=== PATIENT | female | born 1960 | race Caucasian/White ===

== ENCOUNTER → 2018-01-06 10:34 | Outpatient (CLI) | payer OTHER, SELFPAY ==
--- NOTE | 2018-01-06 10:39 | BI_ITS ---
MAMMOGRAPHY - BILATERAL SCREENING REASON FOR EXAM: Female, 57 years old. Routine annual screening examination. PERTINENT HISTORY: Aunt with breast cancer. TECHNIQUE: Digital bilateral breast trevon (3D mammographic acquisition) in the CC and MLO projections. 2-D mediolateral oblique (MLO) and craniocaudad (CC) views of both breasts were obtained. CAD: Full Field Digital Mammography with Computer Added Detection was performed. COMPARISON: Comparison is made with prior study dated November 03, 2016 and May 16, 2014. FINDINGS: Breast Composition: The breasts are almost entirely fatty. There are no dominant masses or suspicious calcifications. There is a 6.5 mm x 6.5 mm well-defined nodule in the superior retroareolar region of the left breast. Correlation with ultrasound is recommended. No other significant abnormalities are identified. BI/SCREENING MAMM (CAD), BILAT IMPRESSION: 6.5 mm x 6.5 mm well-defined nodule in the superior retroareolar region of the left breast as described. Correlation with ultrasound is recommended. ASSESSMENT CATEGORY: BIRADS Category 0: Incomplete. Need additional imaging evaluation. A letter regarding these results will be sent to the patient by the facility within 30 days. Approximately 10% of breast cancers are not detected by mammography. A normal mammogram should not delay biopsy of a clinically suspicious abnormality. [id number] Electronically Signed: Isidro Fernando MD at 15:46 EDT Tel [phone], Service support ,
== END ==
PROVIDERS: Family Provider Family Medicine; PCP Family Medicine
DX: Z12.31 Encounter for screening mammogram for malignant neoplasm of breast (principal)
CPT/HCPCS: 77063; 77067

== ENCOUNTER → 2018-01-12 10:54 | Outpatient (CLI) | payer OTHER, SELFPAY ==
--- NOTE | 2018-01-12 10:56 | US_ITS ---
STUDY: ULTRASOUND BREAST - LEFT REASON FOR EXAM: Female, 57 years old. Abnormal screening mammogram. TECHNIQUE: Axial and longitudinal images of the LEFT breast were performed with a high resolution ultrasound transducer. COMPARISON: Comparison is made with prior mammogram dated January 06, 2018. FINDINGS: LEFT Breast: The mammographic abnormality corresponds to a 6 mm x 7 mm x 4 mm cyst at the lung o'clock position of the breast at 1 cm from the nipple. US/Breast Limited Unilateral IMPRESSION: The mammographic abnormality corresponds to a 6 mm x 7 mm x 4 mm cyst. Routine mammographic follow-up is recommended. ASSESSMENT CATEGORY: BIRADS Category 2: Benign. A letter regarding these results will be sent to the patient by the facility within 30 days. Electronically Signed: Isidro Fernando MD at 13:14 EDT Tel [phone], Service support ,
== END ==
PROVIDERS: Family Provider Family Medicine; PCP Family Medicine
DX: R92.2 Inconclusive mammogram (principal)
CPT/HCPCS: 76642

== ENCOUNTER → 2018-10-06 10:00 | Outpatient (CLI) | payer OTHER, SELFPAY ==
[2018-10-06 12:18] LABS: Absolute Neutrophil Count 2.9 X10^3/uL (2.0-7.7); Basophil# 0.03 X10^3/uL; Basophil% 0.6 % (0-1); Eosinophil# 0.26 X10^3/uL; Eosinophils% 4.8 % (0-5); Hematocrit 40.7 % (37-47); Hemoglobin 13.3 g/dl (12.0-15.0); Lymphocyte % 29.7 % (19-41); Mean Corp Hgb Conc 32.7 g/gl (32-36); Mean Corpuscular Volume 85.7 fL (81-99); Mean Platelet Vol. 9.9 fl (6.2-12.0); Monocyte# 0.54 X10^3/uL; Neutrophil # 2.94 X10^3/uL (2.7-7.7); Neutrophil % 54.7 % (47-70); Platelet Count 308 K/mm3 (150-450); RBC Distribution Width CV 13.8 % (11.6-14.6); RBC Distribution Width SD 43.5 fl (35.1-43.9); Red Blood Count 4.75 M/mm3 (4.2-5.4); White Blood Count 5.4 K/mm3 (4.4-11.0)
[2018-10-06 12:22] LABS: POSITIVE COUNT NO; POSITIVE DIFFERENTIAL NO; POSITIVE MORPHOLOGY NO
[2018-10-06 12:30] LABS: Hemoglobin A1c 5.6 % (4.2-6.3)
[2018-10-06 12:43] LABS: ALB/GLOB Ratio 0.8 RATIO (0.9-2.4); AST(SGOT) 25 U/L (15-37); Alanine Aminotransfer ALT/SGPT 39 U/L (13-56); Albumin, Serum 3.5 g/dL (3.2-5.0); Alkaline Phosphatase 70 U/L (45-117); Anion Gap 5 (5-15); BUN 11 mg/dL (7-18); BUN/Creat Ratio 14.8 RATIO (10-20); Chloride 104 mmol/L (98-107); Cholesterol 186 mg/dL (200); Creatinine, Serum 0.74 mg/dL (0.55-1.02); EST Glomerular Filtration Rate 85 mL/min (>60); Est Glom Filt Rate - Afr Amer 102 mL/min (>60); Globulin 4.2 g/dL (2.2-4.2); Glucose 98 mg/dL (74-106); High Density Lipoprotein 66 mg/dL; Protein, Total 7.7 g/dL (6.4-8.2); Sodium Level 141 mmol/L (136-145); Thyroid Stim Hormone (TSH) 1.08 uIU/mL (0.358-3.74); Triglycerides 89 mg/dL; Very Low Density Lipoprotein 18 mg/dL (5-40)
== END ==
PROVIDERS: Family Provider Family Medicine; PCP Family Medicine; Referring Provider Family Medicine; Visit Provider Family Medicine
DX: Z00.01 Encounter for general adult medical examination with abnormal findings (principal); I10 Essential (primary) hypertension; R73.01 Impaired fasting glucose; D50.9 Iron deficiency anemia, unspecified; E55.9 Vitamin D deficiency, unspecified; E66.9 Obesity, unspecified
CPT/HCPCS: 36415; 80053; 80061; 83036; 84443; 85025

== ENCOUNTER → 2019-01-26 06:30 | Outpatient (CLI) | payer OTHER, SELFPAY ==
--- NOTE | 2019-01-26 06:43 | MRI_ITS ---
STUDY: MRI LEFT ANKLE WITHOUT CONTRAST REASON FOR EXAM: Female, 58 years old. Achilles tendinosis. Heel spur. TECHNIQUE: Standardized fat and water weighted pulse sequences were obtained in all 3 orthogonal planes. COMPARISON: None. FINDINGS: Normal subcutis adipose space. There is accessory navicular incorporated into the distal posterior tibialis tendon. Normal flexor digitorum longus tendon. Normal flexor hallucis longus tendon. Normal peroneus longus and brevis tendons. Normal tibialis anterior tendon. Normal extensor hallucis longus tendon. Normal extensor digitorum longus tendons. There is tendinosis with thickening of the distal Achilles tendon. There are enthesopathic changes of the teno-osseous insertion of the Achilles tendon, without a tendon tear. There is a plantar fasciitis with plantar fascial thickening and fascial edema, but without a focal tear. There is a plantar calcaneal spur, but without cancellous marrow edema. Normal intrinsic muscles of the rearfoot. Normal distal tibiofibular syndesmotic ligamentous complex. Normal lateral ligamentous complex. Normal subtalar ligaments and sinus tarsi. Normal deltoid ligamentous complexes. Normal plantar calcaneonavicular (spring) ligament. Normal tibiotalar articulation. There is subchondral edema of the tibial plafond. There is ossification inferior to the medial malleolus with prior avulsion or chronic impingement. Normal talar dome. Normal subtalar articulations. Normal talonavicular articulation. Normal calcaneocuboid articulation. Normal navicular-cuneiform articulations. MRI/Lower Ext Joint Only (Routine) IMPRESSION: Achilles tendinosis with enthesophyte at the insertion. Plantar fasciitis with heel spur. Prior medial avulsion or chronic impingement. Electronically Signed: Celestine Truong MD at 15:51 EDT , Service support ,
== END ==
PROVIDERS: Family Provider Family Medicine; PCP Family Medicine; Referring Provider Podiatrist; Visit Provider Podiatrist
DX: M76.62 Achilles tendinitis, left leg (principal); M77.32 Calcaneal spur, left foot
CPT/HCPCS: 73721

== ENCOUNTER → 2019-02-07 08:51 | Outpatient (CLI) | payer OTHER, SELFPAY ==
[2019-02-07 12:45] LABS: Absolute Lymphocyte Count 0.97 X10^3/uL (0.83-4.51); Absolute Neutrophil Count 1.7 X10^3/uL (2.0-7.7); Basophil# 0.03 X10^3/uL; Basophil% 0.9 % (0-1); Eosinophil# 0.12 X10^3/uL; Eosinophils% 3.7 % (0-5); Hematocrit 42.6 % (37-47); Hemoglobin 13.7 g/dL (12.0-15.0); Lymphocyte # 0.97 X10^3/ul (4.0); Lymphocyte % 30.2 % (19-41); Mean Corp Hgb Conc 32.2 g/dL (32-36); Mean Corpuscular Hgb 28.1 pg (27.0-32.0); Mean Corpuscular Volume 87.3 fL (81-99); Mean Platelet Vol. 10.2 fl (6.2-12.0); Monocyte# 0.41 X10^3/uL; Monocyte% 12.8 % (0-10); NRBC Flagged by Analyzer 0 % (0-5); Neutrophil # 1.68 X10^3/uL (2.7-7.7); Neutrophil % 52.4 % (47-70); Platelet Count 243 K/mm3 (150-450); RBC Distribution Width CV 13.9 % (11.6-14.6); RBC Distribution Width SD 44.6 fl (35.1-43.9); Red Blood Count 4.88 M/mm3 (4.2-5.4); White Blood Count 3.2 K/mm3 (4.4-11.0)
[2019-02-07 12:56] LABS: ALB/GLOB Ratio 1.1 RATIO (0.9-2.4); AST(SGOT) 24 U/L (15-37); Alanine Aminotransfer ALT/SGPT 33 U/L (13-56); Albumin, Serum 3.8 g/dL (3.2-5.0); Alkaline Phosphatase 65 U/L (45-117); Anion Gap 6 (5-15); BUN 12 mg/dL (7-18); BUN/Creat Ratio 16.9 RATIO (10-20); Calcium,Total 9.4 mg/dL (8.5-10.1); Chloride 104 mmol/L (98-107); Creatinine, Serum 0.71 mg/dL (0.55-1.02); EST Glomerular Filtration Rate 89 mL/min (>60); Est Glom Filt Rate - Afr Amer 108 mL/min (>60); Globulin 3.5 g/dL (2.2-4.2); Glucose 135 mg/dL (74-106); Potassium 3.8 mmol/L (3.5-5.1); Protein, Total 7.3 g/dL (6.4-8.2); Sodium Level 141 mmol/L (136-145)
== END ==
PROVIDERS: Family Provider Family Medicine; PCP Family Medicine; Visit Provider Family Medicine
DX: Z01.818 Encounter for other preprocedural examination (principal)
CPT/HCPCS: 36415; 80053; 85025

== ENCOUNTER 2019-02-16 06:02 | Day surgery (SDC) | payer OTHER, SELFPAY ==
[2019-02-16 06:45] VITALS: BP 140/82; PULSE 51; RESP 15; TEMP 36.6; O2SAT 98; BMI 44.9
[2019-02-16] MEDS: Lactated Ringers 1,000 ML 80 ML IV (06:52)
[2019-02-16] MEDS: Cefazolin 2 GM in 0.9% Normal Saline 100 ML IV (07:26)
[2019-02-16] MEDS: Bupivacaine Mpf 0.5% 30 ML VIAL (07:50)
--- NOTE | 2019-02-16 08:55 | RAD_ITS ---
STUDY: X-RAY - RIGHT CALCANEUS REASON FOR EXAM: Female, 58 years old. Resection of heel spur. TECHNIQUE: 4 C-arm views of the calcaneus were obtained. 24.1 seconds fluoroscopy time. COMPARISON: MRI 01/26/2019. FINDINGS: These limited field of view images show an open surgical wound posterior to the calcaneus, and resection of Achilles enthesopathy. Correlate with procedure note. Electronically Signed: Tha Mayfield MD at 17:06 EDT , Service support , RAD/Calcaneus min 2 Views
--- NOTE | 2019-02-16 10:07 | DCINST_ITS ---
Discharge Activity: May Not Drive Ice area for (Minutes): 15 - place behind knee Weight Bearing Status: No weight bearing Call your doctor if your incision/area has: Continuous Slow Oozing, Sudden Increased Bleeding, Increased Pain/ Swelling, Increased Redness, Foul Smelling Discharge, Swelling at the incision site Call your doctor if you observe: Fever of 101 or Higher, Calf discomfort, Uncontrolled pain Cleanse incision/area with: Keep Dressing Clean & Dry Allergies/Adverse Reactions: Allergies eprosartan [From [place]] Allergy (Verified 02/16/19 06:44) Other severe joint pain Medications to take at Discharge Atenolol [Tenormin (Beta [place]ana)] 50 mg PO BID 02/12/19 Escitalopram Oxalate [Lexapro] 10 mg PO DAILY 02/12/19 Hydrochlorothiazide [Hctz] 25 mg PO DAILY 02/12/19 Primary Care Physician: Jeffry Nichole DO [Primary Care Provider] - Test Results: Test results from this visit will be discussed in further detail at your follow- up appointment, if applicable. Please Follow Up With: Beverley Vega DPM When: [facility]. Call [phone] sooner if questions. Proposed Discharge Date: 02/16/19
--- NOTE | 2019-02-16 10:09 | OP.PCM_ITS ---
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 Left gastrocnemius equinus Post-Operative Diagnosis: Left lower extremity chronic Achilles tendinitis with retrocalcaneus exostosis and halgund deformity. Left gastrocnemius equinus Surgery/Procedure Performed:: 1. Left endoscopic gastrocnemius recession. 2. Left calcaneus exostectomy with de and reattachment of the Achilles tendon with bone anchors Description of Surgical Findings:: Hemostasis: Controlled with well-padded pneumatic thigh tourniquet 53 minutes, 315 mmHg Materials: Arthrex Achilles speed bridge including FiberWire and 4 anchors, 3-0 vicryl, 4-0 nylon Specimens: None Complications: None Patient tolerated the procedure and anesthesia well. She was transported to the PACU with vital signs stable and vascular status intact to the left lower extremity. She will be discharged home upon continued stability. Intraoperative fluoroscopy was used after the surgery was completed to confirm adequate resection of the painful posterior calcaneus spur and Sloane deformity. The bone anchor placement was also confirmed and there were no acute injuries. Her postoperative orders were entered electronically. grain operations manager: none - surgeon: Beverley Vega DPM Software Configuration Manager: Brandi Mcgee PGY2 Type of Anesthesia:: General, Local - Preoperative: One-to-one mixture of 1% lidocaine plain and 0.5% Marcaine plain administered in partial left ankle block fashion with omission of the deep peroneal and dorsal intermediate cutaneous nerve branches, 17 cc Intraoperative: 7 cc of 1% lidocaine with epinephrine administered to gastrocnemius recession site Postoperative: 10 cc of one-to-one mixture of 1% lidocaine plain and 0.5% Marcaine plain administered with local infiltration to the Achilles insertional repair site Specimen's removed: none Estimated Blood Loss (mL): < 50 mL Description of Procedure: Indications: This 58-year-old female with significant past medical history of depression and hypertension continues to complain of chronic posterior left heel pain. She has pain and limitations with daily activities including walking and standing. Her pain is also aggravated with direct touch. She failed conservative care including change in shoes, insoles, rest, offloading with aperture pads, heel li fts, shockwave therapy, immobilization, stretching / strengthening exercises, and pain / anti inflammation medication. Preoperative x-rays demonstrate Sloane deformity with a prominent posterior superior calcaneal margin. There is also insertional Achilles exostosis noted to the posterior central and lateral aspect clinically and radiographically. No other acute injuries are noted. Her calcaneal inclination angle was also normal. There were not any bone cysts or other trabecular irregularities of the calcaneus noted on xrays. She has pain on palpation mainly to the posterior central Achilles insertion area and also at the retrocalcaneal bursa site of the left lower extremity. She has reduced ankle dorsiflexion of -5 degrees with the knee extended of the left lower extremity. Her preoperative MRI demonstrated exostosis to the posterior Achilles insertion on the calcaneus with insertional calcification. There is also a prominent posterior superior calcaneus tuberosity with inflammation to the retrocalcaneal bursa. There is no distinct Achilles tears or rupture. There is thickening of the insertional Achilles tendon noted. There is no bone marrow edema to the calcaneus. The preoperative indication, planned procedure, possible benefits, risk, complications, and anticipated healing time and management were discussed in detail the patient. She understands and elects to proceed with surgery at this time. No guarantees were made. She understands risks and complications may include but are not limited to the following: pain, swelling, scarring, over under correction, allergic reaction, blood clot, need for further surgery, delayed or nonhealing of the incision or bone, hardware failure, recurrence, loss of limb, function, life. The informed surgical consent and limb were signed. Her preoperative clearance was obtained by her primary care physician and her preoperative diagnostic data including CBC, CMP, and EKG were reviewed without gross abnormality. I answered her questions. Procedure in detail: The patient was transported to the operating room via cart. General anesthesia was initiated by the anesthesia team. She was then carefully placed on the operating table in the prone position in a well-padded and protected manner. Preoperative IV antibiotics were administered. A well-padded pneumatic left thigh tourniquet was placed. The left lower extremity was prepped and draped in the usual aseptic manner. Local anesthetic was administered at this time by the podiatry team. Surgery began in the following manner. The medial gastrocnemius head was marked and a one centimeter linear incision was made along the medial border of the gastrocnemius aponeurosis several centimeters distal to the medial gastrocnemius head. Blunt dissection was performed down to identify the gastrocnemius aponeurosis border. Next a metallic plane finder was entered between the gastrocnemius aponeurosis and the superficial fascial layer in which a stab incision was made laterally to allow this to exit. The endoscopic cannula was next entered. Next, the arthroscopy camera was entered through the cannula and the viewing field was cleansed with cotton tip applicators and a rasp. The gastrocnemius aponeurosis was clearly identified without evidence of entrapped neurovascular structures along the entire course. Next an endoscopic blade was entered and this was carefully released with the foot in a dorsiflexed position until the underlying soleus muscle belly was visualized. Intraoperative pictures were taken to capture the full release of this structure. Improved ankle dorsiflexion was noted after this was performed. This surgical site irrigated with saline. Minimal Vicryl suture was used to reapproximate the deep part of the medial portal site. The skin was reapproximated with nylon sutures utilizing horizontal mattress technique. Attention was next directed to the posterior aspect of the left heel. An Esmarch bandage was used to exsanguinate the left lower extremity and the tourniquet was inflated at this time. A curvilinear incision was made through the skin in a favored medial manner. Minimal blunt dissection was performed down to the Achilles tendon level taking care to create a full-thickness flap and to allow good exposure to the preoperatively marked sites of pain. A new 15 blade was used next to reflect the Achilles tendon off of the posterior tubercle of the calcaneus to allow good exposure. The prominent hypertrophic posterior heel spur was identified and was resected with a sagittal saw and rongeur; this measured approximately 2 1/2 cm x 2 1/2 cm x 1 cm. This was further rasped down until smooth. Intraoperative fluoroscopy was used to confirm adequate resection. It is noted the clinically marked area of palpation pain was also smoothed and there was no longer a prominent bone remaining. The Achilles tendon appeared to be overall intact without additional tears or hypertrophy. The retrocalcaneal bursa that was inflamed clinically and also an MRI exam was also excised with a rongeur. This was copiously irrigated with normal saline. Next the swivel lock anchors were entered to apply the speed bridge with the fiber tape according to standard protocol. The two proximal anchors were applied approximately 1 cm proximal to the distal most insertion point of the Achilles. This was performed successfully in a non divergent manner according to standard protocol. The Achilles was noted to be in a good resting tension position. A free 2-0 fiber wire was used to additionally augment this repair site just proximal to the bone anchors. The remaining two distal anchors were applied to the distal posterior aspect of the calcaneus. The fiber wires were laying flat and there were no palpable prominent soft tissue or bone remaining. Solid fixation was achieved. Proper positioning and adequate spur resection was confirmed with intraoperative fluoroscopy. No acute injuries were noted. The tendon was anchored down in a balanced tendon position. The tourniquet was deflated at this time and brisk capillary refill time was noted to all digits of the left foot and also to all incisional margin sites. Postoperative injection was also administered this time. Deep closure was achieved with 3-0 Vicryl and the skin was reapproximated with 4-0 nylon utilizing horizontal mattress technique. Care was taken to use no touch technique. A postoperative dressing was applied including jumpstart silver impregnated dressing, 4 x 4 gauze, abdominal pad, Kerlix, and webril. A well-padded pneumatic left lower extremity splint was applied with the foot in a slightly plantarflexed position and further secured with LORENA wrap. Care was taken to create an offloading pocket to keep pressure off of the achilles repair site. After procedure: The patient tolerated the procedure and anesthesia well. She was transported to the PACU with vital signs stable and vascular status intact to left lower extremity. She was advised to ice and elevate for pain and inflammation management. She was advised to remain nonweightbearing to the left lower extremity with the posterior mold splint in place and the use of crutches or walker for assistance. She will take [place] as needed for pain control and was advised on safe and proper use. She was advised to keep the dressing and splint intact until [facility]. Postoperative x- rays were already reviewed. No specimens were sent. Her postoperative orders were entered electronically. Beverley Vega DPM, [facility] Grafts/Implants Used: arthrex - Complications none - Admit VTE Documentation VTE Present on Admission: No VTE Mechan Device Prophylaxis: SCD's, None Reason prophylaxis not ordered:: Procedure Not Indicated
[2019-02-16 10:10] VITALS: BP 140/82; BP 153/74; PULSE 59; RESP 16; TEMP 36.3; O2SAT 100
[2019-02-16 10:15] VITALS: BP 140/82; BP 142/83; PULSE 57; RESP 16; O2SAT 100
[2019-02-16 10:30] VITALS: BP 140/82; BP 158/90; PULSE 55; RESP 16; O2SAT 100
[2019-02-16 10:41] VITALS: BP 140/82; BP 164/83; PULSE 53; RESP 16; TEMP 36.2; O2SAT 100
[2019-02-16 11:40] VITALS: BP 134/66; BP 140/82; PULSE 46; RESP 14; TEMP 36.5; O2SAT 96
== END 2019-02-16 12:07 | disposition home or self-care (01) ==
LOC: SDC 06:02 → AC 06:03
PROVIDERS: Family Provider Family Medicine; PCP Family Medicine; Referring Provider Podiatrist; Visit Provider Podiatrist
PROC: (CPT 29999; principal; 2019-02-16 07:15)
DX: M76.62 Achilles tendinitis, left leg (principal); M67.88 Other specified disorders of synovium and tendon, other site; M77.32 Calcaneal spur, left foot; I10 Essential (primary) hypertension; K21.9 Gastro-esophageal reflux disease without esophagitis; Z85.89 Personal history of malignant neoplasm of other organs and systems; D72.819 Decreased white blood cell count, unspecified
CPT/HCPCS: 28108; 29999; 73650; 76000; C1713; J7120; J2405

== ENCOUNTER 2019-05-04 09:00 | Outpatient (RCR) | payer OTHER, SELFPAY ==
--- NOTE | 2019-04-05 08:55 | HP.PTEVAL_ITS ---
Patient's Visit Information SHERRELL JADE is a 58 year old F referred to Physical Therapy by Beverley Vega DPM with a diagnosis of Heel Spur Resection, Achilled Reattatchment, Gastroc Recession. Date of Evaluation: 04/05/19 Physical Therapist: Sagrario Heath DPT - Visit Plan Frequency: 2x /Week Duration: 4 Weeks Plan: Patient to attend PT after clearance from MD to be in tennis shoe- focus on ROM, strength and functional moibility. HEP given 04/05: 4 way Tband with BTB, Gastroc Stretch with Towel - Subjective Findings: Last February started having left heel pain- has had plantar fasciitis before and wears orthotics but this was different. 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 Sent her to Dr. Vega. Put her in a boot and anti-inflammatories until December. It was not getting any better- had an MRI and determined that she needed to clean things up. Surgery at [facility] February 16, 2019- NWB with a scooter and boot for 4 weeks. She had a spot on the incision that was not healing so she did the healing from the inside out with the hydrogel. Healed up now but keeps a bandied across so it does not rub. She is now walking with just a boot and the wedge. Goes back to see Apr 10. Worst: 6/10 Agg: walking, standing. Once she is off the foot for 30 min the pain is 0/10. Pain is located right below the incision site- padded area of the heel. No radiating pain. Describes the pain as dull an achy- No N/T. 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 Can return to work in the boot. PMHx/Meds: no changes since at the hospital. Goals: get back to all her normal stuff- has lost 22lbs with a bariatric surgeon- plans to do a gastric sleeve in May. More sedentary in her life outside of work but wants to be more active. Does not wear her boot at home- wears regular shoes with orthotics. - Objective Posture: FH, RS- can correct but does not maintain. Gait: no AD- CAM walker on the left LE- does wear a shoe elevator on the other side to decrease the sway. HR/TR: able with slight discomfort with heel raise. SLS: 3 sec then LOB no pain reported. Observation: well healed incision- does have bandaid at end for protection- dry skin. ROM: DF: 5 degrees, PF: 60 degrees, Ever: 30 degrees, Inver: 50 degrees. Strength: Ankle: 4+/5, Knee: 5/5, Hip: 4+/5, Core: fair. Flex: Gastroc: moderate, Hamstring: moderate. Girth: Figure 8: 57 cm, Malls: 31.5 - Goals Goal 1:: Patient will be I with HEP and progression Goal Time Frame: 4-6 Weeks Goal 2:: Patient will ambulate >300 feet with a normalized gait pattern Goal Time Frame: 4-6 Weeks Goal 3:: Patient will SLS for 15 sec before LOB Goal Time Frame: 4-6 Weeks Goal 4:: Patient will report 0/10 pain for 1 week with normal ADL's. Goal Time Frame: 4-6 Weeks - Rehabilitation Potential Physical Therapy Diagnosis: Patient presents with hypmobility- she has decreased ROM, strength, flex and muscular endurance leading to abnormal gait and increased pain with ADL's. Rehabilitation Potential: Good - Anticipated Interventions Patient/Client Instruction: Educate patient on: Benefits of Fitness Program Therapeutic Exercise to Include: Strength training, Endurance training, Balance training, Coordination, Agility training, Body mechanics, Postural training, Flexibilty training, Gait and locomotor training, Passive ROM, Active ROM, Dynamic Lumbar Stabilization For the Purpose of:: To improve muscle performance and motor function TENS: Yes Cryotherapy (ice pack, ice massage): Yes Thermo therapy (hot pack): Yes Ultrasound (thermal/non thermal): No Thank you for the opportunity to evaluate your patient. For Medicare and Medicare HMO plans, please review the plan of care and approve it. It will need to be FAXED BACK to us at [phone] for Medicare purposes. For Medicare only, by signing this I certify the plan of care. Please let me know if there are questions or concerns regarding this plan of care. Physician Signature: Date:
--- NOTE | 2019-05-04 09:34 | HP.PTDCSUM_ITS ---
HP - PT D/C Summary It has been my pleasure to treat SHERRELL JADE under orders from Beverley Vega DPM, for the diagnosis of Heel Spur Resection, Achilled Reattatchment, Gastroc Recession for a total of 7 visit(s). Discharge Date: Please see the following information for a summary of their discharge status. - Subjective Subjective: Worked yesterday 12 hours in a shoe and was sore at end of the shift the bottom of the heel 4-5/10. As soon as she put her foot up and iced it the pain went away. No ankle brace but did use the lift- new shoes. No pain in the achilles just in the bottom since surgery. She feels that she can continue home exercise program. - Overall Improvement % Improvement: 90 - Objective Objective/Function: Posture: FH, RS- can correct but does not maintain. Gait: no AD- tennis shoe- decrease heel/toe strike and decreased stance on left LE HR/TR: able no pain SLS: 5 sec then LOB no pain reported. Observation: well healed incision ROM: DF: 14 degrees, PF: 60 degrees, Ever: 30 degrees, Inver: 50 degrees. Strength: Ankle: 5/5, Knee: 5/5, Hip: 4+/5, Core: fair. Flex: Gastroc: moderate, Hamstring: moderate. Girth: Figure 8: 56 cm, Malls: 30 Mets: 22.5 cm - Goals Goal 1:: Patient will be I with HEP and progression Goal Progress: Goal Met Goal 2:: Patient will ambulate >300 feet with a normalized gait pattern Goal Progress: Progressing Goal 3:: Patient will SLS for 15 sec before LOB Goal Progress: Progressing Goal 4:: Patient will report 0/10 pain for 1 week with normal ADL's. Goal Progress: Progressing - Plan Plan: Discharge to [facility] per patient request - D/C Information If there are questions or concerns regarding this patient's physical therapy, please feel free to call me at [phone]. Thank you for the referral of this patient. Sincerely, Sagrario Heath DPT
== END 2019-05-04 10:36 | disposition home or self-care (01) ==
LOC: PT 09:00
PROVIDERS: Family Provider Family Medicine; PCP Family Medicine; Referring Provider Podiatrist; Visit Provider Podiatrist
DX: Z98.890 Other specified postprocedural states (principal)
CPT/HCPCS: 97110; 97161; 97164

== ENCOUNTER → 2019-05-21 15:10 | Outpatient (CLI) | payer OTHER, SELFPAY ==
--- NOTE | 2019-05-21 15:15 | BI_ITS ---
MAMMOGRAPHY - BILATERAL SCREENING REASON FOR EXAM: Female, 59 years old. Routine annual screening examination. PERTINENT HISTORY: Grandmother with breast cancer. TECHNIQUE: Digital bilateral breast alex (3D mammographic acquisition) in the CC and MLO projections. 2-D mediolateral oblique (MLO) and craniocaudad (CC) views of both breasts were obtained. CAD: Full Field Digital Mammography with Computer Added Detection was performed. COMPARISON: Comparison is made with prior study to January 06, 2018 and November 03, 2016. FINDINGS: Breast Composition: The breasts are almost entirely fatty. There are no dominant masses or suspicious calcifications. The previously seen 6.5 mm nodule in the superior retroareolar region of the left breast is not seen at this time this was demonstrated to be a cyst on prior sonogram. No other significant abnormalities are identified. BI/SCREEN MAMM (CAD) W/ALEX BILAT IMPRESSION: Stable bilateral screening mammogram. Yearly follow-up mammogram recommended. (A) ASSESSMENT CATEGORY: BIRADS Category 2: Benign. A letter regarding these results will be sent to the patient by the facility within 30 days. Approximately 10% of breast cancers are not detected by mammography. A normal mammogram should not delay biopsy of a clinically suspicious abnormality. [id number] Electronically Signed: Isidro Fernando, at 8:57 EST , Service support ,
== END ==
PROVIDERS: PCP Family Medicine; Referring Provider Obstetrics & Gynecology; Visit Provider Obstetrics & Gynecology
DX: Z12.31 Encounter for screening mammogram for malignant neoplasm of breast (principal)
CPT/HCPCS: 77063; 77067

== ENCOUNTER → 2019-09-18 11:43 | Outpatient (CLI) | payer OTHER, SELFPAY ==
[2019-09-18 15:04] LABS: Absolute Lymphocyte Count 1.61 X10^3/uL (0.83-4.51); Absolute Neutrophil Count 4.3 X10^3/uL (2.0-7.7); Basophil# 0.03 X10^3/uL; Basophil% 0.5 % (0-1); Eosinophils% 1.5 % (0-5); Hematocrit 41.1 % (37-47); Hemoglobin 13.2 g/dL (12.0-15.0); Lymphocyte # 1.61 X10^3/ul (4.0); Lymphocyte % 24.4 % (19-41); Mean Corp Hgb Conc 32.1 g/dL (32-36); Mean Corpuscular Hgb 28.3 pg (27.0-32.0); Mean Corpuscular Volume 88.2 fL (81-99); Mean Platelet Vol. 10.4 fl (6.2-12.0); Monocyte# 0.55 X10^3/uL; Monocyte% 8.3 % (0-10); NRBC Flagged by Analyzer 0 % (0-5); Neutrophil # 4.31 X10^3/uL (2.7-7.7); Neutrophil % 65.1 % (47-70); Platelet Count 321 K/mm3 (150-450); RBC Distribution Width CV 13.5 % (11.6-14.6); RBC Distribution Width SD 43.2 fl (35.1-43.9); Red Blood Count 4.66 M/mm3 (4.2-5.4); White Blood Count 6.6 K/mm3 (4.4-11.0)
[2019-09-18 15:23] LABS: AST(SGOT) 22 U/L (15-37); Alanine Aminotransfer ALT/SGPT 34 U/L (13-56); Albumin, Serum 3.9 g/dL (3.2-5.0); Alkaline Phosphatase 78 U/L (45-117); Anion Gap 9 (5-15); BUN 18 mg/dL (7-18); BUN/Creat Ratio 22.1 RATIO (10-20); Calcium,Total 9.7 mg/dL (8.5-10.1); Chloride 100 mmol/L (98-107); Creatinine, Serum 0.81 mg/dL (0.55-1.02); EST Glomerular Filtration Rate 76 mL/min (>60); Est Glom Filt Rate - Afr Amer 92 mL/min (>60); Glucose 76 mg/dL (74-106); Potassium 3.8 mmol/L (3.5-5.1); Protein, Total 7.9 g/dL (6.4-8.2); Sodium Level 138 mmol/L (136-145)
[2019-09-18 15:26] LABS: Hemoglobin A1c 5.2 % (3.8-5.6)
== END ==
PROVIDERS: PCP Family Medicine; Visit Provider Family Medicine
DX: Z01.818 Encounter for other preprocedural examination (principal); R73.01 Impaired fasting glucose; R73.03 Prediabetes
CPT/HCPCS: 36415; 80053; 83036; 85025

== ENCOUNTER 2021-02-21 19:38 | Emergency (ER) | payer OTHER, SELFPAY ==
[2021-02-21 19:39] VITALS: BP 172/99; PULSE 65; RESP 18; TEMP 35.7; O2SAT 97; BMI 35.4
--- NOTE | 2021-02-21 20:20 | RAD_ITS ---
STUDY: X-RAY - LEFT ANKLE REASON FOR EXAM: Female, 60 years old. injury TECHNIQUE: 3 view(s) of the ankle. COMPARISON: None. FINDINGS: Diffuse osteopenia. Nondisplaced distal fibular fracture with overlying soft tissue swelling. Normal tibiotalar articulation and ankle mortise. Calcaneal spur. The visualized subtalar, talonavicular, calcaneocuboid and tarsal articulations are normal. Diffuse soft tissue swelling. RAD/Ankle min 3 Views IMPRESSION: BARRAZA B distal fibular fracture. Electronically Signed: Marco Olivares MD (Brooks) at 20:45 EDT , Service support ,
--- NOTE | 2021-02-21 21:50 | ED.VIS.LOWEX ---
HPI History of Present Illness Chief Complaint: Lower Extremity Injury Informant: patient Occured/Mechanism Mechanism/Context: Yes fall Onset/Context/Timing Onset: Today Current Severity: Moderate Maximum Severity: Moderate Narrative Narrative: Patient presents secondary to fall with left ankle injury. She was walking along a curb in the dark when she stepped off the edge of the curb rolling her ankle and falling. She is complaining of pain to the left ankle having difficulty with weightbearing. Of note she did have surgery on her Achilles tendon on that same side 2 years ago. [facility] Medical History Achilles tendon injury Hypertension Home Medications atenolol 50 mg PO BID 02/12/19 [History Last Taken 02/16/19 05:00] escitalopram oxalate 5 mg PO DAILY 02/12/19 [History Last Taken Unknown] hydrochlorothiazide 25 mg PO DAILY 02/12/19 [History Last Taken Unknown] topiramate 25 mg PO BID 02/21/21 [History Last Taken Unknown] Allergy/AdvReac Type Severity Reaction Status Date / Time eprosartan [From [place]] Allergy Other Verified 02/21/21 19:39 Surgical History H/O gastric sleeve Social History Smoking Status: Never smoker ROS ROS ED Constitutional Constitutional ED: Denies chills or fever(s) Eyes Eyes: Denies change in vision ENT ENT ED: Denies sore throat Cardiovascular Cardiovascular: Denies chest pain Respiratory/Chest Respiratory/Chest: Denies cough or dyspnea Gastrointestinal Gastrointestinal: Denies abdominal pain, diarrhea, nausea or vomiting Genitourinary Genitourinary ED: Denies dysuria Musculoskeletal Musculoskeletal: Reports arthralgias; Denies back pain Integumentary Denies rash Neurologic Neurologic: Denies headache(s) or weakness Allergic/Immunologic Allergic/Immunologic ED: Denies urticaria EXAM Physical Exam Const Vital Signs: 02/21/21 19:39 02/21/21 22:31 Temperature 96.2 F L Temperature Source Temporal Pulse Rate 65 65 Respiratory Rate 18 18 Blood Pressure 172/99 H Blood Pressure Mean 123 Pulse Ox 97 97 Oxygen Delivery Method Room Air Positive well nourished and well developed General Appearance ED: well developed HEENT Reports normocephalic and head/scalp atraumatic Eyes PERRL and EOMs intact bilaterally Neck supple Chest Wall inspection of chest normal and palpation of chest normal Resp normal respiratory effort and clear to auscultation bilaterally Cardio regular rate and regular rhythm GI normal to inspection, nondistended, normoactive bowel sounds Palpation: soft Extremity Extremity Narrative: Tenderness location and edema noted to the lateral malleolus of the left ankle. Strong distal pulses with no pain over the foot itself. No tenderness at the knee or proximal fibula. Neuro oriented x3 and no sensory deficits noted Sensorium / Orientation: alert Motor Exam: strength 5/5 throughout Psych mental status grossly normal Skin no rashes or lesions noted MDM MDM MDM Narrative Medical decision making narrative: Patient declined anything for pain. Left ankle x-rays obtained. Radiography Diagnostic Testing: Clinical Impression(s) from Imaging Studies Ankle X-Ray 02/21/21 20:20 IMPRESSION: BARRAZA B distal fibular fracture. Electronically Signed: Marco Olivares MD (Brooks) at 20:45 EDT , Service support , Treatment and Re-Evaluation Comments:: Left ankle x-rays are consistent with a distal fibular fracture. Radiologist rotation is reviewed. Test results reviewed with patient and at bedside. She is placed in a walking boot and made nonweightbearing. She is given crutches. Patient had surgery with Dr. Vega in the past. I spoke with Dr. Cottrell, on-call for her tonight. Patient be seen in the office this week for follow-up. Discharge Plan Triage Chief Complaint: Lower Extremity Injury ED Provider: Olga Almodovar Dx/Rx/DC Orders Clinical Impression: Ankle fracture Instructions: ED Ankle Fracture, Distal Fibula Prescriptions: No Action hydrochlorothiazide 25 MG tablet 25 mg PO DAILY RF: 0 atenolol 50 MG tablet 50 mg PO BID RF: 0 escitalopram oxalate 10 MG tablet 5 mg PO DAILY RF: 0 topiramate 25 mg Tablet 25 mg PO BID RF: 0 Primary Care Provider: Jeffry Nichole Referrals: Beverley Vega DPM [STAFF PHYSICIAN] - 3-5 Days Jeffry Nichole DO [Primary Care Provider] - Disposition Disposition: Home, Self Care Discharge Date/Time: 02/21/21 22:32
[2021-02-21 22:31] VITALS: PULSE 65; RESP 18; O2SAT 97
== END 2021-02-21 22:32 | disposition home or self-care (01) ==
PROVIDERS: Emergency Provider Emergency Medicine; PCP Family Medicine
DX: S82.832A Other fracture of upper and lower end of left fibula, initial encounter for closed fracture (principal); W17.89XA Other fall from one level to another, initial encounter; Y93.01 Activity, walking, marching and hiking; Y92.480 Sidewalk as the place of occurrence of the external cause; Y99.9 Unspecified external cause status; I10 Essential (primary) hypertension
CPT/HCPCS: 73610; 99283

== ENCOUNTER → 2021-04-03 08:36 | Outpatient (CLI) | payer OTHER, SELFPAY ==
[2021-04-03 10:33] LABS: Vitamin D,25 Hydroxy 35.6 ng/mL
== END ==
PROVIDERS: PCP Family Medicine; Referring Provider Podiatrist; Visit Provider Podiatrist
DX: E55.9 Vitamin D deficiency, unspecified (principal)
CPT/HCPCS: 36415; 82306

== ENCOUNTER 2022-02-24 11:54 | Inpatient (IN) | payer OTHER, SELFPAY ==
[2022-02-24] VITALS (25 sets, daily range): BP systolic 117–223; BP diastolic 70–113; PULSE 47–62; RESP 14–20; TEMP 36–36.8; O2SAT 94–99; BMI 41.7; BMI 39.2
--- NOTE | 2022-02-24 11:55 | EKG12_ITS ---
Test Reason : CP Blood Pressure : / mmHG Vent. Rate : 047 BPM Atrial Rate : 047 BPM P-R Int : 144 ms QRS Dur : 080 ms QT Int : 484 ms P-R-T Axes : 000 147 117 degrees QTc Int : 428 ms Suspect arm lead reversal, interpretation assumes no reversal Sinus bradycardia Lateral infarct , new Abnormal ECG When compared with ECG of 26-MAY-2005 10:19, QRS axis Shifted right Acute Lateral infarct is now Present Confirmed by MELVIN JENSEN, BRANDON ([id number]), greeting card editor PATRICIA CRUZ ([id number]) on 02/27/2022 7:28:08 AM Referred By: Layton Petty Confirmed By:BRANDON CHARLES MD
--- NOTE | 2022-02-24 12:09 | ED.VIS.CHEST ---
HPI History of Present Illness Chief Complaint: Chest Pain Informant: patient Onset/Context/Timing Onset: Today Activity at onset: gradual Timing: Continuous Quality: Positive for Aching Location: Substernal, Left Parasternal and - (Left neck and jaw) Worsened By: Nothing Relieved By: Nothing Associated Symptoms: Positive for Nausea, Lightheadedness and Palpitations; Negative for Vomiting, Diaphoresis, Dyspnea, Cough, Fever or Acid Reflux Narrative Narrative: Patient presents with chest pain that began approximately 45 minutes prior to arrival. Patient states that came on gradually. Patient states she woke up today and did not feel right. Patient states she has some aching in her chest. Patient states it goes up into her neck and jaw. Patient states it does also go into her back between her shoulder blades. Patient states nothing makes it better nothing makes it worse. Patient admits to some nausea but denies any vomiting. Patient admits to some lightheadedness but denies any syncopal episodes. Patient admits to some palpitations. Patient denies any shortness of breath or diaphoresis. CVD Risk Factors: Positive for Hypertension and Family History 1' </=55; Negative for Diabetes, Hypercholesterolemia or Smoking PE Risk Factors: Positive for Cancer; Negative for Recent Travel/Surgery, Recent Immobilization, Prior DVT or PE or OCP + Smoking + >/=35 PFSH PFSH Medical History Achilles tendon injury Hypertension Home Medications atenolol 50 mg tablet 50 mg PO DAILY 02/12/19 [History Last Taken 02/16/19 05:00] escitalopram oxalate 10 mg tablet 5 mg PO DAILY 02/12/19 [History Last Taken Unknown] hydrochlorothiazide 25 mg tablet 25 mg PO DAILY 02/12/19 [History Last Taken Unknown] Allergy/AdvReac Type Severity Reaction Status Date / Time eprosartan [From [place]] Allergy Other Verified 02/24/22 11:55 Surgical History H/O gastric sleeve Social History Smoking Status: Never smoker ROS ROS ED Constitutional Constitutional ED: Denies chills or fever(s) Eyes Eyes: Denies blurry vision or change in vision ENT ENT ED: Denies rhinorrhea or sore throat Cardiovascular Cardiovascular: Reports chest pain and palpitations Respiratory/Chest Respiratory/Chest: Denies cough or dyspnea Gastrointestinal Gastrointestinal: Reports nausea; Denies abdominal pain or vomiting Genitourinary Genitourinary ED: Denies dysuria or hematuria Musculoskeletal Musculoskeletal: Reports back pain and neck pain Integumentary Denies abscess or rash Neurologic Neurologic: Denies headache(s) or weakness Allergic/Immunologic Allergic/Immunologic ED: Denies mouth swelling or urticaria EXAM Physical Exam Const Vital Signs: 02/24/22 11:55 02/24/22 12:22 02/24/22 12:22 Temperature 98.0 F Temperature Source Temporal Pulse Rate 49 L Respiratory Rate 14 Respiratory Effort Normal Non-Labored Blood Pressure 223/93 H Blood Pressure Mean 136 Pulse Ox 98 Oxygen Delivery Method Room Air Room Air 02/24/22 12:34 Temperature Temperature Source Pulse Rate Respiratory Rate 18 Respiratory Effort Blood Pressure 213/113 H Blood Pressure Mean Pulse Ox Oxygen Delivery Method Positive well nourished, well developed and obese General Appearance ED: well developed Nutritional Appearance: obese HEENT normocephalic and atraumatic Eyes PERRL and EOMs intact bilaterally Neck supple and no JVD Chest Wall palpation of chest normal Resp normal respiratory effort and clear to auscultation bilaterally Effort and Inspection: Negative for respiratory distress Cardio regular rhythm and no murmurs Rate: bradycardia GI normal to inspection, nondistended, normoactive bowel sounds, soft to palpation, non-tender and non-distended Extremity normal to inspection General Extremety ED: Negative for edema or tenderness General Extremity: Negative for edema Neuro oriented x3, CN's II-XII intact bilaterally and no sensory deficits noted Sensorium / Orientation: awake and alert Motor Exam: strength 5/5 throughout Psych mental status grossly normal MDM MDM MDM Narrative Medical decision making narrative: EKG was obtained. On my interpretation, it shows sinus bradycardia with a rate of 47. MI interval, QRS normal, QTC intervals are within normal limits. There is right axis deviation at 147. There are nonspecific ST-T wave changes in the inferior and lateral leads. Patient was given aspirin. Because of the inferior changes and bradycardia, I did not want to give the patient nitroglycerin. Patient was still having some pain. EKG was repeated. On my interpretation, shows sinus bradycardia with a rate of 49. MI interval, QRS interval, and QTc intervals are normal. [place] is normal. There is ST elevation in leads II, III, and aVF. There are reciprocal changes in leads I, aVL, V1, and V2. STEMI alert was called. Patient was given heparin, Brilinta, and Zofran. Dr. Petty from cardiology was in to evaluate the patient and will take patient to the Consulting Actuary. Patient was advised of the need for emergent cardiac catheterization. Patient is agreeable with this. All questions were answered. Case was also discussed with the hospitalist. He will admit the patient to ICU after the Consulting Actuary. Radiography Chest X-Ray - ED: 1 View, Read by ED Physician, Read by Radiologist and No Acute Disease Diagnostic Testing: Clinical Impression(s) from Imaging Studies Chest X-Ray 02/24/22 12:22 IMPRESSION: No acute pulmonary process Electronically Signed: Mateo Wright MD at 12:33 EDT Reading Location ID and State: [facility] / [place] , Service support , EKG Initial EKG: Attestation: I personally reviewed and interpreted this EKG as follows: Interpretation: Sinus Bradycardia (47) Prior EKG tracings: not available for review Prior: No Prior Follow-up EKG: Attestation: I personally reviewed and interpreted this EKG as follows: Interpretation: Sinus Bradycardia (49) and S-T Elevation (Leads II, III, and aVF) Critical Care Time Critical Care Time: Yes Critical care time (excluding procedures): 30-74 minutes (35), Including time spent:, Discussing w/Patient &/or Family/Production Control Analyst, Discussing w/Consultants, Arranging Admission or Transfer and Performing Direct Patient Care at Bedside Discharge Plan Triage Chief Complaint: Chest Pain ED Provider: Tony Naylor Dx/Rx/DC Orders Prescriptions: No Action hydrochlorothiazide 25 MG tablet 25 mg PO DAILY atenolol 50 MG tablet 50 mg PO DAILY escitalopram oxalate 10 MG tablet 5 mg PO DAILY Primary Care Provider: Jeffry Nichole Referrals: Jeffry Nichole DO [Primary Care Provider] - Disposition Disposition: Acute Care [facility]
[2022-02-24] MEDS: Aspirin 81 MG TAB.CHEW 324 MG PO (12:19)
--- NOTE | 2022-02-24 12:22 | RAD_ITS ---
STUDY: X-RAY CHEST REASON FOR EXAM: Female, 61 years old. Chest pain TECHNIQUE: Single AP portable view of the chest. COMPARISON: None. FINDINGS: EKG leads overlying the chest The lungs are clear and expanded. There is no demonstrated pleural abnormality. Normal size heart. Normal mediastinum and erma. Normal visualized pulmonary arteries. Normal visualized aortic arch and descending thoracic aorta. There are diffuse degenerative changes of the visualized thoracic spine. Normal visualized ribs, clavicles, and shoulders. There is no demonstrated abnormality of the visualized soft tissue structures of the upper abdomen. RAD/Chest 1 View (Portable) IMPRESSION: No acute pulmonary process Electronically Signed: Mateo Wright MD at 12:33 EDT ,
[2022-02-24 12:25] LABS: Absolute Neutrophil Count 4.8 X10^3/uL (2.0-7.7); Basophil# 0.06 X10^3/uL; Basophil% 0.7 % (0-1); Eosinophil# 0.15 X10^3/uL; Eosinophils% 1.9 % (0-5); Hematocrit 40.4 % (37-47); Hemoglobin 12.9 g/dL (12.0-15.0); Lymphocyte % 29.9 % (19-41); Mean Corp Hgb Conc 31.9 g/dL (32-36); Mean Corpuscular Hgb 27.3 pg (27.0-32.0); Mean Corpuscular Volume 85.4 fL (81-99); Mean Platelet Vol. 9.7 fl (6.2-12.0); Monocyte# 0.65 X10^3/uL; Monocyte% 8.1 % (0-10); NRBC Flagged by Analyzer 0 % (0-5); Neutrophil # 4.76 X10^3/uL (2.7-7.7); Neutrophil % 59.2 % (47-70); Platelet Count 352 K/mm3 (150-450); RBC Distribution Width CV 14.4 % (11.6-14.6); RBC Distribution Width SD 45.2 fl (35.1-43.9); Red Blood Count 4.73 M/mm3 (4.2-5.4)
[2022-02-24] MEDS: Ondansetron 4 MG/2 ML Vial IV (12:38)
[2022-02-24] MEDS: Heparin Injection (Vial) 5,000 UNIT/ML VIAL 4000 UNIT IV (12:38)
--- NOTE | 2022-02-24 12:39 | HP.PCM.HOS_ITS ---
HPI - General General Date of Admission: 02/24/22 Date of Service: 02/24/22 Chief Complaint: Pain HPI Narrative SHERRELL JADE, is a 61 F with past medical history segment for hypertension who presented with chest pain. Patient chest pain was located in the retrosternal region apparently started almost an hour prior to presenting to the emergency department. Pain radiated to the neck as well as to the jaw. 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 Medical management recommended by cardiology admitted to intensive care unit subsequently [facility] Medical History (Updated 02/24/22 @ 14:[address] Jesus Moyer MD) Achilles tendon injury Hypertension Spontaneous dissection of coronary artery Home Medications atenolol 50 mg tablet 50 mg PO DAILY hi blood pressure 02/12/19 [History Last Taken 02/24/22 08:30] escitalopram oxalate 10 mg tablet 5 mg PO DAILY Antidepressant 02/12/19 [History Last Taken 02/24/22 08:30] hydrochlorothiazide 25 mg tablet 25 mg PO DAILY hi blood pressure 02/12/19 [History Last Taken 02/24/22 08:30] Allergy/AdvReac Type Severity Reaction Status Date / Time eprosartan [From [place]] Allergy Other Verified 02/24/22 11:55 Family History (Updated 02/24/22 @ 14:[address] Jesus Moyer MD) Father Liver mass Mother DVT (deep venous thrombosis) Surgical History H/O gastric sleeve Social History Smoking Status: Never smoker ROS ROS Narrative GENERAL: denies fever, chills, HEENT: denies headache, sinus congestion, RESPIRATORY: denies cough, sputum production, CARDIAC: chest pain, GASTROINTESTINAL: denies abdominal pain, nausea, GENITOURINARY: denies dysuria, urgency, frequency, EXTREMITY: denies swelling MUSCULOSKELETAL: denies current joint pain NEUROLOGIC: denies focal numbness, weakness, tingling HEMATOLOGIC: denies easy bruising and/or hemorrhage INTEGUMENT: denies rashes PSYCHIATRIC: denies suicidal or homicidal ideation Vital Signs Vital Signs Vital Signs: 02/24/22 11:55 02/24/22 12:22 02/24/22 12:22 Temperature 98.0 F Temperature Source Temporal Pulse Rate 49 L Respiratory Rate 14 Respiratory Effort Normal Non-Labored Blood Pressure 223/93 H Blood Pressure Mean 136 Pulse Ox 98 Oxygen Delivery Method Room Air Room Air 02/24/22 12:34 Temperature Temperature Source Pulse Rate Respiratory Rate 18 Respiratory Effort Blood Pressure 213/113 H Blood Pressure Mean Pulse Ox Oxygen Delivery Method Weight Weight: 103.5 kg Body Mass Index (BMI) 41.7 Physical Exam Narrative GENERAL: cooperative HEENT: Atraumatic; normocephalic EYES; Anicteric, Normal Conjunctiva NECK; supple, normal thyroid, RESPIRATORY: Diminished to auscultation CARDIOVASCULAR: Regular S1 S2, GI: soft, normoactive bowel sounds, : No Renal angle tenderness; EXTREMITIES: No edema, no clubbing, MUSCULOSKELETAL: no muscle wasting NEURO: Awake; no lateralizing signs. SKIN: No Rash PSYCH; Flat affect Results Lab / Micro Data Result Diagrams: 02/24/22 12:00 02/24/22 12:00 Radiology Impression Chest X-Ray 02/24/22 12:22 IMPRESSION: No acute pulmonary process Electronically Signed: Mateo Wright MD at 12:33 EDT , Assessment & Plan Assessment/Plan (1) Spontaneous dissection of coronary artery: PLAN: Plan 61 F with past medical history segment for hypertension who presented with chest pain. 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 Medical management recommended by cardiology admitted to intensive care unit subsequently 1. Acute ST segment elevation [place] ? Secondary tospontaneous coronary artery dissection of the right posterior left ventricular branch. This was confirmed on an emergency left heart catheterization. Medical management recommended by cardiology admitted to intensive care unit subsequently 2. Acute hypertensive emergency ? Patient blood pressure on admission was 213/113. Patient is on atenolol and HCTZ did continue. Amlodipine added for optimal control 3. Elevated D-dimer ? CTA of the chest ordered to rule out VTE also ordered bilateral venous duplex. Patient has family history of genetic hypercoagulable state (mother) 4. Class II obesity with BMI of 39.2 ? Patient has history of gastric sleeve surgery 5. Depression with anxiety ? Patient is on escitalopram did continue 6. DVT prophylaxis ? SC Lovenox Charges/Coding Visit Charges Inpatient E&M: 07395 Init Hosp L3
[2022-02-24] MEDS: TICAGRELOR 90 MG TABLET 180 MG PO (12:40)
--- NOTE | 2022-02-24 12:43 | CM.ED ---
Social Work This social insurance adviser responding to STEMI alert. Patient spouse present. Patient alert and speaking with staff. Patient spouse denies any needs at this time. Will continue to follow as needed Kyler RICHTER, LAM[place]
[2022-02-24 12:44] LABS: Anion Gap 7 (5-15); BUN 14 mg/dL (7-18); Calcium,Total 9.3 mg/dL (8.5-10.1); Chloride 102 mmol/L (98-107); Creatinine, Serum 0.87 mg/dL (0.55-1.02); EST Glomerular Filtration Rate 70 mL/min (>60); Est Glom Filt Rate - Afr Amer 84 mL/min (>60); Estimated Creatinine Clearance 53.03 ml/min; Glucose 104 mg/dL (74-106); Potassium 3.6 mmol/L (3.5-5.1); Sodium Level 137 mmol/L (136-145); Troponin-I HS (w/2H Reflex) 11 pg/mL (3.0-54.0)
[2022-02-24 13:02] LABS: International Normalized Ratio 1.1; Prothrombin Time (Protime)PT. 13.4 SECONDS (11.7-14.9)
[2022-02-24 13:03] LABS: Partial Thromboplast Time 26.3 Seconds (24.1-36.2)
--- NOTE | 2022-02-24 13:30 | CL.I_ITS ---
Patient Name: SHERRELL JADE Study Date: 02/24/2022 Performing: Layton Petty MD Ht: 62 inches 157.48 cm : 1960 Wt: 228.18 lbs 103.5 kg Age: 61 Gender: female BSA: 2.02 PROCEDURE(S) PERFORMED [id number])LHC/COR/LV CLINICAL PROFILE AND CO-MORBIDITIES Indications: ACS <= 24 hrs Heart Failure: None CAD Presentations: STEMI. Symptom onset Date/Time: Time Not Available CONCLUSIONS SCAD Pox to distal RPLV 80% distal LAD LVEF 55%. Posterior basal hypokinesis RECOMMENDATIONS Medical therapyMedical therapy DESCRIPTION OF PROCEDURE The patient arrived to the procedure lab. The risks and benefits of the procedure as well as a full description of our services here and lack of surgical backup were fully explained to the patient and/or their significant other prior to the catheterization. The Timeout was completed, verifying the correct patient and procedure. The patient's procedural site was prepped and draped in the usual fashion. Local anesthetic was given subcutaneously to right radial region with Lidocaine 2%. Using a modified Seldinger technique, arterial access was obtained via the right radial artery, a 6Fr sheath was inserted.. Left Coronary Artery selective angiography was performed in multiple views using a 5 Fr. 4.0 [place] catheter. Right Coronary Artery selective angiography was then performed in multiple views using a 5 Fr. 4.0 [place] catheter. Left Ventriculography was performed in [place] projection using a 5 Fr. Pigtail catheter. LV to AO pullback pressures were then recorded The arterial sheath was pulled and a TR Band was applied for hemostasis CORONARY ANGIOGRAPHY DOMINANCE: Right Dominant LEFT HEART ASSESSMENT Left Ventricular Ejection Fraction: by LV Gram 55 % LVEDP: 24 mmHg LEFT ANTERIOR DESCENDING ARTERY: LAD: Tubular 80% Distal lesion in LAD RIGHT CORONARY ARTERY: INTERVENTION INFORMATION COMPLICATIONS No Complications PROCEDURE MEDICATIONS Fentanyl 50 mcg IV Versed 1 mg IV Oxygen: 2 L/min via nasal cannula Heparin 3000 unit(s) IV 02/24/2022 12:58:09 Verapamil 2.5mg, Ntg 200mcgs, given IA 02/24/2022 12:59:08 SUMMARY OF HEMODYNAMIC DATA Time AIR REST ECG 12:49:26 AO 92/76 (85) SA 12:56:10 LV 135/14, 24 13:03:41 LV 122/13, 24 13:03:51 LV 119/19, 26 13:05:13 LVp 126/19, 26 13:05:20 AOp 138/77 (101) 13:05:27 AO 139/79 (103) 13:05:28 13:39:46 Signed By Layton Petty MD On 02/24/2022 13:56:40 Signed By Layton Petty MD On 02/24/2022 13:30:07 Layton Petty MD
[2022-02-24 13:31] LABS: D-Dimer Quantitative (DVT/PE) 0.56 FEU/ug/m (0.27-0.49)
--- NOTE | 2022-02-24 13:43 | PCM.CONS.C ---
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 For conservative medical management. Continue aspirin. Add Plavix. Integrilin infusion for 12 hours. Add low-dose amlodipine. Start on statins. Check lipid profile. (2) Hypertension: PLAN: Change beta-jameson to carvedilol. Continue hydrochlorothiazide. Add low-dose amlodipine. HPI Consult Data Date of Consult: 02/24/22 HPI Narrative Reason for Consultation: STEMI HPI Narrative: SHERRELL JADE, is a 61 F who presented to the emergency room with complaints of anterior chest discomfort radiating into her neck. An EKG was done. This showed acute inferior myocardial infarction. Subsequently a STEMI alert was called. Patient denies any previous history of heart disease. Denies any previous history of angina. [facility] Medical History (Updated 02/24/22 @ 13:[address] Layton Petty MD) Achilles tendon injury Hypertension Home Medications atenolol 50 mg tablet 50 mg PO DAILY hi blood pressure 02/12/19 [History Last Taken 02/24/22 08:30] escitalopram oxalate 10 mg tablet 5 mg PO DAILY Antidepressant 02/12/19 [History Last Taken 02/24/22 08:30] hydrochlorothiazide 25 mg tablet 25 mg PO DAILY hi blood pressure 02/12/19 [History Last Taken 02/24/22 08:30] Allergy/AdvReac Type Severity Reaction Status Date / Time eprosartan [From [place]] Allergy Other Verified 02/24/22 11:55 Surgical History H/O gastric sleeve Social History Smoking Status: Never smoker Physical Exam Narrative Appeared mildly anxious. Respirations unlabored. Heart rate bradycardic. Regular rhythm. Abdomen soft. Alert oriented x3. No ankle edema noted. Risk Stratification Risk Stratification Applicable: No Objective Data Vital Signs: Vital Signs Temp Pulse Resp BP Pulse Ox O2 Del Method O2 Flow Rate 98.0 F 49 L 18 213/113 H 98 Nasal Cannula 2 02/24/22 12:54 02/24/22 12:54 02/24/22 12:54 02/24/22 12:54 02/24/22 12:54 02/24/22 12:54 02/24/22 12:54 Oxygen Flow Rate (L/min) 2 Oxygen Delivery Method Nasal Cannula Weight: 214 lb 4.629 oz Body Mass Index (BMI) 39.2 Lab / Micro Data Attestation: I reviewed the patient's lab results. Result Diagrams: 02/24/22 12:00 02/24/22 12:00 Labs: Laboratory Results - last 24 hr 02/24/22 12:00: WBC 8.0, RBC 4.73, Hgb 12.9, Hct 40.4, MCV 85.4, MCH 27.3, MCHC 31.9 L, RDW Std Deviation 45.2 H, RDW Coeff of [place] 14.4, Plt Count 352, MPV 9.7, Immature Gran % (Auto) 0.200, Neut % (Auto) 59.2, Lymph % (Auto) 29.9, [place] % (Auto) 8.1, Eos % (Auto) 1.9, Baso % (Auto) 0.7, Absolute Neuts (auto) 4.8, Absolute Lymphs (auto) 2.40, Nucleated RBC % 0 02/24/22 12:00: Sodium 137, Potassium 3.6, Chloride 102, Carbon Dioxide 28.0, Anion Gap 7, BUN 14, Creatinine 0.87, Estim Creat Clear Calc 53.03, Est GFR (MDRD) Af Amer 84, Est GFR (MDRD) Non-Af 70, BUN/Creatinine Ratio 16.0, Glucose 104, Calcium 9.3, Troponin I High Sens 11 02/24/22 12:00: PT 13.4, INR 1.1, APTT 26.3 02/24/22 12:00: D-Dimer Quant (PE/DVT) 0.56 H* Rhythm Strip Rhythm Strip: Sinus Rhythm Cardiology Labs/Tests 02/24/22 12:00: WBC 8.0, RBC 4.73, Hgb 12.9, Hct 40.4, MCV 85.4, MCH 27.3, MCHC 31.9 L, Plt Count 352, MPV 9.7, Immature Gran % (Auto) 0.200, Neut % (Auto) 59.2, Lymph % (Auto) 29.9, [place] % (Auto) 8.1, Eos % (Auto) 1.9, Baso % (Auto) 0.7, Absolute Neuts (auto) 4.8, Nucleated RBC % 0 02/24/22 12:00: Sodium 137, Potassium 3.6, Chloride 102, Carbon Dioxide 28.0, Anion Gap 7, BUN 14, Creatinine 0.87, Est GFR (MDRD) Af Amer 84, Est GFR (MDRD) Non-Af 70, BUN/Creatinine Ratio 16.0, Glucose 104, Calcium 9.3 02/24/22 12:00: PT 13.4, INR 1.1, APTT 26.3 02/24/22 12:00: D-Dimer Quant (PE/DVT) 0.56 H* Rhythm: EKG: ECHO: Stress Test: Cardiac Cath: PCI: CT Surgery: Holter monitor: EPS: PPM: CXR: Chest CT Scan: Radiography Diagnostic Testing: Radiology Impression Chest X-Ray 02/24/22 12:22 IMPRESSION: No acute pulmonary process Electronically Signed: Mateo Wright MD at 12:33 EDT ,
--- NOTE | 2022-02-24 13:45 | CHAPLAIN ---
Type of Pastoral Visit ___ Initial Visit ___ Follow-up Visit ___ On-call Visit ___ General Patient Visit ___ Spiritual Assessment ___ Family Conference ___ Bereavement _x__ Rapid Response ___ Code Blue ___ Other (describe below) Pastoral Care Referral From ___ Patient ___ Family ___ Nurse ___ Physician ___ [employer] Head Inspector ___ Retail Planning Manager _x__ Other (describe below) Sacrament/Intervention ___ Active listening ___ Anointing ___ Adventism ___ Bereavement ___ Communion ___ [place]ilda exploration ___ ___ Life review ___ Prayer ___ Reconciliation ___ Sacrament of Sick _x__ Supportive presence ___ Wedding ___ Other (describe below) Pastoral Comments responded to stemi alert in ED; patient was being attended to and 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
--- NOTE | 2022-02-24 13:52 | ECHOD_ITS ---
Reason For Study: Chest Pain Procedure This was a 2D Doppler, Color Flow transthoracic echocardiogram. Exam performed portable in ICU/CCU. Left Ventricle Normal size and thickness. The left ventricular ejection fraction is 55 %. Stage 3 diastolic dysfunction. Right Ventricle Normal right ventricle. Atria The left atrium is mildly enlarged. Normal right atrium. Mitral Valve Mild (1+) mitral valve insufficiency. Tricuspid Valve Mild tricuspid valve insufficiency. Right ventricular systolic pressure estimated to be 41 mmHg. Aortic Valve Normal aortic valve. Pulmonic Valve The pulmonic valve is not well visualized. Great Vessels Normal sized aortic root. Pericardium/Pleural No pericardial effusion. MMode/2D Measurements & Calculations LVIDd: 5.3 cm IVSd: 0.99 cm Ao root diam: 3.4 cm LVIDs: 3.8 cm LVPWd: 0.99 cm RVDd: 3.8 cm FS: 29.2 % LAV(MOD-bp): 59.6 ml LVAd ap4: 27.8 cm2 SV(MOD-sp4): 45.1 ml LAV(MOD-bp) Indexed: 30.3 ml/m2 LVLd ap4: 8.0 cm LAV(MOD-sp2): 53.9 ml EDV(MOD-sp4): 80.7 ml LAV(MOD-sp4): 57.8 ml EDV(sp4-el): 81.8 ml LVAs ap4: 15.8 cm2 LVLs ap4: 6.2 cm ESV(MOD-sp4): 35.6 ml ESV(sp4-el): 34.0 ml EF(MOD-sp4): 55.8 % EF(sp4-el): 58.5 % SV(sp4-el): 47.8 ml LA A4 area: 20.6 cm2 LA dimension(2D): 4.2 cm RA A4 area: 13.1 cm2 Doppler Measurements & Calculations MV E max chuck: 77.5 cm/sec Lat Peak E' Chuck: 7.3 cm/sec Med Peak E' Chuck: 7.3 cm/sec MV A max chuck: 35.4 cm/sec E/E' lat: 10.6 E/E' med: 10.6 MV E/A: 2.2 Ao V2 max: 130.7 cm/sec LV V1 max: 98.2 cm/sec PA V2 max: 68.7 cm/sec Ao max P.8 mmHg LV V1 max P.9 mmHg Ao V2 mean: 87.8 cm/sec Ao mean P.4 mmHg Ao V2 VTI: 31.7 cm TR max chuck: 298.8 cm/sec TR max P.7 mmHg ECHO/Echo Complete Interpretation Summary The left ventricular ejection fraction is 55 %. Stage 3 diastolic dysfunction. Mild (1+) mitral valve insufficiency. Mild tricuspid valve insufficiency. Right ventricular systolic pressure estimated to be 41 mmHg. Ordering Physician: Layton Petty Referring Physician: Jeffry Nichole Performed By: Nikki Alegre, PUHSPA, RVT
[2022-02-24] MEDS: 0.9% Normal Saline 1,000 ML 100 ML IV ×2 (14:00→23:26)
--- NOTE | 2022-02-24 14:04 | CT_ITS ---
STUDY: CTA CHEST REASON FOR EXAM: Female, 61 years old. Positive D-Dimer RADIATION DOSAGE (If Supplied By Facility): CTDIvol = ( 12.20 ) mGy, DLP = ( 487.63 ) mGycm TECHNIQUE: The examination was performed with the intravenous administration of IV 100mL Isovue-370. Post-processing of the angiographic images was performed, with multiplanar reformation and 3D reconstruction. Individualized dose optimization techniques were used for this CT. COMPARISON: None. FINDINGS: Normal enhancement of the main pulmonary artery and right and left pulmonary arteries. Normal enhancement of the bilateral peripheral pulmonary arteries. There is no demonstrated pulmonary embolism. Normal thoracic aorta and visualized great vessels. There is no demonstrated aortic dissection. Normal heart and pericardium. Normal mediastinum. Normal hilar regions. Normal visualized trachea and bronchi. The lungs are well expanded. Minimal degree of increased markings in the posterior segments of both lower lobes suggestive of mild scarring. Normal pleura. Normal chest wall structures. There are degenerative changes of thoracic spine. Increased kyphosis. The patient is status post subtotal gastrectomy with small hiatal hernia. CT/CTA Chest W/WO Contrast IMPRESSION: No evidence of pulmonary embolism. No acute abnormality is seen. Electronically Signed: Isidro Fernando MD at 14:48 EDT ,
[2022-02-24 14:05] LABS: Cholesterol 236 mg/dL (200); High Density Lipoprotein 82 mg/dL; Triglycerides 119 mg/dL; Very Low Density Lipoprotein 24 mg/dL (5-40)
[2022-02-24 14:21] LABS: Reflex Troponin-HS? (from REC) Y
[2022-02-24] MEDS: Acetaminophen 325 MG Tablet 650 MG PO (14:55)
[2022-02-24] MEDS: Nitroglycerin Oint 1 INCH PACKET TD ×2 (19:27→23:26)
[2022-02-24] MEDS: Atorvastatin Calcium 40 MG Tablet PO (20:59)
[2022-02-24] MEDS: Carvedilol 3.125 MG TABLET PO (20:59)
[2022-02-24] MEDS: Morphine 2 MG/ML Syringe IV (23:31)
[2022-02-24] MEDS: 0.9% Saline Lock 10 ML Syringe IV (23:31)
[2022-02-25] VITALS (25 sets, daily range): BP systolic 94–132; BP diastolic 54–73; PULSE 47–69; RESP 12–20; TEMP 36.2–37.4; O2SAT 94–100
[2022-02-25 00:44] LABS: Troponin-I HS 8135 pg/mL (3.0-54.0)
[2022-02-25] MEDS: 0.9% Saline Lock 10 ML Syringe IV (05:40)
[2022-02-25] MEDS: Nitroglycerin Oint 1 INCH PACKET TD ×2 (05:40→11:49)
[2022-02-25] MEDS: Morphine 2 MG/ML Syringe IV (05:41)
[2022-02-25 06:10] LABS: Magnesium 1.8 mg/dL (1.6-2.6); Phosphorus 2.8 mg/dL (2.5-4.9); Troponin-I HS 15251 pg/mL (3.0-54.0)
--- NOTE | 2022-02-25 08:01 | PN.HOSP_ITS ---
Subjective Subjective Patient seen apparently had some intermittent chest pain during the early hours of the morning. Chest pain has since resolved. Patient blood pressure improved. Plan for patient to be transferred to progressive care unit Objective Data Objective Data Vital Signs: Vital Signs Temp Pulse Resp BP Pulse Ox O2 Del Method O2 Flow Rate 98.2 F 50 L 18 97/57 L 94 Room Air 2 02/25/22 04:00 02/25/22 07:00 02/25/22 07:00 02/25/22 07:00 02/25/22 07:00 02/25/22 07:00 02/24/22 12:54 Oxygen Flow Rate (L/min) 2 Oxygen Delivery Method Room Air Weight: 98.3 kg Body Mass Index (BMI) 39.2 Intake & Output: Intake and Output for Last 24 Hours 02/23/22 02/24/22 02/25/22 23:59 23:59 23:59 Intake Total 1150.95 / 1270.95 312.40 / 312.40 Output Total 50 / 50 Balance 1150.95 / 1220.95 262.40 / 262.40 Lab / Micro Data Result Diagrams: 02/24/22 12:00 02/24/22 12:00 Labs: Laboratory Results - last 24 hr 02/24/22 12:00: WBC 8.0, RBC 4.73, Hgb 12.9, Hct 40.4, MCV 85.4, MCH 27.3, MCHC 31.9 L, RDW Std Deviation 45.2 H, RDW Coeff of [place] 14.4, Plt Count 352, MPV 9.7, Immature Gran % (Auto) 0.200, Neut % (Auto) 59.2, Lymph % (Auto) 29.9, [place] % (A uto) 8.1, Eos % (Auto) 1.9, Baso % (Auto) 0.7, Absolute Neuts (auto) 4.8, Absolute Lymphs (auto) 2.40, Nucleated RBC % 0 02/24/22 12:00: Sodium 137, Potassium 3.6, Chloride 102, Carbon Dioxide 28.0, Anion Gap 7, BUN 14, Creatinine 0.87, Estim Creat Clear Calc 53.03, Est GFR (M DRD) Af Amer 84, Est GFR (MDRD) Non-Af 70, BUN/Creatinine Ratio 16.0, Glucose 104, Calcium 9.3, Troponin I High Sens 11 02/24/22 12:00: PT 13.4, INR 1.1, APTT 26.3 02/24/22 12:00: PT Cancelled, INR Cancelled, APTT Cancelled, D-Dimer Quant (PE/DVT) Cancelled 02/24/22 12:00: Triglycerides 119, Cholesterol 236 H, LDL Cholesterol 130, VLDL Cholesterol 24, HDL Cholesterol 82 02/24/22 12:00: D-Dimer Quant (PE/DVT) 0.56 H* 02/25/22 00:20: Troponin I High Sens 8135 H* 02/25/22 05:30: Phosphorus 2.8, Magnesium 1.8, Troponin I High Sens 70154 H* Radiography Diagnostic Testing: Radiology Impression Chest X-Ray 02/24/22 12:22 IMPRESSION: No acute pulmonary process Electronically Signed: Mateo Wright MD at 12:33 EDT , Echocardiogram 02/24/22 13:52 Interpretation Summary The left ventricular ejection fraction is 55 %. Stage 3 diastolic dysfunction. Mild (1+) mitral valve insufficiency. Mild tricuspid valve insufficiency. Right ventricular systolic pressure estimated to be 41 mmHg. Ordering Physician: Layton Petty Referring Physician: Jeffry Nichole Performed By: Nikki Alegre, RDCS, RVT Chest CTA 02/24/22 14:04 IMPRESSION: No evidence of pulmonary embolism. No acute abnormality is seen. Electronically Signed: Isidro Fernando MD at 14:48 EDT , Rhythm Strip Rhythm Strip: Sinus Rhythm Physical Exam Narrative GENERAL: cooperative HEENT: Atraumatic; normocephalic EYES; Anicteric, Normal Conjunctiva NECK; supple, normal thyroid, RESPIRATORY: Diminished to auscultation CARDIOVASCULAR: Regular S1 S2, GI: soft, normoactive bowel sounds, : No Renal angle tenderness; EXTREMITIES: No edema, no clubbing, MUSCULOSKELETAL: no muscle wasting NEURO: Awake; no lateralizing signs. SKIN: No Rash PSYCH; Flat affect Assessment & Plan Assessment/Plan (1) Spontaneous dissection of coronary artery: PLAN: Plan 61 F with past medical history segment for hypertension who presented with chest pain. Initial EKG in the ED was unremarkable however subsequent EKG came back consistent with ST segment elevation [place] and STEMI alert was called patient underwent emergency left heart catheterization was found to have spontaneous coronary artery dissection of the right posterior left ventricular branch. Medical management recommended by cardiology admitted to intensive care unit subsequently 1. Acute ST segment elevation [place] ? Secondary tospontaneous coronary artery dissection of the right posterior left ventricular branch. This was confirmed on an emergency left heart c atheterization. Medical management recommended by cardiology admitted to intensive care unit subsequently ? 02/25/2022 had episode of chest pain which is since resolved 2. Acute hypertensive emergency ? Patient blood pressure on admission was 213/113. Patient is on atenolol and HCTZ did continue. Amlodipine added for optimal control ? 02/25/2022 patient blood pressure control has significantly improved 3. Elevated D-dimer ? CTA of the chest ordered to rule out VTE also ordered bilateral venous duplex. Patient has family history of genetic hypercoagulable state (mother) ? 02/25/2022 CTA was negative for pulmonary embolism 4. Class II obesity with BMI of 39.2 ? Patient has history of gastric sleeve surgery 5. Depression with anxiety ? Patient is on escitalopram did continue 6. DVT prophylaxis ? SC Lovenox Charges/Coding Visit Charges Inpatient E&M: 75546 Subs Hosp L2
[2022-02-25] MEDS: Aspirin E.C. 81 MG Tablet PO (08:52)
[2022-02-25] MEDS: Escitalopram Oxalate 10 MG Tablet 5 MG PO (08:52)
[2022-02-25] MEDS: hydroCHLOROthiazide 25 MG Tablet PO (08:53)
[2022-02-25] MEDS: Clopidogrel Bisulfate 75 MG Tablet PO (08:53)
[2022-02-25] MEDS: amLODIPine 2.5 MG Tablet PO (08:53)
--- NOTE | 2022-02-25 10:00 | CASEMGMT ---
RN MARÍA ELENA SUPERVISOR [employer]ING CM to room to meet with patient for initial transition planning/care coordination assessment. BARBRA RING introduced self and role at [facility]. Pt voices understanding and consents to assessment at this time. Pt sitting up on edge of bed in no distress at this time. Dtr, Maureen, @ bedside and pt agreeable to her being present during assessment. Pt is A/O at this time and answers all questions appropriately. Care providers, pharmacy, and demographics verified/updated at this time. PCP: Dr Nichole Specialists: none Preferred Pharmacy: [facility] Retail Insurance: MMO Prescription Benefit: Yes Living Will/HPOA: Has both LW and HPOA, who is her , Michael LNOK: , Michael Living Arrangements: Lives w/ in one-story home. Independent. Works part-time. Transportation: Pt states drives self and states no transportation concerns at this time. DME: CPAP HHC/SNF: No hx of either. No needs identified. Pt wishes to return home and states has no concerns with going home at time of discharge. CM to follow for any discharge planning/needs. Pt voices no concerns/needs at this time. Advised pt to ask for CM if any questions/concerns/needs arise. Voices understanding. PLAN: Home Jurgen JOHNS RN, CM
[2022-02-25] MEDS: Carvedilol 3.125 MG TABLET PO ×2 (11:50→20:50)
--- NOTE | 2022-02-25 12:01 | PN.CARD_ITS ---
Subjective Subjective Denies any complaints. No chest pain. No shortness of breath. Objective Data Vital Signs: Vital Signs Temp Pulse Resp BP Pulse Ox O2 Del Method O2 Flow Rate 97.2 F L 63 20 H 117/71 99 Room Air 2 02/25/22 10:00 02/25/22 11:49 02/25/22 10:00 02/25/22 11:49 02/25/22 10:00 02/25/22 10:00 02/24/22 12:54 Oxygen Flow Rate (L/min) 2 Oxygen Delivery Method Room Air Weight: 216 lb 11.43 oz Body Mass Index (BMI) 39.2 Intake & Output: Intake and Output for Last 24 Hours 02/23/22 02/24/22 02/25/22 23:59 23:59 23:59 Intake Total 1150.95 / 1270.95 1347.40 / 1347.40 Output Total 50 / 50 Balance 1150.95 / 1220.95 1297.40 / 1297.40 Lab / Micro Data Attestation: I reviewed the patient's lab results. Result Diagrams: 02/24/22 12:00 02/24/22 12:00 Labs: Laboratory Results - last 24 hr 02/24/22 12:00: WBC 8.0, RBC 4.73, Hgb 12.9, Hct 40.4, MCV 85.4, MCH 27.3, MCHC 31.9 L, RDW Std Deviation 45.2 H, RDW Coeff of [place] 14.4, Plt Count 352, MPV 9.7, Immature Gran % (Auto) 0.200, Neut % (Auto) 59.2, Lymph % (Auto) 29.9, [place] % (Auto) 8.1, Eos % (Auto) 1.9, Baso % (Auto) 0.7, Absolute Neuts (auto) 4.8, Absolute Lymphs (auto) 2.40, Nucleated RBC % 0 02/24/22 12:00: Sodium 137, Potassium 3.6, Chloride 102, Carbon Dioxide 28.0, Anion Gap 7, BUN 14, Creatinine 0.87, Estim Creat Clear Calc 53.03, Est GFR (MDRD) Af Amer 84, Est GFR (MDRD) Non-Af 70, BUN/Creatinine Ratio 16.0, Glucose 104, Calcium 9.3, Troponin I High Sens 11 02/24/22 12:00: PT 13.4, INR 1.1, APTT 26.3 02/24/22 12:00: PT Cancelled, INR Cancelled, APTT Cancelled, D-Dimer Quant (PE/DVT) Cancelled 02/24/22 12:00: Triglycerides 119, Cholesterol 236 H, LDL Cholesterol 130, VLDL Cholesterol 24, HDL Cholesterol 82 02/24/22 12:00: D-Dimer Quant (PE/DVT) 0.56 H* 02/25/22 00:20: Troponin I High Sens 8135 H* 02/25/22 05:30: Phosphorus 2.8, Magnesium 1.8, Troponin I [place] Sens 29758 H* Rhythm Strip Rhythm Strip: Run of accelerated idioventricular rhythm last night Cardiology Labs/Tests 02/24/22 12:00: WBC 8.0, RBC 4.73, Hgb 12.9, Hct 40.4, MCV 85.4, MCH 27.3, MCHC 31.9 L, Plt Count 352, MPV 9.7, Immature Gran % (Auto) 0.200, Neut % (Auto) 59.2, Lymph % (Auto) 29.9, [place] % (Auto) 8.1, Eos % (Auto) 1.9, Baso % (Auto) 0.7, Absolute Neuts (auto) 4.8, Nucleated RBC % 0 02/24/22 12:00: Sodium 137, Potassium 3.6, Chloride 102, Carbon Dioxide 28.0, Anion Gap 7, BUN 14, Creatinine 0.87, Est GFR (MDRD) Af Amer 84, Est GFR (MDRD) Non-Af 70, BUN/Creatinine Ratio 16.0, Glucose 104, Calcium 9.3 02/24/22 12:00: PT 13.4, INR 1.1, APTT 26.3 02/24/22 12:00: PT Cancelled, INR Cancelled, APTT Cancelled, D-Dimer Quant (PE /DVT) Cancelled 02/24/22 12:00: Triglycerides 119, Cholesterol 236 H, LDL Cholesterol 130, VLDL Cholesterol 24, HDL Cholesterol 82 02/24/22 12:00: D-Dimer Quant (PE/DVT) 0.56 H* 02/25/22 05:30: Phosphorus 2.8, Magnesium 1.8 Rhythm: EKG: ECHO: Stress Test: Cardiac Cath: PCI: CT Surgery: Holter monitor: EPS: PPM: CXR: Chest CT Scan: Radiography Diagnostic Testing: Radiology Impression Chest X-Ray 02/24/22 12:22 IMPRESSION: No acute pulmonary process Electronically Signed: Mateo Wright MD at 12:33 EDT , Echocardiogram 02/24/22 13:52 Interpretation Summary The left ventricular ejection fraction is 55 %. Stage 3 diastolic dysfunction. Mild (1+) mitral valve insufficiency. Mild tricuspid valve insufficiency. Right ventricular systolic pressure estimated to be 41 mmHg. Ordering Physician: Layton Petty Referring Physician: Jeffry Nichole Performed By: Nikki Alegre, RDCS, RVT Chest CTA 02/24/22 14:04 IMPRESSION: No evidence of pulmonary embolism. No acute abnormality is seen. Electronically Signed: Isidro Fernando MD at 14:48 EDT , Physical Exam Narrative Comfortable. Heart sounds 1 and 2 are normal. No murmurs. No rubs. Chest clear to auscultation bilaterally. Right radial pulse 3+. No ankle edema. 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 For conservative medical management. Continue aspirin. Continue Plavix. Beta-blockers. Started on amlodipine. Continue statins. (2) Hypertension: PLAN: Change beta-jameson to carvedilol. Continue hydrochlorothiazide. Increase amlodipine dose as tolerated. PLAN: Plan Okay to transfer to stepdown unit. Possible discharge home in the morning if continues to be stable.
[2022-02-25] MEDS: Acetaminophen 325 MG Tablet 650 MG PO ×2 (14:30→20:49)
[2022-02-25 18:32] LABS: Absolute Lymphocyte Count 1.49 X10^3/uL (0.83-4.51); Absolute Neutrophil Count 5.2 X10^3/uL (2.0-7.7); Basophil# 0.04 X10^3/uL; Basophil% 0.5 % (0-1); Eosinophil# 0.14 X10^3/uL; Eosinophils% 1.9 % (0-5); Hematocrit 30.9 % (37-47); Hemoglobin 10.3 g/dL (12.0-15.0); Lymphocyte # 1.49 X10^3/ul (0.83-4.51); Lymphocyte % 19.8 % (19-41); Mean Corp Hgb Conc 33.3 g/dL (32-36); Mean Platelet Vol. 10.2 fl (6.2-12.0); Monocyte# 0.61 X10^3/uL; Monocyte% 8.1 % (0-10); NRBC Flagged by Analyzer 0 % (0-5); Neutrophil # 5.23 X10^3/uL (2.7-7.7); Neutrophil % 69.4 % (47-70); Platelet Count 246 K/mm3 (150-450); RBC Distribution Width CV 14.5 % (11.6-14.6); RBC Distribution Width SD 44.6 fl (35.1-43.9); Red Blood Count 3.68 M/mm3 (4.2-5.4); White Blood Count 7.5 K/mm3 (4.4-11.0)
[2022-02-25] MEDS: Atorvastatin Calcium 40 MG Tablet PO (20:50)
[2022-02-25] MEDS: MELATONIN 3 MG TABLET PO (23:15)
[2022-02-26 03:53] VITALS: PULSE 54
[2022-02-26 05:00] VITALS: BP 115/71; PULSE 65; RESP 16; TEMP 37.2; O2SAT 95
[2022-02-26] MEDS: Nitroglycerin Oint 1 INCH PACKET TD (05:00)
[2022-02-26 06:59] VITALS: PULSE 60
[2022-02-26 07:05] VITALS: O2SAT 96
[2022-02-26] MEDS: Acetaminophen 325 MG Tablet 650 MG PO (07:19)
[2022-02-26 07:23] LABS: Hematocrit 34.1 % (37-47); Hemoglobin 11.5 g/dL (12.0-15.0); Mean Corp Hgb Conc 33.7 g/dL (32-36); Mean Corpuscular Hgb 28.3 pg (27.0-32.0); Mean Platelet Vol. 9.8 fl (6.2-12.0); Platelet Count 221 K/mm3 (150-450); RBC Distribution Width CV 14.6 % (11.6-14.6); RBC Distribution Width SD 44.8 fl (35.1-43.9); Red Blood Count 4.06 M/mm3 (4.2-5.4); White Blood Count 7.1 K/mm3 (4.4-11.0)
--- NOTE | 2022-02-26 07:55 | PN.HOSP_ITS ---
Objective Data Objective Data Vital Signs: Vital Signs Temp Pulse Resp BP Pulse Ox O2 Del Method O2 Flow Rate 98.9 F 60 16 115/71 96 Room Air 2 02/26/22 05:00 02/26/22 06:59 02/26/22 05:00 02/26/22 05:00 02/26/22 07:05 02/26/22 07:05 02/24/22 12:54 Oxygen Flow Rate (L/min) 2 Oxygen Delivery Method Room Air Weight: 95 kg Body Mass Index (BMI) 39.2 Intake & Output: Intake and Output for Last 24 Hours 02/24/22 02/25/22 02/26/22 23:59 23:59 23:59 Intake Total 1150.95 / 1270.95 2327.40 / 2327.40 60 / 60 Output Total 50 / 50 Balance 1150.95 / 1220.95 2277.40 / 2277.40 60 / 60 Lab / Micro Data Result Diagrams: 02/26/22 05:55 02/24/22 12:00 Labs: Laboratory Results - last 24 hr 02/25/22 05:30: WBC 7.5, RBC 3.68 L, Hgb 10.3 L, Hct 30.9 L, MCV 84.0, MCH 28.0, MCHC 33.3, RDW Std Deviation 44.6 H, RDW Coeff of [place] 14.5, Plt Count 246, MPV 10.2, Immature Gran % (Auto) 0.300, Neut % (Auto) 69.4, Lymph % (Auto) 19.8, [place] % (Auto) 8.1, Eos % (Auto) 1.9, Baso % (Auto) 0.5, Absolute Neuts (auto) 5.2, Absolute Lymphs (auto) 1.49, Nucleated RBC % 0 02/26/22 05:55: WBC 7.1, RBC 4.06 L, Hgb 11.5 L, Hct 34.1 L, MCV 84.0, MCH 28.3, MCHC 33.7, RDW Std Deviation 44.8 H, RDW Coeff of [place] 14.6, Plt Count 221, MPV 9.8 Rhythm Strip Rhythm Strip: Run of accelerated idioventricular rhythm last night Physical Exam Narrative GENERAL: cooperative HEENT: Atraumatic; normocephalic EYES; Anicteric, Normal Conjunctiva NECK; supple, normal thyroid, RESPIRATORY: Diminished to auscultation CARDIOVASCULAR: Regular S1 S2, GI: soft, normoactive bowel sounds, : No Renal angle tenderness; EXTREMITIES: No edema, no clubbing, MUSCULOSKELETAL: no muscle wasting NEURO: Awake; no lateralizing signs. SKIN: No Rash PSYCH; Flat affect Assessment & Plan Assessment/Plan (1) Spontaneous dissection of coronary artery: PLAN: Plan 61 F with past medical history segment for hypertension who presented with chest pain. 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 Medical management recommended by cardiology admitted to intensive care unit subsequently 1. Acute ST segment elevation [place] ? Secondary tospontaneous coronary artery dissection of the right posterior left ventricular branch. This was confirmed on an emergency left heart catheterization. Medical management recommended by cardiology admitted to intensive care unit subsequently ? 02/25/2022 had episode of chest pain which is since resolved 2. Acute hypertensive emergency ? Patient blood pressure on admission was 213/113. Patient is on atenolol and HCTZ did continue. Amlodipine added for optimal control ? 02/25/2022 patient blood pressure control has significantly improved 3. Elevated D-dimer ? CTA of the chest ordered to rule out VTE also ordered bilateral venous duplex. Patient has family history of genetic hypercoagulable state (mother) ? 02/25/2022 CTA was negative for pulmonary embolism 4. Class II obesity with BMI of 39.2 ? Patient has history of gastric sleeve surgery 5. Depression with anxiety ? Patient is on escitalopram did continue 6. DVT prophylaxis ? SC Lovenox
[2022-02-26 07:59] LABS: AST(SGOT) 53 U/L (15-37); Alanine Aminotransfer ALT/SGPT 16 U/L (13-56); Albumin, Serum 3.1 g/dL (3.2-5.0); Alkaline Phosphatase 65 U/L (45-117); Anion Gap 6 (5-15); BUN 8 mg/dL (7-18); BUN/Creat Ratio 13.1 RATIO (10-20); Bilirubin, Direct 0.25 mg/dL (0.00-0.30); Calcium,Total 9.3 mg/dL (8.5-10.1); Chloride 107 mmol/L (98-107); Creatinine, Serum 0.61 mg/dL (0.55-1.02); EST Glomerular Filtration Rate 106 mL/min (>60); Est Glom Filt Rate - Afr Amer 128 mL/min (>60); Estimated Creatinine Clearance 75.63 ml/min; Globulin 3.5 g/dL (2.2-4.2); Glucose 95 mg/dL (74-106); Magnesium 2.2 mg/dL (1.6-2.6); Potassium 3.6 mmol/L (3.5-5.1); Protein, Total 6.6 g/dL (6.4-8.2); Sodium Level 141 mmol/L (136-145)
[2022-02-26 08:02] LABS: Phosphorus 3.1 mg/dL (2.5-4.9)
--- NOTE | 2022-02-26 08:37 | PCM.DC.SUM ---
Providers Date of Admission: 02/24/22 Date of Discharge: 02/26/22 Primary Care Physician: Dr. Jeffry Nichole, DO Reason For Visit: ACUTE STEMI Diagnosis Discharge Diagnosis (1) Spontaneous dissection of coronary artery: Status: Acute Code(s): I25.42 - Coronary artery dissection Medications at Discharge Home Medications escitalopram oxalate 10 mg tablet 5 mg PO DAILY Antidepressant 02/12/19 hydrochlorothiazide 25 mg tablet 25 mg PO DAILY hi blood pressure 02/12/19 amlodipine 2.5 mg tablet 2.5 mg PO DAILY #90 tabs 02/26/22 aspirin 81 mg tablet,delayed release 81 mg PO BREAKFAST #90 tabs 02/26/22 atorvastatin 40 mg tablet 40 mg PO QHS #90 tabs 02/26/22 carvedilol 3.125 mg tablet 3.125 mg PO BID #180 tabs 02/26/22 clopidogrel 75 mg tablet 75 mg PO DAILY #90 tabs 02/26/22 Hospital Course Summary of Care Provided Minutes Spent on Discharge: 35 Hospital Course: 61 F with past medical history segment for hypertension who presented with chest pain. ? 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 Medical management recommended by cardiology admitted to intensive care unit subsequently 1.? Acute ST segment elevation MT ? Secondary tospontaneous coronary artery dissection of the right posterior left ventricular branch.? This was confirmed on an emergency left heart catheterization.? Medical management recommended by cardiology admitted to intensive care unit subsequently ? 02/25/2022 had episode of chest pain which is since resolved 2.? Acute hypertensive emergency ? Patient blood pressure on admission was 213/113.? Patient is on atenolol and HCTZ did continue.? Amlodipine added for optimal control ? 02/25/2022 patient blood pressure control has significantly improved 3.? Elevated D-dimer ? CTA of the chest ordered to rule out VTE also ordered bilateral venous duplex.? Patient has family history of genetic hypercoagulable state (mother) ? 02/25/2022 CTA was negative for pulmonary embolism 4.? Class II obesity with BMI of 39.2 ? Patient has history of gastric sleeve surgery 5.? Depression with anxiety ? Patient is on escitalopram did continue 6.? DVT prophylaxis ? SC Lovenox Physical Exam Narrative GENERAL: cooperative HEENT: Atraumatic; normocephalic EYES; Anicteric, Normal Conjunctiva NECK; supple, normal thyroid, RESPIRATORY: Diminished to auscultation CARDIOVASCULAR:? Regular S1 S2, GI:? soft, normoactive bowel sounds, : No Renal angle tenderness; EXTREMITIES:? No edema, no clubbing, MUSCULOSKELETAL:? no muscle wasting NEURO:? Awake;? no lateralizing signs. SKIN:? No Rash PSYCH; Flat? affect Weight / BMI Weight Weight: 95 kg Body Mass Index (BMI) 39.2 ABG / Lab / Microbiology Data Result Diagrams: 02/26/22 05:55 02/26/22 05:55 Laboratory: Laboratory Results - last 24 hr 02/25/22 05:30: WBC 7.5, RBC 3.68 L, Hgb 10.3 L, Hct 30.9 L, MCV 84.0, MCH 28.0, MCHC 33.3, RDW Std Deviation 44.6 H, RDW Coeff of Tyler 14.5, Plt Count 246, MPV 10.2, Immature Gran % (Auto) 0.300, Neut % (Auto) 69.4, Lymph % (Auto) 19.8, [place] % (Auto) 8.1, Eos % (Auto) 1.9, Baso % (Auto) 0.5, Absolute Neuts (auto) 5.2, Absolute Lymphs (auto) 1.49, Nucleated RBC % 0 02/26/22 05:55: WBC 7.1, RBC 4.06 L, Hgb 11.5 L, Hct 34.1 L, MCV 84.0, MCH 28.3, MCHC 33.7, RDW Std Deviation 44.8 H, RDW Coeff of Tyler 14.6, Plt Count 221, MPV 9.8 02/26/22 05:55: Sodium 141, Potassium 3.6, Chloride 107, Carbon Dioxide 28.0, Anion Gap 6, BUN 8, Creatinine 0.61, Estim Creat Clear Calc 75.63, Est GFR (MDRD) Af Amer 128, Est GFR (MDRD) Non-Af 106, BUN/Creatinine Ratio 13.1, Glucose 95, Calcium 9.3, Magnesium 2.2, Total Bilirubin 1.10 H, Direct Bilirubin 0.25, AST 53 H, ALT 16, Alkaline Phosphatase 65, Total Protein 6.6, Albumin 3.1 L, Globulin 3.5 02/26/22 05:55: Phosphorus 3.1 D/C Instructions Discharge Diet: No restrictions Discharge Activity: Return to Normal Activity Call your doctor if you observe: Fever of 101 or Higher, Shortness of breath, Fainting spells and Chest pain Meaningful Use Info Meaningful Use Diagnoses (Choose all that apply): AMI AMI/Post PCI/Angioplasty Aspirin given w/in 24hrs of arrival?: Yes ASA at discharge?: Yes Antiplatelet Therapy at Discharge:: Yes Statins at discharge?: Yes Evan/ARB at discharge?: No Reason Evan/ARB not ordered:: Not indicated Beta [place] at discharge?: Yes Done w/ Acute MT measure.: Yes Documented LVEF (%): 55 Discharge Plan Admission Admit Date/Time: 02/24/22 12:40 Attending Provider: Layton Petty Primary Care Provider: eJffry Nichole Instructions Forms: Work / School Excuse Discharge Orders/Prescriptions Prescriptions: New atorvastatin 40 mg Tablet 40 mg PO QHS Qty: 90 0RF amlodipine 2.5 mg Tablet 2.5 mg PO DAILY Qty: 90 0RF clopidogrel 75 mg Tablet 75 mg PO DAILY Qty: 90 0RF aspirin 81 mg Tablet,Delayed Release (Dr/Ec) 81 mg PO BREAKFAST Qty: 90 0RF carvedilol 3.125 mg Tablet 3.125 mg PO BID Qty: 180 0RF Continued hydrochlorothiazide 25 MG tablet 25 mg PO DAILY escitalopram oxalate 10 MG tablet 5 mg PO DAILY Discontinued atenolol 50 MG tablet 50 mg PO DAILY Referrals / Follow Up: Layton Petty MD [Med Staff - Active Staff] - Within 2 Weeks Jeffry Nichole DO [Primary Care Provider] - Within 1 Week Disposition Disposition (needs filled in before D/C Order can be placed): Home, Self Care Charges/Coding Visit Charges Inpatient E&M: 09361 Disch Hosp
[2022-02-26] MEDS: Aspirin E.C. 81 MG Tablet PO (08:53)
[2022-02-26 09:02] VITALS: BP 97/52; PULSE 78; RESP 18; TEMP 36.8; O2SAT 97
== END 2022-02-26 12:07 | disposition home or self-care (01) | DRG 280 ==
LOC: ED 12:38 → ICU 12:46 → PCU 02-26 08:37
PROVIDERS: Internal Medicine; Admitting Provider Internal Medicine Cardiovascular Disease; Emergency Provider Emergency Medicine; PCP Family Medicine; Referring Provider Internal Medicine Cardiovascular Disease; Visit Provider Internal Medicine Cardiovascular Disease
DX: I21.29 ST elevation (STEMI) myocardial infarction involving other sites (principal); I25.42 Coronary artery dissection; I16.1 Hypertensive emergency; I10 Essential (primary) hypertension; F41.8 Other specified anxiety disorders; Z79.82 Long term (current) use of aspirin; E66.9 Obesity, unspecified; Z68.39 Body mass index [BMI] 39.0-39.9, adult
CPT/HCPCS: 36415; 71045; 71275; 80048; 80061; 80076; 83735; 84100; 84484; 85025; 85027; 85379; 85610; 85730; 93005; 93306; 93458; 97802; 99152; 99153; 99251; 99285; J7030; J7040; Q9957; Q9967; A4216; C1769; C1894; G0463; J1327; J2405

== ENCOUNTER → 2022-03-31 | Outpatient (CLI) | payer OTHER, SELFPAY | END | disposition home or self-care (01) | PROVIDERS: PCP Family Medicine; Referring Provider Internal Medicine Cardiovascular Disease; Visit Provider Internal Medicine Cardiovascular Disease | DX: R00.2 Palpitations (principal) | CPT/HCPCS: 93225; 93226 ==

== ENCOUNTER → 2022-08-04 | Outpatient (CLI) | payer OTHER, SELFPAY ==
--- NOTE | 2022-08-04 08:43 | BD_ITS ---
STUDY: DUAL ENERGY X-RAY ABSORPTIOMETRY / DXA REASON FOR EXAM: Female, 62 years old. 733.90OsteopeniaBONE DENSITY REASON FOR EXAM TECHNIQUE: Bone Mineral Density (BMD) measurements of lumbar spine and bilateral hips were obtained. COMPARISON: Comparison is made with prior study dated May 16, 2014. FINDINGS: Lumbar Spine (L1-L4): g/cm2 (0.921) / T-score (-1.1) / Z-score (0.5) Findings are suggestive of osteopenia with a low fracture risk. Left Femur Total: g/cm2 (0.823) / T-score (-1.0) / Z-score (0.1) Left Femoral Neck: g/cm2 (0.708) / T-score (-1.3) / Z-score (0.2) Right Femur Total: g/cm2 (0.805) / T-score (-1.1) / Z-score (0.0) Right Femoral Neck: g/cm2 (0.700) / T-score (-1.3) / Z-score (0.1) The T-Scores on the most recent prior examination were: Lumbar Spine (L1-L4): There has been worsening of bone density since the previous examination. Left Femur Total: which represents a worsening of 11.9%. Right Femur Total: which represents a worsening of 11.8%. BD/Dexa Bone Density Study IMPRESSION: The patient is considered osteopenic as outlined below according to World [place] Organization (WHO) criteria with a low fracture risk. There has been worsening of bone density since the previous examination. Reference Information: The T-score is the number of standard deviations above or below the standard which is normal for young adults at their peak bone mineral density. The World Health Organization (WHO) interprets the T-scores as follows: Above -1 Normal bone density Between -1 and -2.5 Osteopenia Equal to / or below -2.5 Osteoporosis As a practical clinical guideline, osteopenia may be graded as follows: Mild -1 through -1.5 Moderate -1.6 through -2.0 Severe -2.1 through -2.4 The Z-score is the number of standard deviations above or below age-matched controls. A Z-score of less than -1.5 would be considered abnormal. References: 1. NIH Osteoporosis and Related Bone Diseases www osteo.org 2. International Society for Clinical Densitometry www iscd.org 3. National Osteoporosis Foundation www nof.org Electronically Signed: Isidro Fernando MD at 9:58 EDT ,
== END | disposition home or self-care (01) ==
PROVIDERS: PCP Family Medicine; Referring Provider Family Medicine; Visit Provider Family Medicine
DX: M85.80 Other specified disorders of bone density and structure, unspecified site (principal)
CPT/HCPCS: 77080

== ENCOUNTER → 2022-08-16 | Outpatient (CLI) | payer OTHER, SELFPAY ==
--- NOTE | 2022-08-16 15:34 | BI_ITS ---
MAMMOGRAPHY - BILATERAL SCREENING REASON FOR EXAM: Female, 62 years old. Routine annual screening examination. PERTINENT HISTORY: Grandmother with breast cancer. Prior left ultrasound guided biopsy. TECHNIQUE: Digital bilateral breast alex (3D mammographic acquisition) in the CC and MLO projections. 2-D mediolateral oblique (MLO) and craniocaudad (CC) views of both breasts were obtained. CAD: Full Field Digital Mammography with Computer Added Detection was performed. COMPARISON: Comparison is made with prior study of November 19, 2019 and January 06, 2018. FINDINGS: Breast Composition: The breasts are almost entirely fatty. There are no dominant masses or suspicious calcifications. No other significant abnormalities are identified. There has been no significant change since the prior study. BI/SCRN MAMM (CAD)W/ALEX BILAT IMPRESSION: Stable bilateral screening mammogram. Yearly follow-up mammogram recommended. (A) ASSESSMENT CATEGORY: BIRADS Category 1: Negative. A letter regarding these results will be sent to the patient by the facility within 30 days. Approximately 10% of breast cancers are not detected by mammography. A normal mammogram should not delay biopsy of a clinically suspicious abnormality. [id number] Electronically Signed: Isidro Fernando MD at 8:06 EDT ,
== END | disposition home or self-care (01) ==
LOC: OPBI 15:32
PROVIDERS: PCP Family Medicine; Referring Provider Family Medicine; Visit Provider Family Medicine
DX: Z12.31 Encounter for screening mammogram for malignant neoplasm of breast (principal); Z80.3 Family history of malignant neoplasm of breast
CPT/HCPCS: 77063; 77067

== ENCOUNTER → 2022-09-06 | Outpatient (CLI) | payer OTHER, SELFPAY ==
[2022-09-06 12:37] LABS: Absolute Lymphocyte Count 1.05 X10^3/uL (0.83-4.51); Absolute Neutrophil Count 2.3 X10^3/uL (2.0-7.7); Basophil# 0.03 X10^3/uL; Basophil% 0.8 % (0-1); Eosinophils% 2.6 % (0-5); Hematocrit 38.4 % (37-47); Hemoglobin 12.3 g/dL (12.0-15.0); Lymphocyte # 1.05 X10^3/ul (0.83-4.51); Lymphocyte % 27.3 % (19-41); Mean Corpuscular Hgb 26.6 pg (27.0-32.0); Mean Corpuscular Volume 83.1 fL (81-99); Monocyte# 0.31 X10^3/uL; Monocyte% 8.1 % (0-10); NRBC Flagged by Analyzer 0 % (0-5); Neutrophil # 2.34 X10^3/uL (2.7-7.7); Neutrophil % 60.9 % (47-70); Platelet Count 326 K/mm3 (150-450); RBC Distribution Width SD 45.3 fl (35.1-43.9); Red Blood Count 4.62 M/mm3 (4.2-5.4); White Blood Count 3.8 K/mm3 (4.4-11.0)
[2022-09-06 13:22] LABS: AST(SGOT) 16 U/L (15-37); Alanine Aminotransfer ALT/SGPT 21 U/L (13-56); Albumin, Serum 3.7 g/dL (3.2-5.0); Alkaline Phosphatase 71 U/L (45-117); Anion Gap 5 (5-15); BUN 12 mg/dL (7-18); BUN/Creat Ratio 18.5 RATIO (10-20); Calcium,Total 9.5 mg/dL (8.5-10.1); Chloride 106 mmol/L (98-107); Cholesterol 233 mg/dL (200); Creatinine, Serum 0.65 mg/dL (0.55-1.02); EST Glomerular Filtration Rate 98 mL/min (>60); Est Glom Filt Rate - Afr Amer 119 mL/min (>60); Ferritin 11 ng/mL (8-252); Globulin 3.8 g/dL (2.2-4.2); Glucose 105 mg/dL (74-106); High Density Lipoprotein 74 mg/dL; Iron 77 ug/dL (50-170); Potassium 3.8 mmol/L (3.5-5.1); Protein, Total 7.5 g/dL (6.4-8.2); Sodium Level 141 mmol/L (136-145); Triglycerides 100 mg/dL; Very Low Density Lipoprotein 20 mg/dL (5-40)
[2022-09-06 14:03] LABS: Hemoglobin A1c 5.4 % (3.8-5.6)
== END | disposition home or self-care (01) ==
LOC: BFHLAB 09:12
PROVIDERS: PCP Family Medicine; Referring Provider Family Medicine; Visit Provider Family Medicine
DX: Z00.00 Encounter for general adult medical examination without abnormal findings (principal); R73.01 Impaired fasting glucose; E55.9 Vitamin D deficiency, unspecified; D50.9 Iron deficiency anemia, unspecified
CPT/HCPCS: 36415; 80053; 80061; 82306; 82728; 83036; 83540; 85025

== ENCOUNTER 2022-11-11 06:42 | Day surgery (SDC) | payer OTHER, SELFPAY ==
--- NOTE | 2022-11-05 07:14 | EKG12_ITS ---
Test Reason : PREOP Blood Pressure : / mmHG Vent. Rate : 072 BPM Atrial Rate : 072 BPM P-R Int : 136 ms QRS Dur : 078 ms QT Int : 400 ms P-R-T Axes : -17 -11 -11 degrees QTc Int : 438 ms Normal sinus rhythm Nonspecific T wave abnormality Abnormal ECG Confirmed by MELVIN JENSEN, BRANDON ([id number]), photograph editor PATRICIA CRUZ ([id number]) on 11/05/2022 12:55:22 PM Referred By: Lul Borrero Confirmed By:BRANDON CHARLES MD
[2022-11-08 12:09] LABS: Hemoglobin 12.1 g/dL (12.0-15.0); Mean Corpuscular Hgb 26.1 pg (27.0-32.0); Mean Corpuscular Volume 84.2 fL (81-99); Mean Platelet Vol. 9.9 fl (6.2-12.0); Platelet Count 338 K/mm3 (150-450); RBC Distribution Width CV 14.4 % (11.6-14.6); Red Blood Count 4.63 M/mm3 (4.2-5.4); White Blood Count 4.9 K/mm3 (4.4-11.0)
[2022-11-08 12:29] LABS: Anion Gap 1 (5-15); BUN 13 mg/dL (7-18); BUN/Creat Ratio 16.5 RATIO (10-20); Calcium,Total 9.5 mg/dL (8.5-10.1); Chloride 105 mmol/L (98-107); Creatinine, Serum 0.79 mg/dL (0.55-1.02); EST Glomerular Filtration Rate 79 mL/min (>60); Est Glom Filt Rate - Afr Amer 95 mL/min (>60); Glucose 121 mg/dL (74-106); Potassium 4.5 mmol/L (3.5-5.1); Sodium Level 139 mmol/L (136-145)
[2022-11-11] VITALS (8 sets, daily range): BP systolic 134–177; BP diastolic 67–102; PULSE 56–83; RESP 16; TEMP 36.2–36.8; O2SAT 94–99; BMI 38.7
--- NOTE | 2022-11-11 06:50 | PCM.HP.BLA ---
History and Physical Date of Admission: 11/11/22 Visit Reasons: Discuss future procedure (hemorrhoids) Chief Complaint: discuss future procedure Allergies benzoyl peroxide Allergy (Verified 10/22/22 09:09) Rasheprosartan [From Teveten] Allergy (Verified 10/22/22 09:09) OtherPenicillins Allergy (Verified 10/22/22 09:09) Rashsertraline [From Zoloft] Allergy (Verified 10/22/22 09:09) anxiety Medications escitalopram oxalate 10 mg tablet 5 mg PO DAILY Antidepressant 02/12/19 [History Confirmed 10/22/22] hydrochlorothiazide 25 mg tablet 25 mg PO DAILY blood pressure 02/12/19 [History Confirmed 10/22/22] carvedilol 6.25 mg tablet 6.25 mg PO BID #60 tabs 03/17/22 [Rx Confirmed 10/22/22] amlodipine 2.5 mg tablet 2.5 mg PO DAILY #90 tabs 03/24/22 [Rx Confirmed 10/22/22] aspirin 81 mg tablet,delayed release 81 mg PO BREAKFAST #90 tabs 03/24/22 [Rx Confirmed 10/22/22] clopidogrel 75 mg tablet 75 mg PO DAILY #90 tabs 03/24/22 [Rx Confirmed 10/22/22] atorvastatin 40 mg tablet 40 mg PO QHS #90 tabs 03/26/22 [Rx Confirmed 10/22/22] PFSH Medical History (Updated 10/05/22 @ 12:29 by Marcia Rojas) Achilles tendon injury Depression GERD (gastroesophageal reflux disease) Hypertension Migraines Osteopenia Sciatica Seasonal affective disorder Spontaneous dissection of coronary artery STEMI (ST elevation myocardial infarction) Surgical History H/O gastric sleeve History of hysterectomy for cancer Family History Father Liver mass Heart disease Atrial fibrillationMother DVT (deep venous thrombosis)Uncle Myocardial infarction Social History Smoking Status: Never smoker alcohol intake: current alcohol intake frequency: holidays/special occasions only substance use type: does not use caffeine: Yes Type: coffee Number of servings: 2 HPI HPI HPI: 62-year-old female returns to discuss rectal bleeding. I had initially seen her on October 05, 2022. She is on clopidogrel and aspirin therapy. She has had a recent cardiac history as noted below. She has been evaluated by cardiology and is able to hold her clopidogrel for a brief period of time. My plan for her was a flexible sigmoidoscopy combined with a surgical hemorrhoidectomy. We have received instructions from Dr. Petty That we can hold her Plavix for 4 days preoperatively. She is doing well today. She did have some rectal bleeding again with defecation this morning. No pain. My previous notes reflect the following Visit Reasons: HEMORRHOIDS Chief Complaint: hemorrhoids consult [facility] Emergency Care Technician Required: No Is patient in pain?: No Allergies benzoyl peroxide Allergy (Verified 10/05/22 12:39) Rasheprosartan [From Teveten] Allergy (Verified 10/05/22 12:39) OtherPenicillins Allergy (Verified 10/05/22 12:39) Rashsertraline [From Zoloft] Allergy (Verified 10/05/22 12:39) anxiety Medications escitalopram oxalate 10 mg tablet 5 mg PO DAILY Antidepressant 02/12/19 [History Confirmed 10/05/22] hydrochlorothiazide 25 mg tablet 25 mg PO DAILY blood pressure 02/12/19 [History Confirmed 10/05/22] carvedilol 6.25 mg tablet 6.25 mg PO BID #60 tabs 03/17/22 [Rx Confirmed 10/05/22] amlodipine 2.5 mg tablet 2.5 mg PO DAILY #90 tabs 03/24/22 [Rx Confirmed 10/05/22] aspirin 81 mg tablet,delayed release 81 mg PO BREAKFAST #90 tabs 03/24/22 [Rx Confirmed 10/05/22] clopidogrel 75 mg tablet 75 mg PO DAILY #90 tabs 03/24/22 [Rx Confirmed 10/05/22] atorvastatin 40 mg tablet 40 mg PO QHS #90 tabs 03/26/22 [Rx Confirmed 10/05/22] [facility] Medical History (Updated 10/05/22 @ 12:29 by Marcia Rojas) Achilles tendon injury Depression GERD (gastroesophageal reflux disease) Hypertension Migraines Osteopenia Sciatica Seasonal affective disorder Spontaneous dissection of coronary artery STEMI (ST elevation myocardial infarction) Surgical History H/O gastric sleeve History of hysterectomy for cancer Family History Father Liver mass Heart disease Atrial fibrillationMother DVT (deep venous thrombosis)Uncle Myocardial infarction Social History Smoking Status: Never smoker alcohol intake: current alcohol intake frequency: holidays/special occasions only substance use type: does not use caffeine: Yes Type: coffee Number of servings: 2 HPI HPI HPI: 62-year-old female. She is being referred by Dr. Jeffry Nichole for surgical consultation regarding suspected hemorrhoidal disease. A written compromise surgical consult recommendations will return to him. It is of note that she has a history of endometrial carcinoma and diagnosed 2017. It is also of note that she had a ST segment myocardial infarction February 24, 2022. She has had a previous history of sleeve gastrectomy September 2019 and she has had a previous hysterectomy as well as an AP bladder repair. Among her other medications she is on clopidogrel and low-dose aspirin. Her most recent colonoscopy was July 29, 2020. Most recent BMI is 37. 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 She can have very long days standing 8 to 10 hours. She does not use a daily fiber supplement. She states that for 4 to 5 years she has had intermittent rectal bleeding to the point where she has to wear pads and sometimes soils her clothing. She had a colonoscopy done by Dr. Jason Lund on July 28, 2020 which demonstrated a descending colon polyp multiple fragments of tubular adenoma but was only 8 mm. Follow-up colonoscopy 5 years. She was having rectal bleeding at that time. A definitive diagnosis however was not made that it was coming from hemorrhoids at least definitive diagnosis per Dr. Silva was not submitted. February 2022 the patient had acute myocardial infarction Her myocardial infarction is due to a small vessel dissection. No angioplasty or stenting was performed. She did not require cardiac rehab. She was able to go back to work in a week or 2. Regarding her rectal bleeding is noted its been going on for 4 to 5 years even prior to her being initiated on clopidogrel aspirin. Frequently occurs post defecation. Can somewhat be uncomfortable but not a sharp pain. It can sometimes occur just with her standing. Even when she was having rectal bleeding prior to her myocardial infarction she was only on HCTZ and atenolol at that time. Family history notable for her brother Ronan having had colon cancer. Bryan is her [id number]. ROS General General: Yes weight change; No appetite, fatigue, colon cancer, breast cancer or weakness Additional Details: weight loss HEENT HEENT: No difficulty swallowing, eye injury, eye surgery, swollen glands or hoarseness Endo Endocrine: No thyroid disease, diabetes mellitus, thyroid cancer, Hair loss, heat intolerance or cold intolerance Skin Skin: No rash or changing moles Breast Breast: No left breast lump, right breast lump, nipple discharge, breast pain, abnormal mammogram, abnormal US or breast enlargement Musc Musculoskeletal: No back problems, arthritis, rheumatoid arthritis, gout or joint pain Cardio Cardiovascular: Yes heart disease, high blood pressure and heart attack; No murmur, pacemaker, atrial fibrillation, heart stent, palpitations, shortness of breat with exertion or chest pain Additional Details: SCAD Feb-2022 Psych Psychiatric: No depression, anxiety or hearing voices Resp Respiratory: No shortness of breath, No sleep apnea, No cough, No COPD, No asthma, No emphysema and No wheezing Gastro Gastrointestinal: No abdominal pain, No nausea or vomiting, No diarrhea, No constipation, No blood in stool, No acid reflux, Yes hemorrhoids, No ulcers, No gallbladder problem and No black,tarry stools Emir Hematologic: Yes blood thinners, No blood disorders, Yes bleeding, No anemia and No blood clots Neuro Neurologic: No system reviewed and no additional complaints, except as documented, No as per HPI, No abnormal gait, No abnormal hearing, No abnormal movements, No abnormal speech, No behavioral changes, No burning sensations, No confusion, No convulsions, No disequilibrium, No dizziness, No localized weakness, No frequent falls, No headache(s), No lack of coordination, No loss of vision, No memory loss, No numbness, No other visual disturbances, No radicular pain, No restless legs, No sensory deficit, No syncope, No tingling, No tremor(s), No weakness and No other Exam Const General: cooperative, healthy appearing and no acute distress [facility] Head: normal to inspection Eyes General: appearance normal, both eyes and all related structures Neck Neck: normal visual inspection Chest Chest palpation & inspection: normal inspection of the chest Resp Effort & Inspection: normal respiratory effort Auscultation: clear to auscultation bilaterally Cardio Rate: regular rate Rhythm: regular rhythm GI Inspection: normal to inspection Palpation: soft and no hepatosplenomegaly Other: External anus demonstrates some mild external hemorrhoidal changes. There is no active bleeding. On visual inspection and digital palpation there are significant internal hemorrhoids. No overt tenderness. No blood on the glove Musc Cervical Spine: normal cervical lordosis Skin General: no rashes or lesions noted Neuro General: patient alert, patient awake and patient oriented x3 Extrem General: no calf tenderness Psych Appearance: grossly normal Assessment and Plan Assessment and Plan (1) Coronary artery disease: Status: Acute (2) Bleeding hemorrhoid: Status: Acute Plan: Based upon the patient's prolonged history of intermittent rectal bleeding and post defecation most noticeable I do tend to concur that this likely is hemorrhoidal bleeding. More recently likely aggravated by aspirin and clopidogrel therapy. She does not have coronary stents in place so she might be a candidate to be able to stop her clopidogrel sooner than otherwise. We will contact cardiology Dr. Petty for advice. Ideally I would like to have her off of clopidogrel 6 days preop and likely 6 days postop. I anticipate a flexible sigmoidoscopy with a surgical hemorrhoidectomy. We have briefly compared and correct contrasted other techniques like hemorrhoidal banding and PPH stapled hemorrhoidopexy. I believe that the approach as described would be a more definitive 1 that would look likely stand the test of time particularly with her busy work lifestyle and multiple hours of standing. She is aware of technique benefit risk complications alternatives. I have also discussed with her initiating a daily fiber supplement something like Metamucil Citrucel or FiberCon even before surgical intervention. She has had an option to ask and have questions answered. We will anticipate scheduling once we get further information regarding cardiology clearance. Copy: Dr. Jeffry Borrero M.D., F.A.C.S. Assessment and Plan Assessment and Plan (1) Bleeding hemorrhoid: Status: Acute Plan: Today was a ilpc-in-ldgb consultative appointment. I have described the technique of a flexible sigmoidoscopy and a surgical hemorrhoidectomy. We have discussed the technique, benefit, risk, alternatives. She has had an opportunity to ask and have questions answered. We will schedule and proceed at her discretion. She will hold her Plavix 4 days preop. She may continue her low-dose aspirin. We will have her take half dosing of the MiraLAX bowel prep 1 day preop. I will not require carbon dioxide to do the flexible sigmoidoscopy. Recommended the patient a flexible sigmoidoscopy combined with a surgical hemorrhoidectomy. She is aware of technique, benefit, risk, alternatives. We will have her hold her Plavix 4 days preprocedure. She is aware that we will need to continue to hold the Plavix for a period of time postoperatively as well. She has had an opportunity ask and have questions answered. We will schedule procedure at her discretion. I appreciate the ongoing opportunity of assisting with her surgical care. Copy: Dr. Jeffry Nichole and Dr. Layton Borrero M.D., F.A.C.S I have examined the patient and the H&P has been reviewed. There are no clinical changes since date of exam. Lul Borrero M.D., F.A.C.S.
--- NOTE | 2022-11-11 06:51 | DCINST_ITS ---
Discharge Instructions Procedure Rectal Surgery Diet Discharge Diet: No restrictions Activity Discharge Activity: Return to Normal Activity and May Not Drive (while you are taking narcotic pain medications. Do not drive, work with heavy equipment or s ign legal documents for 24 hours after your surgery.) Additional Activity Instructions:: Do not drive or work with heavy equipment or sign legal documents for 24 hours. Be aware that pain medications may cause nausea. You should typically eat light foods as you take your pain medications. Pain medications may also cause constipation, if you have difficulty with this please discuss with your doctor. You may Sitz bathe in warm soapy water for comfort. You may apply the external Dibucaine ointment every 4 hours as needed. Drink plenty of fluids with your diet and take a daily fiber supplementation like Metamucil or Citrucel or Benefiber or generic. Use mineral oil 30 cc (1 ounce) daily hidden in food or juice No heavy lifting or straining place Follow Up Care Please Follow Up With: Lul Borrero MD When: Call [phone] to set up appointment to be seen 3 weeks after surgery. Test Results: Test results from this visit will be discussed in further detail at your follow- up appointment, if applicable. Discharge Plan Admission Attending Provider: Lul Borrero Primary Care Provider: Jeffry Nichole Discharge Orders/Prescriptions Prescriptions: No Action carvedilol 6.25 mg tablet 6.25 mg PO BID Qty: 60 6RF hydrochlorothiazide 25 MG tablet 25 mg PO DAILY escitalopram oxalate 10 MG tablet 5 mg PO DAILY clopidogrel 75 mg tablet 75 mg PO DAILY Qty: 90 3RF aspirin 81 mg tablet,delayed release (DR/EC) 81 mg PO BREAKFAST Qty: 90 3RF amlodipine 2.5 mg tablet 2.5 mg PO DAILY Qty: 90 3RF atorvastatin 40 mg tablet 40 mg PO QHS Qty: 90 3RF Referrals / Follow Up: Jeffry Nichole DO [Primary Care Provider] - Disposition Disposition (needs filled in before D/C Order can be placed): Home, Self Care
[2022-11-11] MEDS: Lactated Ringers 1,000 ML 15 ML IV (07:40)
[2022-11-11] MEDS: Clindamycin 900 MG/50 ML BAG 75 MG IV (08:43)
--- NOTE | 2022-11-11 08:50 | HEM_PTH ---
PATIENT: SHERRELL JADE LOC: [facility] [place] U#:[id number] AGE/SX: 62/F ROOM: RE11/11/[address]: Dr. Lul Borrero MD : 1960 BED: DIS: 11/11/2022 SPEC #: [id number] RECD: 11/11/22 10:40 STATUS: ALIZA REBird #: [id number] ANDREA: 11/11/22 08:[address]: Lul Borrero DEPT: SURGICAL PATHOLOGY RECD BY: Huong Garcia ENTERED: 11/11/22 11:56 SP TYPE: HEMORRHOID OTHR DR: Dr. Jeffry Nichole, DO Tissues: HEMORRHOIDS Procedures: Surgery Specimen Level III HEADER OPERATION: Hemorrhoidectomy, flexible sigmoidoscopy PRE-OP DIAGNOSIS: Bleeding hemorrhoid TISSUE SUBMITTED: Hemorrhoid tissue MICROSCOPIC DIAGNOSIS Hemorrhoid, hemorrhoidectomy: Pieces of anorectal mucosa with dilated and congested blood vessels, consistent with hemorrhoids. SJ:krunal 11/12/2022 MICROSCOPIC DESCRIPTION Slides are reviewed. GROSS DESCRIPTION Received in fixative is one container labeled with the patient's name and designated hemorrhoid tissue. The specimen consists of two glistening fragments of burnett tissue with attached hemorrhagic submucosal tissue measuring in aggregate 3.0 x 2.5 x 1.3 cm. Dam Tender Assistant sections are submitted in one cassette. / AM:krunal 11/11/2022 TC:5 CPT: 51190
[2022-11-11] MEDS: Lubricating Jelly 60 GM Tube 30 GM (08:57)
[2022-11-11] MEDS: BUPIVACAINE LIPOSOME/PF 20 ML VIAL OPERA.SITE (09:50)
[2022-11-11] MEDS: Bupivacaine Mpf 0.5% 30 ML VIAL (09:50)
[2022-11-11] MEDS: Dibucaine 30 GM Tube 1 APPLIC (09:54)
--- NOTE | 2022-11-11 09:59 | OP.PCM_ITS ---
Report of Operation Date of Procedure: 11/11/22 Pre-Operative Diagnosis: Rectal bleeding, bleeding internal hemorrhoids Post-Operative Diagnosis: Same Surgery/Procedure Performed:: Complex 2 column hemorrhoidectomy with additional ligation Description of Surgical Findings:: Timeout informed consent was obtained. 62-year-old female was taken to the operating room. She underwent general endotracheal ovation esthesia. Initially flexible sigmoidoscopy was performed as noted in provation. No acute finding. Subsequent was placed prone on the operating table shoulder rolls were placed knees were padded legs were supported with pillows she was placed in a prone jackknife position. The perianal area was prepped with Betadine. Inspection revealed an irritated prolapsing portion of the anterior hemorrhoidal tissue associate with the external disease a conglomerate of right posterior lateral disease and then additional more superficial internal hemorrhoidal disease both right and left mid lateral. Speculum was inserted excised the anterior tissue first placed an apical suture of 0 Vicryl and then placed an apical suture of 2- 0 chromic. I used harmonic scalpel to excise in combination the external and internal hemorrhoidal component. The mucosa was approximate the running locking 2-0 chromic. The right posterior lateral area was treated in the same way there appeared to be 2 parallel venous feeding vessels again I used 0 Vicryl to ligate at the apex and 2-0 chromic and ligated the apex and used the harmonic scalpel to resect the tissue. Approximate the mucosa with a running 2-0 chromic. Abdomen performed that there were 2 areas of superficial anal hemorrhoidal disease both right mid and left lateral I used a 2-0 chromic in a running fashion suture ligated that tissue. I did not want to excise additional tissue to the amount that is already been taken. Inspection revealed that everything was hemostatic. I placed a Vaseline gauze with Dibucaine. I anesthetized the perianal tissue now with a total of 45 cc of local which represented 25 cc of 0.5% Marcaine mixed with 20 cc of Exparel. ABD dressing and fishnet undergarments applied. She tolerated the procedure well. Specimen hemorrhoids. Drains none. Blood loss minimal. She was taken to the recovery room in satisfied condition without apparent complication Lul Borrero M.D., F.A.C.S. Surgeon: Lul Borrero Type of Anesthesia: General and Local Anesthesiologist: Savanna Carrera
--- NOTE | 2022-11-11 10:00 | OP.CCLET_ITS ---
11/11/2022 Jeffry Nichole Re : Flexible Sigmoidoscopy procedure for Christina Mclain Dear Dionisio This procedure was performed on October. My impressions and recommendations are as follows: Impressions : - Non-thrombosed external hemorrhoids, non-thrombosed internal hemorrhoids and internal hemorrhoids that prolapse with straining, but require manual replacement into the anal canal (Grade III) found on digital rectal exam. - The entire examined colon is normal. - No specimens collected. Recommendations : - Use fiber, for example Citrucel, Fibercon, Konsyl or Metamucil. My findings are described in the full procedure note, which is enclosed. If I can be of further assistance, please feel free to contact me at Doctor phone number(s): Work: . Sincerely, Lul Borrero MD 11/11/2022 9:59:36 AM This report has been signed electronically.
--- NOTE | 2022-11-11 10:00 | OP.FLEXSIG_ITS ---
Patient Name: Christina Mclain Procedure Date: 11/11/2022 8:48 AM Date of : 1960 Age: 62 Procedure: Flexible Sigmoidoscopy Indications: Rectal hemorrhage Providers: Lul Borrero MD Medicines: General Anesthesia Patient Profile: Last Colonoscopy: date unknown. Complications: No immediate complications. Procedure: Pre-Anesthesia Assessment: - Prior to the procedure, a History and Physical was performed, and patient medications and allergies were reviewed. The patient's tolerance of previous anesthesia was also reviewed. The risks and benefits of the procedure and the sedation options and risks were discussed with the patient. All questions were answered, and informed consent was obtained. Prior Anticoagulants: The patient has taken Plavix (clopidogrel), last dose was 2 days prior to procedure. ASA Grade Assessment: III - A patient with severe systemic disease. After reviewing the risks and benefits, the patient was deemed in satisfactory condition to undergo the procedure. After obtaining informed consent, the endoscope was passed under direct vision. Throughout the procedure, the patient's blood pressure, pulse, and oxygen saturations were monitored continuously. The was introduced through the anus and advanced to the left transverse colon. The flexible sigmoidoscopy was accomplished without difficulty. The patient tolerated the procedure well. The quality of the bowel preparation was good. Scope In: 8:56:30 AM Scope Out: 9:00:09 AM Total Procedure Duration Time 0 hours 3 minutes 39 seconds Findings: The digital rectal exam findings include non-thrombosed external hemorrhoids, non-thrombosed internal hemorrhoids and internal hemorrhoids that prolapse with straining, but require manual replacement into the anal canal (Grade III). The entire examined colon appeared normal. Impression: - Non-thrombosed external hemorrhoids, non-thrombosed internal hemorrhoids and internal hemorrhoids that prolapse with straining, but require manual replacement into the anal canal (Grade III) found on digital rectal exam. - The entire examined colon is normal. - No specimens collected. Recommendation: - Use fiber, for example Citrucel, Fibercon, Konsyl or Metamucil. Procedure Code(s): --- Professional --- 24070, Sigmoidoscopy, flexible; diagnostic, including collection of specimen(s) by brushing or washing, when performed (separate procedure) Diagnosis Code(s): --- Professional --- K64.2, Third degree hemorrhoids K64.4, Residual hemorrhoidal skin tags K62.5, Hemorrhage of anus and rectum CPT copyright 2017 [employer]. All rights reserved. The codes documented in this report are preliminary and upon tugger operator review may be revised to meet current compliance requirements. Lul Borrero MD 11/11/2022 9:59:36 AM This report has been signed electronically. Number of Addenda: 0 Note Initiated On: 11/11/2022 8:48 AM
--- NOTE | 2022-11-11 12:28 | SUR.PHASEII ---
PT MEETING ALL CRITERIA FOR D/C. PER DR.CEBUL Gallagher. OK TO PLACE AN ORDER FOR D/C TO HOME.
== END 2022-11-11 12:32 | disposition home or self-care (01) ==
LOC: SDC 06:44 → AC 06:45
PROVIDERS: PCP Family Medicine; Referring Provider Surgery; Visit Provider Surgery
PROC: (CPT 45330; principal; 2022-11-11 08:35)
PROC: 0DJD8ZZ Inspection of Lower Intestinal Tract, Via Natural or Artificial Opening Endoscopic (ICD-10-PCS; CPT 45330; 2022-11-11 08:35)
DX: K62.5 Hemorrhage of anus and rectum (principal); D12.4 Benign neoplasm of descending colon; K64.4 Residual hemorrhoidal skin tags; I10 Essential (primary) hypertension; I25.10 Atherosclerotic heart disease of native coronary artery without angina pectoris; K64.2 Third degree hemorrhoids
CPT/HCPCS: 45330; 00811; 46260; 36415; 80048; 85027; 88304; 93005; J7120; J2405

== ENCOUNTER → 2023-03-09 | Outpatient (CLI) | payer OTHER, SELFPAY ==
[2023-03-09 12:34] LABS: Absolute Lymphocyte Count 1.35 X10^3/uL (0.83-4.51); Absolute Neutrophil Count 2.8 X10^3/uL (2.0-7.7); Basophil# 0.04 X10^3/uL; Basophil% 0.9 % (0-1); Eosinophil# 0.07 X10^3/uL; Eosinophils% 1.5 % (0-5); Hematocrit 38.4 % (37-47); Hemoglobin 12.6 g/dL (12.0-15.0); Lymphocyte # 1.35 X10^3/ul (0.83-4.51); Mean Corp Hgb Conc 32.8 g/dL (32-36); Mean Corpuscular Hgb 26.9 pg (27.0-32.0); Mean Corpuscular Volume 82.1 fL (81-99); Mean Platelet Vol. 9.8 fl (6.2-12.0); Monocyte# 0.41 X10^3/uL; Monocyte% 8.8 % (0-10); NRBC Flagged by Analyzer 0 % (0-5); Neutrophil # 2.77 X10^3/uL (2.7-7.7); Neutrophil % 59.6 % (47-70); Platelet Count 335 K/mm3 (150-450); RBC Distribution Width CV 14.5 % (11.6-14.6); RBC Distribution Width SD 42.8 fl (35.1-43.9); Red Blood Count 4.68 M/mm3 (4.2-5.4); White Blood Count 4.7 K/mm3 (4.4-11.0)
[2023-03-09 13:04] LABS: ALB/GLOB Ratio 1.1 RATIO (0.9-2.4); AST(SGOT) 16 U/L (15-37); Alanine Aminotransfer ALT/SGPT 18 U/L (13-56); Albumin, Serum 3.8 g/dL (3.2-5.0); Alkaline Phosphatase 89 U/L (45-117); Anion Gap 7 (5-15); BUN 12 mg/dL (7-18); Calcium,Total 9.2 mg/dL (8.5-10.1); Chloride 103 mmol/L (98-107); Creatinine, Serum 0.67 mg/dL (0.55-1.02); EST Glomerular Filtration Rate 95 mL/min (>60); Est Glom Filt Rate - Afr Amer 115 mL/min (>60); Globulin 3.6 g/dL (2.2-4.2); Glucose 104 mg/dL (74-106); Potassium 3.7 mmol/L (3.5-5.1); Protein, Total 7.4 g/dL (6.4-8.2); Sodium Level 140 mmol/L (136-145)
== END | disposition home or self-care (01) ==
LOC: BFHLAB 10:52
PROVIDERS: PCP Nurse Practitioner Family; Visit Provider Nurse Practitioner Family
DX: I10 Essential (primary) hypertension (principal); D50.9 Iron deficiency anemia, unspecified
CPT/HCPCS: 36415; 80053; 85025

== ENCOUNTER → 2023-09-14 | Outpatient (CLI) | payer OTHER, SELFPAY ==
[2023-09-14 13:31] LABS: AST(SGOT) 27 U/L (15-37); Alanine Aminotransfer ALT/SGPT 16 U/L (13-56); Albumin, Serum 3.9 g/dL (3.2-5.0); Alkaline Phosphatase 85 U/L (45-117); Bilirubin, Direct 0.24 mg/dL (0.00-0.30); Cholesterol 235 mg/dL (200); Globulin 3.6 g/dL (2.2-4.2); High Density Lipoprotein 80 mg/dL; Protein, Total 7.5 g/dL (6.4-8.2); Triglycerides 86 mg/dL; Very Low Density Lipoprotein 17 mg/dL (5-40)
== END | disposition home or self-care (01) ==
LOC: LAB 11:30
PROVIDERS: PCP Family Medicine; Referring Provider Physician Assistant Medical; Visit Provider Physician Assistant Medical
DX: E78.5 Hyperlipidemia, unspecified (principal)
CPT/HCPCS: 36415; 80061; 80076

== ENCOUNTER → 2024-09-26 | Outpatient (CLI) | payer MEDICARE, BC, SELFPAY ==
[2024-09-26 13:02] LABS: Cholesterol 237 mg/dL (<=200); High Density Lipoprotein 79 mg/dL; Low Density Lipoprotein Calc. 137 mg/dL; Triglycerides 105 mg/dL; Very Low Density Lipoprotein 21 mg/dL (5-40); cholesterol:hdl ratio screen 2.99
[2024-09-26 13:04] LABS: ALB/GLOB Ratio 1.3 RATIO (0.9-2.4); AST(SGOT) 34 U/L (<=31); Alanine Aminotransfer ALT/SGPT 20 U/L (<=34); Albumin, Serum 4.3 g/dL (3.4-4.8); Alkaline Phosphatase 91 U/L (35-104); Anion Gap 12 (5-15); BUN 11 mg/dL (4-19); Calcium,Total 9.9 mg/dL (7.6-11.0); Carbon Dioxide 25.9 mmol/L (21.0-32.0); Chloride 102 mmol/L (98-108); EST Glomerular Filtration Rate 96 (>60); Globulin 3.2 g/dL (2.2-4.2); Glucose 94 mg/dL (70-99); Potassium 4.3 mmol/L (3.3-5.1); Protein, Total 7.5 g/dL (5.9-8.4); Sodium Level 139 mmol/L (133-145); Total Bilirubin 1.01 mg/dL (0.00-1.30)
--- OUTSIDE RECORDS SUMMARY | 2024-09-26 19:59 | XMS RPT_ITS | CCD ---
Author Organization [facility] Care Team Providers Care Shipping Associate Name Role Phone Jeffry Nichole DO Primary Care Provider Dr. Jeffry Nichole Primary Care Provider [phone] Dr. Tony Naylor Emergency Provider Jovanny, Dr. Traylor Admit Provider Jovanny, Dr. Traylor Attending Provider Jovanny, Dr. Traylor Referring Provider Jovanny, Dr. Traylor Other Provider Dr. Danya Moyer Attending Provider Unavailable Dr. Jeffry Nichole Primary Care Provider [phone] Dr. Tony Naylor Emergency Provider Jovanny, Dr. Traylor Admit Provider Jovanny, Dr. Traylor Attending Provider Jovanny, Dr. Traylor Referring Provider Jovanny, Dr. Traylor Other Provider Dr. Danya Moyer Attending Provider Unavailable Dr. Jeffry Nichole Referring Provider [phone] Dr. Jeffry Nichole Primary Care Provider [phone] Dr. Jeffry Nichole Referring Provider [phone] PARADISE Ocampo Attending Provider [phone] Dr. Froylan Tucker Attending Provider [phone] PARADISE Linares Attending Provider [phone] Dr. Jeffry Nichole Primary Care Provider Dr. Jeffry Nichole Referring Provider Dr. Lul Borrero Attending Provider Gissell, Dr. Lul Chapa Referring Provider Dr. Lul Borrero Other Provider Dr. Jeffyr Nichole Primary Care Provider [phone] Jeffry Nichole Referring Provider PARADISE Ocampo Attending Provider [phone] FRITZ Lee Attending Provider PARADISE Linares Attending Provider Dr. Lul Borrero Attending Provider Hugo, Nikki Referring Unavailable Sridevi Heranndes Attending Unavailable Hugo, Nikki Primary Care Unavailable Layton Petty Attending Unavailable Hugo, Nikki Primary Care Unavailable Hugo, Nikki Primary Care Unavailable Sheela Naranjo Attending Unavail able Hugo, Nikki Referring Unavailable Sridevi Hernandes Attending Unavailable Dionisio, Jeffry Primary Care Unavailable Hugo, Nikki Referring Unavailable Sheela Naranjo Attending Unavail able Sheela aNranjo Referring Unavail able Dionisio, Jeffry Primary Care Unavailable Hugo, Nikki Primary Care Unavailable Hugo, Nikki Attending Unavailable Allergies Allergy Classification Reported Allergen(s) Allergy Type Date of Onset Reaction(s) Facility (2 sources) eprosartan Drug Allergy 5 [facility] Work Phone: (4 sources) Sertraline Drug Allergy 3 anxiety [facility] (2 sources) BENZOLE PEROXIDE [Other] Propensity to adverse reactions 5 Rash [facility] Work Phone: (6 sources) eprosartan Drug Allergy 2 Other [facility] (3 sources) Penicillins Allergy to substance 3 Rash [facility] (2 sources) Benzoyl Peroxide Drug Allergy 3 Rash [facility] (1 source) Benzoyl Peroxide Drug Allergy 4 [facility] (1 source) eprosartan Drug Allergy 4 [facility] (1 source) Penicillins Drug allergy (disorder) 4 [facility] (1 source) Sertraline Drug Allergy 4 [facility] Medications Current Medications Medication Drug Class(es) Dates Sig (Normalized) Sig (Original) atorvastatin 40 mg oral tablet (10 sources) HMG-CoA Reductase Inhibitor Start: 02-26-2022 End: 01-31-2023 take 40 mg by mouth at bedtime Atorvastatin Active 40 MG PO AT BEDTIME January 31, 2023 10:41am clopidogrel 75 mg oral tablet (10 sources) P2Y12 Platelet Inhibitor Start: 02-26-2022 End: 01-31-2023 take 75 mg by mouth once daily Clopidogrel Active 75 MG PO DAILY January 31, 2023 10:42am escitalopram 10 mg oral tablet (8 sources) Serotonin Reuptake Inhibitor Start: 02-12-2019 take 5 mg by mouth once daily Escitalopram Oxalate Active 5 MG PO DAILY February 11, 2019 11:00pm Start: 03-24-2005 LEXAPRO 10 MG TAB Take one half tablet by mouth in the summer. Take one tablet by mouth in the winter. 0 03/24/2005 Active Comment on above: Take one half tablet by mouth in the summer. Take one tablet by mouth in the winter. hydroCHLOROthiazide 25 mg oral tablet (9 sources) Thiazide Diuretic Start: 2004 End: 2022 take 25 mg by mouth once daily Hydrochlorothiazide Active 25 MG PO DAILY January 31, 2023 10:41am Comment on above: Take by mouth once d aily. metroNIDAZOLE 250 mg oral tablet (2 sources) Nitroimidazole Antimicrobial Start: 2022 take 250 mg by mouth three times daily Metronidazole Active 250 MG PO THREE TIMES A DAY November 10, 2022 11:00pm Turmeric extract (1 source) Start: 2022 Turmeric Active 400 MG PO November 23, 2022 11:00pm Completed/Discontinued Medications Medication Drug Class(es) Dates Sig (Normalized) Sig (Original) acetaminophen 325 mg / HYDROcodone bitartrate 5 mg oral tablet (2 sources) Opioid Agonist Start: 11-11-2022 End: 11-24-2022 take 1 tablet by mouth every six hours Hydrocodone-Aceta minophen Discontinued 1 TABLET PO EVERY 6 HOURS 10 3 November 11, 2022 November 24, 2022 7:25am amLODIPine 2.5 mg oral tablet (11 sources) Dihydropyridine Calcium Channel [place] Start: 02-26-2022 End: 01-31-2023 take 2.5 mg by mouth once daily Amlodipine Discontinued 2.5 MG PO DAILY January 31, 2023 10:08am January 31, 2023 10:42am aspirin 81 mg delayed release oral tablet (11 sources) Platelet Aggregation Inhibitor, Nonsteroidal Anti-inflammatory Drug Start: 02-26-2022 End: 01-31-2023 take 81 mg by mouth at breakfast Aspirin Discontinued 81 MG PO WITH BREAKFAST January 31, 2023 10:07am January 31, 2023 10:42am atenolol 50 mg oral tablet (8 sources) beta-Adrenergic [place] Start: 02-12-2019 End: 02-26-2022 take 50 mg by mouth once daily Atenolol Discontinued 50 MG PO DAILY February 11, 2019 11:00pm February 26, 2022 7:39am Start: 07-15-2014 take 2 tablets by mo ut once daily atenolol (TENORMIN) 50 mg tablet Take 2 tablets by mouth once daily. 0 07/15/2014 Active Comment on above: Take 2 tablets by mo ut once daily. Calcium (2 sources) Phosphate Binder, Calcium Start: 03-24-2005 take 1 tablet by mouth once daily CALCIUM 500 MG TAB Take one tablet by mouth daily. 0 03/24/2005 Active Comment on above: Take one tablet by [facility] daily. carvedilol 6.25 mg oral tablet (11 sources) alpha-Adrenergic [place], beta-Adrenergic [place] Start: 03-17-2022 End: 01-31-2023 take 6.25 mg by mouth twice daily Carvedilol Discontinued 6.25 MG PO TWICE A DAY 60 January 31, 2023 10:07am January 31, 2023 10:42am Start: 02-26-2022 End: 03-17-2022 take 3.125 mg by mouth twice daily Carvedilol Discontinued 3.125 MG PO TWICE A DAY 180 February 25, 2022 11:00pm March 17, 2022 11:35am cholecalciferol 0.05 mg oral capsule (2 sources) Vitamin D Cholecalciferol, Vitamin D3, (VITAMIN D-3) 50 mcg (2,000 unit) cap Take by mouth once daily. 0 Active Comment on above: Take by mouth once d aily. ferrous sulfate (2 sources) ferrous sulfate (IRON ORAL) Take by mouth. 0 Active Comment on above: Take by mouth. Iron (2 sources) Start: Iron 18 mg tab MEDICATION, NON-DATABASE (2 sources) take 1 tablet by mouth once daily MEDICATION, NON-DATABASE Take 1 tablet by mouth once daily. collagen with vitamin C and biotin 0 Active Comment on above: Take 1 tablet by concepcion th once daily. collagen with vitamin C and biotin multivit-mins no.63/iron/folic (M-VIT ORAL) (2 sources) multivit-mins no.63/iron/folic (M-VIT ORAL) Take by mouth once daily. 2 flinstones chewables 0 Active Comment on above: Take by mouth once d aily. 2 flinstones chewables topiramate 25 mg oral tablet (2 sources) Start: End: take 37-37.9 tablets by mouth twice daily topiramate (TOPAMAX) 25 mg tablet Indications: Dietary counseling and surveillance , Class 2 obesity , Body mass index 37.0-37.9, adult Take 2 tablets by mouth twice daily. 360 tablet 1 02/05/2021 Active Comment on above: Take 2 tablets by mo ut twice daily. Problems Active Problems Problem Classification Problem Date Documented Date Episodic/Chronic Acute myocardial infarction (9 sources) Myocardial infarction; Translations: [ST elevation (STEMI) myocardial infarction of unspecified site] Chronic Cardiac dysrhythmias (5 sources) Palpitations; Translations: [Palpitations] Episodic Coronary atherosclerosis and other heart disease (6 sources) Coronary arteriosclerosis; Translations: [Atherosclerotic heart disease of [place] coronary artery without angina pectoris] Chronic Disorders of lipid metabolism (6 sources) Dyslipidemia; Translations: [Hyperlipidemia, unspecified] Onset: 09-21-2023 Chronic Esophageal disorders (2 sources) Gastroesophageal reflux disease; Translations: [Gastro-esophageal reflux disease without esophagitis] 10-05-2022 Chronic Essential hypertension (13 sources) Hypertensive disorder; Translations: [Essential (primary) hypertension] Onset: 03-13-2018 Chronic Fracture of lower limb (6 sources) Fracture of ankle; Translations: [Other fracture of unspecified lower leg, initial encounter for closed fracture] 03-01-2021 Episodic Headache; including migraine (2 sources) Migraine; Translations: [Migraine, unspecified, not intractable, without status migrainosus] 11-04-2022 Chronic Hemorrhoids (6 sources) Bleeding hemorrhoids; Translations: [Unspecified hemorrhoids] 03-17-2022 Episodic Mood disorders (8 sources) Seasonal affective disorder; Translations: [Other recurrent depressive disorders] Onset: 10-22-2020 10-22-2020 Chronic Nutritional deficiencies (3 sources) Vitamin D deficiency; Translations: [Vitamin D deficiency, unspecified] Onset: 10-22-2020 Chronic Osteoarthritis (9 sources) Primary gonarthrosis, bilateral; Translations: [Bilateral primary osteoarthritis of knee] 05-10-2022 Chronic Other acquired deformities (8 sources) Deformity of lower limb; Translations: [Unspecified acquired deformity of unspecified thigh] Onset: 03-30-2021 03-30-2021 Episodic Other and ill-defined heart disease (5 sources) Dissection of coronary artery; 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] 03-06-2022 Chronic Other and ill-defined heart disease (2 sources) Coronary artery dissection; 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] Chronic Other bone disease and musculoskeletal deformities (2 sources) Osteopenia; Translations: [Other specified disorders of bone density and structure, unspecified site] 10-05-2022 Episodic Other connective tissue disease (8 sources) Calcaneal spur; Translations: [Calcaneal spur, unspecified foot] Onset: 03-30-2021 03-30-2021 Episodic Other connective tissue disease (6 sources) Achilles tendinitis; Translations: [Achilles tendinitis, left leg] 02-16-2019 Episodic Other female genital disorders (2 sources) Complex atypical endometrial hyperplasia; 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]] Onset: 02-02-2018 03-24-2018 Chronic Other liver diseases (2 sources) Steatosis of liver; Translations: [Fatty (change of) liver, not elsewhere classified] Onset: 10-22-2020 10-22-2020 Chronic Other non-traumatic joint disorders (4 sources) Pain in right knee; Translations: [Pain in both knees] 04-21-2022 Episodic Other nutritional; endocrine; and metabolic disorders (1 source) Obesity; Translations: [Obesity, unspecified] Chronic Other nutritional; endocrine; and metabolic disorders (3 sources) Body mass index 30+ - obesity; Translations: [Body mass index (BMI) 36.0-36.9, adult] Onset: 10-22-2020 Chronic Other nutritional; endocrine; and metabolic disorders (2 sources) Morbid obesity; Translations: [Morbid (severe) obesity due to excess calories] Onset: 03-20-2018 03-20-2018 Chronic Other nutritional; endocrine; and metabolic disorders (2 sources) Body mass index 40+ - severely obese; Translations: [Morbid (severe) obesity due to excess calories] Onset: 09-26-2019 09-26-2019 Chronic Other nutritional; endocrine; and metabolic disorders (2 sources) Obese class II; Translations: [Obesity, unspecified] Onset: 10-22-2020 10-22-2020 Chronic Other nutritional; endocrine; and metabolic disorders (1 source) H/O: Disorder; Translations: [Personal history of other endocrine, nutritional and metabolic disease] Episodic Residual codes; unclassified (1 source) Sleep apnea; Translations: [Sleep apnea, unspecified] Chronic Residual codes; unclassified (2 sources) Obstructive sleep apnea syndrome; Translations: [Obstructive sleep apnea (adult) (pediatric)] Onset: 10-22-2020 10-22-2020 Chronic Residual codes; unclassified (1 source) History of surgical procedure on vein; Translations: [Other specified postprocedural states] 01-03-2023 Episodic Residual codes; unclassified (2 sources) Other specified postprocedural states; Translations: [Other postprocedural status] 12-02-2022 Episodic Spondylosis; intervertebral disc disorders; other back problems (2 sources) Sciatica; Translations: [Sciatica, unspecified side] 10-05-2022 Episodic Past or Other Problems Problem Classification Problem Date Documented Da te Episodic/Chronic Abdominal hernia (3 sources) Hiatal hernia; Translations: [Diaphragmatic hernia without obstruction or gangrene] Onset: 10-22-2020 Episodic Administrative/social admission (3 sources) Patient encounter status; Translations: [Dietary counseling and surveillance] Onset: 05-26-2009 Episodic Deficiency and other anemia (2 sources) Iron deficiency anemia; Translations: [Iron deficiency anemia, unspecified] Onset: 01-23-2018 03-30-2021 Episodic Diabetes mellitus without complication (2 sources) Impaired fasting glycemia; Translations: [Impaired fasting glucose] Onset: 01-23-2018 03-30-2021 Episodic Fluid and electrolyte disorders (2 sources) Hypokalemia; Translations: [Hypokalemia] Onset: 02-05-2021 02-05-2021 Episodic Other connective tissue disease (2 sources) Left achilles tendonitis; Translations: [Achilles tendinitis, left leg] Onset: 10-18-2018 03-30-2021 Episodic Other female genital disorders (2 sources) Mass of left ovary; Translations: [Other noninflammatory disorders of ovary, fallopian tube and broad ligament] Onset: 02-02-2018 03-24-2018 Episodic Other gastrointestinal disorders (3 sources) History of sleeve gastrectomy; Translations: [Bariatric surgery status] Onset: 10-22-2020 10-22-2020 Episodic Results Test Name Value Interpretation Reference Range Facility Cardiology Visit Reporton Cardiology Visit Report [facility] [place] [id number] [facility] [place], [place] [address] OFFICE VISIT Date of Service: 01/25/24 MR#: [id number] Acct: [id number] Name: CHRISTINA JADE Rep #: [id number] : 1960 Provider: ESTER keith Age/Sex: 63/F Location: [facility] [place] [facility] Status: Signed [facility] HPI History of Present Illness Details: Christina Jade is a 63 year old female who presents to the office today for a cardiovascular follow up visit. 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 Patient had presented to [facility] in 2021 with chest pain. EKG demonstrated a STEMI. 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 She did have 80% distal LAD stenosis. Was opted that she be treated medically. From a cardiac standpoint, the patient is doing well. She does acknowledge an occasional palpitations. She denies chest pain, pressure or heaviness. She denies SOB, Orthopnea, and PND. She does not have bleeding issues; no blood in urine, stool or nosebleeds. She denies any decrease in energy level, myalgias, or claudication. She does not have edema, or sudden weight gain. She denies dizziness, lightheadedness, syncopal or near syncopal episodes, and headaches. She states she has recently started a diet, and will be working on lowering her blood pressure through diet. Intake Vital Signs 09/14/23 10:59 01/25/24 11:02 01/25/24 11:03 Height 5 ft 2 in 5 ft 2 in 5 ft 2 in Weight: 216 lb BMI 39.4 BP 159/92 H Blood Pressure Location Lt brachial Position Sitting Respiration 18 Pulse 59 L Pulse Source Monitor Pulse Oximetry (%) 97 Intake Visit Reasons: 4 M FU Shape Carver Required: No Is patient in pain?: No Allergies benzoyl peroxide Allergy (Verified 01/25/24 11:19) Rash eprosartan (From [place]) Allergy (Verified 01/25/24 11:19) Other Penicillins Allergy (Verified 01/25/24 11:19) Rash sertraline (From Zoloft) Allergy (Verified 01/25/24 11:19) anxiety Medications ???Medication ???Instructions ???Recorded ???Confirmed ???Type aspirin 81 mg tablet,delayed 81 mg PO BREAKFAST #90 tabs 01/31/23 01/25/24 Rx release atorvastatin 40 mg tablet 40 mg PO QHS #90 tabs 01/31/23 01/25/24 Rx carvedilol 6.25 mg tablet 6.25 mg PO BID #180 tabs 01/31/23 01/25/24 Rx hydrochlorothiazide 25 mg tablet 25 mg PO DAILY blood pressure #90 01/31/23 01/25/24 Rx tabs amlodipine 5 mg tablet 5 mg PO DAILY #90 tabs 09/14/23 01/25/24 Rx PFSH Medical History Hx of hemorrhoids Wears glasses Cancer Arthritis Fatty liver Non-smoker CPAP (continuous positive airway pressure) dependence History of pain when walking History of Holter monitoring History of echocardiogram Cardiology follow-up encounter STEMI (ST elevation myocardial infarction) Migraines Depression Osteopenia Sciatica GERD (gastroesophageal reflux disease) Seasonal affective disorder Spontaneous dissection of coronary artery Hypertension Achilles tendon injury Surgical History Status post hemorrhoidectomy History of cardiac catheterization Hx of colonoscopy Hx of Achilles tendon repair History of hysterectomy for cancer H/O gastric sleeve Family History Father Liver mass Heart disease Atrial fibrillation Mother DVT (deep venous thrombosis) Uncle Myocardial infarction Social History Smoking Status: Never smoker alcohol intake: current alcohol intake frequency: holidays/special occasions only substance use type: does not use caffeine: Yes Type: coffee Number of servings: 2 ROS Const Const: Negative for fatigue, weakness, fever(s), headache(s), chills, frequent falls, weight gain or weight loss Eyes Eyes: Negative for blind spots, loss of peripheral vision, transient loss of vision, blurry vision, change in vision, double vision, floaters or tunnel vision ENT ENT: Negative for headache(s), dizziness, Nosebleed/epistaxis, balance problems or neck pain Cardio Chest Pain: No Palpitations: Yes Edema: None Muscle aches with walking: None Resp Respiratory: Negative for SOB with activity, SOB at rest or SOB orthopnea SOB lying down GI GI: Negative nausea, vomiting, heartburn, bloating, vomiting blood/hematemesis, bright, red blood in stools or black,tarry stools Musc Musc: Negative for muscle aches/ myalgia, muscle weakness, joint pain or balance problems Neuro Neuro: Negative for dizziness, lighth (more content not included)... Normal [facility] Cardiology Visit Reporton Cardiology Visit Report [facility] [address] [facility] [place], [place] [id number] OFFICE VISIT Date of Service: 09/14/23 MR#: [id number] Acct: [id number] Name: CHRISTINA JADE Rep #: [id number] : 1960 Provider: PARADISE Mackenzie Age/Sex: 63/F Location: 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 Patient had presented to [facility] in 2021 with chest pain. EKG demonstrated a STEMI. 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 She did have 80% distal LAD stenosis. Was opted that she be treated medically. Pt does not have any chest pain but does occasionally have chest tightness, this is at rest and is not concerning. She does not have any worsening SOB. She does not have any lightheadedness/dizzine ss. She did pass out last fall. 14 day event monitor was normal. She does not have any edema. Intake Vital Signs 11/11/22 07:24 09/14/23 10:54 09/14/23 10:59 Height 5 ft 2 in 5 ft 2 in 5 ft 2 in Weight: 218 lb BMI 39.9 BP 125/96 H Blood Pressure Location Lt brachial Position Sitting Respiration 18 Pulse 52 L Pulse Source Monitor Pulse Oximetry (%) 96 Intake Visit Reasons: OVERDUE FOR OV/LAST SEEN 2021 Shape Carver Required: No Is patient in pain?: No Allergies benzoyl peroxide Allergy (Verified 09/14/23 10:56) Rash eprosartan (From [place]) Allergy (Verified 09/14/23 10:56) Other Penicillins Allergy (Verified 09/14/23 10:56) Rash sertraline (From Zoloft) Allergy (Verified 09/14/23 10:56) anxiety Medications ???Medication ???Instructions ???Recorded ???Confirmed ???Type aspirin 81 mg tablet,delayed 81 mg PO BREAKFAST #90 tabs 01/31/23 09/14/23 Rx release atorvastatin 40 mg tablet 40 mg PO QHS #90 tabs 01/31/23 09/14/23 Rx carvedilol 6.25 mg tablet 6.25 mg PO BID #180 tabs 01/31/23 09/14/23 Rx clopidogrel 75 mg tablet 75 mg PO DAILY #90 tabs 01/31/23 09/14/23 Rx hydrochlorothiazide 25 mg tablet 25 mg PO DAILY blood pressure #90 01/31/23 09/14/23 Rx tabs amlodipine 5 mg tablet 5 mg PO DAILY #90 tabs 09/14/23 09/14/23 Rx PFSH Medical History Hx of hemorrhoids Wears glasses Cancer Arthritis Fatty liver Non-smoker CPAP (continuous positive airway pressure) dependence History of pain when walking History of Holter monitoring History of echocardiogram Cardiology follow-up encounter STEMI (ST elevation myocardial infarction) Migraines Depression Osteopenia Sciatica GERD (gastroesophageal reflux disease) Seasonal affective disorder Spontaneous dissection of coronary artery Hypertension Achilles tendon injury Surgical History Status post hemorrhoidectomy History of cardiac catheterization Hx of colonoscopy Hx of Achilles tendon repair History of hysterectomy for cancer H/O gastric sleeve Family History Father Liver mass Heart disease Atrial fibrillation Mother DVT (deep venous thrombosis) Uncle Myocardial infarction Social History Smoking Status: Never smoker alcohol intake: current alcohol intake frequency: holidays/special occasions only substance use type: does not use caffeine: Yes Type: coffee Number of servings: 2 Cardiology Exam Const Appearance: comfortable and no acute distress Nutritional Appearance: well nourished Neck Neck: no JVD Carotids: Negative bruit Chest Auscultation: Bilateral: Clear to Auscultation Cardio Rate: regular rate Rhythm: regular rhythm Heart sounds: S1 normal and S2 normal Neuro General: patient alert, patient awake and patient oriented x3 Extremities Lower Extremity Edema: None: Bilateral Supplemental Info Supplemental Information Echocardiogram 02/2022: The left ventricular ejection fraction is 55 %. Stage 3 diastolic dysfunction. Mild (1+) mitral valve insufficiency. Mild tricuspid valve insufficiency. Right ventricular systolic pressure estimated to be 41 mmHg. Cardiac cath 02/2022: SCAD Pox to distal RPLV 80% distal LAD LVEF 55%. Posterior basal hypokinesis RECOMMENDATIONS Medical therapyMedical therapy CORONARY ANGIOGRAPHY DOMINANCE: Right Dominant LEFT HEART ASSESSMENT Left Ventricular Ejection Fraction: by LV Gram 55 % LVEDP: 24 mmHg LEFT ANTERIOR DESCENDING ARTERY: LAD: Tubular 80% Dist (more content not included)... Normal [facility] Lipid Profileon 09-14-2023 Cholesterol [Mass/Vol] 235 mg/dL High 200 [facility] Comment on above: Order Comment: Comme nts: okay to do nonfasting okay to do nonfasting Result Comment: <200 mg/dL Desirable 200-240 mg/dL Borderline >240 mg/dL High Risk Performed By: #### L 500.3400, L500.4100 #### [facility] [address] [place], [address] Cholesterol in HDL [Mass/Vol] 80 mg/dL Normal [facility] Comment on above: Order Comment: Comme nts: okay to do nonfasting okay to do nonfasting Result Comment: The drugs N-Acetylcysteine and Metamizole may falsely depress this assay. Reference Range HDL <40 mg/dL Low HDL Cholesterol HDL >or= 60 mg/dL High HDL Cholesterol Performed By: #### L 500.3400, L500.4100 #### [facility] [facility] [address] [place], [address] Cholesterol in LDL [Mass/Vol] 138 mg/dL High 0-130 [facility] Comment on above: Order Comment: Comme nts: okay to do nonfasting okay to do nonfasting Performed By: #### L 500.3400, L500.4100 #### [facility] [address] [place], [address] Cholesterol in VLDL [Mass/Vol] 17 mg/dL Normal 5-40 [facility] Comment on above: Order Comment: Comme nts: okay to do nonfasting okay to do nonfasting Performed By: #### L 500.3400, L500.4100 #### [facility] [address] [place], [address] Triglyceride [Mass/Vol] 86 mg/dL Normal [facility] Comment on above: Order Comment: Comme nts: okay to do nonfasting okay to do nonfasting Result Comment: The drugs N-Acetylcysteine and Metamizole may falsely depress this assay. Serum Triglycerides Reference Interval Normal <150 mg/dL Borderline high 150 - 199 mg/dL High 200 - 499 mg/dL Very High > or = 500 mg/dL Performed By: #### L 500.3400, L500.4100 #### [facility] [address] [place], [address] Liver Profileon 09-14-2023 Albumin [Mass/Vol] 3.9 g/dL Normal 3.2-5.0 [facility] Comment on above: Order Comment: Comme nts: okay to do nonfasting okay to do nonfasting Performed By: #### L 500.3400, L500.4100 #### [facility] [address] [place], [address] ALK P 85 U/L Normal 45-117 [facility] Comment on above: Order Comment: Comme nts: okay to do nonfasting okay to do nonfasting Performed By: #### L 500.3400, L500.4100 #### [facility] [address] [place], [address] ALT [Catalytic activity/Vol] 16 U/L Normal 13-56 [facility] Comment on above: Order Comment: Comme nts: okay to do nonfasting okay to do nonfasting Performed By: #### L 500.3400, L500.4100 #### [facility] [address] [place], [address] AST [Catalytic activity/Vol] 27 U/L Normal 15-37 [facility] Comment on above: Order Comment: Comme nts: okay to do nonfasting okay to do nonfasting Performed By: #### L 500.3400, L500.4100 #### [facility] [address] [place], [address] Bilirubin [Mass/Vol] 1.10 mg/dL High 0.20-1.00 [facility] Comment on above: Order Comment: Comme nts: okay to do nonfasting okay to do nonfasting Result Comment: For patients on eltrombopag therapy, use of Dimension Collins TBIL is not recommended. Performed By: #### L 500.3400, L500.4100 #### [facility] [address] [place], [address] Bilirubin.direct [Mass/Vol] 0.24 mg/dL Normal 0.00-0.30 [facility] Comment on above: Order Comment: Comme nts: okay to do nonfasting okay to do nonfasting Performed By: #### L 500.3400, L500.4100 #### [facility] [address] [place], [address] Globulin (S) [Mass/Vol] 3.6 g/dL Normal 2.2-4.2 [facility] Comment on above: Order Comment: Comme nts: okay to do nonfasting okay to do nonfasting Performed By: #### L 500.3400, L500.4100 #### [facility] [address] [place], [address] T PROT 7.5 g/dL Normal 6.4-8.2 [facility] Comment on above: Order Comment: Comme nts: okay to do nonfasting okay to do nonfasting Performed By: #### L 500.3400, L500.4100 #### [facility] [address] [place], [address] Absolute lymphocyte countOrd ered By: Nikki Arias on 03-09-2023 Lymphocytes Auto (Unsp spec) [#/Vol] 1.35 10*3/uL 0.83-4.51 [facility] Basophil percentageOrdered B y: Nikki Arias on 03-09-2023 Basophils/100 WBC (Bld) 0.9 % 0-1 [facility] Bilirubin [Mass/Vol] 1.10 mg/dL 0.20-1.00 [facility] Comment on above: For patients on eltr ombopag therapy, use of Dimension Collins TBIL is not recommended. Chloride [Moles/Vol] 103 mmol/L 98-107 [facility] Eosinophils/100 WBC (Bld) 1.5 % 0-5 [facility] Glucose [Mass/Vol] 104 mg/dL 74-106 [facility] Comment on above: Fasting Glucose resu lt from 100 to 125 mg/dL suggests IMPAIRED HOMEOSTASIS per A.D.A. criteria. Neutrophils (Bld) [#/Vol] 2.8 10*3/uL 2.0-7.7 [facility] Neutrophils/100 WBC (Bld) 59.6 % 47-70 [facility] Potassium [Moles/Vol] 3.7 mmol/L 3.5-5.1 [facility] Protein [Mass/Vol] 7.4 g/dL 6.4-8.2 [facility] Sodium [Moles/Vol] 140 mmol/L 136-145 [facility] WBC (Bld) [#/Vol] 4.7 10*3/uL 4.4-11.0 [facility] Blood erythrocytes count (nu mber/volume)Ordered By: Nikki Arias on 03-09-2023 RBC (Bld) [#/Vol] 4.68 10*6/uL 4.2-5.4 [facility] Blood hemoglobin measurement (mass/volume)Ordered By: Nikki Arias on 03-09-2023 Hemoglobin (Bld) [Mass/Vol] 12.6 g/dL 12.0-15.0 [facility] Blood lymphocytes/100 leukoc ytesOrdered By: Nikki Arias on 03-09-2023 Lymphocytes/100 WBC (Bld) 29.0 % 19-41 [facility] Blood monocytes/100 leukocyt esOrdered By: Nikki Arias on 03-09-2023 Monocytes/100 WBC (Bld) 8.8 % 0-10 [facility] Blood platelet mean volumeOr dered By: Nikki Arias on 03-09-2023 Platelet mean volume (Bld) [Entitic vol] 9.8 fL 6.2-12.0 [facility] CBC W/Diff, Automatedon 02-23 Absolute Lymph 1.35 X10 3/uL Normal 0.83-4.51 [facility] Comment on above: Performed By: #### L 500.4050, L100.0100 #### [facility] [address] [place], [address] Absolute Neut 2.8 X10 3/uL Normal 2.0-7.7 [facility] Comment on above: Performed By: #### L 500.4050, L100.0100 #### [facility] [address] [place], [address] Basophils/100 WBC (Bld) 0.9 % Normal 0-1 [facility] Comment on above: Performed By: #### L 500.4050, L100.0100 #### [facility] [address] [place], [address] Eosinophils/100 WBC (Bld) 1.5 % Normal 0-5 [facility] Comment on above: Performed By: #### L 500.4050, L100.0100 #### [facility] [address] [place], [address] Erythrocyte distribution width (RBC) [Ratio] 14.5 % Normal 11.6-14.6 [facility] Comment on above: Performed By: #### L 500.4050, L100.0100 #### [facility] [address] [place], [address] Hematocrit (Bld) [Volume fraction] 38.4 % Normal 37-47 [facility] Comment on above: Performed By: #### L 500.4050, L100.0100 #### [facility] [address] [place], [address] Hemoglobin (Bld) [Mass/Vol] 12.6 g/dL Normal 12.0-15.0 [facility] Comment on above: Performed By: #### L 500.4050, L100.0100 #### [facility] [address] [place], [address] IG% 0.200 Normal 0.0-0.9 [facility] Comment on above: Result Comment: IG% - Immature Granulocytes (promyelocytes, myelocytes and metamyelocytes) > 1% indicates that a LEFT SHIFT is Present. Performed By: #### L 500.4050, L100.0100 #### [facility] [address] [place], [address] Lymphocytes/100 WBC (Bld) 29.0 % Normal 19-41 [facility] Comment on above: Performed By: #### L 500.4050, L100.0100 #### [facility] [address] [place], [address] MCH (RBC) [Entitic mass] 26.9 pg Low 27.0-32.0 [facility] Comment on above: Performed By: #### L 500.4050, L100.0100 #### [facility] [address] [place], [address] MCHC (RBC) [Mass/Vol] 32.8 g/dL Normal 32-36 [facility] Comment on above: Performed By: #### L 500.4050, L100.0100 #### [facility] [address] [place], [address] MCV (RBC) [Entitic vol] 82.1 fL Normal 81-99 [facility] Comment on above: Performed By: #### L 500.4050, L100.0100 #### [facility] [address] [place], [address] Monocytes/100 WBC (Bld) 8.8 % Normal 0-10 [facility] Comment on above: Performed By: #### L 500.4050, L100.0100 #### [facility] [address] [place], [address] Neutrophils/100 WBC (Bld) 59.6 % Normal 47-70 [facility] Comment on above: Performed By: #### L 500.4050, L100.0100 #### [facility] [address] [place], [address] Nucleated RBC (Bld) [#/Vol] 0 10*3/uL Normal 0-5 [facility] Comment on above: Performed By: #### L 500.4050, L100.0100 #### [facility] [address] [place], [address] Platelet mean volume (Bld) [Entitic vol] 9.8 fL Normal 6.2-12.0 [facility] Comment on above: Performed By: #### L 500.4050, L100.0100 #### [facility] [address] [place], [address] Platelets (Bld) [#/Vol] 335 10*3/uL Normal 150-450 [facility] Comment on above: Performed By: #### L 500.4050, L100.0100 #### [facility] [address] [place], [address] RBC (Bld) [#/Vol] 4.68 10*6/uL Normal 4.2-5.4 [facility] Comment on above: Performed By: #### L 500.4050, L100.0100 #### [facility] [address] [place], [address] RDW SD 42.8 fl Normal 35.1-43.9 [facility] Comment on above: Performed By: #### L 500.4050, L100.0100 #### [facility] [address] [place], [address] WBC (Bld) [#/Vol] 4.7 10*3/uL Normal 4.4-11.0 [facility] Comment on above: Performed By: #### L 500.4050, L100.0100 #### [facility] [address] [place], [address] Comprehensive Metabolic Prof ilon 03-09-2023 Albumin [Mass/Vol] 3.8 g/dL Normal 3.2-5.0 [facility] Comment on above: Performed By: #### L 500.4050, L100.0100 #### [facility] [address] [place], [address] Albumin/Globulin [Mass ratio] 1.1 {ratio} Normal 0.9-2.4 [facility] Comment on above: Performed By: #### L 500.4050, L100.0100 #### [facility] [address] [place], [address] ALK P 89 U/L Normal 45-117 [facility] Comment on above: Performed By: #### L 500.4050, L100.0100 #### [facility] [address] [place], [address] ALT [Catalytic activity/Vol] 18 U/L Normal 13-56 [facility] Comment on above: Performed By: #### L 500.4050, L100.0100 #### [facility] [address] [place], [address] AST [Catalytic activity/Vol] 16 U/L Normal 15-37 [facility] Comment on above: Performed By: #### L 500.4050, L100.0100 #### [facility] [address] [place], [address] Bilirubin [Mass/Vol] 1.10 mg/dL High 0.20-1.00 [facility] Comment on above: Result Comment: For patients on eltrombopag therapy, use of Dimension Collins TBIL is not recommended. Performed By: #### L 500.4050, L100.0100 #### [facility] [address] [place], [address] BUN/CRE 18.0 RATIO Normal 10-20 [facility] Comment on above: Performed By: #### L 500.4050, L100.0100 #### [facility] [address] [place], [address] CA,Total 9.2 mg/dL Normal 8.5-10.1 [facility] Comment on above: Performed By: #### L 500.4050, L100.0100 #### [facility] [address] [place], [address] Chloride [Moles/Vol] 103 mmol/L Normal 98-107 [facility] Comment on above: Performed By: #### L 500.4050, L100.0100 #### [facility] [address] [place], [address] CO2 [Moles/Vol] 30.0 mmol/L Normal 21.0-32.0 [facility] Comment on above: Performed By: #### L 500.4050, L100.0100 #### [facility] [address] [place], [address] Creatinine [Mass/Vol] 0.67 mg/dL Normal 0.55-1.02 [facility] Comment on above: Result Comment: The validity of the calculated GFR GFRAA in patients over 70 years has not been determined. Clinical correlation is essential. Performed By: #### L 500.4050, L100.0100 #### [facility] [address] [place], [address] EST GFR - AA 115 mL/min Normal >60 [facility] Comment on above: Result Comment: Afri can [place] GFR Calc Performed By: #### L 500.4050, L100.0100 #### [facility] [address] [place], [address] GAP 7 Normal 5-15 [facility] Comment on above: Performed By: #### L 500.4050, L100.0100 #### [facility] [address] [place], [address] GFR/1.73 sq M.predicted among non-blacks MDRD (S/P/Bld) [Vol rate/Area] 95 mL/min/{1.73_m2} Normal >60 [facility] Comment on above: Result Comment: Non- GFR Calc Performed By: #### L 500.4050, L100.0100 #### [facility] [address] [place], [address] Globulin (S) [Mass/Vol] 3.6 g/dL Normal 2.2-4.2 [facility] Comment on above: Performed By: #### L 500.4050, L100.0100 #### [facility] [address] [place], [address] Glucose [Mass/Vol] 104 mg/dL Normal 74-106 [facility] Comment on above: Result Comment: Fast ing Glucose result from 100 to 125 mg/dL suggests IMPAIRED HOMEOSTASIS per A.D.A. criteria. Performed By: #### L 500.4050, L100.0100 #### [facility] [address] [place], [address] Potassium [Moles/Vol] 3.7 mmol/L Normal 3.5-5.1 [facility] Comment on above: Performed By: #### L 500.4050, L100.0100 #### [facility] [address] [place], [address] Sodium [Moles/Vol] 140 mmol/L Normal 136-145 [facility] Comment on above: Performed By: #### L 500.4050, L100.0100 #### [facility] [address] [place], [address] T PROT 7.4 g/dL Normal 6.4-8.2 [facility] Comment on above: Performed By: #### L 500.4050, L100.0100 #### [facility] [address] [place], [place], [address] Urea nitrogen [Mass/Vol] 12 mg/dL Normal 7-18 [facility] Comment on above: Performed By: #### L 500.4050, L100.0100 #### [facility] [address] [place], [address] Determination of erythrocyte mean corpuscular volume (MCV)Ordered By: Nikkivaleria Arias on 03-09-2023 MCV (RBC) [Entitic vol] 82.1 fL 81-99 [facility] Hematocrit Auto (Bld) [Volum e fraction]Ordered By: Wayan Hugo on 03-09-2023 Hematocrit (Bld) [Volume fraction] 38.4 % 37-47 [facility] - Chemistry and C hemistry - challengeOrdered By: Wayan Hugo on 03-09-2023 ALP [Catalytic activity/Vol] 89 U/L 45-117 [facility] ALT [Catalytic activity/Vol] 18 U/L 13-56 [facility] CO2 [Moles/Vol] 30.0 mmol/L 21.0-32.0 [facility] Globulin (S) [Mass/Vol] 3.6 g/dL 2.2-4.2 [facility] Urea nitrogen/Creatinine [Mass ratio] 18.0 mg/mg 10-20 [facility] - Hematology and Cell countsOrdered By: Nikkivaleria Arias on 03-09-2023 Erythrocyte distribution width (RBC) [Entitic vol] 42.8 fL 35.1-43.9 [facility] Erythrocyte distribution width (RBC) [Ratio] 14.5 % 11.6-14.6 [facility] Immature granulocytes/100 WBC (Bld) 0.200 % 0.0-0.9 [facility] Comment on above: IG% - Immature Granu locytes (promyelocytes, myelocytes and metamyelocytes) > 1% indicates that a LEFT SHIFT is Present. MCH (RBC) [Entitic mass] 26.9 pg 27.0-32.0 [facility] Nucleated RBC/100 WBC (Bld) [Ratio] 0 % 0-5 [facility] MCHC Auto (RBC) [Mass/Vol]Or dered By: Nikki Arias on 03-09-2023 MCHC (RBC) [Mass/Vol] 32.8 g/dL 32-36 [facility] No Panel InformationOrdered By: Nikki Arias on 03-09-2023 Estimated GFR (MDRD) Amer 115 mL/min >60 [facility] Comment on above: GFR Calc Estimated GFR (MDRD) Non-Af Amer 95 mL/min >60 [facility] Comment on above: Non- GFR Calc Platelets bldOrdered By: Claritza Arias on 03-09-2023 Platelets (Bld) [#/Vol] 335 10*3/uL 150-450 [facility] Serum or plasma albumin meryl urement (mass/volume)Ordered By: Nikki Arias on 03-09-2023 Albumin [Mass/Vol] 3.8 g/dL 3.2-5.0 [facility] Serum or plasma albumin/glob ulin mass ratioOrdered By: Nikki Arias on 03-09-2023 Albumin/Globulin [Mass ratio] 1.1 {ratio} 0.9-2.4 [facility] Serum or plasma calcium meryl urement (mass/volume)Ordered By: Nikki Arias on 03-09-2023 Calcium [Mass/Vol] 9.2 mg/dL 8.5-10.1 [facility] Serum or plasma creatinine m easurement (mass/volume)Ordered By: Nikki Arias on 03-09-2023 Creatinine [Mass/Vol] 0.67 mg/dL 0.55-1.02 [facility] Comment on above: The validity of the calculated GFR & GFRAA in patients over 70 years has not been determined. Clinical correlation is essential. Serum or plasma urea nitroge n measurement (mass/volume)Ordered By: Nikki Arias on 03-09-2023 Urea nitrogen [Mass/Vol] 12 mg/dL 7-18 [facility] Thin prep Papanicolaou smear with manual screeningOrdered By: Nikki Arias on 03-09-2023 Thin prep Papanicolaou smear with manual screening 16 U/L 15-37 [facility] Thin prep Papanicolaou smear with manual screening 7 5-15 [facility] Basophil percentageOrdered B y: Lul Borrero on 11-08-2022 Chloride [Moles/Vol] 105 mmol/L 98-107 [facility] Glucose [Mass/Vol] 121 mg/dL 74-106 [facility] Comment on above: Fasting Glucose resu lt from 100 to 125 mg/dL suggests IMPAIRED HOMEOSTASIS per A.D.A. criteria. Potassium [Moles/Vol] 4.5 mmol/L 3.5-5.1 [facility] Sodium [Moles/Vol] 139 mmol/L 136-145 [facility] WBC (Bld) [#/Vol] 4.9 10*3/uL 4.4-11.0 [facility] Blood erythrocytes count (nu mber/volume)Ordered By: Lul Borrero on 11-08-2022 RBC (Bld) [#/Vol] 4.63 10*6/uL 4.2-5.4 [facility] Blood hemoglobin measurement (mass/volume)Ordered By: Lul Borrero on 11-08-2022 Hemoglobin (Bld) [Mass/Vol] 12.1 g/dL 12.0-15.0 [facility] Blood platelet mean volumeOr dered By: Lul Borrero on 11-08-2022 Platelet mean volume (Bld) [Entitic vol] 9.9 fL 6.2-12.0 [facility] Determination of erythrocyte mean corpuscular volume (MCV)Ordered By: Llu Borrero on 11-08-2022 MCV (RBC) [Entitic vol] 84.2 fL 81-99 [facility] Hematocrit Auto (Bld) [Volum e fraction]Ordered By: Lul Borrero on 11-08-2022 Hematocrit (Bld) [Volume fraction] 39.0 % 37-47 [facility] - Chemistry and C hemistry - challengeOrdered By: Lul Borrero on 11-08-2022 CO2 [Moles/Vol] 33.0 mmol/L 21.0-32.0 [facility] Urea nitrogen/Creatinine [Mass ratio] 16.5 mg/mg 10-20 [facility] - Hematology and Cell countsOrdered By: Lul Borrero on 11-08-2022 Erythrocyte distribution width (RBC) [Entitic vol] 44.0 fL 35.1-43.9 [facility] Erythrocyte distribution width (RBC) [Ratio] 14.4 % 11.6-14.6 [facility] MCH (RBC) [Entitic mass] 26.1 pg 27.0-32.0 [facility] MCHC Auto (RBC) [Mass/Vol]Or dered By: Lul Borrero on 11-08-2022 MCHC (RBC) [Mass/Vol] 31.0 g/dL 32-36 [facility] No Panel InformationOrdered By: Lul Borrero on 11-08-2022 Estimated GFR (MDRD) Amer 95 mL/min >60 [facility] Comment on above: GFR Calc Estimated GFR (MDRD) Non-Af Amer 79 mL/min >60 [facility] Comment on above: Non- GFR Calc Platelets bldOrdered By: Almas Borrero on 11-08-2022 Platelets (Bld) [#/Vol] 338 10*3/uL 150-450 [facility] Serum or plasma calcium meryl urement (mass/volume)Ordered By: Lul Borrero on 11-08-2022 Calcium [Mass/Vol] 9.5 mg/dL 8.5-10.1 [facility] Serum or plasma creatinine m easurement (mass/volume)Ordered By: Lul Borrero on 11-08-2022 Creatinine [Mass/Vol] 0.79 mg/dL 0.55-1.02 [facility] Comment on above: The validity of the calculated GFR & GFRAA in patients over 70 years has not been determined. Clinical correlation is essential. Serum or plasma urea nitroge n measurement (mass/volume)Ordered By: Lul Borrero on 11-08-2022 Urea nitrogen [Mass/Vol] 13 mg/dL 7-18 [facility] Thin prep Papanicolaou smear with manual screeningOrdered By: Lul Borrero on 11-08-2022 Thin prep Papanicolaou smear with manual screening 1 5-15 [facility] Absolute lymphocyte countOrd ered By: Jeffry Nichole on 09-06-2022 Lymphocytes Auto (Unsp spec) [#/Vol] 1.05 10*3/uL 0.83-4.51 [facility] Basophil percentageOrdered B y: Jeffry Nichole on 09-06-2022 Basophils/100 WBC (Bld) 0.8 % 0-1 [facility] Bilirubin [Mass/Vol] 0.90 mg/dL 0.20-1.00 [facility] Comment on above: For patients on eltr ombopag therapy, use of Dimension Collins TBIL is not recommended. Chloride [Moles/Vol] 106 mmol/L 98-107 [facility] Cholesterol [Mass/Vol] 233 mg/dL <200 [facility] Comment on above: <200 mg/dL Desirable 200-240 mg/dL Borderline >240 mg/dL High Risk Eosinophils/100 WBC (Bld) 2.6 % 0-5 [facility] Glucose [Mass/Vol] 105 mg/dL 74-106 [facility] Comment on above: Fasting Glucose resu lt from 100 to 125 mg/dL suggests IMPAIRED HOMEOSTASIS per A.D.A. criteria. Neutrophils (Bld) [#/Vol] 2.3 10*3/uL 2.0-7.7 [facility] Neutrophils/100 WBC (Bld) 60.9 % 47-70 [facility] Potassium [Moles/Vol] 3.8 mmol/L 3.5-5.1 [facility] Protein [Mass/Vol] 7.5 g/dL 6.4-8.2 [facility] Sodium [Moles/Vol] 141 mmol/L 136-145 [facility] Triglyceride [Mass/Vol] 100 mg/dL <199 [facility] Comment on above: The drugs N-Acetylcy steine and Metamizole may falsely depress this assay.Serum Triglycerides Reference Interval Normal <150 mg/dL Borderline high 150 - 199 mg/dL High 200 - 499 mg/dL Very High > or = 500 mg/dL WBC (Bld) [#/Vol] 3.8 10*3/uL 4.4-11.0 [facility] Blood erythrocytes count (nu mber/volume)Ordered By: Jeffry Dionisio on 09-06-2022 RBC (Bld) [#/Vol] 4.62 10*6/uL 4.2-5.4 [facility] Blood hemoglobin measurement (mass/volume)Ordered By: Jeffry Nichole on 09-06-2022 Hemoglobin (Bld) [Mass/Vol] 12.3 g/dL 12.0-15.0 [facility] Blood lymphocytes/100 leukoc ytesOrdered By: Jeffry Nichole on 09-06-2022 Lymphocytes/100 WBC (Bld) 27.3 % 19-41 [facility] Blood monocytes/100 leukocyt esOrdered By: Jeffry Nichole on 09-06-2022 Monocytes/100 WBC (Bld) 8.1 % 0-10 [facility] Blood platelet mean volumeOr dered By: Jeffry Nichole on 09-06-2022 Platelet mean volume (Bld) [Entitic vol] 10.0 fL 6.2-12.0 [facility] Determination of erythrocyte mean corpuscular volume (MCV)Ordered By: Jeffry Nichole on 09-06-2022 MCV (RBC) [Entitic vol] 83.1 fL 81-99 [facility] Hematocrit Auto (Bld) [Volum e fraction]Ordered By: Jeffry Nichole on 09-06-2022 Hematocrit (Bld) [Volume fraction] 38.4 % 37-47 [facility] Iron measurement (mass/mass) Ordered By: Jeffry Nichole on 09-06-2022 Iron (Unsp spec) [Mass/Mass] 77 ug/dL 50-170 [facility] Laboratory - Chemistry and C hemistry - challengeOrdered By: Jeffry Nichole on 09-06-2022 ALP [Catalytic activity/Vol] 71 U/L 45-117 [facility] ALT [Catalytic activity/Vol] 21 U/L 13-56 [facility] CO2 [Moles/Vol] 30.0 mmol/L 21.0-32.0 [facility] Globulin (S) [Mass/Vol] 3.8 g/dL 2.2-4.2 [facility] Urea nitrogen/Creatinine [Mass ratio] 18.5 mg/mg 10-20 [facility] Laboratory - Hematology and Cell countsOrdered By: Jeffry Nichole on 09-06-2022 Erythrocyte distribution width (RBC) [Entitic vol] 45.3 fL 35.1-43.9 [facility] Erythrocyte distribution width (RBC) [Ratio] 15.0 % 11.6-14.6 [facility] Immature granulocytes/100 WBC (Bld) 0.300 % 0.0-0.9 [facility] Comment on above: IG% - Immature Granu locytes (promyelocytes, myelocytes and metamyelocytes) > 1% indicates that a LEFT SHIFT is Present. MCH (RBC) [Entitic mass] 26.6 pg 27.0-32.0 [facility] Nucleated RBC/100 WBC (Bld) [Ratio] 0 % 0-5 [facility] MCHC Auto (RBC) [Mass/Vol]Or dered By: Jeffry Nichole on 09-06-2022 MCHC (RBC) [Mass/Vol] 32.0 g/dL 32-36 [facility] No Panel InformationOrdered By: Jeffry Nichole on 09-06-2022 Estimated GFR (MDRD) Amer 119 mL/min >60 [facility] Comment on above: GFR Calc Estimated GFR (MDRD) Non-Af Amer 98 mL/min >60 [facility] Comment on above: Non- GFR Calc Vitamin D 25-Hydroxy 42.0 ng/mL [facility] Comment on above: Vitamin D 25(OH) Sta tus Range Deficiency <20 ng/mL (50nmol/L) Insufficiency 20 - 30 ng/mL (50 - 75 nmol/L) Sufficiency 30 - 100 ng/mL (75 - 250 nmol/L) Toxicity >100 ng/mL (>250 nmol/L) Platelets bldOrdered By: Tia Nichole on 09-06-2022 Platelets (Bld) [#/Vol] 326 10*3/uL 150-450 [facility] Serum or plasma albumin meryl urement (mass/volume)Ordered By: Jeffry Nichole on 09-06-2022 Albumin [Mass/Vol] 3.7 g/dL 3.2-5.0 [facility] Serum or plasma albumin/glob ulin mass ratioOrdered By: Jeffry Nichole on 09-06-2022 Albumin/Globulin [Mass ratio] 1.0 {ratio} 0.9-2.4 [facility] Serum or plasma calcium meryl urement (mass/volume)Ordered By: Jeffry Nichole on 09-06-2022 Calcium [Mass/Vol] 9.5 mg/dL 8.5-10.1 [facility] Serum or plasma cholesterol in HDL measurement (mass/volume)Ordered By: Jeffry Nichole on 09-06-2022 Cholesterol in HDL [Mass/Vol] 74 mg/dL >40 [facility] Comment on above: The drugs N-Acetylcy steine and Metamizole may falsely depress this assay. Reference Range HDL <40 mg/dL Low HDL Cholesterol HDL >or= 60 mg/dL High HDL Cholesterol Serum or plasma cholesterol in VLDL measurement (mass/volume)Ordered By: Jeffry Nichole on 09-06-2022 Cholesterol in VLDL [Mass/Vol] 20 mg/dL 5-40 [facility] Serum or plasma creatinine m easurement (mass/volume)Ordered By: Jeffry Nichole on 09-06-2022 Creatinine [Mass/Vol] 0.65 mg/dL 0.55-1.02 [facility] Comment on above: The validity of the calculated GFR & GFRAA in patients over 70 years has not been determined. Clinical correlation is essential. Serum or plasma ferritin mark surement (mass/volume)Ordered By: Jeffry Nichole on 09-06-2022 Ferritin [Mass/Vol] 11 ng/mL 8-252 [facility] Serum or plasma low density lipoprotein (LDL) cholesterol measurement (mass/volume)Ordered By: Jeffry Nichole on 09-06-2022 Cholesterol in LDL [Mass/Vol] 139 mg/dL 0-130 [facility] Serum or plasma urea nitroge n measurement (mass/volume)Ordered By: Jeffry Nichole on 09-06-2022 Urea nitrogen [Mass/Vol] 12 mg/dL 7-18 [facility] Thin prep Papanicolaou smear with manual screeningOrdered By: Jeffry Nichole on 09-06-2022 Thin prep Papanicolaou smear with manual screening 16 U/L 15-37 [facility] Thin prep Papanicolaou smear with manual screening 5 5-15 [facility] Whole blood hemoglobin A1c/t otal hemoglobin ratio (mass fraction)Ordered By: Jeffry Nichole on 09-06-2022 HbA1c (Bld) [Mass fraction] 5.4 % 3.8-5.6 [facility] Comment on above: Normal < 5.7 % Predi abetic 5.7 - 6.4 % Diabetic >or= 6.5 % Please note range changes. Basophil percentageon 2021 Basophil percentage 3.1 mg/dL 2.5-4.9 [facility] Work Phone: [phone] Bilirubin [Mass/Vol] 1.10 mg/dL 0.20-1.00 [facility] Work Phone: [phone] Comment on above: For patients on eltr ombopag therapy, use of Dimension Collins TBIL is not recommended. Chloride [Moles/Vol] 107 mmol/L 98-107 [facility] Work Phone: [phone] Glucose [Mass/Vol] 95 mg/dL 74-106 [facility] Work Phone: [phone] Potassium [Moles/Vol] 3.6 mmol/L 3.5-5.1 [facility] Work Phone: [phone] Protein [Mass/Vol] 6.6 g/dL 6.4-8.2 [facility] Work Phone: [phone] Sodium [Moles/Vol] 141 mmol/L 136-145 [facility] Work Phone: [phone] WBC (Bld) [#/Vol] 7.1 10*3/uL 4.4-11.0 [facility] Work Phone: [phone] Blood erythrocytes count (nu mber/volume)on 02-26-2022 RBC (Bld) [#/Vol] 4.06 10*6/uL 4.2-5.4 [facility] Work Phone: [phone] Blood hemoglobin measurement (mass/volume)on 02-26-2022 Hemoglobin (Bld) [Mass/Vol] 11.5 g/dL 12.0-15.0 [facility] Work Phone: [phone] Blood platelet mean volumeon 02-26-2022 Platelet mean volume (Bld) [Entitic vol] 9.8 fL 6.2-12.0 [facility] Work Phone: [phone] Determination of erythrocyte mean corpuscular volume (MCV)on 02-26-2022 MCV (RBC) [Entitic vol] 84.0 fL 81-99 [facility] Work Phone: Direct bilirubinon Bilirubin.direct [Mass/Vol] 0.25 mg/dL 0.00-0.30 [facility] Work Phone: Hematocrit Auto (Bld) [Volum e fraction]on 02-26-2022 Hematocrit (Bld) [Volume fraction] 34.1 % 37-47 [facility] Work Phone: [phone] Laboratory - Chemistry and C hemistry - challengeon 02-26-2022 ALP [Catalytic activity/Vol] 65 U/L 45-117 [facility] Work Phone: [phone] ALT [Catalytic activity/Vol] 16 U/L 13-56 [facility] Work Phone: [phone] CO2 [Moles/Vol] 28.0 mmol/L 21.0-32.0 [facility] Work Phone: [phone] Globulin (S) [Mass/Vol] 3.5 g/dL 2.2-4.2 [facility] Work Phone: [phone] Magnesium [Mass/Vol] 2.2 mg/dL 1.6-2.6 [facility] Work Phone: [phone] Urea nitrogen/Creatinine [Mass ratio] 13.1 mg/mg 10-20 [facility] Work Phone: [phone] Laboratory - Hematology and Cell countson 02-26-2022 Erythrocyte distribution width (RBC) [Entitic vol] 44.8 fL 35.1-43.9 [facility] Work Phone: [phone] Erythrocyte distribution width (RBC) [Ratio] 14.6 % 11.6-14.6 [facility] Work Phone: [phone] MCH (RBC) [Entitic mass] 28.3 pg 27.0-32.0 [facility] Work Phone: [phone] MCHC Auto (RBC) [Mass/Vol]on 02-26-2022 MCHC (RBC) [Mass/Vol] 33.7 g/dL 32-36 [facility] Work Phone: No Panel Informationon 02-26 Estimated Creatinine Clearance Calc 75.63 ml/min [facility] Work Phone: Estimated GFR (MDRD) Amer 128 mL/min >60 [facility] Work Phone: Comment on above: GFR Calc Estimated GFR (MDRD) Non-Af Amer 106 mL/min >60 [facility] Work Phone: Comment on above: Non- GFR Calc Platelets bldon 02-26-2022 Platelets (Bld) [#/Vol] 221 10*3/uL 150-450 [facility] Work Phone: Serum or plasma albumin meryl urement (mass/volume)on 02-26-2022 Albumin [Mass/Vol] 3.1 g/dL 3.2-5.0 [facility] Work Phone: [phone] Serum or plasma calcium meryl urement (mass/volume)on 02-26-2022 Calcium [Mass/Vol] 9.3 mg/dL 8.5-10.1 [facility] Work Phone: [phone] Serum or plasma creatinine m easurement (mass/volume)on 02-26-2022 Creatinine [Mass/Vol] 0.61 mg/dL 0.55-1.02 [facility] Work Phone: Comment on above: The validity of the calculated GFR & GFRAA in patients over 70 years has not been determined. Clinical correlation is essential. Serum or plasma urea nitroge n measurement (mass/volume)on 02-26-2022 Urea nitrogen [Mass/Vol] 8 mg/dL 7-18 [facility] Work Phone: [phone] Thin prep Papanicolaou smear with manual screeningon 02-26-2022 Thin prep Papanicolaou smear with manual screening 53 U/L 15-37 [facility] Work Phone: [phone] Thin prep Papanicolaou smear with manual screening 6 5-15 [facility] Work Phone: Absolute lymphocyte counton 02-25-2022 Lymphocytes Auto (Unsp spec) [#/Vol] 1.49 10*3/uL 0.83-4.51 [facility] Work Phone: Basophil percentageon 2021 Basophils/100 WBC (Bld) 0.5 % 0-1 [facility] Work Phone: Eosinophils/100 WBC (Bld) 1.9 % 0-5 [facility] Work Phone: Neutrophils (Bld) [#/Vol] 5.2 10*3/uL 2.0-7.7 [facility] Work Phone: Neutrophils/100 WBC (Bld) 69.4 % 47-70 [facility] Work Phone: Blood lymphocytes/100 leukoc yteson 02-25-2022 Lymphocytes/100 WBC (Bld) 19.8 % 19-41 [facility] Work Phone: Blood monocytes/100 leukocyt eson 02-25-2022 Monocytes/100 WBC (Bld) 8.1 % 0-10 [facility] Work Phone: Laboratory - Hematology and Cell countson 02-25-2022 Immature granulocytes/100 WBC (Bld) 0.300 % 0.0-0.9 [facility] Work Phone: [phone] Comment on above: IG% - Immature Granu locytes (promyelocytes, myelocytes and metamyelocytes) > 1% indicates that a LEFT SHIFT is Present. Nucleated RBC/100 WBC (Bld) [Ratio] 0 % 0-5 [facility] Work Phone: No Panel Informationon 02-25 Troponin I High Sensitivity 91710 pg/mL 3.0-54.0 [facility] Work Phone: [phone] Comment on above: Critical Result(s) C alled at: 06:16:07 02/25/2022 by: Tunde Buchanan. Chacho Hurley RN (ICU). Results read back by same. Please Note: New Test Units and Gender Specific Reference Ranges. For more information see Policy Stat Procedure Collins High Sensitivity Troponin (TNIH) and attachments. Absolute lymphocyte counton 02-24-2022 Lymphocytes Auto (Unsp spec) [#/Vol] 2.40 10*3/uL 0.83-4.51 [facility] Work Phone: Basophil percentageon 2021 Basophils/100 WBC (Bld) 0.7 % 0-1 [facility] Work Phone: Chloride [Moles/Vol] 102 mmol/L 98-107 [facility]: Cholesterol [Mass/Vol] 236 mg/dL <200 [facility] Work Phone: Comment on above: <200 mg/dL Desirable 200-240 mg/dL Borderline >240 mg/dL High Risk Eosinophils/100 WBC (Bld) 1.9 % 0-5 [facility] Work Phone: Glucose [Mass/Vol] 104 mg/dL 74-106 [facility] Work Phone: Comment on above: Fasting Glucose resu lt from 100 to 125 mg/dL suggests IMPAIRED HOMEOSTASIS per A.D.A. criteria. Neutrophils (Bld) [#/Vol] 4.8 10*3/uL 2.0-7.7 [facility] Work Phone: Neutrophils/100 WBC (Bld) 59.2 % 47-70 [facility] Work Phone: Potassium [Moles/Vol] 3.6 mmol/L 3.5-5.1 [facility] Work Phone: Sodium [Moles/Vol] 137 mmol/L 136-145 [facility] Work Phone: Triglyceride [Mass/Vol] 119 mg/dL <199 [facility] Work Phone: Comment on above: The drugs N-Acetylcy steine and Metamizole may falsely depress this assay.Serum Triglycerides Reference Interval Normal <150 mg/dL Borderline high 150 - 199 mg/dL High 200 - 499 mg/dL Very High > or = 500 mg/dL WBC (Bld) [#/Vol] 8.0 10*3/uL 4.4-11.0 [facility] Work Phone: Blood erythrocytes count (nu mber/volume)on 02-24-2022 RBC (Bld) [#/Vol] 4.73 10*6/uL 4.2-5.4 [facility] Work Phone: Blood hemoglobin measurement (mass/volume)on 02-24-2022 Hemoglobin (Bld) [Mass/Vol] 12.9 g/dL 12.0-15.0 [facility] Work Phone: Blood lymphocytes/100 leukoc yteson 02-24-2022 Lymphocytes/100 WBC (Bld) 29.9 % 19-41 [facility] Work Phone: Blood monocytes/100 leukocyt eson 02-24-2022 Monocytes/100 WBC (Bld) 8.1 % 0-10 [facility] Work Phone: Blood platelet mean volumeon 02-24-2022 Platelet mean volume (Bld) [Entitic vol] 9.7 fL 6.2-12.0 [facility] Work Phone: Determination of erythrocyte mean corpuscular volume (MCV)on 02-24-2022 MCV (RBC) [Entitic vol] 85.4 fL 81-99 [facility] Work Phone: Hematocrit Auto (Bld) [Volum e fraction]on 02-24-2022 Hematocrit (Bld) [Volume fraction] 40.4 % 37-47 [facility] Work Phone: [phone] INR in Blood by Coagulation assayon 02-24-2022 INR Coag (Bld) [Relative time] 1.1 {INR} [facility] Work Phone: Laboratory - Chemistry and C hemistry - challengeon 02-24-2022 CO2 [Moles/Vol] 28.0 mmol/L 21.0-32.0 [facility] Work Phone: Urea nitrogen/Creatinine [Mass ratio] 16.0 mg/mg 10-20 [facility] Work Phone: Laboratory - Coagulationon 1 04-26-2021 aPTT Coag (Bld) [Time] 26.3 s 24.1-36.2 [facility] Work Phone: [phone] PT Coag (PPP) [Time] 13.4 s 11.7-14.9 [facility] Work Phone: [phone] Laboratory - Hematology and Cell countson 02-24-2022 Erythrocyte distribution width (RBC) [Entitic vol] 45.2 fL 35.1-43.9 [facility] Work Phone: [phone] Erythrocyte distribution width (RBC) [Ratio] 14.4 % 11.6-14.6 [facility] Work Phone: [phone] Immature granulocytes/100 WBC (Bld) 0.200 % 0.0-0.9 [facility] Work Phone: [phone] Comment on above: IG% - Immature Granu locytes (promyelocytes, myelocytes and metamyelocytes) > 1% indicates that a LEFT SHIFT is Present. MCH (RBC) [Entitic mass] 27.3 pg 27.0-32.0 [facility] Work Phone: [phone] Nucleated RBC/100 WBC (Bld) [Ratio] 0 % 0-5 [facility] Work Phone: [phone] MCHC Auto (RBC) [Mass/Vol]on 02-24-2022 MCHC (RBC) [Mass/Vol] 31.9 g/dL 32-36 [facility] Work Phone: [phone] Panel Informationon 02-24 D-Dimer Quantitative (PE/DVT) 0.56 FEU/ug/m 0.27-0.49 [facility] Work Phone: [phone] Comment on above: D-Dimer ELEVATED (>0 .49): Additional studies and clinicalassessments are indicated to conclude diagnosis of:Deep Vein Thrombosis (DVT) or Pulmonary Embolism (PE)CRITICAL VALUE VERIFIED. CALLED TO PRIMO GAITAN02/24/22 Arcadio Juan.RESULTS READ BACK BY SAME. Estimated Creatinine Clearance Calc 53.03 ml/min [facility] Work Phone: Estimated GFR (MDRD) Amer 84 mL/min >60 [facility] Work Phone: Comment on above: GFR Calc Estimated GFR (MDRD) Non-Af Amer 70 mL/min >60 [facility] Work Phone: Comment on above: Non- GFR Calc Troponin I High Sensitivity 11 pg/mL 3.0-54.0 [facility] Work Phone: Comment on above: Please Note: New Taty t Units and Gender Specific Reference Ranges. For more information see Policy Stat Procedure Collins High Sensitivity Troponin (TNIH) and attachments. Platelets bldon 02-24-2022 Platelets (Bld) [#/Vol] 352 10*3/uL 150-450 [facility] Work Phone: Serum or plasma calcium meryl urement (mass/volume)on 02-24-2022 Calcium [Mass/Vol] 9.3 mg/dL 8.5-10.1 [facility] Work Phone: Serum or plasma cholesterol in HDL measurement (mass/volume)on 02-24-2022 Cholesterol in HDL [Mass/Vol] 82 mg/dL >40 [facility] Work Phone: Comment on above: The drugs N-Acetylcy steine and Metamizole may falsely depress this assay. Reference Range HDL <40 mg/dL Low HDL Cholesterol HDL >or= 60 mg/dL High HDL Cholesterol Serum or plasma cholesterol in VLDL measurement (mass/volume)on 02-24-2022 Cholesterol in VLDL [Mass/Vol] 24 mg/dL 5-40 [facility] Work Phone: Serum or plasma creatinine m easurement (mass/volume)on 02-24-2022 Creatinine [Mass/Vol] 0.87 mg/dL 0.55-1.02 [facility] Work Phone: Comment on above: The validity of the calculated GFR & GFRAA in patients over 70 years has not been determined. Clinical correlation is essential. Serum or plasma low density lipoprotein (LDL) cholesterol measurement (mass/volume)on 02-24-2022 Cholesterol in LDL [Mass/Vol] 130 mg/dL 0-130 [facility] Work Phone: Serum or plasma urea nitroge n measurement (mass/volume)on 02-24-2022 Urea nitrogen [Mass/Vol] 14 mg/dL 7-18 [facility] Work Phone: Thin prep Papanicolaou smear with manual screeningon 02-24-2022 Thin prep Papanicolaou smear with manual screening 7 5-15 [facility] Work Phone: CNOVon 08-03-2021 CNOV Office Visit (AGGENS 4) CHRISTINA JADE ([id number]) 1960 F Date Time Provider Department 08/03/21 2:30 PM BRITNI MCINTYRE During your visit today, we recorded the following information about you: Pulse Respiration Blood pressure Weight 50/minute 14/minute 120/80 91.6 kg Height 1.588 m Britni Mcintyre APRN.PLOW HOLDER 08/03/2021 3:26 PM Signed We discussed meal replacement with protein shake; Re-start topiramate Labs Once labs return considerReviewed principles of energy metabolism, caloric intake and expenditure, and rationale for treatment program. Also reinforced need for reduced calorie, low fat diet and increased physical Activity. Cpap- follow up with sleep medicine to ensure you do not still require the cpap at night; My opinion 3 hour Rule: -last meal /snack 3 hours before sleeping ,but mostly try to be done by 7 pm --eat Rich Breakfast, high in protein hard boiled eggs/protein drinks - At least 3 hours break between each meals ,except water --sleep 7 hours at night , that means going to bed early -- drink only water ( no soda or juices) /no Alcohol consumption --cut down on coffee consumption if consuming high amounts Website :You can visit to web site for low carb recipe information as well as visual guide to low carb food: Https://www.dietdoctor. com/ ( visual guide for low carb diet) Limit carb consumption to 80- 100 grams per day. Goals: - formal exercise 2-5 x/week as tolerated, start with 10 mins/day to goal of 30 minutes ( -- for exercise, you should shoot for a goal of >150 min per week initially. Depending at what level you are starting, that may seem like an unachievable task. However, the best plan is to just begin to walk or bike or do another activity that you like and track your steps per day. You do not need to pay attention to the time, but you do need to try to increase your exercise every 3 weeks. Other strength exercises, using light weights or training bands may also be useful, especially when combined with regular aerobic exercise. Studies have shown that >200min per week is best to maintain weight loss, so that would be the overall end goal.) - Have 3 meals a day-protein source with each meal (structured meal planning) - Food journal daily and bring it to all appointments If you want you can REPLACE one of your meals with a liquid meal or frozen meal. This is easy to start and may help with your weight. 1. Liquid meal replacement (Boost, Ensure) 2. Frozen meal (Healthy Choice, Lean Cuisine - sodium under 650mg, can always add veggies to the meal) 3. Powdered protein (Premier Protein) or meal replacement (I like a plant based meal replacement called [employer] Nutrition - can mix w froz berries and almond milk) -- IN GENERAL - suggestions based on important of our sleep cycle called circadian rhythm and its influence on our gut microbiota and overall health tragetory 1) EAT MOST OF YOUR FOOD IN AM AND EARLY PM 2) NO EATING AT NIGHT 3) EXERCISE DURING DAY 4) BE CONSISTENT WITH MEAL STRUCTURE ie Meals at same time during the day. -- keep record of your food intake - it is easier for us to understand your eating habits and food preferences, looking into the amounts of protein, carbs, and fat in your diet. Good examples of apps to track calories are MySPOPAL, LOSE IT. Some patient have found FOODUCATE to help with decisions around food, however choose apps that best suits you. Nutrition Counseling Practice these: - Eat 3 meals daily?can use approved/recommended protein shake as 1 meal replacement (should be <200 calories, 20-30g protein, <5g added sugar) - Keep a food journal 5-7x/week (consider [employer] or [employer] sushma) and demonstrate meeting protein goal (60-90g protein for females, 70-105g protein for males)- Lean meats, fish, low fat dairy - cottage cheese, Malaysian yogurt, light yogurt, cheese, ricotta cheese, nuts, peanut butter, beans/legumes. Eat protein first at all meals. and 64oz of caffeine-free, carbonation-free fluids at least 5 days per week - engage in formal, planned exercise 5x/week for 30 minutes of cardiovascular activity OR 150+ minutes of cardiovascular activity per week - eliminate all caffeine, carbonation, alcohol and sugar-containing beverages from diet ?consider sugar-free drink mixes, water, decaf coffee and tea - Separate eating and drinking by 30 minutes - Chew your food 20-30x per bite - Sip beverages slowly?no guzzling or gulping 3 Simple Ways to Make Exercise a Habit written by RALF SAEZ A lot of people want to know how to get motivated to work out and build an exercise habit that sticks. (A 2012 survey analyzed the top ten habits of thousands of people and found that exercise was number one by a long shot. ) Of course, wanting to make exercise a habit and actually doin (more content not included)... Normal [facility] 07-27-2021 BRANTN Telephone (AGGENS4) CHRISTINA JADE ([id number]) 1960 F Date Time Provider Department 07/27/21 JIE RENEE4 During your visit today, we recorded the following information about you: Ralph Miranda MA 07/27/2021 2:33 PM Signed LVM for patient to switch from seeing Dr. Renee to LINDSAY Ryder MA Allergies As of Date: 07/27/2021 Noted Allergy Reaction TEVETEN (EPROSARTAN MESYLATE) 03/25/2005 Comments: Severe Joint Pain BENZOLE PEROXIDE [Other] 03/22/2005 2 - Rash SERTRALINE 07/06/2002 Comments: anxiety attacks Date Reviewed: 03/30/2021 Reviewed by: Jie Renee MD - Fully Assessed Reason for Visit: Appointment [186] Cmt: switch to Britni Prescriptions as of 07/27/2021 - Iron 18 mg tab - topiramate (TOPAMAX) 25 mg tablet Take 2 tablets by mouth twice daily. - ferrous sulfate (IRON ORAL) Take by mouth. - multivit-mins no.63/iron/folic (M-VIT ORAL) Take by mouth once daily. 2 flinstones chewables - Cholecalciferol, Vitamin D3, (VITAMIN D-3) 50 mcg (2,000 unit) cap Take by mouth once daily. - MEDICATION, NON-DATABASE Take 1 tablet by mouth once daily. collagen with vitamin C and biotin - atenolol (TENORMIN) 50 mg tablet Take 2 tablets by mouth once daily. - CALCIUM 500 MG TAB Take one tablet by mouth daily. - HYDROCHLOROTHIAZIDE 25 MG TAB Take by mouth once daily. - LEXAPRO 10 MG TAB Take one half tablet by mouth in the summer. Take one tablet by mouth in the winter. Problem List As Of Date 07/27/2021 Noted Resolved Abdominal pain, left upper quadrant [R10.12] 05/26/2009 03/22/2011 Endometriosis, site unspecified [N80.9] 05/26/2009 09/03/2016 Irregular menstrual cycle [N92.6] 05/26/2009 09/03/2016 Dysmenorrhea [N94.6] 05/26/2009 03/22/2011 Dietary counseling and surveillance [Z71.3] 05/26/2009 Rectocele [N81.6] 05/26/2009 03/22/2011 Preop examination [Z01.818] 02/02/2018 Complex atypical endometrial hyperplasia [N85.0*02/02/2018 Ovarian mass, left [N83.8] 02/02/2018 Essential hypertension [I10] 03/13/2018 Morbid obesity (HCC) [E66.01] 03/20/2018 Obesity, morbid, BMI 40.0-49.9 (HCC) [E66.01] 09/26/2019 Body mass index 37.0-37.9, adult [Z68.37] 10/22/2020 Vitamin D deficiency [E55.9] 10/22/2020 Fatty liver [K76.0] 10/22/2020 Hiatal hernia [K44.9] 10/22/2020 Status post laparoscopic sleeve gastrectomy [Z9*10/22/2020 Obstructive sleep apnea [G47.33] 10/22/2020 Class 2 obesity [E66.9] 10/22/2020 Seasonal affective disorder (HCC) [F33.8] 10/22/2020 Hypokalemia [E87.6] 02/05/2021 Achilles tendinitis of left lower extremity [M7*10/18/2018 Calcaneal spur [M77.30] 03/30/2021 Deformity of lower extremity [M21.959] 03/30/2021 Impaired fasting glucose [R73.01] 01/23/2018 Iron deficiency anemia [D50.9] 01/23/2018 Encounter Status:Closed by RALPH MIRANDA on 07/27/21 [facility] 04-07-2021 [facility] Telephone (AGGENS4) CHRISTINA JADE ([id number]) 1960 F Date Time Provider Department 04/07/21 JIE RENEE4 During your visit today, we recorded the following information about you: Roxana Mccormack MA 04/07/2021 12:25 PM Signed PA shira Greer submitted and APPROVED Coverage date: 03.08.21-11.03.21 Please contact the patient to let her know. Roxana Mccormack MA April 07, 2021 12:24 PM Allergies As of Date: 04/07/2021 Noted Allergy Reaction TEVETEN (EPROSARTAN MESYLATE) 03/25/2005 Comments: Severe Joint Pain BENZOLE PEROXIDE [Other] 03/22/2005 2 - Rash SERTRALINE 07/06/2002 Comments: anxiety attacks Date Reviewed: 03/30/2021 Reviewed by: Jie Renee MD - Fully Assessed Reason for Visit: Medication Authorization [[id number]] Cmt: WEGOVY Prescriptions as of 04/07/2021 - Iron 18 mg tab - semaglutide, weight loss, (WEGOVY) 0.25 mg/0.5 mL pen injector Inject 0.5 mL subcutaneously one time a week for 28 days. - topiramate (TOPAMAX) 25 mg tablet Take 2 tablets by mouth twice daily. - ferrous sulfate (IRON ORAL) Take by mouth. - multivit-mins no.63/iron/folic (M-VIT ORAL) Take by mouth once daily. 2 flinstones chewables - Cholecalciferol, Vitamin D3, (VITAMIN D-3) 50 mcg (2,000 unit) cap Take by mouth once daily. - MEDICATION, NON-DATABASE Take 1 tablet by mouth once daily. collagen with vitamin C and biotin - atenolol (TENORMIN) 50 mg tablet Take 2 tablets by mouth once daily. - CALCIUM 500 MG TAB Take one tablet by mouth daily. - HYDROCHLOROTHIAZIDE 25 MG TAB Take by mouth once daily. - LEXAPRO 10 MG TAB Take one half tablet by mouth in the summer. Take one tablet by mouth in the winter. Problem List As Of Date 04/07/2021 Noted Resolved Abdominal pain, left upper quadrant [R10.12] 05/26/2009 03/22/2011 Endometriosis, site unspecified [N80.9] 05/26/2009 09/03/2016 Irregular menstrual cycle [N92.6] 05/26/2009 09/03/2016 Dysmenorrhea [N94.6] 05/26/2009 03/22/2011 Dietary counseling and surveillance [Z71.3] 05/26/2009 Rectocele [N81.6] 05/26/2009 03/22/2011 Preop examination [Z01.818] 02/02/2018 Complex atypical endometrial hyperplasia [N85.0*02/02/2018 Ovarian mass, left [N83.8] 02/02/2018 Essential hypertension [I10] 03/13/2018 Morbid obesity (HCC) [E66.01] 03/20/2018 Obesity, morbid, BMI 40.0-49.9 (HCC) [E66.01] 09/26/2019 Body mass index 37.0-37.9, adult [Z68.37] 10/22/2020 Vitamin D deficiency [E55.9] 10/22/2020 Fatty liver [K76.0] 10/22/2020 Hiatal hernia [K44.9] 10/22/2020 Status post laparoscopic sleeve gastrectomy [Z9*10/22/2020 Obstructive sleep apnea [G47.33] 10/22/2020 Class 2 obesity [E66.9] 10/22/2020 Seasonal affective disorder (HCC) [F33.8] 10/22/2020 Hypokalemia [E87.6] 02/05/2021 Achilles tendinitis of left lower extremity [M7*10/18/2018 Calcaneal spur [M77.30] 03/30/2021 Deformity of lower extremity [M21.959] 03/30/2021 Impaired fasting glucose [R73.01] 01/23/2018 Iron deficiency anemia [D50.9] 01/23/2018 Encounter Status:Closed by ROXANA MCCORMACK on 04/07/21 [facility] CNPN Telephone (AGGENS4) CHRISTINA JADE ([id number]) 1960 F Date Time Provider Department 04/07/21 JIE RENEE4 During your visit today, we recorded the following information about you: Allergies As of Date: 04/07/2021 Noted Allergy Reaction TEVETEN (EPROSARTAN MESYLATE) 03/25/2005 Comments: Severe Joint Pain BENZOLE PEROXIDE [Other] 03/22/2005 2 - Rash SERTRALINE 07/06/2002 Comments: anxiety attacks Date Reviewed: 03/30/2021 Reviewed by: Jie Renee MD - Fully Assessed Reason for Visit: Medication Problem [65] Cmt: [facility] approved Prescriptions as of 04/07/2021 - Iron 18 mg tab - semaglutide, weight loss, (WEGOVY) 0.25 mg/0.5 mL pen injector Inject 0.5 mL subcutaneously one time a week for 28 days. - topiramate (TOPAMAX) 25 mg tablet Take 2 tablets by mouth twice daily. - ferrous sulfate (IRON ORAL) Take by mouth. - multivit-mins no.63/iron/folic (M-VIT ORAL) Take by mouth once daily. 2 flinstones chewables - Cholecalciferol, Vitamin D3, (VITAMIN D-3) 50 mcg (2,000 unit) cap Take by mouth once daily. - MEDICATION, NON-DATABASE Take 1 tablet by mouth once daily. collagen with vitamin C and biotin - atenolol (TENORMIN) 50 mg tablet Take 2 tablets by mouth once daily. - CALCIUM 500 MG TAB Take one tablet by mouth daily. - HYDROCHLOROTHIAZIDE 25 MG TAB Take by mouth once daily. - LEXAPRO 10 MG TAB Take one half tablet by mouth in the summer. Take one tablet by mouth in the winter. Problem List As Of Date 04/07/2021 Noted Resolved Abdominal pain, left upper quadrant [R10.12] 05/26/2009 03/22/2011 Endometriosis, site unspecified [N80.9] 05/26/2009 09/03/2016 Irregular menstrual cycle [N92.6] 05/26/2009 09/03/2016 Dysmenorrhea [N94.6] 05/26/2009 03/22/2011 Dietary counseling and surveillance [Z71.3] 05/26/2009 Rectocele [N81.6] 05/26/2009 03/22/2011 Preop examination [Z01.818] 02/02/2018 Complex atypical endometrial hyperplasia [N85.0*02/02/2018 Ovarian mass, left [N83.8] 02/02/2018 Essential hypertension [I10] 03/13/2018 Morbid obesity (HCC) [E66.01] 03/20/2018 Obesity, morbid, BMI 40.0-49.9 (HCC) [E66.01] 09/26/2019 Body mass index 37.0-37.9, adult [Z68.37] 10/22/2020 Vitamin D deficiency [E55.9] 10/22/2020 Fatty liver [K76.0] 10/22/2020 Hiatal hernia [K44.9] 10/22/2020 Status post laparoscopic sleeve gastrectomy [Z9*10/22/2020 Obstructive sleep apnea [G47.33] 10/22/2020 Class 2 obesity [E66.9] 10/22/2020 Seasonal affective disorder (HCC) [F33.8] 10/22/2020 Hypokalemia [E87.6] 02/05/2021 Achilles tendinitis of left lower extremity [M7*10/18/2018 Calcaneal spur [M77.30] 03/30/2021 Deformity of lower extremity [M21.959] 03/30/2021 Impaired fasting glucose [R73.01] 01/23/2018 Iron deficiency anemia [D50.9] 01/23/2018 Encounter Status:Closed by RALPH MIRANDA on 04/07/21 Normal [facility] Basic Metabolic Panlon 04-03 Anion gap [Moles/Vol] 11 mmol/L Normal 9-18 [facility] Calcium [Mass/Vol] 10.0 mg/dL Normal 8.5-10.2 [facility] Chloride [Moles/Vol] 100 mmol/L Normal 97-105 [facility] CO2 [Moles/Vol] 27 mmol/L Normal 22-30 [facility] Creatinine [Mass/Vol] 0.78 mg/dL Normal 0.58-0.96 [facility] eGFR- Amer. >60 Normal [facility] eGFR-All Other Races >60 Normal [facility] Comment on above: Result Comment: eGFR (Estimated GFR) Units of measure: mL/min/1.73 meters squared eGFR is derived from the reexpressed MDRD Study equation using the following parameters: serum creatinine, age, gender and race. The creatinine assay has been calibrated to be traceable to IDMS. An eGFR <60 mL/min/1.73m2 for >3 months is consistent with chronic kidney disease. Refer to KDOQI guidelines for clinical interpretation. In patients with unstable renal function, e.g. those with acute kidney injury, the eGFR may not accurately reflect actual GFR. Note: On 06/20/2021, the eGFR calculation will be updated to the NKF-ASN Task Force recommended 2020 CKD-EPI creatinine equation which does not include a race variable. For more information or to access a 2020 CKD-EPI calculator, visit the National Kidney Foundation website at kidney.org/professionals/kdoqi/gfr_calculator. Glucose [Mass/Vol] 114 mg/dL High 74-99 [facility] Comment on above: Result Comment: The [place] [employer] (ADA) provides guidance for cutoff values for fasting glucose and random glucose. The ADA defines fasting as no caloric intake for at least 8 hours. Fasting plasma glucose results between 100 to 125 mg/dL indicate increased risk for diabetes (prediabetes). Fasting plasma glucose results greater than or equal to 126 mg/dL meet the criteria for diagnosis of diabetes. In the absence of unequivocal hyperglycemia, results should be confirmed by repeat testing. In a patient with classic symptoms of hyperglycemia or hyperglycemic crisis, random plasma glucose results greater than or equal to 200 mg/dL meet the criteria for diagnosis of diabetes. Reference: Standards of Medical Care in Diabetes 2016, [place] [employer]. Diabetes Care. 2016.39(Suppl 1). Potassium [Moles/Vol] 3.4 mmol/L Low 3.7-5.1 [facility] Sodium [Moles/Vol] 138 mmol/L Normal 136-144 [facility] Urea nitrogen [Mass/Vol] 11 mg/dL Normal 7-21 [facility] CNPNon 02-26-2021 CNPN Telephone (AGGENS4) CHRISTINA JADE ([id number]) 1960 F Date Time Provider Department 02/26/21 JIE RENEE AGGENS4 During your visit today, we recorded the following information about you: Danya Mukherjee 02/26/2021 1:21 PM Signed Pt called in wanting to do a telehealth instead of coming into the office on Mar.02 for her [employer]2 apt. Pt states she fractured her left ankle and broke her right foot and is unable to come to this apt. Jie Renee MD 02/26/2021 4:32 PM Signed Okay to do virtual, can she get her Blood pressure? Danya Mukherjee 02/27/2021 8:43 AM Signed Spoke with pt and she is able to check her blood pressure Allergies As of Date: 02/26/2021 Noted Allergy Reaction TEVETEN (EPROSARTAN MESYLATE) 03/25/2005 Comments: Severe Joint Pain BENZOLE PEROXIDE [Other] 03/22/2005 2 - Rash SERTRALINE 07/06/2002 Comments: anxiety attacks Date Reviewed: 02/05/2021 Reviewed by: Jie Renee MD - Fully Assessed Reason for Visit: other [Other] Prescriptions as of 02/27/2021 - Phentermine HCl 37.5 mg tablet Take 1 tablet by mouth once daily for 30 days. - topiramate (TOPAMAX) 25 mg tablet Take 2 tablets by mouth twice daily. - ferrous sulfate (IRON ORAL) Take by mouth. - multivit-mins no.63/iron/folic (M-VIT ORAL) Take by mouth once daily. 2 flinstones chewables - Cholecalciferol, Vitamin D3, (VITAMIN D-3) 50 mcg (2,000 unit) cap Take by mouth once daily. - MEDICATION, NON-DATABASE Take 1 tablet by mouth once daily. collagen with vitamin C and biotin - atenolol (TENORMIN) 50 mg tablet Take 2 tablets by mouth once daily. - CALCIUM 500 MG TAB Take one tablet by mouth daily. - HYDROCHLOROTHIAZIDE 25 MG TAB Take by mouth once daily. - LEXAPRO 10 MG TAB Take one half tablet by mouth in the summer. Take one tablet by mouth in the winter. Problem List As Of Date 02/26/2021 Noted Resolved Abdominal pain, left upper quadrant [R10.12] 05/26/2009 03/22/2011 Endometriosis, site unspecified [N80.9] 05/26/2009 09/03/2016 Irregular menstrual cycle [N92.6] 05/26/2009 09/03/2016 Dysmenorrhea [N94.6] 05/26/2009 03/22/2011 Dietary counseling and surveillance [Z71.3] 05/26/2009 Rectocele [N81.6] 05/26/2009 03/22/2011 Preop examination [Z01.818] 02/02/2018 Complex atypical endometrial hyperplasia [N85.0*02/02/2018 Ovarian mass, left [N83.8] 02/02/2018 Essential hypertension [I10] 03/13/2018 Morbid obesity (HCC) [E66.01] 03/20/2018 Obesity, morbid, BMI 40.0-49.9 (HCC) [E66.01] 09/26/2019 Body mass index 37.0-37.9, adult [Z68.37] 10/22/2020 Vitamin D deficiency [E55.9] 10/22/2020 Fatty liver [K76.0] 10/22/2020 Hiatal hernia [K44.9] 10/22/2020 Status post laparoscopic sleeve gastrectomy [Z9*10/22/2020 Obstructive sleep apnea [G47.33] 10/22/2020 Class 2 obesity [E66.9] 10/22/2020 Seasonal affective disorder (HCC) [F33.8] 10/22/2020 Hypokalemia [E87.6] 02/05/2021 Encounter Status:Closed by DANYA MUKHERJEE on 02/27/21 [facility] CNOVon 02-05-2021 OV Office Visit (AGGENS 4) CHRISTINA JADE ([id number]) 1960 F Date Time Provider Department 02/05/21 11:00 AM JIE RENEE AGGENS4 During your visit today, we recorded the following information about you: Pulse Blood pressure Weight Height 50/minute 138/86 95.2 kg 1.588 m Jie Renee MD 02/05/2021 12:07 PM Signed Jie Renee MD [facility] [address] [place] [address], [address] [employer] [facility] - Fourth Floor [place] [address] In office Christina Jade is a 60 year old female with PMH of sleeve gastrectomy, hiatal hernia, essential hypertension, fatty liver, vitamin D deficiency, seasonal affective disorder here today for a follow up on her weight loss efforts. She is currently taking the prescription weight loss medication Topiramate , off label Date of Surgery: 09/26/2019 Surgeon:Suyapa Yip MD Surgical Procedure: Sleeve gastrectomy Pre-surgical weight: 109.8 kg (242 lb) Override Index Surgery Information? No ? danielle wt : 216 Goal 170 lbs Concerns:, She is continuing with diet changes: some -Main focus of dietary changes: No snacking / late night eating She is continuing with exercise changes: no -Exercise routine: mostly walking Goal weight:170 lbs Review of weight loss medication side effects Any GI upset? no Changes to blood pressure? no Visual Changes: no -- Patient reports some suppression of her appetite and some increase in satiety since starting the medication Diet: Breakfast coffees wit creamer and protein shake Lunch salad and meat / chicken and tuna fruits / 1.2 a banana Dill pickle Dinner meat loaf Was struggling with some stress eating last week as was very busy at work but is getting better. Sleep: Good Stress: Overall coping better. Smoking/Alcohol -denies Review of Systems Constitutional: Positive for malaise/fatigue. HENT: Negative for congestion and tinnitus. Eyes: Negative for blurred vision. Respiratory: Negative for shortness of breath. Cardiovascular: Negative for palpitations, orthopnea and leg swelling. Gastrointestinal: Negative for heartburn, nausea and vomiting. Genitourinary: Negative for dysuria and frequency. Musculoskeletal: Negative for back pain and joint pain. Neurological: Negative for weakness. Psychiatric/Behavioral: The patient is not nervous/anxious and does not have insomnia. VITALS: BP 138/86 Pulse (!) 50 Ht 158.8 cm (5' 2.5) Wt 95.2 kg (209 lb 12.8 oz) LMP 03/03/2011 BMI 37.76 kg/m? , Body mass index is 37.76 kg/m?. Physical Exam Constitutional:. --no issues with communication HEENT: Normocephalic and atraumatic. Eyes: Conjunctiva appear normal. No scleral icterus. Hearing: Is grossly intact. Neck: Range of motion appears normal. Thyroid: appears symmetric and not enlarged. Pulmonary/Chest: Effort normal. Psychiatric: Mood, memory, affect and judgment normal. Neurological: alert and oriented to person, place, and time. Impression and Plan: ASSESSMENT/PLAN: 1. Class 2 obesity - ICD9: 278.00, ICD10: E66.9 (primary diagnosis) Weight decreasing - Behavioral and pharmacological intervention --- counseled in length ,recommended Low carb /low sugar diet --managing maladaptive eating behaviors and adding resistance exercise. Continue low carb diet, weights/cardio exercise and increase NEAT.I have also reviewed he possibility of using weight loss medications in an effort to reduce her appetite. I have reviewed the different therapeutic options available including phentermine, Qsymia, Contrave, Belviq and Saxenda,Topiramate, Metformin, Bupropion We have also reviewed the possibility of using on her medications such as Effexor or metformin which has been also associated with weight loss. I reviewed with patient that she. We agreed that trying Phentermine could be her best option at this point. I reviewed with the patient pros and cons of taking this medication. I have also asked her check her blood pressure twice a week over the next 2 weeks and let me know if he goes over 150/100. --Reviewed EKG Reviewed labs mild hypokalemia recommended to repeat potassium levels. - POTASSIUM BLD - PHENTERMINE 37.5 MG TABLET - TOPIRAMATE 25 MG TABLET 2. Dietary counseling and surveillance - ICD9: V65.3, ICD10: Z71.3 Reviewed principles of energy metabolism, caloric intake and expenditure, and rationale for treatment program. Also reinforced need for reduced calorie, low fat diet and increased physical activity. - PHENTERMINE 37.5 MG TABLET - TOPIRAMATE 25 MG TABLET 3. Status post laparoscopic sleeve gastrectomy - ICD9: V45.86, ICD10: Z98.84 Cont supplements 4. Obstructive sleep apnea - ICD9: 327.23, ICD10: G47.33 encouraged to use CPAP regularly. 5. Hiatal hernia - ICD9: 553.3, ICD10: K44.9 6. Essential hyp (more content not included)... Normal [facility] CNPNon 02-05-2021 CNPN Telephone (AGGENS4) CHRISTINA JADE ([id number]) 1960 F Date Time Provider Department 02/05/21 JIE RENEE AGGENS4 During your visit today, we recorded the following information about you: Allergies As of Date: 02/05/2021 Noted Allergy Reaction TEVETEN (EPROSARTAN MESYLATE) 03/25/2005 Comments: Severe Joint Pain BENZOLE PEROXIDE [Other] 03/22/2005 2 - Rash SERTRALINE 07/06/2002 Comments: anxiety attacks Date Reviewed: 02/05/2021 Reviewed by: Jie Renee MD - Fully Assessed Reason for Visit: Results [95] Primary Visit Diagnosis:Hypokalemia [E87.6] Order(s):BASIC METABOLIC PNL [SQBMP] Order #: [id number] FUTURE Prescriptions as of 02/09/2021 - Phentermine HCl 37.5 mg tablet Take 1 tablet by mouth once daily for 30 days. - topiramate (TOPAMAX) 25 mg tablet Take 2 tablets by mouth twice daily. - ferrous sulfate (IRON ORAL) Take by mouth. - multivit-mins no.63/iron/folic (M-VIT ORAL) Take by mouth once daily. 2 flinstones chewables - Cholecalciferol, Vitamin D3, (VITAMIN D-3) 50 mcg (2,000 unit) cap Take by mouth once daily. - MEDICATION, NON-DATABASE Take 1 tablet by mouth once daily. collagen with vitamin C and biotin - atenolol (TENORMIN) 50 mg tablet Take 2 tablets by mouth once daily. - CALCIUM 500 MG TAB Take one tablet by mouth daily. - HYDROCHLOROTHIAZIDE 25 MG TAB Take by mouth once daily. - LEXAPRO 10 MG TAB Take one half tablet by mouth in the summer. Take one tablet by mouth in the winter. Problem List As Of Date 02/05/2021 Noted Resolved Abdominal pain, left upper quadrant [R10.12] 05/26/2009 03/22/2011 Endometriosis, site unspecified [N80.9] 05/26/2009 09/03/2016 Irregular menstrual cycle [N92.6] 05/26/2009 09/03/2016 Dysmenorrhea [N94.6] 05/26/2009 03/22/2011 Dietary counseling and surveillance [Z71.3] 05/26/2009 Rectocele [N81.6] 05/26/2009 03/22/2011 Preop examination [Z01.818] 02/02/2018 Complex atypical endometrial hyperplasia [N85.0*02/02/2018 Ovarian mass, left [N83.8] 02/02/2018 Essential hypertension [I10] 03/13/2018 Morbid obesity (HCC) [E66.01] 03/20/2018 Obesity, morbid, BMI 40.0-49.9 (HCC) [E66.01] 09/26/2019 Body mass index 37.0-37.9, adult [Z68.37] 10/22/2020 Vitamin D deficiency [E55.9] 10/22/2020 Fatty liver [K76.0] 10/22/2020 Hiatal hernia [K44.9] 10/22/2020 Status post laparoscopic sleeve gastrectomy [Z9*10/22/2020 Obstructive sleep apnea [G47.33] 10/22/2020 Class 2 obesity [E66.9] 10/22/2020 Seasonal affective disorder (HCC) [F33.8] 10/22/2020 Hypokalemia [E87.6] 02/05/2021 Encounter Status:Closed by JIE RENEE on 02/09/21 Normal [facility] POTASSIUM BLDon 02-05-2021 Potassium [Moles/Vol] 3.2 mmol/L Low 3.7-5.1 [facility] Comment on above: Order Comment: Speci men Type: BLOOD SPECIMEN Performed By: #### K 1 ####[facility] LABORATORYCLIA [id number] [place] [id number] [facility] Lucas 01-22-2021 ORTIZ Telephone (AGGENS4) CHRISTINA JADE ([id number]) 1960 F Date Time Provider Department 01/22/21 BARBIE FIGUEROA AGGENS4 During your visit today, we recorded the following information about you: Barbie Figueroa APRN.CNP 01/22/2021 12:52 PM Signed Spoke with patient about low potassium (3.3). Reports feeling fatigued lately but denies muscle weakness or cramping, twitching, diarrhea or vomiting. Patient reports history of palpitations but is not new to her. Pt. Does take hydrochlorothiazide. Already has an EKG scheduled for January 26, 2021. In the meantime, was instructed for patient to eat potassium rich foods like green leafy vegetables, white beans, white potatoes, sweet potatoes, avocado and bananas. Barbie Figueroa APRN.CNP Allergies As of Date: 01/22/2021 Noted Allergy Reaction TEVETEN (EPROSARTAN MESYLATE) 03/25/2005 Comments: Severe Joint Pain BENZOLE PEROXIDE [Other] 03/22/2005 2 - Rash SERTRALINE 07/06/2002 Comments: anxiety attacks Date Reviewed: 12/17/2020 Reviewed by: Danette Boyce APRN.CNP - Fully Assessed Reason for Visit: Results [95] Prescriptions as of 01/22/2021 - ferrous sulfate (IRON ORAL) Take by mouth. - topiramate (TOPAMAX) 25 mg tablet Take 1 tablet by mouth once daily. - multivit-mins no.63/iron/folic (M-VIT ORAL) Take by mouth once daily. 2 flinstones chewables - Cholecalciferol, Vitamin D3, (VITAMIN D-3) 50 mcg (2,000 unit) cap Take by mouth once daily. - MEDICATION, NON-DATABASE Take 1 tablet by mouth once daily. collagen with vitamin C and biotin - atenolol (TENORMIN) 50 mg tablet Take 2 tablets by mouth once daily. - CALCIUM 500 MG TAB Take one tablet by mouth daily. - HYDROCHLOROTHIAZIDE 25 MG TAB Take by mouth once daily. - LEXAPRO 10 MG TAB Take one half tablet by mouth in the summer. Take one tablet by mouth in the winter. Problem List As Of Date 01/22/2021 Noted Resolved Abdominal pain, left upper quadrant [R10.12] 05/26/2009 03/22/2011 Endometriosis, site unspecified [N80.9] 05/26/2009 09/03/2016 Irregular menstrual cycle [N92.6] 05/26/2009 09/03/2016 Dysmenorrhea [N94.6] 05/26/2009 03/22/2011 Dietary counseling and surveillance [Z71.3] 05/26/2009 Rectocele [N81.6] 05/26/2009 03/22/2011 Preop examination [Z01.818] 02/02/2018 Complex atypical endometrial hyperplasia [N85.0*02/02/2018 Ovarian mass, left [N83.8] 02/02/2018 Essential hypertension [I10] 03/13/2018 Morbid obesity (HCC) [E66.01] 03/20/2018 Obesity, morbid, BMI 40.0-49.9 (HCC) [E66.01] 09/26/2019 Adult BMI 39.0-39.9 kg/sq m [Z68.39] 10/22/2020 Vitamin D deficiency [E55.9] 10/22/2020 Fatty liver [K76.0] 10/22/2020 Hiatal hernia [K44.9] 10/22/2020 Status post laparoscopic sleeve gastrectomy [Z9*10/22/2020 Obstructive sleep apnea [G47.33] 10/22/2020 Class 2 obesity [E66.9] 10/22/2020 Seasonal affective disorder (HCC) [F33.8] 10/22/2020 Encounter Status:Closed by BARBIE FIGUEROA on 01/22/21 Normal [facility] CBCon 01-21-2021 Absolute nRBC <0.01 Normal <0.01 [facility] Comment on above: Performed By: #### H MORIS #### [facility] [employer] [address] [place], [place] [address] Erythrocyte distribution width (RBC) [Ratio] 15.6 % High 11.5-15.0 [facility] Comment on above: Performed By: #### H MORIS #### [place] [id number] [place], [place] [address] Hematocrit (Bld) [Volume fraction] 37.6 % Normal 36.0-46.0 [facility] Comment on above: Performed By: #### H MORIS #### [address] [address] Hemoglobin (Bld) [Mass/Vol] 12.4 g/dL Normal 11.5-15.5 [facility] Comment on above: Performed By: #### H MORIS #### [id number] [place], [place] [address] MCH 26.2 pG Normal 26.0-34.0 [facility] Comment on above: Performed By: #### H MORIS #### [id number] [place], [place] [address] MCHC (RBC) [Mass/Vol] 33.0 g/dL Normal 30.5-36.0 [facility] Comment on above: Performed By: #### H MORIS #### [id number] [place], [place] [address] MCV (RBC) [Entitic vol] 79.5 fL Low 80.0-100.0 [facility] Comment on above: Performed By: #### H MORIS #### [id number] [place], [place] [address] Platelet mean volume (Bld) [Entitic vol] 9.8 fL Normal 9.0-12.7 [facility] Comment on above: Performed By: #### Pablo SUBRAMANIAN #### [facility] [address] [place], [place] [address] Platelets (Bld) [#/Vol] 331 10*3/uL Normal 150-400 [facility] Comment on above: Performed By: #### Pablo SUBRAMANIAN #### [id number] [place], [place] [address] RBC (Bld) [#/Vol] 4.73 10*6/uL Normal 3.90-5.20 [facility] Comment on above: Performed By: #### Pablo SUBRAMANIAN #### [id number] [place], [place] [address] WBC (Bld) [#/Vol] 7.27 10*3/uL Normal 3.70-11.00 [facility] Comment on above: Performed By: #### Pablo SUBRAMANIAN #### [place] [id number] [place], [place] [address] Comp Metabolic Panelon 01-21 Albumin [Mass/Vol] 4.3 g/dL Normal 3.9-4.9 [facility] Comment on above: Performed By: #### Pablo BAJuan #### [facility] [address] [place], [place] [address] ALP [Catalytic activity/Vol] 78 U/L Normal 34-123 [facility] Comment on above: Performed By: #### Pablo BA1C #### [facility] [address] [place], [place] [address] ALT [Catalytic activity/Vol] 8 U/L Normal 7-38 [facility] Comment on above: Performed By: #### Pablo BA1C #### [facility] [address] [place], [place] [address] Anion gap [Moles/Vol] 10 mmol/L Normal 9-18 [facility] Comment on above: Performed By: #### H BA1C #### [facility] [employer] [address] [place] [address] AST [Catalytic activity/Vol] 16 U/L Normal 13-35 [facility] Comment on above: Performed By: #### H BA1C #### [facility] [address] [place] [address] Bilirubin [Mass/Vol] 0.7 mg/dL Normal 0.2-1.3 [facility] Comment on above: Performed By: #### H BA1C #### [facility] [address] [place] [address] Calcium [Mass/Vol] 10.0 mg/dL Normal 8.5-10.2 [facility] Comment on above: Performed By: #### H BA1C #### [place] [id number] [place] [phone] Chloride [Moles/Vol] 100 mmol/L Normal 97-105 [facility] Comment on above: Performed By: #### H BA1C #### [facility] [address] [place] [phone] CO2 [Moles/Vol] 30 mmol/L Normal 22-30 [facility] Comment on above: Performed By: #### H BA1C #### [facility] [address] [place] [address] Creatinine [Mass/Vol] 0.71 mg/dL Normal 0.58-0.96 [facility] Comment on above: Performed By: #### H BA1C #### [facility] [address] [place] [address] eGFR- Amer. >60 Normal [facility] Comment on above: Performed By: #### H BA1C #### [facility] [employer] [address] [place] [address] eGFR-All Other Races >60 Normal [facility] Comment on above: Result Comment: eGFR (Estimated GFR) Units of measure: mL/min/1.73 meters squared eGFR is derived from the reexpressed MDRD Study equation using the following parameters: serum creatinine, age, gender and race. The creatinine assay has been calibrated to be traceable to IDMS. An eGFR <60 mL/min/1.73m2 for >3 months is consistent with chronic kidney disease. Refer to KDOQI guidelines for clinical interpretation. In patients with unstable renal function, e.g. those with acute kidney injury, the eGFR may not accurately reflect actual GFR. Performed By: #### H BA1C #### [facility] [employer] [address] [place], [place] [address] Glucose [Mass/Vol] 112 mg/dL High 74-99 [facility] Comment on above: Result Comment: The [place] Diabetes Association (ADA) provides guidance for cutoff values for fasting glucose and random glucose. The ADA defines fasting as no caloric intake for at least 8 hours. Fasting plasma glucose results between 100 to 125 mg/dL indicate increased risk for diabetes (prediabetes). Fasting plasma glucose results greater than or equal to 126 mg/dL meet the criteria for diagnosis of diabetes. In the absence of unequivocal hyperglycemia, results should be confirmed by repeat testing. In a patient with classic symptoms of hyperglycemia or hyperglycemic crisis, random plasma glucose results greater than or equal to 200 mg/dL meet the criteria for diagnosis of diabetes. Reference: Standards of Medical Care in Diabetes 2016, [place] Diabetes Association. Diabetes Care. 2016.39(Suppl 1). Performed By: #### H BA1C #### [facility] [employer] [address] [place], [place] [address] Potassium [Moles/Vol] 3.3 mmol/L Low 3.7-5.1 [facility] Comment on above: Performed By: #### H BA1C #### [facility] [employer] [address] [place], [place] [address] Protein [Mass/Vol] 7.1 g/dL Normal 6.3-8.0 [facility] Comment on above: Performed By: #### H BA1C #### [place] [address] [place] [phone] Sodium [Moles/Vol] 140 mmol/L Normal 136-144 [facility] Comment on above: Performed By: #### H BA1C #### [place] [phone] Urea nitrogen [Mass/Vol] 11 mg/dL Normal 7-21 [facility] Comment on above: Performed By: #### H BA1C #### [place] [address] Ferritinon 01-21-2021 Ferritin [Mass/Vol] 18.3 ng/mL Normal 14.7-205.1 [facility] Comment on above: Performed By: #### I SHARATH, LIPB, VITD, FERR, TSH, PTHI, B1WB, INSULN, B12, SERFOL #### [place] [address] Folate, Serumon 01-21-2021 Folate [Mass/Vol] 17.3 ng/mL Normal >4.7 [facility] Comment on above: Performed By: #### I SHARATH, LIPB, VITD, FERR, TSH, PTHI, B1WB, INSULN, B12, SERFOL #### [place] [phone] Hemoglobin A1con 01-21-2021 Glucose [Mass/Vol] 117 mg/dL Normal [facility] Comment on above: Result Comment: eAG: (Estimated average glucose) is a calculated value from HgbA1c and is automotive sales representative of the average blood glucose level in the last 2-3 month period. Performed By: #### H BA1C #### [address] [address] HbA1c (Bld) [Mass fraction] 5.7 % High 4.3-5.6 [facility] Comment on above: Result Comment: Amer [place] Diabetes Association guidelines indicate that patients with HgbA1c in the range 5.7-6.4% are at increased risk for development of diabetes, and intervention by lifestyle modification may be beneficial. HgbA1c greater or equal to 6.5% is considered diagnostic of diabetes. Performed By: #### H BA1C #### [place] [place] [address] Insulinon 01-21-2021 Insulin 13.7 mU/L Normal 3.0-25.0 [facility] Comment on above: Performed By: #### H BA1C #### [place] [address] Iron and TIBCon 01-21-2021 Iron [Mass/Vol] 68 ug/dL Normal 41-186 [facility] Comment on above: Performed By: #### I SHARATH, LIPB, VITD, FERR, TSH, PTHI, B1WB, INSULN, B12, SERFOL #### [place] [address] TIBC 424 ug/dL High 232-386 [facility] Comment on above: Performed By: #### I SHARATH, LIPB, VITD, FERR, TSH, PTHI, B1WB, INSULN, B12, SERFOL #### [place] [address] Transferrin Saturatn 16 % Normal 15-57 [facility] Comment on above: Performed By: #### I SHARATH, LIPB, VITD, FERR, TSH, PTHI, B1WB, INSULN, B12, SERFOL #### [place] [address] Lipid Panel, [place] 021 Cholesterol [Mass/Vol] 224 mg/dL High <200 [facility] Comment on above: Result Comment: <200 mg/dL, Desirable 200-239 mg/dL, Borderline high >239 mg/dL, High Performed By: #### I SHARATH, LIPB, VITD, FERR, TSH, PTHI, B1WB, INSULN, B12, SERFOL #### [place] [id number] [place] [address] Cholesterol in HDL [Mass/Vol] 75 mg/dL Normal >39 [facility] Comment on above: Result Comment: 40-5 9 mg/dL, Acceptable >59 mg/dL, High: Negative risk factor for coronary heart disease <40 mg/dL, Low: Positive risk factor for coronary heart disease Performed By: #### I SHARATH, LIPB, VITD, FERR, TSH, PTHI, B1WB, INSULN, B12, SERFOL #### [place] [id number] [place] [address] Cholesterol in LDL [Mass/Vol] 129 mg/dL High <100 [facility] Comment on above: Result Comment: <100 mg/dL, Optimal 100-129 mg/dL, Near optimal/above optimal 130-159 mg/dL, Borderline high 160-189 mg/dL, High >189 mg/dL, Very high Secondary prevention optimal LDL Cholesterol levels are recommended to be < 70 mg/dL Performed By: #### I SHARATH, LIPB, VITD, FERR, TSH, PTHI, B1WB, INSULN, B12, SERFOL #### [place] [address] Fasting Time 12 hrs Normal [facility] Comment on above: Performed By: #### I SHARATH, LIPB, VITD, FERR, TSH, PTHI, B1WB, INSULN, B12, SERFOL #### [place] [address] LDL:HDL Ratio 1.72 Normal <2.54 [facility] Comment on above: Result Comment: Chay silva: 1. National Cholesterol Education Program ATP III Guideline At-A-Glance Quick Desk Reference: National Heart, Lung, and Blood [place]. National Institutes of Health. 2001: NIH Publication No. 01-3305. 2. An International Atherosclerosis Society position paper: global recommendations for the management of dyslipidemia: executive summary, Atherosclerosis. 2014: 232(2):410-413. Performed By: #### I SHARATH, LIPB, VITD, FERR, TSH, PTHI, B1WB, INSULN, B12, SERFOL #### [place] [phone] Non HDL Cholesterol 149 mg/dL High <130 [facility] Comment on above: Result Comment: <130 mg/dL, Optimal 130-159 mg/dL, Near optimal/above optimal 160-189 mg/dL, Borderline high 190-219 mg/dL, High >219 mg/dL, Very high Secondary prevention optimal non HDL Cholesterol levels are recommended to be < 100 mg/dL Performed By: #### I SHARATH, LIPB, VITD, FERR, TSH, PTHI, B1WB, INSULN, B12, SERFOL #### [place] [phone] TC:HDL Ratio 2.99 Normal <5.10 [facility] Comment on above: Performed By: #### I SHARATH, LIPB, VITD, FERR, TSH, PTHI, B1WB, INSULN, B12, SERFOL #### [place] [phone] Triglyceride [Mass/Vol] 102 mg/dL Normal <150 [facility] Comment on above: Result Comment: <150 mg/dL, Normal 150-199 mg/dL, Borderline high 200-499 mg/dL, High >499 mg/dL, Very high Performed By: #### I SHARATH, LIPB, VITD, FERR, TSH, PTHI, B1WB, INSULN, B12, SERFOL #### [place] [phone] VLDL Cholesterol 20 mg/dL Normal <30 [facility] Comment on above: Performed By: #### I SHARATH, LIPB, VITD, FERR, TSH, PTHI, B1WB, INSULN, B12, SERFOL #### [place] [phone] PTH, Intacton 01-21-2021 PTH, Intact 56 pg/mL Normal 15-65 [facility] Comment on above: Performed By: #### I SHARATH, LIPB, VITD, FERR, TSH, PTHI, B1WB, INSULN, B12, SERFOL #### [place] [id number] [place] [address] TSHon 01-21-2021 TSH Qn 1.820 m[IU]/L Normal 0.270-4.200 [facility] Comment on above: Performed By: #### H BA1C #### [place] [address] Vitamin B1, Whole Blon 01-21 Vitamin B1 (TDP), WB 149.7 nmol/L Normal 84.0-213.0 [facility] Comment on above: Result Comment: This assay measures the concentration of thiamine diphosphate (TDP), the primary active form of vitamin B1. Approximately 90 percent of vitamin B1 present in whole blood is TDP. Thiamine and thiamine monophosphate, which comprise the remaining 10 percent, are not measured. This test was developed and its performance characteristics determined by [facility]'s [facility] [place] ([facility]). It has not been cleared or approved by the FDA. [facility] is regulated under CLIA as qualified to perform high complexity testing. This test is used for clinical purposes. It should not be regarded as investigational or for research. Performed By: #### H BA1C #### [place] [address] Vitamin B12on 01-21-2021 Cobalamin (Vitamin B12) [Mass/Vol] 814 pg/mL Normal 232-1245 [facility] Comment on above: Performed By: #### I SHARATH, LIPB, VITD, FERR, TSH, PTHI, B1WB, INSULN, B12, SERFOL #### [place] [phone] Vitamin D 25 Hydroxyon 01-21 Vitamin D 25 Hydroxy 33.6 ng/mL Normal 31.0-80.0 [facility] Comment on above: Result Comment: Clas sification of 25 [place] Vitamin D status: Insufficiency/Moderate Deficiency: < or = 30 ng/mL Sufficiency/Optimal Levels: 31 to 80 ng/mL Toxicity: > 100 ng/mL Test performed by chemiluminescent immunoassay. Performed By: #### I SHARATH, LIPB, VITD, FERR, TSH, PTHI, B1WB, INSULN, B12, SERFOL #### [facility] [address] [place], [place] [address] CNOVon 12-17-2020 CNOV Office Visit (OBGYWM ) YASMANYCHRISTINA M ([id number]) 1960 F Date Time Provider Department 12/17/20 3:00 PM DANETTE BOYCE During your visit today, we recorded the following information about you: Blood pressure Weight Height 120/74 97.1 kg 1.588 m Danette Boyce APRN.CNP 12/17/2020 3:59 PM Signed Christina is a 60 year old who presents for an annual gynecologic exam without complaints. Postmenopausal: Hysterectomy 2018 endometrial cancer HRT use: No. 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 malignancy: ENDOMETRIAL CANCER Pain with intercourse: No Postcoital bleeding: No Hot flashes: Yes, occasional Night sweats: No OB History T3 L3 SAB1 TAB0 Ectopic0 Multiple0 Live Births0 PAST MEDICAL HISTORY Diagnosis Date - Endometriosis - Excessive or frequent menstruation resolved - Female infertility of other specified origin - Hypertension - Morbid obesity (HCC) 03/20/2018 - NAFLD (nonalcoholic fatty liver disease) - PMH - PAST MEDICAL HISTORY OF Seasonal affective disorder - PMH - PAST MEDICAL HISTORY OF Rectocele, cystocele mild USI - Sleep apnea uses CPAP - Symptomatic menopausal or female climacteric states - Uterine cancer (HCC) PAST SURGICAL HISTORY Procedure Laterality Date - ABDOMINAL SURGERY HX - COLONOSCOPY GEN ANES 07/28/2020 Repeat in 5 years - DANDC, DIAG AND/OR THERAPEUTIC Dilation AND curettage - FOOT SURGERY HX 02/16/2019 left - GASTRECTOMY,PART DISTAL;W/GASTRODUODENOS TO - HYSTERECTOMY 02/2018 - L'SCOPE DX W/WO BRUSHINGS/WASHINGS Laparoscopy - LAP GASTRIC RESTRICTION 09/26/2019 - REMOVAL OF OVARY(S) 2002 Oophorectomy, Right - SALPINGECTOMY 2002 right tube ANDLeft ovarian endometrioma removal - SLING 10/06/2010 URETHRAL AND VAGINAL MESH - VAGINAL HYSTERECTOMY FAMILY HISTORY Problem Relation Age of Onset - Hypertension Mother - Stroke Mother - Hypertension Father - Heart Father afib, enlarged heart, CAD-stent - other (Endometriosis) Sister - other (other) Brother 55 colon cancer - Breast Cancer Maternal Grandmother SOCIAL HISTORY Social History Tobacco Use - Smoking status: Never Smoker - Smokeless tobacco: Never Used Vaping Use - Vaping Use: Never used Substance Use Topics - Alcohol use: Yes Comment: occasional wine-not weekly - Drug use: No REVIEW OF SYSTEMS Abdomen: No abdominal pain, nausea, vomiting, diarrhea, or constipation. No bloating, early satiety, indigestion, or increased flatulence. Bladder: No dysuria, gross hematuria, urinary frequency, urinary urgency, or incontinence Breast: No breast lumps, nipple d/c, overlying skin changes, redness or skin retraction Allergies and current medication updated:Yes EXAM: BP 120/74 Ht 5' 2.5 (1.59m) Wt 214 lb (97.1kg) LMP 03/03/2011 BMI 38.49 kg/(m2). GENERAL: pleasant, female in no apparent distress HEENT: Normocephalic, atraumatic, mucus membranes moist and no lesions NECK: Supple, full range of motion, no adenopathy and thyroid normal DERMATOLOGY: Normal, without lesions, non-icteric and non-hirsute BREAST: soft, non-tender, symmetric, no dominant mass, normal nipple-areolar complex, no lymphadenopathy and no nipple discharge CHEST: Normal inspiratory effort ABDOMEN: soft, non-tender and no masses PELVIC: external genitalia normal, normal Bartholin's glands, urethra, [place]'s glands, no vulvar lesions, physiologic discharge present, normal appearing perineal body and perianal region, cervix surgically absent BIMANUAL: no adnexal masses, non-tender and uterus surgically absent RECTOVAGINAL: deferred. NEURO: alert and oriented x3,exam grossly non-focal EXTREMITIES: normal ASSESSMENT/PLAN: 1) Health maintenance: Pap/HPV screening no longer needed Mammogram up to date - insurance only allows mammogram every other year Nutrition, exercise and routine health maintenance exams reviewed. Calcium/Vitamin D supplementation information provided. Colon cancer screening: up to date with screening 2) Follow up one year or sooner as needed Danette Boyce APRN.PLOW HOLDER Referring Provider: SELF [[id number]] Allergies As of Date: 12/17/2020 Noted Allergy Reaction TEVETEN (EPROSARTAN MESYLATE) 03/25/2005 Comments: Severe Joint Pain BENZOLE PEROXIDE [Other] 03/22/2005 2 - Rash SERTRALINE 07/06/2002 Comments: anxiety attacks Date Reviewed: 12/17/2020 Reviewed by: Danette Boyce APRN.PLOW HOLDER - Fully Assessed Reason for Visit: Well Woman [[id number]] Primary Visit Diagnosis:Encounter for gynecological examination (general) (routine) without abnormal findings [Z01.419] Prescriptions as of 12/17/2020 - ferrous sulfate (IRON ORAL) Take by mouth. - topiramate (TOPAMAX) 25 mg tablet Take 1 (more content not included)... Normal [facility] CNOVon 10-22-2020 CNOV Office Visit (SHIRA 4) CHRISTINA JADE ([id number]) 1960 F Date Time Provider Department 10/22/20 3:30 PM JIE RENEE4 During your visit today, we recorded the following information about you: Pulse Blood pressure Weight Height 96/minute 126/80 98.1 kg 1.575 m Jie Renee MD 10/23/2020 12:01 PM Signed Obesity Medicine PostOp Note October 22, 2020 3:08 PM Name: [place] Jade Index Surgery Date of Surgery: 09/26/2019 Surgeon:Suyapa Yip MD Surgical Procedure: Sleeve gastrectomy Pre-surgical weight: 109.8 kg (242 lb) Override Index Surgery Information? No danielle wt : 216 Goal 170 lbs Other Bariatric Surgeries None Visit: 12 months Today's Visit: There were no vitals taken for this visit. BMI 39.54 kg/(m2) Last Visit: Wt: 95.3 kg (210 lb) BMI: 38.41 kg/(m2) Estimated body mass index is 39.87 kg/m? as calculated from the following: Height as of this encounter: 157.5 cm (5' 2). Weight as of this encounter: 98.9 kg (218 lb). [place] weight: 62 kg (136 lb 11.2 oz) Excess weight: 47.8 kg (105 lb 4.8 oz) % of excess body weight lost: 10.9 kg (24 lb) (22.79% of excess weight loss) COMPLICATIONS SINCE LAST VISIT?: NONE Interval History Christina Jade s/p gastric sleeve on September 2019. She is looking for more adjunct therapy for further weight loss. Diet: eating 3 meals and 1-2 snacks per day, consuming adequate protein intake(e.g. eggs, yogurt, red meat, chicken, fish, legumes, soy) tolerates Phase V diet Routine Breakfast - not a breakfast person Protein shake with decaf coffee Lunch Salad with meat /protein Dinner - hot dogs/ baked fish /stakes / some veggies 6-10 pm Snacking : gets bored crackers/ chips popcorn Eats out once every 2 weeks Bedtime 10-7 GI Symptoms: Denies, nausea, occ nausea/vomiting when eating too fast, constipation, diarrhea, Abdominal pain or sx suggesting ulcer, stenosis, hernia, or gallstones - Dumping Sx (vasomotor/GI):No - Food intolerance: No - Episodes of low blood sugar/dizziness after eating: No - Cravings: Yes - Hunger/satiety:Increase d hunger, fills quickly after eating - Hydration:reducedfluid intake as recommended Lightheaded? No Urine dark? No - Alcohol intake:Yes, 2-3 times a month glass of wine Exercise: none, Sleep: 7 hrs, adequate Taking required vitamins and minerals: Yes Calcium: Calcium Citrate w/ vitamin D (1200 - 1500mg) Multivitamin AND Minerals: 1 per day Iron Supplement: 27 - 28 mg Vitamin B12: 1000 mcg Vitamin D3: 2000 IU Are you attending any Support Groups? Not known Current Outpatient Medications Medication Sig - ferrous sulfate (IRON ORAL) Take by mouth. - multivit-mins no.63/iron/folic (M-VIT ORAL) Take by mouth once daily. 2 flinstones chewables - Cholecalciferol, Vitamin D3, (VITAMIN D-3) 50 mcg (2,000 unit) cap Take by mouth once daily. - MEDICATION, NON-DATABASE Take 1 tablet by mouth once daily. collagen with vitamin C and biotin - atenolol (TENORMIN) 50 mg tablet Take 2 tablets by mouth once daily. - CALCIUM 500 MG TAB Take one tablet by mouth daily. - HYDROCHLOROTHIAZIDE 25 MG TAB Take by mouth once daily. - LEXAPRO 10 MG TAB Take one half tablet by mouth in the summer. Take one tablet by mouth in the winter. - topiramate (TOPAMAX) 25 mg tablet Take 1 tablet by mouth once daily. No current facility-administered medications for this visit. Patient Active Problem List Adult BMI 39.0-39.9 kg/sq m Vitamin D deficiency Fatty liver Hiatal hernia Status post laparoscopic sleeve gastrectomy Obstructive sleep apnea Class 2 obesity Seasonal affective disorder (HCC) Obesity, morbid, BMI 40.0-49.9 (HCC) Morbid obesity (HCC) Essential hypertension Preop examination Complex atypical endometrial hyperplasia Ovarian mass, left Dietary counseling and surveillance Resolved Hospital Problems No resolved problems to display. Social History Tobacco Use - Smoking status: Never Smoker - Smokeless tobacco: Never Used Vaping Use - Vaping Use: Never used Substance Use Topics - Alcohol use: Yes Comment: occasional wine-not weekly - Drug use: No ROS: REVIEW OF SYSTEMS GENERAL: No weight loss, malaise or fevers HEENT: Negative for frequent or significant headaches, No changes in hearing or vision, no nose bleeds or other nasal problems NECK: Negative for lumps, goiter, pain and significant neck swelling RESPIRATORY: Negative for cough, hemoptysis, wheezing, COPD, dyspnea or shortness of breath CARDIOVASCULAR: Negative for chest pain, leg swelling, hypertension, CHF or palpitations GI: No nausea, vomiting, or diarrhea MUSCULOSKELETAL: joint pain or swelling SKIN: Negative for lesions, rash, and itching PSYCH: Negative for sleep disturbance, mood disorder and recent psychosocial stressors HEMATOLOGY/LYMPHOLOGY: Negativ (more content not included)... Normal [facility] CNPNon 07-29-2020 CNPN Telephone (GASTTW) CHRISTINA JADE ([id number]) 1960 F Date Time Provider Department 07/29/20 JASON LUND During your visit today, we recorded the following information about you: Jason Lund MD 07/29/2020 2:39 PM Signed Colon polyp was a tubular adenoma Edin Uriostegui Ma 07/29/2020 2:47 PM Signed Pt notified and verbalized understanding- HM was already updated to 5 year cscope repeat Allergies As of Date: 07/29/2020 Noted Allergy Reaction TEVETEN (EPROSARTAN MESYLATE) 03/25/2005 Comments: Severe Joint Pain BENZOLE PEROXIDE [Other] 03/22/2005 2 - Rash SERTRALINE 07/06/2002 Comments: anxiety attacks Date Reviewed: 07/28/2020 Reviewed by: Julian (Rn) BARBRA Pagan - Fully Assessed Reason for Visit: Results [95] Prescriptions as of 07/29/2020 Sig: M-VIT ORAL Take by mouth once daily. 2 f* CHOLECALCIFEROL (VITAMIN D3) * Take by mouth once daily. MEDICATION, NON-DATABASE Take 1 tablet by mouth once d* ATENOLOL 50 MG TABLET Take 2 tablets by mouth once * * CALCIUM 500 MG TABLET Take one tablet by mouth ronda* * HYDROCHLOROTHIAZIDE 25 MG TAB* Take by mouth once daily. * LEXAPRO 10 MG TABLET Take one half tablet by mouth* Problem List As Of Date 07/29/2020 Noted Resolved Abdominal pain, left upper quadrant [R10.12] 05/26/2009 03/22/2011 Endometriosis, site unspecified [N80.9] 05/26/2009 09/03/2016 Irregular menstrual cycle [N92.6] 05/26/2009 09/03/2016 Dysmenorrhea [N94.6] 05/26/2009 03/22/2011 Breast Screening, Unspecified [Z12.39] 05/26/2009 05/26/2009 Rectocele [N81.6] 05/26/2009 03/22/2011 Preop examination [Z01.818] 02/02/2018 Complex atypical endometrial hyperplasia [N85.0*02/02/2018 Ovarian mass, left [N83.8] 02/02/2018 Hypertension [I10] 03/13/2018 Morbid obesity (HCC) [E66.01] 03/20/2018 Obesity, morbid, BMI 40.0-49.9 (HCC) [E66.01] 09/26/2019 Encounter Status:Closed by EDIN URIOSTEGUI MA on 07/29/20 [facility] BRIEF OP NOTon 07-28-2020 BRIEF OP NOT HNO ID: [id number] Author: Jason Lund Service: Gastroenterology Author Type: Physician Type: Brief Op Note Filed: 07/28/2020 1:03 PM Note Text: BRIEF OPERATIVE NOTE PATIENT NAME: Christina Jade LOG ID: [id number] Surgery Date: 07/28/2020 Surgeon(s) and Department Secretary(s): Jason Lund MD -Primary Procedure(s): Procedure(s) (LRB): COLONOSCOPY, FLEXIBLE W/REMOVAL TUMOR(S), POLYP(S), OR OTHER LESION(S) BY SNARE TECHNIQUE (N/A) Anesthesia: Procedural Sedation Findings: Descending colon polyp Estimated Blood Loss: Minimal Specimens: Descending colon polyp Preop Diagnosis: Screening Postop Diagnosis: *Screening* SIGNATURE: Jason Lund MD DATE: July 28, 2020 TIME: 1:03 PM [facility] HISTORY PHYSICALon HISTORY PHYSICAL HNO ID: [id number] Author: Jason Lund Service: Gastroenterology Author Type: Physician Type: HANDP Filed: 07/28/2020 12:31 PM Note Text: PROCEDURAL SEDATION HISTORY AND PHYSICAL EXAM SERVICE DATE: 07/28/2020 SERVICE TIME: 12:31 PM Subjective HPI: This is a 60 year old female who presents with the need for screening colonoscopy PAST ANESTHESIA HISTORY: No history of adverse event PAST MEDICAL HISTORY Diagnosis Date - Endometriosis - Excessive or frequent menstruation resolved - Female infertility of other specified origin - Hypertension - Morbid obesity (HCC) 03/20/2018 - NAFLD (nonalcoholic fatty liver disease) - PMH - PAST MEDICAL HISTORY OF Seasonal affective disorder - PMH - PAST MEDICAL HISTORY OF Rectocele, cystocele mild USI - Sleep apnea uses CPAP - Symptomatic menopausal or female climacteric states - Uterine cancer (HCC) PAST SURGICAL HISTORY Procedure Laterality Date - ABDOMINAL SURGERY HX - DANDC, DIAG AND/OR THERAPEUTIC Dilation AND curettage - FOOT SURGERY HX 02/16/2019 left - GASTRECTOMY,PART DISTAL;W/GASTRODUODENOS TO - HYSTERECTOMY 02/2018 - L'SCOPE DX W/WO BRUSHINGS/WASHINGS Laparoscopy - LAP GASTRIC RESTRICTION 09/26/2019 - REMOVAL OF OVARY(S) 2002 Oophorectomy, Right - SALPINGECTOMY 2002 right tube ANDLeft ovarian endometrioma removal - SLING 10/06/2010 URETHRAL AND VAGINAL MESH - VAGINAL HYSTERECTOMY Prior to Admission medications as of 07/28/20 1118 Medication Sig Last Dose Taking atenolol (TENORMIN) 50 mg tablet Take 2 tablets by mouth once daily. 07/28/2020 at Unknown time Yes LEXAPRO 10 MG TAB Take one half tablet by mouth in the summer. Take one tablet by mouth in the winter. 07/28/2020 at Unknown time Yes multivit-mins no.63/iron/folic (M-VIT ORAL) Take by mouth once daily. 2 flinstones chewables Unknown at Unknown time Cholecalciferol, Vitamin D3, (VITAMIN D-3) 50 mcg (2,000 unit) cap Take by mouth once daily. Unknown at Unknown time MEDICATION, NON-DATABASE Take 1 tablet by mouth once daily. collagen with vitamin C and biotin Unknown at Unknown time CALCIUM 500 MG TAB Take one tablet by mouth daily. Unknown at Unknown time HYDROCHLOROTHIAZIDE 25 MG TAB Take by mouth once daily. ALLERGIES Allergen Reactions - Teveten [Eprosartan* Severe Joint Pain - Benzole Peroxide [O* Rash - Sertraline anxiety attacks Objective PHYSICAL EXAM: The remainder of the physical exam is noncontributory. AIRWAY: Airway Visualization of Uvula: Yes Mouth opening greater than 2 fingerbreadths: Yes Neck Full Range of Motion: Yes LUNGS: Lungs clear to auscultation, Good diaphragmatic excursion CARDIAC: Normal S1 and S2; no rubs, murmurs, or gallops Assessment/Plan ASA Class: ASA Class:: Patient with mild systemic disease Active Problems: * No active hospital problems. * Resolved Problems: * No resolved hospital problems. * Provisional Diagnosis/Treatment Plan: Screening/colonoscopy SEDATION GOAL: Moderate SIGNATURE: Jason Lund MD PATIENT NAME: Christina Jade DATE: July 28, 2020 TIME: 12:31 PM Normal [facility] NURSING PROGon 07-28-2020 NURSING PROG HNO ID: [id number] Author: Julian ThakkarRn) BARBRA Pagan Service: Nursing Author Type: Registered Nurse Type: Nursing Progress Note Filed: 07/28/2020 1:15 PM Note Text: Pt into Endo recovery room in satisfactory condition. Resting on left side. Pt. sleepy but arousable. Abdomen soft, no complaints. Will continue to monitor. Normal [facility] NURSING PROG HNO ID: [id number] Author: Julian Lockhart) BARBRA Pagan Service: Nursing Author Type: Registered Nurse Type: Nursing Progress Note Filed: 07/28/2020 12:32 PM Note Text: [facility] PRE-OP NURSING HAND OFF NOTE SBAR Hand off given to Danica Bean RN. Hand off was communicated verbally and at the patient's bedside and all questions were answered. Julian Pagan RN Normal [facility] SURGICAL PATHOLOGYon 021 SURGICAL PATHOLOGY Specimen originated from [facility] Specimen #: [id number] Submitting Physician: JASON LUND MD FINAL DIAGNOSIS Descending colon polyp, biopsy - Multiple fragments of tubular adenoma. IOG/EDILBERTO/mely 07/29/2020 Soraya Calix M.D., Ph.D. (Electronic Signature) SPECIMEN SUBMITTED A: DESCENDING COLON POLYP CLINICAL DATA SCREENING, LMP: N/A COLD SNARE GROSS DESCRIPTION A. Received in formalin are multiple pieces of burnett, soft tissue aggregating to 1.0 x 0.3 x 0.2 cm. Totally submitted in one cassette. Gross examination performed at [facility], [address] [place] [address] 07/28/2020 10:09:03 PM Date of Report: 07/29/2020 Date of Procedure: 07/28/2020 Date of Receipt: 07/28/2020 Submitted by: JASON LUND MD Location: [facility] Diagnostic interpretation performed at [place] [address]. [place] Number: [id number] [facility] 07-18-2020 CNPN Telephone (ASWSTR) CHRISTINA JADE ([id number]) 1960 F Date Time Provider Department 07/18/20 [facility] During your visit today, we recorded the following information about you: Sharon Salinas, RN, RN 07/18/2020 12:03 PM Signed Pt needs to have a screening colonoscopy for family hx of colon cancer in first degree relative. Her 55 yr old brother just got dx with colon cancer. Chart reviewed with Dr. Lund and he is okay to do patient as open access. Pt's is already scheduled on July 28. 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 Pt will need to be called for the OA questionnaire. Roberta Meek 07/18/2020 1:25 PM Signed Scheduled patient for open access colonoscopy with Dr. Lund on 07/28/2020, sending Miralax/Dulcolax instructions through [email or web address] Roberta Meek [facility] OPEN ACCESS QUESTIONNAIRE 1. Are you currently having any new or unusual stomach/gastrointestina l issues at this time such as constipation, diarrhea, abdominal pain, rectal bleeding etc?Yes / Hemroid 2. Do you have any difficulty swallowing? No 3. Do you have any implanted devices such as a defibrillator, pacemaker, cardiac stents or deep brain stimulator? No 4. Do you take any Blood thinners such as Coumadin, Plavix, Xarelto, Eliquis, Brilinta or any other blood thinner? No 5. Do you have any new or past cardiac (heart) or pulmonary (lung) issues? No 6. Do you currently use any oxygen? No 7. Have you been hospitalized in the past 6 weeks? No 8. Have you had difficulty with anesthesia previously re: ? Difficult intubation? No ? Other difficulty or allergic reaction to anesthesia other than post op N/V? No 9. Are you on dialysis? No 10. Do you have any bleeding disorders such as hemophilia or Factor 5? No 11. Are you an Insulin Dependent Diabetic? No - IF ANY OF THE TOP ELEVEN QUESTIONS ARE ANSWERED YES PLEASE SCHEDULE THE PATIENT FOR A CONSULT. advised 12. Is the patient's BMI 40 or greater? No:There is no height or weight on file to calculate BMI.. 13. Do you take any narcotics or anti-Anxiety medications? No 14. Do you use any illegal or recreational drugs including marijuana? No 15. Any alcohol use: YES: What type of alcohol, how much and how often do you drink? : Ocassional Glass of wine 16. Have you been diagnosed with chronic liver disease such as hepatitis or cirrhosis? No 17. Do you have a seizure disorder? No 18. Do you have ulcerative colitis or Crohn's disease? No 19. Are you or could you be ? No 20. Any other important health information we should be made aware of prior to your colonoscopy? Yes / Gastric Sleeve a year ago To be completed by LIP: Did patient have MAC anesthesia with a previous endoscopy procedure? No Patient appropriate for Open Access Colonoscopy: No: NOT appropriate for Open Access Procedure Checklist: Prior to closing the encounter: ? Complete questionnaire: Yes ? Confirm Prep order has been Ordered/Pended: Yes. ? Patient's procedure could be delayed if not given the script for the prep. Please ensure the prep is escripted to pharmacy or printed. Instructions for the prep will print upon filing or pending this smartset. ? Please send all open access questionnaires to [facility] Sched Pool #[id number] Sharon Salinas, RN, RN 08/18/2020 2:56 PM Signed Procedure completed on 07/28/20. Sharon Salinas RN Allergies As of Date: 07/18/2020 Noted Allergy Reaction TEVETEN (EPROSARTAN MESYLATE) 03/25/2005 Comments: Severe Joint Pain BENZOLE PEROXIDE [Other] 03/22/2005 2 - Rash SERTRALINE 07/06/2002 Comments: anxiety attacks Date Reviewed: 07/18/2020 Reviewed by: Jason Lund - Fully Assessed Reason for Visit: open access colonoscopy [Other] Primary Visit Diagnosis:Special screening for malignant neoplasms, colon [Z12.11] Order(s):COLONOSCOPY SCRN NOT HIGH RISK [[id number]] Order #: [id number]: 1 FUTURE Prescriptions as of 07/18/2020 Sig: M-VIT ORAL Take by mouth once daily. 2 f* CHOLECALCIFEROL (VITAMIN D3) * Take by mouth once daily. MEDICATION, NON-DATABASE Take 1 tablet by mouth once d* ATENOLOL 50 MG TABLET Take 2 tablets by mouth once * * CALCIUM 500 MG TABLET Take one tablet by mouth ronda* * HYDROCHLOROTHIAZIDE 25 MG TAB* Take by mouth once daily. * LEXAPRO 10 MG TABLET Take one half tablet by mouth* Problem List As Of Date 07/18/2020 Noted Resolved Abdominal pain, left upper quadrant [R10.12] 05/26/2009 03/22/2011 Endometriosis, site unspecified [N80.9] 05/26/2009 09/03/2016 Irregular menstrual cycle [N92.6] 05/26/2009 09/03/2016 Dysmenorrhea [N94.6] 05/26/2009 03/22/2011 Breast Screening, Unspecified [Z12.39] 05/26/2009 05/26/2009 Rectocele [N81.6] 05/26/2009 03/22/2011 Preop examination [Z01.818] 02/02/2018 Complex atypical endometrial hyperplasia (more content not included)... Normal [facility] 07-18-2020 [facility] Patient:Porter Jade MRN: Height:5' 2(1.575 m) Weight:205 lb 0.4 oz (93 kg) Outpatient Medications as of 07/28/20: multivit-mins no.63/iron/folic (M-VIT ORAL) Cholecalciferol, Vitamin D3, (VITAMIN D-3) 50 mcg (2,000 unit) cap MEDICATION, NON-DATABASE atenolol (TENORMIN) 50 mg tablet CALCIUM 500 MG TAB HYDROCHLOROTHIAZIDE 25 MG TAB LEXAPRO 10 MG TAB Admission/Clinic Administered Medications as of 07/28/20: lactated ringers iv infusion fentaNYL 50 mcg/mL 25-100 mcg injection (SUBLIMAZE) midazolam 1-5 mg injection (VERSED) diphenhydrAMINE 12.5-50 mg injection (BENADRYL) Problem List: Preop examination [Z01.818] 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 Her 55 yr old brother just got dx with colon cancer. Chart reviewed with Dr. Lund and he is okay to do patient as open access. Pt's is already scheduled on July 28. 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 Pt will need to be called for the OA questionnaire. Roberta Meek 07/18/2020 1:25 PM Signed Scheduled patient for open access colonoscopy with Dr. Lund on 07/28/2020, sending Miralax/Dulcolax instructions through [email or web address] Roberta Meek [facility] OPEN ACCESS QUESTIONNAIRE 1. Are you currently having any new or unusual stomach/gastrointestina l issues at this time such as constipation, diarrhea, abdominal pain, rectal bleeding etc?Yes / Hemroid 2. Do you have any difficulty swallowing? No 3. Do you have any implanted devices such as a defibrillator, pacemaker, cardiac stents or deep brain stimulator? No 4. Do you take any Blood thinners such as Coumadin, Plavix, Xarelto, Eliquis, Brilinta or any other blood thinner? No 5. Do you have any new or past cardiac (heart) or pulmonary (lung) issues? No 6. Do you currently use any oxygen? No 7. Have you been hospitalized in the past 6 weeks? No 8. Have you had difficulty with anesthesia previously re: ? Difficult intubation? No ? Other difficulty or allergic reaction to anesthesia other than post op N/V? No 9. Are you on dialysis? No 10. Do you have any bleeding disorders such as hemophilia or Factor 5? No 11. Are you an Insulin Dependent Diabetic? No - IF ANY OF THE TOP ELEVEN QUESTIONS ARE ANSWERED YES PLEASE SCHEDULE THE PATIENT FOR A CONSULT. advised 12. Is the patient's BMI 40 or greater? No:There is no height or weight on file to calculate BMI.. 13. Do you take any narcotics or anti-Anxiety medications? No 14. Do you use any illegal or recreational drugs including marijuana? No 15. Any alcohol use: YES: What type of alcohol, how much and how often do you drink? : Ocassional Glass of wine 16. Have you been diagnosed with chronic liver disease such as hepatitis or cirrhosis? No 17. Do you have a seizure disorder? No 18. Do you have ulcerative colitis or Crohn's disease? No 19. Are you or could you be ? No 20. Any other important health information we should be made aware of prior to your colonoscopy? Yes / Gastric Sleeve a year ago To be completed by LIP: Did patient have MAC anesthesia with a previous endoscopy procedure? No Patient appropriate for Open Access Colonoscopy: No: NOT appropriate for Open Access Procedure Checklist: Prior to closing the encounter: ? Complete questionnaire: Yes ? Confirm Prep order has been Ordered/Pended: Yes. ? Patient's procedure could be delayed if not given the script for the prep. Please ensure the prep is escripted to pharmacy or printed. Instructions for the prep will print upon filing or pending this smartset. ? Please send all open access questionnaires to [facility] Sched Pool #[id number] Normal [facility] Basic Metabolic Panlon 07-02 Anion gap [Moles/Vol] 9 mmol/L Normal 9-18 [facility] Calcium [Mass/Vol] 9.6 mg/dL Normal 8.5-10.2 [facility] Chloride [Moles/Vol] 100 mmol/L Normal 97-105 [facility] CO2 [Moles/Vol] 30 mmol/L Normal 22-30 [facility] Creatinine [Mass/Vol] 0.71 mg/dL Normal 0.58-0.96 [facility] eGFR- Amer. >60 Normal [facility] eGFR-All Other Races >60 Normal [facility] Comment on above: Result Comment: eGFR (Estimated GFR) Units of measure: mL/min/1.73 meters squared eGFR is derived from the reexpressed MDRD Study equation using the following parameters: serum creatinine, age, gender and race. The creatinine assay has been calibrated to be traceable to IDMS. An eGFR <60 mL/min/1.73m2 for >3 months is consistent with chronic kidney disease. Refer to KDOQI guidelines for clinical interpretation. In patients with unstable renal function, e.g. those with acute kidney injury, the eGFR may not accurately reflect actual GFR. Glucose [Mass/Vol] 104 mg/dL High 74-99 [facility] Comment on above: Result Comment: The [place] Diabetes Association (ADA) provides guidance for cutoff values for fasting glucose and random glucose. The ADA defines fasting as no caloric intake for at least 8 hours. Fasting plasma glucose results between 100 to 125 mg/dL indicate increased risk for diabetes (prediabetes). Fasting plasma glucose results greater than or equal to 126 mg/dL meet the criteria for diagnosis of diabetes. In the absence of unequivocal hyperglycemia, results should be confirmed by repeat testing. In a patient with classic symptoms of hyperglycemia or hyperglycemic crisis, random plasma glucose results greater than or equal to 200 mg/dL meet the criteria for diagnosis of diabetes. Reference: Standards of Medical Care in Diabetes 2016, [place] [employer] Association. Diabetes Care. 2016.39(Suppl 1). Potassium [Moles/Vol] 3.9 mmol/L Normal 3.7-5.1 [facility] Sodium [Moles/Vol] 139 mmol/L Normal 136-144 [facility] Urea nitrogen [Mass/Vol] 9 mg/dL Normal 7-21 [facility] CBCon 07-02-2020 Absolute nRBC <0.01 Normal <0.01 [facility] Erythrocyte distribution width (RBC) [Ratio] 13.7 % Normal 11.5-15.0 [facility] Hematocrit (Bld) [Volume fraction] 37.2 % Normal 36.0-46.0 [facility] Hemoglobin (Bld) [Mass/Vol] 12.2 g/dL Normal 11.5-15.5 [facility] MCH 28.4 pG Normal 26.0-34.0 [facility] MCHC (RBC) [Mass/Vol] 32.8 g/dL Normal 30.5-36.0 [facility] MCV (RBC) [Entitic vol] 86.5 fL Normal 80.0-100.0 [facility] Platelet mean volume (Bld) [Entitic vol] 9.6 fL Normal 9.0-12.7 [facility] Platelets (Bld) [#/Vol] 342 10*3/uL Normal 150-400 [facility] RBC (Bld) [#/Vol] 4.30 10*6/uL Normal 3.90-5.20 [facility] WBC (Bld) [#/Vol] 5.47 10*3/uL Normal 3.70-11.00 [facility] Ferritinon 07-02-2020 Ferritin [Mass/Vol] 18.9 ng/mL Normal 14.7-205.1 [facility] Comment on above: Performed By: #### H BA1C #### [facility] [employer] [address] [place] [phone] Folate, Serumon 07-02-2020 Folate [Mass/Vol] ng/mL Normal >4.7 [facility] Comment on above: Result Comment: A re sult of > 20 ng/mL is not necessarily indicative of a pathologic or treatable condition: it reflects a limitation of the test methodology. Assay reference range: 4.8 to 24.2 ng/mL. Suitable for detection of folate deficiency. Reference: Folate III (Folate III) [package insert V 2.0 Korean]. [employer], [place], [place]: February 2015. Performed By: #### H BA1C #### [place] [id number] [place] [address] Iron and TIBCon 07-02-2020 Iron [Mass/Vol] 42 ug/dL Normal 41-186 [facility] Comment on above: Performed By: #### H BA1C #### [place] [address] TIBC 413 ug/dL High 232-386 [facility] Comment on above: Performed By: #### H BA1C #### [place] [address] Transferrin Saturatn 10 % Low 15-57 [facility] Comment on above: Performed By: #### H BA1C #### [place] [address] Vitamin B1, Whole Blon 07-02 Vitamin B1 (TDP), WB 131.3 nmol/L Normal 84.0-213.0 [facility] Comment on above: Result Comment: This assay measures the concentration of thiamine diphosphate (TDP), the primary active form of vitamin B1. Approximately 90 percent of vitamin B1 present in whole blood is TDP. Thiamine and thiamine monophosphate, which comprise the remaining 10 percent, are not measured. This test was developed and its performance characteristics determined by [facility]'s [facility] [place] ([facility]). It has not been cleared or approved by the FDA. [facility] is regulated under CLIA as qualified to perform high complexity testing. This test is used for clinical purposes. It should not be regarded as investigational or for research. Performed By: #### I SHARATH, LIPB, VITD, FERR, TSH, PTHI, B1WB, INSULN, B12, SERFOL #### [place] [id number] [place] [address] Vitamin B12on 07-02-2020 Cobalamin (Vitamin B12) [Mass/Vol] pg/mL High 232-1245 [facility] Comment on above: Performed By: #### H BA1C #### [place] [address] Vitamin D 25 Hydroxyon 07-02 Vitamin D 25 Hydroxy 40.4 ng/mL Normal 31.0-80.0 [facility] Comment on above: Result Comment: Clas sification of 25 [place] Vitamin D status: Insufficiency/Moderate Deficiency: < or = 30 ng/mL Sufficiency/Optimal Levels: 31 to 80 ng/mL Toxicity: > 100 ng/mL Test performed by chemiluminescent immunoassay. Performed By: #### I SHARATH, LIPB, VITD, FERR, TSH, PTHI, B1WB, INSULN, B12, SERFOL #### [facility] [address] [place] [address] Basic Metabolic Panelon 06-0 4-2020 Anion gap [Moles/Vol] 9 mmol/L Normal 9-18 [facility] Comment on above: Performed By: #### B MP #### [address] [address] Calcium [Mass/Vol] 9.0 mg/dL Normal 8.5-10.2 [facility] Comment on above: Performed By: #### B MP #### [address] [address] Chloride [Moles/Vol] 104 mmol/L Normal 97-105 [facility] Comment on above: Performed By: #### B MP #### [address] [address] CO2 [Moles/Vol] 28 mmol/L Normal 22-30 [facility] Comment on above: Performed By: #### B MP #### [facility] [address] [place], [place] [address] Creatinine [Mass/Vol] 0.61 mg/dL Normal 0.58-0.96 [facility] Comment on above: Performed By: #### B MP #### [facility] [address] [place] [address] Glucose [Mass/Vol] 106 mg/dL High 74-99 [facility] Comment on above: Result Comment: The [place] Diabetes Association (ADA) provides guidance for cutoff values for fasting glucose and random glucose. The ADA defines fasting as no caloric intake for at least 8 hours.Fasting plasma glucose results between 100 to 125 mg/dL indicate increased risk for diabetes (prediabetes). Fasting plasma glucose results greater than or equal to 126 mg/dL meet the criteria for diagnosis of diabetes. In the absence of unequivocal hyperglycemia, results should be confirmed by repeat testing. In a patient with classic symptoms of hyperglycemia or hyperglycemic crisis, random plasma glucose results greater than or equal to 200 mg/dL meet the criteria for diagnosis of diabetes. Reference: Standards of Medical Care in Diabetes 2016; [place] [employer]. Diabetes Care. 2016;39(Suppl 1). Performed By: #### B MP #### [facility] [address] [place], [place] [address] Potassium [Moles/Vol] 3.8 mmol/L Normal 3.7-5.1 [facility] Comment on above: Performed By: #### B MP #### [facility] [address] [place], [place] [address] Sodium [Moles/Vol] 141 mmol/L Normal 136-144 [facility] Comment on above: Performed By: #### B MP #### [facility] [address] [place], [place] [id number] Urea nitrogen [Mass/Vol] 7 mg/dL Normal 7-21 [facility] Comment on above: Performed By: #### B MP #### [address] [address] Hemogram/Diffon 09-27-2019 Abs Immature Grans 0.07 thou/cmm High 0.00-0.05 [facility] Comment on above: Performed By: #### C BCD1 #### [facility] [address] [place] [address] Abs Neut (ANC) 7.86 thou/cmm High 1.56-6.13 [facility] Comment on above: Performed By: #### C BCD1 #### [facility] [address] [place] [address] Abs. Baso 0.01 thou/cmm Normal 0.01-0.08 [facility] Comment on above: Performed By: #### C BCD1 #### [place] [address] Abs. [place] 0.90 thou/cmm High 0.27-0.70 [facility] Comment on above: Performed By: #### C BCD1 #### [place] [address] Basophils/100 WBC (Bld) 0.1 % Normal [facility] Comment on above: Performed By: #### C BCD1 #### [place] [address] Eosinophils (Bld) [#/Vol] 0.01 10*3/uL Normal 0.00-0.31 [facility] Comment on above: Performed By: #### C BCD1 #### [place] [address] Eosinophils/100 WBC (Bld) 0.1 % Normal [facility] Comment on above: Performed By: #### C BCD1 #### [place] [address] Erythrocyte distribution width (RBC) [Ratio] 14.0 % Normal 11.7-14.4 [facility] Comment on above: Performed By: #### C BCD1 #### [place] [address] Hematocrit (Bld) [Volume fraction] 37.4 % Normal 34.1-44.9 [facility] Comment on above: Performed By: #### C BCD1 #### [facility] [address] [address] Hemoglobin (Bld) [Mass/Vol] 12.3 g/dL Normal 11.2-15.7 [facility] Comment on above: Performed By: #### C BCD1 #### [facility] [address] [place] [address] Immature Grans 0.70 % Normal [facility] Comment on above: Performed By: #### C BCD1 #### [facility] [address] [address] Lymphocytes (Bld) [#/Vol] 1.35 10*3/uL Normal 1.18-3.74 [facility] Comment on above: Performed By: #### C BCD1 #### [facility] [address] [place] [address] Lymphocytes/100 WBC (Bld) 13.2 % Normal [facility] Comment on above: Performed By: #### C BCD1 #### [facility] [address] [address] MCH (RBC) [Entitic mass] 29.1 pg Normal 25.6-32.2 [facility] Comment on above: Performed By: #### C BCD1 #### [facility] [address] [address] MCHC 32.9 % Normal 31.6-34.8 [facility] Comment on above: Performed By: #### C BCD1 #### [facility] [address] [place] [address] MCV (RBC) [Entitic vol] 88.4 fL Normal 79.4-94.8 [facility] Comment on above: Performed By: #### C BCD1 #### [facility] [address] [place] [address] Monocytes/100 WBC (Bld) 8.8 % Normal [facility] Comment on above: Performed By: #### C BCD1 #### [facility] [address] [address] Platelet mean volume (Bld) [Entitic vol] 10.3 fL Normal 9.4-12.3 [facility] Comment on above: Performed By: #### C BCD1 #### [facility] [address] [place] [address] Platelets (Bld) [#/Vol] 288 10*3/uL Normal 182-369 [facility] Comment on above: Performed By: #### C BCD1 #### [facility] [address] [address] RBC 4.23 mil/cmm Normal 3.93-5.22 [facility] Comment on above: Performed By: #### C BCD1 #### [facility] [address] [place] [address] RDW SD 45.0 fl Normal 36.4-46.3 [facility] Comment on above: Performed By: #### C BCD1 #### [facility] [address] [place] [address] Seg Neutrophil 77.1 % Normal [facility] Comment on above: Performed By: #### C BCD1 #### [facility] [address] [place] [address] WBC (Bld) [#/Vol] 10.19 10*3/uL High 3.98-10.04 [facility] Comment on above: Performed By: #### C BCD1 #### [facility] [address] [address] MDRD GFRon 09-27-2019 GFR/1.73 sq M.predicted among non-blacks MDRD (S/P/Bld) [Vol rate/Area] mL/min/{1.73_m2} Normal >60mL/min/1.7 3m2 [facility] Comment on above: Result Comment: If t he patient is , multiply the result by 1.210. Performed By: #### H CTI #### [place] [address] ABO/Rh Confirmationon 2019 ABO group Nom (Bld) B Normal [facility] Comment on above: Performed By: #### A DESIREE #### [place] [address] RH Type Positive Normal [facility] Comment on above: Performed By: #### A DESIREE #### [place] [address] Glucose Meteron 09-26-2019 Glucose [Mass/Vol] 121 mg/dL High 70-99 [facility] Comment on above: Performed By: #### G LMET #### [place] [address] Surgical Tissue Examon 09-25 Surgical Tissue Exam Test performed at [place] [address] NAME: CHRISTINA JADE REQUESTING: SUYAPA YIP FINAL DIAGNOSIS: STOMACH, SLEEVE GASTRECTOMY - VIABLE GASTRIC SEGMENT WITH MILD CHRONIC GASTRITIS. OPERATIVE PROCEDURE: Laparoscopic sleeve gastrectomy, EGD, bariatric ERAS protocol CLINICAL INFORMATION: Class III severe obesity, D/T excess calories, BMI >70 GROSS DESCRIPTION: Sleeve gastrectomy Received in formalin labeled sleeve gastrectomy is a portion of stomach with one stapled margin measuring 22 x 4.5 x 2.5 cm. The serosal surface appears pink and burnett with focal areas of hemorrhage. Upon opening the average wall thickness is 0.2 cm. The mucosal surface demonstrates burnett granular prominent rugae with no polyps or masses identified. Top Stop Attacher sections are submitted in cassettes [id number]. YULIET/mason AVILES M.D., PATHOLOGIST (Electronic signature on file) Signed out: 09/28/2019 15:50 PRINTED: 09/28/2019 Page 1 of 1 Normal [facility] Comment on above: Performed By: #### H CTI #### [place] [address] Activated PTTon 09-19-2019 aPTT Coag (Bld) [Time] 27.2 s Normal 23.0-32.4 [facility] Comment on above: Result Comment: Unfr actionated Heparin Therapeutic Ranges: Standard Heparin Nomogram: 53 to 78 seconds (anti-Xa level of 0.3 to 0.7 U/mL) Low Dose/ACS Nomogram: 49 to 67 seconds (anti-Xa level of 0.2 to 0.5 U/mL) Stroke Treatment Nomogram: 49 to 67 seconds (anti-Xa level of 0.2 to 0.5 U/mL) Note: The APTT therapeutic range has been determined for the current lot of laboratory APTT reagent in use throughout the [facility]. Performed By: #### A PTT #### [facility] [address] [address] Albumin, Bloodon 09-19-2019 Albumin [Mass/Vol] 4.5 g/dL Normal 3.9-4.9 [facility] Comment on above: Performed By: #### A LB #### [facility] [address] [place] [address] Hcton 09-19-2019 Hematocrit (Bld) [Volume fraction] 40.9 % Normal 34.1-44.9 [facility] Comment on above: Performed By: #### H CTI #### [place] [address] Hgbon 09-19-2019 Hemoglobin (Bld) [Mass/Vol] 13.6 g/dL Normal 11.2-15.7 [facility] Comment on above: Performed By: #### H GBI #### [place] [address] Protimeon 09-19-2019 INR Coag (PPP) [Relative time] 1.08 {INR} Normal 0.90-1.30 [facility] Comment on above: Result Comment: Angy min K Antagonist (VKA) Therapeutic Range: INR 2 to 3 (Target INR of 2.5) Note: For patients treated with VKA drugs, such as warfarin, the [employer] 2012 Guideline recommends a therapeutic INR range of 2 to 3 (target INR of 2.5). This recommendation includes high-risk patients with antiphospholipid syndrome with previous arterial or venous thromboembolism, current-generation mechanical or bioprosthetic aortic heart valve replacement. Note: Patients with mechanical aortic valve replacement and additional risk factors for thromboembolic events (atrial fibrillation, previous thromboembolism, LV dysfunction, hypercoagulable conditions) or an older generation mechanical AVR (i.e., ball in-Cage) or any mechanical MVR should have a INR therapeutic range of 2.5 to 3.5 target INR of 3). Tammi HANEY, et al. Chest 2012; 141:7S-47S Julio NAPIER et al. [facility] 2017; 70: 252-289 Performed By: #### P T #### [facility] [address] [address] PT Coag (PPP) [Time] 11.6 s Normal 9.7-13.0 [facility] Comment on above: Performed By: #### P T #### [facility] [address] [address] Type and Screenon 09-19-2019 ABO group Nom (Bld) B Normal [facility] Comment on above: Performed By: #### T &S #### [facility] [address] [address] Comment PAT specimen Normal [facility] Comment on above: Performed By: #### T &S #### [facility] [address] [address] RH Type Positive Normal [facility] Comment on above: Performed By: #### T &S #### [facility] [address] [address] Vital Signs Date Time Vital Sign Value Performing Clinician Faci lity 11-11-2022 12:27-0400 Body temperature 98.3 [degF] Dr. Jeffry Nichole Work Phone: [facility] 11-11-2022 12:27-0400 Diastolic blood pressure 67 mm[Hg] Dr. Jeffry Nichole Work Phone: [facility] 11-11-2022 12:27-0400 Heart rate 65 /min Dr. Jeffry Nichole Work Phone: [facility] 11-11-2022 12:27-0400 Respiratory rate 16 /min Dr. Jeffry Nichole Work Phone: [facility] 11-11-2022 12:27-0400 SaO2% (BldA) [Mass fraction] 97 % Dr. Jeffry Nichole Work Phone: [facility] 11-11-2022 12:27-0400 Systolic blood pressure 136 mm[Hg] Dr. Jeffry Nichole Work Phone: [facility] 11-11-2022 11:00-0400 Inhaled oxygen flow rate 2 L/min Dr. Jeffry Nichole Work Phone: [facility] 11-11-2022 07:24-0400 Body height 157.[address] eJffry Nichoel Work Phone: [facility] 11-11-2022 07:24-0400 Body mass index (BMI) [Ratio] 38.7 kg/m2 Dr. Jeffry Nichole Work Phone: [facility] 11-11-2022 07:24-0400 Body weight 96.[address] Jeffry Nichole Work Phone: [facility] 10-05-2022 12:30-0400 Body mass index (BMI) [Ratio] 38.5 kg/m2 Dr. Jeffry Nichole Work Phone: [facility] 10-05-2022 12:30-0400 Body temperature 97.5 [degF] Dr. Jeffry Nichole Work Phone: [facility] 10-05-2022 12:30-0400 Body weight 95.[address] Jeffry Nichole Work Phone: [facility] 10-05-2022 12:30-0400 Diastolic blood pressure 92 mm[Hg] Dr. Jeffry Nichole Work Phone: [facility] 10-05-2022 12:30-0400 Heart rate 81 /min Dr. Jeffry Nichole Work Phone: [facility] 10-05-2022 12:30-0400 Respiratory rate 18 /min Dr. Jeffry Nichole Work Phone: [facility] 10-05-2022 12:30-0400 Systolic blood pressure 135 mm[Hg] Dr. Jeffry Nichole Work Phone: [facility] 08-04-2022 08:37-0400 Body height 157.[address] Jeffry Nichole Work Phone: [facility] 04-21-2022 10:05-0500 Body mass index (BMI) [Ratio] 37.8 kg/m2 Dr. Jeffry Nichole Work Phone: [facility] 04-21-2022 10:05-0500 Body weight 93.[address] Jeffry Nichole Work Phone: [facility] 03-17-2022 11:00-0500 Body height 157.[address] Jeffry Nichole Work Phone: [facility] Work Phone: 03-17-2022 11:00-0500 Body mass index (BMI) [Ratio] 38 kg/m2 Dr. Jeffry Nichole Work Phone: [facility] Work Phone: 03-17-2022 11:00-0500 Body weight 94.[address] Jeffry Nichole Work Phone: [facility] Work Phone: 03-17-2022 11:00-0500 Diastolic blood pressure 85 mm[Hg] Dr. Jeffry Nichole Work Phone: [facility] Work Phone: 03-17-2022 11:00-0500 Heart rate 60 /min Dr. Jeffry Nichole Work Phone: [facility] Work Phone: 03-17-2022 11:00-0500 Respiratory rate 16 /min Dr. Jeffry Nichole Work Phone: [facility] Work Phone: 03-17-2022 11:00-0500 Systolic blood pressure 126 mm[Hg] Dr. Jeffry Nichole Work Phone: [facility] Work Phone: 02-26-2022 09:02-0400 Body temperature 98.3 [degF] Dr. Jeffry Nichole Work Phone: [facility] Work Phone: 02-26-2022 09:02-0400 Diastolic blood pressure 52 mm[Hg] Dr. Jeffry Nichole Work Phone: [facility] Work Phone: 02-26-2022 09:02-0400 Heart rate 78 /min Dr. Jeffry Nichole Work Phone: [facility] Work Phone: 02-26-2022 09:02-0400 Respiratory rate 18 /min Dr. Jeffry Nichole Work Phone: [facility] Work Phone: 02-26-2022 09:02-0400 SaO2% (BldA) [Mass fraction] 97 % Dr. Jeffry Nichole Work Phone: [facility] Work Phone: 02-26-2022 09:02-0400 Systolic blood pressure 97 mm[Hg] Dr. Jeffry Nichole Work Phone: [facility] Work Phone: 02-26-2022 05:52-0400 Body weight [address] Jeffry Nichole Work Phone: [facility] Work Phone: 02-24-2022 15:55-0400 Body height 157.[address] Jeffry Nichole Work Phone: [facility] Work Phone: 02-24-2022 13:39-0400 Body mass index (BMI) [Ratio] 39.2 kg/m2 Dr. Jeffry Nichole Work Phone: [facility] Work Phone: 02-24-2022 12:54-0400 Body temperature 98 [degF] [facility] Work Phone: 02-24-2022 12:54-0400 Diastolic blood pressure 113 mm[Hg] [facility] Work Phone: 02-24-2022 12:54-0400 Heart rate 49 /min [facility] Work Phone: 02-24-2022 12:54-0400 Inhaled oxygen flow rate 2 L/min [facility] Work Phone: 02-24-2022 12:54-0400 Respiratory rate 18 /min [facility] Work Phone: 02-24-2022 12:54-0400 SaO2% (BldA) [Mass fraction] 98 % [facility] Work Phone: 02-24-2022 12:54-0400 Systolic blood pressure 213 mm[Hg] [facility] Work Phone: 02-24-2022 11:55-0400 Body height 157.48 cm [facility] Work Phone: 02-24-2022 11:55-0400 Body mass index (BMI) [Ratio] 41.7 kg/m2 [facility] Work Phone: 02-24-2022 11:55-0400 Body weight 103.5 kg [facility] Work Phone: 08-03-2021 14:40-0400 Body height 158.8 cm Britni Hasenstaub [employer]AD[employer]OW HOLDER Work Phone: [facility] 08-03-2021 14:40-0400 Body weight 91.63 kg Britni Hasenstaub [employer]ER.PLOW HOLDER Work Phone: [facility] 08-03-2021 14:40-0400 Diastolic blood pressure 80 mm[Hg] Britni Hasenstaub [employer]ER.PLOW HOLDER Work Phone: [facility] 08-03-2021 14:40-0400 Heart rate 50 /min Britni Hasenstaub [employer]ER.PLOW HOLDER Work Phone: [facility] 08-03-2021 14:40-0400 Respiratory rate 14 /min Britni Hasenstaub [employer]OTH GRADER.PLOW HOLDER Work Phone: [facility] 08-03-2021 14:40-0400 SaO2% (BldA) [Mass fraction] 97 % Britni Mcintyre [employer] GR[employer]ER.PLOW HOLDER Work Phone: [facility] 08-03-2021 14:40-0400 Systolic blood pressure 120 mm[Hg] Britni Mcintyre [employer].PLOW HOLDER Work Phone: [facility] Encounters Encounter Date Encounter Type Care Provider Facility Start: 01-25-2024 End: 01-25-2024 ambulatory Sridevi Hernandes Facility:[facility] Start: 09-14-2023 End: 09-14-2023 ambulatory Nikki Arias Facility:[facility] Start: 09-14-2023 End: 09-14-2023 ambulatory Sheela GHOTRA Facility:[facility] Start: 08-17-2023 ambulatory [facility] Facility:[facility] Start: 03-16-2023 ambulatory Layton Petty Facility:[facility] Start: 03-09-2023 End: 03-09-[address] Jeffry Nichole Work Phone: [facility] Work Phone: Start: 03-09-2023 End: 03-09-[address] [facility] Start: 03-09-2023 End: 03-09-2023 ambulatory [facility] Facility:[facility] Start: 01-03-2023 End: 01-03-[address] Jeffry Nichole Work Phone: [facility] Work Phone: Start: 12-15-2022 End: 12-15-[address] Jeffry Nichole Work Phone: [facility] Work Phone: Start: 12-08-2022 End: 12-08-[address] Jeffry Nichole Work Phone: [facility] Work Phone: Start: 12-02-2022 End: 12-02-[address] Jeffry Nichole Work Phone: [facility] Work Phone: Start: 11-24-2022 End: 11-24-[address] Jeffry Nichole Work Phone: [facility] Work Phone: Start: 11-11-2022 Non-patient / Non-visit Dr. Genaro Nichole Work Phone: [facility] Start: 11-11-2022 End: 11-11-2022 Admission to same day surgery center Dr. Jeffry Nichole Work Phone: [facility] Start: 11-11-2022 End: 11-11-[address] Jeffry Nichole Work Phone: [facility] Work Phone: Start: 10-22-2022 End: 10-22-[address] Jeffry Nichole Work Phone: [facility] Work Phone: Start: 10-05-2022 End: 10-05-[address] Jeffry Nichole Work Phone: [facility] Work Phone: Start: 09-06-2022 End: 09-06-[address] Jeffry Nichole Work Phone: [facility]Sean Almanza [facility] Start: 08-16-2022 End: 08-16-[address] Jeffry Nichole Work Phone: [facility]-Outpatient Breast Imaging Work Phone: Start: 08-04-2022 End: 08-04-[address] Jeffry Nichole Work Phone: [facility] Work Phone: Start: 08-04-2022 End: 08-04-[address] Jeffry Nichole Work Phone: [facility]-Outpatient Bone Densitometry Start: 05-26-2022 End: 05-26-[address] Jeffry Nichole Work Phone: [facility] Start: 05-19-2022 End: 05-19-[address] Jeffry Nichole Work Phone: [facility] Start: 05-10-2022 End: 05-10-[address] Jeffry Nichole Work Phone: [facility] Start: 04-21-2022 End: 04-21-[address] Jeffry Nichole Work Phone: [facility] Start: 03-31-2022 End: 03-31-[address] Jeffry Nichole Work Phone: [facility] Work Phone: Start: 03-31-2022 End: 03-31-[address] Jeffry Nichole Work Phone: [facility]-Pulmonary Services/Neurology Start: 03-17-2022 End: 03-17-[address] Jeffry Nichole Work Phone: [facility] Start: 02-26-2022 Non-patient / Non-visit Dr. Genaro Nichole Work Phone: [facility] Start: 02-25-2022 Non-patient / Non-visit Dr. Genaro Nichole Work Phone: [facility] Start: 02-25-2022 Non-patient / Non-visit Dr. Genaro Nichole Work Phone: [facility] Start: 02-24-2022 Non-patient / Non-visit Dr. Genaro Nichole Work Phone: [facility] Start: 02-24-2022 End: 02-26-2022 Evaluation and management of inpatient [facility]-Intensive Care Unit Start: 08-17-2021 ambulatory Britni Plasenciasoraida shavon [employer]ADER.PLOW HOLDER Work Phone: [facility] Comment on above: Labs and next appt Start: 08-03-2021 End: 08-03-2021 Patient encounter procedure Britni Potts Yousif SIMEON.PLOW HOLDER Work Phone: [facility] Comment on above: Class 2 obesity with out serious comorbidity with body mass index (BMI) of 36.0 to 36.9 in adult, unspecified obesity type (Primary Dx); Hypertension, unspecified type; Vitamin D deficiency; Hiatal hernia; Sleep apnea, unspecified type; H/O gastric sleeve; History of low potassium; BMI 36.0-36.9,adult; Dietary counseling and surveillance Start: 03-24-2018 Preprocedural examination done Britni Mcintyre APRN.PLOW HOLDER Work Phone: [facility] Work Phone: Procedures Date Procedure Procedure Detail Performing Clinician Start: 11-11-[address] Jeffry Nichole Work Phone: Start: 11-11-[address] Genaro Nichole Work Phone: Start: 08-16-2022 Screening mammography Sammi Nichole Work Phone: Start: 08-04-2022 Dual energy X-ray absorptiometry Dr. Jeffry Nichole Work Phone: Start: 04-21-2022 Radiologic examinati on of knee Dr. Jeffry Nichole Work Phone: Start: 02-24-2022 CT angiography of ch est with contrast Dr. Jeffry Nichole Work Phone: Start: 02-24-2022 Plain chest X-ray Start: 07-28-2020 Colonoscopy Britni Erinnlino arroyo [employer] GRADER.PLOW HOLDER Work Phone: Start: 09-19-2019 Antibody screen Comment on above: Performed By: #### T &S #### [place] [address] Start: 05-21-2019 Mammography Britni Squires cruz [employer] GRADER.PLOW HOLDER Work Phone: Plan of Treatment Date Care Activity Detail Author Start: 01-21-2026 LIPID SCREEN LIPID SCREEN [facility] Start: 07-28-2025 Colonoscopy COLONOSCOPY [facility] Start: 07-28-2025 COLORECTAL CANCER SCREENING COLORECTAL CANCER SCREENING [facility] Start: 04-03-2024 DIABETES SCREEN DIABETES SCREEN [facility] Start: 12-28-2022 PAP TESTING PAP TESTING [facility] Start: 11-11-2022 Patient discharge [facility] Start: 02-26-2022 Patient referral [facility] Work Phone: Start: 02-26-2022 Patient discharge [facility] Work Phone: Start: 02-24-2022 Ambulation without limitation [facility] Work Phone: Start: 02-24-2022 Assessment of risk of venous thromboembolism [facility] Work Phone: Start: 02-24-2022 Catheterization of vein [facility] Work Phone: Start: 02-24-2022 Chart related administrative procedure [facility] Work Phone: Start: 02-24-2022 Incentive spirometry [facility] Work Phone: Start: 02-24-2022 Insertion of catheter into peripheral vein [facility] Work Phone: Start: 02-24-2022 Measuring intake and output [facility] Work Phone: Start: 02-24-2022 Notification of physician [facility] Work Phone: Start: 02-24-2022 Oxygen therapy [facility] Work Phone: Start: 02-24-2022 Patient education [facility] Work Phone: Start: 02-24-2022 Patient referral to dietitian [facility] Work Phone: Start: 02-24-2022 Providing care according to standard [facility] Work Phone: Start: 02-24-2022 Pulse taking [facility] Work Phone: Start: 02-24-2022 Taking patient vital signs [facility] Work Phone: Start: 02-24-2022 Vital signs measurements [facility] Work Phone: Start: 02-24-2022 Wound care [facility] Work Phone: Start: 02-24-2022 Following clinical pathway protocol [facility] Work Phone: Start: 02-24-2022 Electrocardiographic procedure [facility] Work Phone: Start: 02-24-2022 Verification routine [facility] Work Phone: Start: 02-24-2022 Catheterization of left heart [facility] Work Phone: Start: 02-24-2022 Admission procedure [facility] Work Phone: Start: 02-24-2022 End: 02-24-2022 Blood chemistry [facility] Work Phone: Start: 02-24-2022 End: 02-24-2022 Partial thromboplastin time, activated [facility] Work Phone: Start: 02-24-2022 End: 02-24-2022 Prothrombin time [facility] Work Phone: Start: 02-24-2022 End: 02-24-2022 [facility] Work Phone: Start: 02-24-2022 [facility] Work Phone: Start: 12-24-2021 Influenza vaccination INFLUENZA (Season Ended) [facility] Start: 08-03-2021 End: 10-03-2021 CBC W Auto Differential panel - Blood CBC + DIFF Lab Routine H/O gastric sleeve Expected: 08/03/2021, Expires: 10/03/2021 [facility] Work Phone: Comment on above: Expected: 08/03/2021, Expires: 2 Start: 08-03-2021 End: 10-03-2021 Comprehensive metabolic 2000 panel - Serum or Plasma [facility] Work Phone: Comment on above: Expected: 08/03/2021, Expires: 2 Start: 08-03-2021 End: 10-03-2021 LIPID PANEL BASIC LIPID PANEL BASIC Lab Routine Class 2 obesity without serious comorbidity with body mass index (BMI) of 36.0 to 36.9 in adult, unspecified obesity type Hypertension, unspecified type Expected: 08/03/2021, Expires: 10/03/2021 [facility] Work Phone: Comment on above: Expected: 08/03/2021, Expires: 2 Start: 08-03-2021 End: 10-03-2021 VITAMIN D 25 HYDROXY VITAMIN D 25 HYDROXY Lab Routine Vitamin D deficiency Expected: 08/03/2021, Expires: 10/03/2021 [facility] Work Phone: Comment on above: Expected: 08/03/2021, Expires: 2 Start: 05-21-2020 Mammography MAMMOGRAM [facility] Start: 07-16-2019 HPV TESTING HPV TESTING [facility] Start: 2009 SHINGRIX VACCINE (1 of 2) SHINGRIX VACCINE (1 of 2) [facility] Start: 2004 COLOGUARD (FIT-DNA) COLOGUARD (FIT-DNA) [facility] Start: [address] COLONOGRAPHY [facility] Start: 2004 FECAL OCCULT BLOOD FECAL OCCULT BLOOD [facility] Start: 2004 SIGMOIDOSCOPY SIGMOIDOSCOPY [facility] Start: 1978 Urine microalbumin profile DTAP,TDAP,TD (1 - Tdap) [facility] Start: 1977 ANNUAL PCP TEAM CHRONIC DISEASE VISIT ANNUAL PCP TEAM CHRONIC DISEASE VISIT [facility] Start: 1977 BP CONTROLLED (<130/80) BP CONTROLLED (<130/80) [facility] Start: 1977 HEPATITIS C SCREENING HEPATITIS C SCREENING [facility] Start: 1977 HIV SCREENING HIV SCREENING [facility] Start: 1964 COVID-19 VACCINE (1) COVID-19 VACCINE (1) [facility] Anion gap measurement [facility] Work Phone: BUN/Creatinine ratio [facility] Work Phone: Calcium [Mass/volume ] in Serum or Plasma [facility] Work Phone: Carbon dioxide, tota l [Moles/volume] in Serum or Plasma [facility] Work Phone: Chloride [Moles/volu me] in Serum or Plasma [facility] Work Phone: Creatinine [Moles/vo lume] in Serum or Plasma [facility] Work Phone: Glucose [Mass/volume ] in Serum or Plasma [facility] Work Phone: Hematocrit [Volume F raction] of Blood [facility] Work Phone: Hemoglobin [Mass/vol ume] in Blood [facility] Work Phone: INR in Blood by Coag ulation assay [facility] Work Phone: Leukocytes [#/volume ] in Blood [facility] Work Phone: Mean corpuscular hem oglobin concentration determination [facility] Work Phone: Mean corpuscular hem oglobin determination [facility] Work Phone: Measurement of renal function [facility] Work Phone: Neutrophil count [facility] Work Phone: Neutrophil percent differential count [facility] Work Phone: Partial thromboplast in time, activated [facility] Work Phone: Patient referral [facility] Work Phone: Platelets [#/volume] in Blood [facility] Work Phone: Potassium [Moles/vol ume] in Serum or Plasma [facility] Work Phone: Prothrombin time [facility] Work Phone: Red blood cell count [facility] Work Phone: Red cell distributio n width determination [facility] Work Phone: Sodium [Moles/volume ] in Serum or Plasma [facility] Work Phone: Urea nitrogen [Mass/ volume] in Serum or Plasma [facility] Work Phone: [facility] Payers Date Payer Category Payer Self-pay [id number] 2018 Unknown [id number] 2015 Unknown [id number] Unknown [id number] Unknown [id number] Unknown [id number] Unknown [id number] Unknown [id number] Unknown [id number] [id number] Social History Date Type Detail Facility Tobacco smoking status NHIS Never smoked tobacco [facility] Start: 08-03-2021 Alcohol intake Current drinke r of alcohol (finding) [facility] Start: 09-26-2019 History SDOH Alcohol Frequency 3 [facility] Start: 03-13-2018 History SDOH Alcohol Comment occasional wine-not weekly [facility] Start: 09-27-2019 History SDOH Financial 5 [facility] Start: 09-27-2019 History SDOH Food Worry 1 [facility] Start: 09-27-2019 History SDOH Transport Med 2 [facility] Start: 1960 Sex Assigned At Female [facility] Start: 07-24-2021 End: 08-03-2021 Exposure to SARS-CoV-2 (event) Not sure [facility] Start: 02-24-2022 End: 12-15-2022 Tobacco smoking status NHIS Unknown if ever smoked [facility] Start: 02-12-2019 Non-smoker [facility] NEGATED: Highlighted row [facility] Medical Equipment Procedure Code Equipment Code Equipment Origin al Text Equipment Identifier Dates Recession, gastrocnemius, endoscopic [employer] Start: 02-16-2019 Recession, gastrocnemius, endoscopic [employer] Start: 02-16-2019 Recession, gastrocnemius, endoscopic AR[employer]X [employer] Start: 02-16-2019 Recession, gastrocnemius, endoscopic [employer]X [employer] Start: 02-16-2019 Recession, gastrocnemius, endoscopic [employer] Start: 02-16-2019 Recession, gastrocnemius, endoscopic [employer] Start: 02-16-2019 Goals Date Patient Goal Desired Activity /State Functional Status Date Assessment Result Facility 02-26-2022 Functional status Ambulates;Up ad angélica [facility] Work Phone: Mental Status Date Assessment Result Facility 11-11-2022 Cognitive function Voice/Name [facility] Work Phone: 02-26-2022 Cognitive function Voice/Name [facility] Work Phone: 02-24-2022 Cognitive function Level Of Cons ciousness Awake;Alert;Appropriate [facility] Work Phone: Clinical Notes 05-26-2009 to 11-11-2022 Note Date & Type Note Facility 11-11-2022 History and physi marita note Note Date/Time November 11, 2022 6:51am [facility] Medical Records Department [address] [place] [address] History & Physical Exam 11/11/22 0650 MR#: [id number] Acct: [id number] Name: CHRISTINA JADE Rep #:[id number] : 1960 62 From: Lul Borrero MD PCP: Dr. Jeffry Nichole, DO Status:[facility] Location: [place] [address] History and Physical Date of Admission: 11/11/22 Visit Reasons: Discuss future procedure (hemorrhoids) Chief Complaint: discuss future procedure Allergies benzoyl peroxide Allergy (Verified 10/22/22 09:09) Rasheprosartan [From Teveten] Allergy (Verified 10/22/22 09:09) OtherPenicillins Allergy (Verified 10/22/22 09:09) Rashsertraline [From Zoloft] Allergy (Verified 10/22/22 09:09) anxiety Medications escitalopram oxalate 10 mg tablet 5 mg PO DAILY Antidepressant 02/12/19 [History Confirmed 10/22/22] hydrochlorothiazide 25 mg tablet 25 mg PO DAILY blood pressure 02/12/19 [History Confirmed 10/22/22] carvedilol 6.25 mg tablet 6.25 mg PO BID #60 tabs 03/17/22 [Rx Confirmed 10/22/22] amlodipine 2.5 mg tablet 2.5 mg PO DAILY #90 tabs 03/24/22 [Rx Confirmed 10/22/22] aspirin 81 mg tablet,delayed release 81 mg PO BREAKFAST #90 tabs 03/24/22 [Rx Confirmed 10/22/22] clopidogrel 75 mg tablet 75 mg PO DAILY #90 tabs 03/24/22 [Rx Confirmed 10/22/22] atorvastatin 40 mg tablet 40 mg PO QHS #90 tabs 03/26/22 [Rx Confirmed 10/22/22] PFS Medical History (Updated 10/05/22 @ 12:29 by Marcia Rojas) Achilles tendon injury Depression GERD (gastroesophageal reflux disease) Hypertension Migraines Osteopenia Sciatica Seasonal affective disorder Spontaneous dissection of coronary artery STEMI (ST elevation myocardial infarction) Surgical History H/O gastric sleeve History of hysterectomy for cancer Family History Father Liver mass Heart disease Atrial fibrillationMother DVT (deep venous thrombosis)Uncle Myocardial infarction Social History Smoking Status: Never smoker alcohol intake: current alcohol intake frequency: holidays/special occasions only substance use type: does not use caffeine: Yes Type: coffee Number of servings: 2 HPI HPI HPI: 62-year-old female returns to discuss rectal bleeding. I had initially seen trae October 05, 2022. She is on clopidogrel and aspirin therapy. She has had a recent cardiac history as noted below. She has been evaluated by cardiology andis able to hold her clopidogrel for a brief period of time. My plan for her wasa flexible sigmoidoscopy combined with a surgical hemorrhoidectomy. We have received instructions from Dr. Petty That we can hold her Plavix for 4 days preoperatively. She is doing well today. She did have some rectal bleeding again with defecation this morning. No pain. My previous notes reflect the following Visit Reasons: HEMORRHOIDS Chief Complaint: hemorrhoids consult [employer] Required: No Is patient in pain?: No Allergies benzoyl peroxide Allergy (Verified 10/05/22 12:39) Rasheprosartan [From Teveten] Allergy (Verified 10/05/22 12:39) OtherPenicillins Allergy (Verified 10/05/22 12:39) Rashsertraline [From Zoloft] Allergy (Verified 10/05/22 12:39) anxiety Medications escitalopram oxalate 10 mg tablet 5 mg PO DAILY Antidepressant 02/12/19 [History Confirmed 10/05/22] hydrochlorothiazide 25 mg tablet 25 mg PO DAILY blood pressure 02/12/19 [History Confirmed 10/05/22] carvedilol 6.25 mg tablet 6.25 mg PO BID #60 tabs 03/17/22 [Rx Confirmed 10/05/22] amlodipine 2.5 mg tablet 2.5 mg PO DAILY #90 tabs 03/24/22 [Rx Confirmed 10/05/22] aspirin 81 mg tablet,delayed release 81 mg PO BREAKFAST #90 tabs 03/24/22 [Rx Confirmed 10/05/22] clopidogrel 75 mg tablet 75 mg PO DAILY #90 tabs 03/24/22 [Rx Confirmed 10/05/22] atorvastatin 40 mg tablet 40 mg PO QHS #90 tabs 03/26/22 [Rx Confirmed 10/05/22] PFSH Medical History (Updated 10/05/22 @ 12:29 by Marcia Rojas) Achilles tendon injury Depression GERD (gastroesophageal reflux disease) Hypertension Migraines Osteopenia Sciatica Seasonal affective disorder Spontaneous dissection of coronary artery STEMI (ST elevation myocardial infarction) Surgical History H/O gastric sleeve History of hysterectomy for cancer Family History Father Liver mass Heart disease Atrial fibrillationMother DVT (deep venous thrombosis)Uncle Myocardial infarction Social History Smoking Status: Never smoker alcohol intake: current alcohol intake frequency: holidays/special occasions only substance use type: does not use caffeine: Yes Type: coffee Number of servings: 2 HPI HPI HPI: 62-year-old female. She is being referred by Dr. Jeffry Nichole for surgical consultation regarding suspected hemorrhoidal disease. A written compromise surgical consult recommendations will return to him. It is of note that she hasa history of endometrial carcinoma and diagnosed 2017. It is also of note that she had a ST segment myocardial infarction February 24, 2022. She has had a previous history of sleeve gastrectomy September 2019 and she has had a previous hysterectomy as well as an AP bladder repair. Among her other medications she is on clopidogrel and low-dose aspirin. Her most recent colonoscopy was July 29, 2020. Most recent BMI is 37. 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 She can have very long days standing8 to 10 hours. She does not use a daily fiber supplement. She states that for 4 to 5 years she has had intermittent rectal bleeding to the point where she hasto wear pads and sometimes soils her clothing. She had a colonoscopy done by Dr. Jason Lund on July 28, 2020 which demonstrated a descending colon polypmultiple fragments of tubular adenoma but was only 8 mm. Follow-up colonoscopy 5 years. She was having rectal bleeding at that time. A definitive diagnosis however was not made that it was coming from hemorrhoids at least definitive diagnosis per Dr. Silva was not submitted. February 2022 the patient had acute myocardial infarction Her myocardial infarction is due to a small vessel dissection. No angioplasty or stenting was performed. She did not require cardiac rehab. She was able to go back to work in a week or 2. Regarding her rectal bleeding is noted its been going on for 4 to 5 years even prior to her being initiated on clopidogrel aspirin. Frequently occurs post defecation. Can somewhat be uncomfortable but not a sharp pain. It can sometimes occur just with her standing. Even when she was having rectal bleeding prior to her myocardial infarction she was only on HCTZ and atenolol at that time. Family history notable for her brother Ronan having had colon cancer. Bryan is her [id number]. ROS General General: Yes weight change; No appetite, fatigue, colon cancer, breast cancer or weakness Additional Details: weight loss HEENT HEENT: No difficulty swallowing, eye injury, eye surgery, swollen glands or hoarseness Endo Endocrine: No thyroid disease, diabetes mellitus, thyroid cancer, Hair loss, heat intolerance or cold intolerance Skin Skin: No rash or changing moles Breast Breast: No left breast lump, right breast lump, nipple discharge, breast pain, abnormal mammogram, abnormal US or breast enlargement Musc Musculoskeletal: No back problems, arthritis, rheumatoid arthritis, gout or joint pain Cardio Cardiovascular: Yes heart disease, high blood pressure and heart attack; No murmur, pacemaker, atrial fibrillation, heart stent, palpitations, shortness of breat with exertion or chest pain Additional Details: [facility] Feb-2022 Psych Psychiatric: No depression, anxiety or hearing voices Resp Respiratory: No shortness of breath, No sleep apnea, No cough, No COPD, No asthma, No emphysema and No wheezing Gastro Gastrointestinal: No abdominal pain, No nausea or vomiting, No diarrhea, No constipation, No blood in stool, No acid reflux, Yes hemorrhoids, No ulcers, No gallbladder problem and No black,tarry stools Emir Hematologic: Yes blood thinners, No blood disorders, Yes bleeding, No anemia andNo blood clots Neuro Neurologic: No system reviewed and no additional complaints, except as documented, No as per HPI, No abnormal gait, No abnormal hearing, No abnormal movements, No abnormal speech, No behavioral changes, No burning sensations, No confusion, No convulsions, No disequilibrium, No dizziness, No localized weakness, No frequent falls, No headache(s), No lack of coordination, No loss ofvision, No memory loss, No numbness, No other visual disturbances, No radicular pain, No restless legs, No sensory deficit, No syncope, No tingling, No tremor(s), No weakness and No other Exam Const General: cooperative, healthy appearing and no acute distress [facility] Head: normal to inspection Eyes General: appearance normal, both eyes and all related structures Neck Neck: normal visual inspection Chest Chest palpation & inspection: normal inspection of the chest Resp Effort & Inspection: normal respiratory effort Auscultation: clear to auscultation bilaterally Cardio Rate: regular rate Rhythm: regular rhythm GI Inspection: normal to inspection Palpation: soft and no hepatosplenomegaly Other: External anus demonstrates some mild external hemorrhoidal changes. There is noactive bleeding. On visual inspection and digital palpation there are significant internal hemorrhoids. No overt tenderness. No blood on the glove Musc Cervical Spine: normal cervical lordosis Skin General: no rashes or lesions noted Neuro General: patient alert, patient awake and patient oriented x3 Extrem General: no calf tenderness Psych Appearance: grossly normal Assessment and Plan Assessment and Plan (1) Coronary artery disease: Status: Acute (2) Bleeding hemorrhoid: Status: Acute Plan: Based upon the patient's prolonged history of intermittent rectal bleeding and post defecation most noticeable I do tend to concur that this likely is hemorrhoidal bleeding. More recently likely aggravated by aspirin and clopidogrel therapy. She does not have coronary stents in place so she might jazz candidate to be able to stop her clopidogrel sooner than otherwise. We will contact cardiology Dr. Petty for advice. Ideally I would like to have her off of clopidogrel 6 days preop and likely 6 days postop. I anticipate a flexible sigmoidoscopy with a surgical hemorrhoidectomy. We have briefly compared and correct contrasted other techniques like hemorrhoidal banding and PPH stapled hemorrhoidopexy. I believe that the approach as described would be a more definitive 1 that would look likely stand the test of time particularly with herbusy work lifestyle and multiple hours of standing. She is aware of technique benefit risk complications alternatives. I have also discussed with her initiating a daily fiber supplement something like Metamucil Citrucel or FiberCon even before surgical intervention. She has had an option to ask and have questions answered. We will anticipate scheduling once we get further information regarding cardiology clearance. Copy: Dr. Jeffry Borrero M.D., F.A.C.S. Assessment and Plan Assessment and Plan (1) Bleeding hemorrhoid: Status: Acute Plan: Today was a [id number] consultative appointment. I have described the technique of a flexible sigmoidoscopy and a surgical hemorrhoidectomy. We have discussed the technique, benefit, risk, alternatives. She has had an opportunity to ask and have questions answered. We will schedule and proceed ather discretion. She will hold her Plavix 4 days preop. She may continue her low-dose aspirin. We will have her take half dosing of the MiraLAX bowel prep 1 day preop. I willnot require carbon dioxide to do the flexible sigmoidoscopy. Recommended the patient a flexible sigmoidoscopy combined with a surgical hemorrhoidectomy. She is aware of technique, benefit, risk, alternatives. We will have her hold her Plavix 4 days preprocedure. She is aware that we will need to continue to hold the Plavix for a period of time postoperatively as well. She has had an opportunity ask and have questions answered. We will schedule procedure at her discretion. I appreciate the ongoing opportunity of assisting with her surgical care. Copy: Dr. Jeffry Nichole and Dr. Layton Borrero M.D., F.A.C.S I have examined the patient and the H&P has been reviewed. There are no clinicalchanges since date of exam. Lul Borrero M.D., F.A.C.S. 11/11/22 0651 <Electronically signed by Lul Borrero MD> Cosigner Signature (if applicable): CC: Dr. Jeffry Nichole, DO; Dr. Lul Borrero MD~ Signed ADDENDUM by Dr. Lul Borrero MD on 11/11/22 at 0835 Addendum No change. 11/11/22 0835<Electronically signed by Lul Borrero MD> Cosigner Signature (if applicable): cc: Dr. Jeffry Nichole, DO; Dr. Lul Borrero MD ~* Signed [facility] Work Phone: [phone] 577-671307-20-2023 Procedure [facility] 11-11-2022 Procedure [facility]07-20-2023 Procedure note [facility]04-11-2022 NoteHNO ID: [id number] Author: Britni Mcintyre APRN.PLOW HOLDER Service: ? Author Type: Nurse Practitioner Type: Progress Notes Filed: 08/04/2021 9:50 AM Note Text: BMI Obesity Medicine FollowUp Note August 03, 2021 Patient Summary: is 61 year old Female who presents for follow-up evaluation of her obesity and related complications to the [facility] [place]. In our previous visits we have outlined an individualized lifestyle intervention including a personalized nutrition recommendations and physical activity optimization. Christina Jade is here today for follow up evaluation for follow up weight loss visit. her last office visit was [address] Renee. Assessement/plan from last visit: Class 2 obesity - ICD9: 278.00, ICD10: E66.9 (primary diagnosis) Weight decreasing - Behavioral and pharmacological intervention counseled in length ,recommended Low carb /low sugar diet --managing maladaptive eating behaviors and adding resistance exercise. Continue low carb diet, weights/cardio exercise and increase NEAT.I have also reviewed he possibility of using weight loss medications in an effort to reduce her appetite. I have reviewed the different therapeutic options available including phentermine, Qsymia, Contrave, Belviq and Saxenda,Topiramate, Metformin, Bupropion We have also reviewed the possibility of using on her medications such as Effexor or metformin which has been also associated with weight loss. I reviewed with patient that she. ? We agreed that trying Glp1 could be her best option at this point. I reviewed with the patient pros and cons of taking this medication. -Mending but getting labs done before starting Wegovy - POTASSIUM BLD - PHENTERMINE 37.5 MG TABLET - TOPIRAMATE 25 MG TABLET Dietary counseling and surveillance - ICD9: V65.3, ICD10: Z71.3 Reviewed principles of energy metabolism, caloric intake and expenditure, and rationale for treatment program. Also reinforced need for reduced calorie, low fat diet and increased physical activity. ? 3. Status post laparoscopic sleeve gastrectomy - ICD9: V45.86, ICD10: Z98.84 Cont supplements ? 4. Obstructive sleep apnea - ICD9: 327.23, ICD10: G47.33 encouraged to use CPAP regularly. 5. Hiatal hernia - ICD9: 553.3, ICD10: K44.9 ? 6. Essential hypertension - ICD9: 401.9, ICD10: I10 - suboptimal control - Recommended regular aerobic exercise. - Recommend home blood pressure monitoring, to bring results in on next visit - Goal of BP <130/80 ? 7. Fatty liver - ICD9: 571.8, ICD10: K76.0 Wt loss will help ? 8. Vitamin D deficiency - ICD9: 268.9, ICD10: E55.9 Cont supplements ? 9. Seasonal affective disorder (HCC) - ICD9: 296.99, ICD10: F33.8 Improving ? 10. Hypokalemia - ICD9: 276.8, ICD10: E87.6 repeat Labs - BMP reordered -- Hiatal hernia - ICD9: 553.3, ICD10: K44.9 Monitor for any changes and/or reflux/gerd symptoms ? 11. Body mass index 37.0-37.9, adult - ICD9: V85.37, ICD10: Z68.37 Down To BMI 36.05 -- counseled in length ,recommended Low carb /low sugar diet --managing maladaptive eating behaviors and adding resistance exercise. Continue low carb diet, weights/cardio exercise and increase NEAT. Interval history: Patient reports sleep as adequate, however is not using cpap Diet: Reports most often does not eat breakfast, lunch may be from rep at work with chicken, lunch meat turnkey/ham Supper, meat, salads 5:00 pm or 5:30 Snacking: Salty small chips or decaf coffee in pm Difficulty drinking water No soda Exercise: difficulty secondary to injury to ankles Weight loss since last vist: today's weight 202 lbs, BMI 36.36; (March 2021 200 lbs) (Prior post gastric sleeve 242) Anti-Obesity Medications >Phentermine: Initial start however unable to facilitate f/u appt secondary to injury therefore unable to obtain further prescription' >Topiramate/zonisamide: No seizure or kidney stone hx. nohx of migraines, hx of poor sleep. no Child bearing age. >Qsymia: see above >Contrave: No contraindications. Could affect mood. No uncontrolled HTN or hx of seizure disorder. No MAOI inhibitor use. No opiate use. >Saxenda/Wegovy/Ozempic: Cost. Ins coverage? Required prior auth >Metformin: No contraindications or medication interactions. eGFR > 30. PAST MEDICAL HISTORY Diagnosis Date - Endometriosis - Excessive or frequent menstruation resolved - Female infertility of other specified origin - Hypertension - Morbid obesity (HCC) 03/20/2018 - NAFLD (nonalcoholic fatty liver disease) - PMH - PAST MEDICAL HISTORY OF Seasonal affective disorder - PMH - PAST MEDICAL HISTORY OF Rectocele, cystocele mild USI - Sleep apnea uses CPAP - Symptomatic menopausal or female climacteric states - Uterine cancer (HCC) Current Outpatient Medications Medication Sig Dispense Refill - Iron 18 mg tab - topiramate (TOPAMAX) 25 mg tab (more content not included)...[facility]04-11-2022 History of Present illness Narrative* Britni Potts Yousif, CLOTH GRADER.PLOW HOLDER - 08/03/2021 3:26 PM EDT Images from the original note were not included. BMI Obesity Medicine FollowUp Note August 03, 2021 Patient Summary: is 61 year old Female who presents for follow-up evaluation of her obesity and related complications to the [facility] [place]. In our previous visitswe have outlined an individualized lifestyle intervention including a personalized nutrition recommendations and physical activity optimization. Christina Jade is here today for follow up evaluationfor follow up weight loss visit. her last office visit was [address] Renee. Assessement/plan from last visit: Class 2 obesity - ICD9: 278.00, ICD10: E66.9 (primary diagnosis) Weight decreasing - Behavioral and pharmacological intervention counseled in length ,recommended Low carb /low sugar diet --managing maladaptive eating behaviors and adding resistance exercise. Continue low carb diet, weights/cardio exercise and increase NEAT.I have also reviewed he possibility of using weight loss medications in an effort to reduce her appetite. I have reviewed the different therapeutic options available including phentermine, Qsymia, Contrave, Belviq and Saxenda,Topiramate, Metformin, Bupropion We have also reviewed the possibility of using on her medications such as Effexor or metformin which has been also associated with weight loss. I reviewed with patient that she. We agreed that trying Glp1 could be her best option at this point. I reviewed with the patient prosand cons of taking this medication. -Mending but getting labs done before starting Wegovy - POTASSIUM BLD - PHENTERMINE 37.5 MG TABLET - TOPIRAMATE 25 MG TABLET Dietary counseling and surveillance - ICD9: V65.3, ICD10: Z71.3 Reviewed principles of energy metabolism, caloric intake and expenditure, and rationale for treatment program. Also reinforced need for reduced calorie, low fat diet and increased physical activity. 3. Status post laparoscopic sleeve gastrectomy - ICD9: V45.86, ICD10: Z98.84 Cont supplements 4. Obstructive sleep apnea - ICD9: 327.23, ICD10: G47.33 encouraged to use CPAP regularly. 5. Hiatal hernia - ICD9: 553.3, ICD10: K44.9 6. Essential hypertension - ICD9: 401.9, ICD10: I10 - suboptimal control - Recommended regular aerobic exercise. - Recommend home blood pressure monitoring, to bring results in on next visit - Goal of BP <130/80 7. Fatty liver - ICD9: 571.8, ICD10: K76.0 Wt loss will help 8. Vitamin D deficiency - ICD9: 268.9, ICD10: E55.9 Cont supplements 9. Seasonal affective disorder (HCC) - ICD9: 296.99, ICD10: F33.8 Improving 10. Hypokalemia - ICD9: 276.8, ICD10: E87.6 repeat Labs - BMP reordered -- Hiatal hernia - ICD9: 553.3, ICD10: K44.9 Monitor for any changes and/or reflux/gerd symptoms 11. Body mass index 37.0-37.9, adult - ICD9: V85.37, ICD10: Z68.37 Down To BMI 36.05 -- counseled in length ,recommended Low carb /low sugar diet --managing maladaptive eating behaviors and adding resistance exercise. Continue low carb diet, weights/cardio exercise and increase NEAT. Weight loss since last vist: today's weight 202 lbs, BMI 36.36; (March 2021 200 lbs) (Prior post gastric sleeve 242) Anti-Obesity Medications >Phentermine: Initial start however unable to facilitate f/u appt secondary to injury therefore unable to obtain further prescription' >Topiramate/zonisamide: No seizure or kidney stone hx. nohx of migraines, hx of poor sleep. no Child bearing age. >Qsymia: see above >Contrave: No contraindications. Could affect mood. No uncontrolled HTN or hx of seizure disorder. No MAOI inhibitor use. No opiate use. >Saxenda/Wegovy/Ozempic: Cost. Ins coverage? Required prior auth >Metformin: No contraindications or medication interactions. eGFR > 30. PAST MEDICAL HISTORY Diagnosis Date Endometriosis Excessive or frequent menstruation resolved Female infertility of other specified origin Hypertension Morbid obesity (HCC) 03/20/2018 NAFLD (nonalcoholic fatty liver disease) PMH - PAST MEDICAL HISTORY OF Seasonal affective disorder PMH - PAST MEDICAL HISTORY OF Rectocele, cystocele mild USI Sleep apnea uses CPAP Symptomatic menopausal or female climacteric states Uterine cancer (HCC) Current Outpatient Medications Medication Sig Dispense Refill Iron 18 mg tab topiramate (TOPAMAX) 25 mg tablet Take 2 tablets by mouth twice daily. 360 tablet 1 ferrous sulfate (IRON ORAL) Take by mouth. multivit-mins no.63/iron/folic (M-VIT ORAL) Take by mouth once daily. 2 flinstones chewables Cholecalciferol, Vitamin D3, (VITAMIN D-3) 50 mcg (2,000 unit) cap Take by mouth once daily. MEDICATION, NON-DATABASE Take 1 tablet by mouth once daily. collagen with vitamin C and biotin atenolol (TENORMIN) 50 mg tablet Take 2 tablets by mouth once daily. CALCIUM 500 MG TAB Take one tablet by mouth daily. 0 HYDROCHLOROTHIAZIDE 25 MG TAB Take by mouth once daily. 0 LEXAPRO 10 MG TAB Take one half tablet by mouth in the summer. Take one tablet by mouth in the winter. 0 No current facility-administered medications for this visit. Review of Systems Constitutional: Negative. HENT: Negative. Eyes: Negative. Respiratory: Negative. Cardiovascular: Negative. Gastrointestinal: Negative. Endocrine: Negative. Genitourinary: Negative. Musculoskeletal: Reports hx of jorge luis ankle surgeries and increased pain to left ankle Skin: Negative. Allergic/Immunologic: Negative. Neurological: Negative. Hematological: Negative. Psychiatric/Behavioral: Negative. LMP 03/03/2011 Physical Exam Constitutional: Appearance: Normal appearance. HENT: Head: Normocephalic. Nose: Nose normal. Mouth/Throat: Mouth: Mucous membranes are moist. Pharynx: Oropharynx is clear. Cardiovascular: Rate and Rhythm: Normal rate and regular rhythm. Pulmonary: Effort: Pulmonary effort is normal. Breath sounds: Normal breath sounds. Abdominal: General: Bowel sounds are normal. Palpations: Abdomen is soft. Musculoskeletal: General: Swelling and tenderness (left ankle fx s/p injury 02/12) present. Cervical back: Normal range of motion and neck supple. Skin: Capillary Refill: Capillary refill takes less than 2 seconds. Neurological: General: No focal deficit present. Mental Status: She is alert and oriented to person, place, and time. Psychiatric: Mood and Affect: Mood normal. Behavior: Behavior normal. Thought Content: Thought content normal. Judgment: Judgment normal. Assessment/Plan: Christina Jade is a 61 year old female with Class 2 obesity who presented today for follow up for supervised weight loss. And ongoing evaluation. Class 2 obesity without serious comorbidity with body mass (BMI) of 36.0 to 36.36 in adult unspecified obesity type; Weight increasing - Behavioral and pharmacological intervention --- counseled in length ,recommended Low carb /low sugar diet --managing maladaptive eating behaviors and adding resistance exercise. Continue low carb diet, weights/cardio exercise and increase NEAT.I have also reviewed he possibility of using weight loss medications in an effort to reduce her appetite. I have reviewed the different therapeutic options available including phentermine, Qsymia, Contrave, Belviq and Saxenda,Topiramate, Metformin, Bupropion We have also reviewed the possibility of using on her medications such as Effexor or metformin which has been also associated with weight loss. I reviewed with patient that she. We agreed that trying Topiramate could be her best option at this point. I reviewed with the patient pros and cons of taking this medication. --JOSUÉ (obstructive sleep apnea) - ICD9: 327.23, ICD10: G47.33 Recommended to be compliant with Cpap and to follow up with prescriber (sleep medicine physician) to be re tested if patient believes resolved; --Dietary counseling and surveillance - ICD9: V65.3, ICD10: Z71.3 Reviewed principles of energy metabolism, caloric intake and expenditure, and rationale for treatment program. Also reinforced need for reduced calorie, low fat diet and increased physical Activity. --Body mass index 36.0-36.9, adult - Z68.36 --- counseled in length ,recommended Low carb /low sugar diet --managing maladaptive eating behaviors and adding resistance exercise. Continue low carb diet, weights/cardio exercise and increase NEAT. --Vitamin D Def --Status post laparoscopic sleeve gastrectomy - ICD9: V45.86, ICD10: Z98.84 Cont supplements --Essential hypertension - ICD9: 401.9, ICD10: I10 - suboptimal control - Recommended regular aerobic exercise. - Recommend home blood pressure monitoring, to bring results in on next visit-- -- BP 120/80 well controlled this visit (goal <130/80) Vitamin D deficiency - ICD9: 268.9, ICD10: E55.9 Will order f/u lab to see if further supplements warranted Hypokalemia - ICD9: 276.8, ICD10: E87.6 repeat Labs - BMP reordered -Dietary counseling and surveillance - ICD9: V65.3, ICD10: Z71.3 Reviewed principles of energy metabolism, caloric intake and expenditure, and rationale for treatment program. Also reinforced need for reduced calorie, low fat diet and increased physical activity. Britni Mcintyre, BLANCO.PLOW HOLDER I spent a total of 40 minutes on the date of the service which included preparing to see the patient, [id number]-[id number] patient care, completing clinical documentation, obtaining and/or reviewing separately obtained history, performing a medically appropriate examination, counseling and educating the pat ient/family/caregiver, ordering medications, tests, or procedures and independently interpreting results (not separately reported). 5A's Reviewed: Assess: I assessed behavioral health risk factors affecting the patient's weight loss and outcome Asked: About and assessed behavioral health risks and factors affecting choice of behavior change goals-including somewhat sedentary lifestyle the increased snacking in the evening and how to furtherdevelop an exercise routine to help with weight loss Advise: Clear specific personalized behavior change advised Agree: Patient agrees with selected appropriate treatment goals and methods to change behavior Assist: Provided IBT with self-help handouts such as food journal teaching skills and support usingbehavior change techniques with self help in counseling and achieving patient's weight loss goals also discussed supplementing with adjunctive medical treatments when appropriate; Arrange: Follow-up scheduled and discharge information provided to the patient along with examples and information to further assist with weight loss goals; [facility] Instructions* Patient Instructions* Britni Mcintyre APRN.CNP - 08/03/2021 3:18 PM EDT Images from the original note were not included. We discussed meal replacement with protein shake; Re-start topiramate Labs Once labs return considerReviewed principles of energy metabolism, caloric intake and expenditure, and rationale for treatment program. Also reinforced need for reduced calorie, low fat diet and increased physical Activity. Cpap- follow up with sleep medicine to ensure you do not still require the cpap at night; My opinion 3 hour Rule: -last meal /snack 3 hours before sleeping ,but mostly try to be done by 7 pm --eat Rich Breakfast, high in protein hard boiled eggs/protein drinks - At least 3 hours break between each meals ,except water --sleep 7 hours at night , that means going to bed early -- drink only water ( no soda or juices) /no Alcohol consumption --cut down on coffee consumption if consuming high amounts Website :You can visit to web site for low carb recipe information as well as visual guide to low carb food: Https://www.dietdoctor.com/ ( visual guide for low carb diet) Limit carb consumption to 80- 100 grams per day. Goals: formal exercise 2-5 x/week as tolerated, start with 10 mins/day to goal of 30 minutes ( -- for exercise, you should shoot for a goal of >150 min per week initially. Depending at whatlevel you are starting, that may seem like an unachievable task. However, the best plan is to just begin to walk or bike or do another activity that you like and track your steps per day. You do not need to pay attention to the time, but you do need to try to increase your exercise every 3 weeks. Other strength exercises, using light weights or training bands may also be useful, especially when combined with regular aerobic exercise. Studies have shown that >200min per week is best to maintain weight loss, so that would be the overall end goal.) Have 3 meals a day-protein source with each meal (structured meal planning) Food journal daily and bring it to all appointments If you want you can REPLACE one of your meals with a liquid meal or frozen meal. This is easy to start and may help with your weight. 1. Liquid meal replacement (Boost, Ensure) 2. Frozen meal (Healthy Choice, Lean Cuisine - sodium under 650mg, can always add veggies to the meal) 3. Powdered protein (Premier Protein) or meal replacement (I like a plant based meal replacement called [employer] Nutrition - can mix w froz berries and almond milk) -- IN GENERAL - suggestions based on important of our sleep cycle called circadian rhythm and its influence on our gut microbiota and overall health tragetory 1) EAT MOST OF YOUR FOOD IN AM AND EARLY PM 2) NO EATING AT NIGHT 3) EXERCISE DURING DAY 4) BE CONSISTENT WITH MEAL STRUCTURE ie Meals at same time during the day. -- keep record of your food intake - it is easier for us to understand your eating habits and food preferences, looking into the amounts of protein, carbs, and fat in your diet. Good examples of appsto track calories are [employer], LOSE IT. Some patient have found FOODUCATE to help with decisions around food, however choose apps that best suits you. Nutrition Counseling Practice these: - Eat 3 meals daily can use approved/recommended protein shake as 1 meal replacement (should be <200 calories, 20-30g protein, <5g added sugar) - Keep a food journal 5-7x/week (consider [employer] or [employer] sushma) and demonstrate meeting protein goal (60-90g protein for females, 70-105g protein for males)- Lean meats, fish, low fat dairy - cottage cheese, Malaysian yogurt, light yogurt, cheese, ricotta cheese, nuts, peanut butter, beans/legumes. Eat protein first at all meals. and 64oz of caffeine-free, carbonation-free fluids at least 5 days per week - engage in formal, planned exercise 5x/week for 30 minutes of cardiovascular activity OR 150+ minutes of cardiovascular activity per week - eliminate all caffeine, carbonation, alcohol and sugar-containing beverages from diet consider sugar-free drink mixes, water, decaf coffee and tea - Separate eating and drinking by 30 minutes - Chew your food 20-30x per bite - Sip beverages slowly no guzzling or gulping 3 Simple Ways to Make Exercise a Habit written by RALF SAEZ A lot of people want to know how to get motivated to work out and build an exercise habit that sticks. (A 2012 survey analyzed the top ten habits of thousands of people and found that exercise was number one by a long shot. ) Of course, wanting to make exercise a habit and actually doing it are two different things. Changing your behavior is difficult. Living a new type of lifestyle is hard. This is especially true when you throw in very personal feelings about body image and self-worth. But there are some strategies that can make it easier to stick with an exercise habit. I have been using the three strategies below to build my personal exercise routine, which I have stuck to for two years without skipping a workout. While I don't claim to have all the answers, I'm happy to share what I've learned so far and how I have successfully made exercise a habit that I am excited to do each week. Now, here are 3 simple ways to get motivated to work out and make exercise a habit. 1. Develop a ritual to make starting easier. Habits are behaviors that you repeat over and over again, which means they are also behaviors that you start over and over again. In other words, if you don't consistently get started, then you won'thave a habit. In many ways, building new habits is simply an exercise in getting started time aftertime. This means that if you can find a way to make getting started easier, then you can find a way to make building a habit easier. This is why rituals and routines are so important. If you can develop a ritual that makes starting your workout mindless and automatic, then it will be much easier to follow through. Detsiney Mccormick's hailing the cab ritual is a good example. You can start building your own ritual by stacking your exercise habit on top of a current habit or by setting a schedule for yourself. For example, you could set your intention to exercise by filling out this sentence: During the next week, I will exercise on [DAY] at [TIME OF DAY] at/in [PLACE]. One research study showed that people who filled out this sentence above were 2 to 3 times more likely to exercise over the long run. This is a psychology concept called implementation intentions, and there are hundreds of studies to back it up. 2. Start with an exercise that is ridiculously small. The best way to make exercise a habit is to start with an exercise that is so easy that you can do it even when you are running low on willpower and can't get motivated to work out. In the words of Ryan Joe, start with something that is so easy you can't say no. Here's one strategy that you can use in the beginning: The 2-Minute Rule. It's very simple: focus on finding a way to get started in just 2 minutes rather than worrying about your entire workout. Struggling to find motivation to go for a run? Just fill up your water bottle and put on your running shoes. That's all you have to do to consider today's workout a success. Often, this little 2 minute start will be enough to get your motivation flowing and help you finish the task. 3. Focus on the habit first and the results later. The typical approach to diet and exercise is to focus on results first. Most people start with sometype of goal. I want to lose 20 pounds in the next 4 months. Or, I want to squat 50 pounds more sixmonths from now. I think this is the wrong approach. It's better to focus on the system rather than the goal. What matters most in the beginning is establishing a new normal and building a new routine that youwill stick to; not the results that you get. In other words, in the first 6 months, it is more important to not miss workouts than it is to make progress. Once you become the type of person who doesn't miss workouts, then you can worry about making progress and improving. One way to do this is to set an upper limit on your behavior. One member of our community, William, set a rule for himself where he couldn't stay in the gym for more than 5 minutes at the beginning. He had to go every day, but he wasn't allowed to stay for 6 minutes. He was focused on building the habit of not missing workouts. After doing that for a month or two, he had established a routine of going to the gym and he started to focus on doing more difficultworkouts. 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 (Which, to be fair, is not just the result of exercise, but also diet and lifestyle changes.) Once you build the habit of exercise, you can find thousands of ways to improve. Without the habit,every strategy is useless. Build the habit first, worry about the results later [email or web address]/exercise-habit metformin if no contraindications with gastric sleeve; Topiramate (toe pyre a mate) - Please start topiramate as discussed. Take one tablet (25mg) every night and increase to 2 tablets at night (50MG) after 2 weeks if there is no change in your appetite, cravings or weight. -- You can take it at night at first (because of potential sleepiness side effects), but earlier around dinner after you have started the medication for a few days. You also may be able to take it inthe morning if easier. -- We may increase the dose to 3 tablets (75mg) a few weeks later if there is no change with 50mg and continue to increase the medication in this way (usually no more than 150mg). But it is best to contact me after 1 month to discuss continued increases of the medication. -- Please see the handout to review the potential side effects and to explain this further -Also discussed that when on topiramate , I would recommend using 2 different kind if controlmethods, Due to several anomaly( if female in reproductive age group) --no while on this medications --pt Agrees and verbalizes understanding. What are the common names? Topamax Why is this medication prescribed? Topiramate is an anti-epileptic medications which has been approved by the FDA for patients 10 years of age or older for treatment of seizures. However, topiramate also has other uses such as the treatment of migraines. It also causes decrease in appetite and weight loss. The mechanism of weight loss is thought to be through inhibition of mitochondrial enzymes involved in energy expenditure and metabolism. Topiramate may work by helping you feel less hungry, less driven to eat, more satisfied with less food. However while phentermine and topiramate in combination are approved by FDA for long-term treatment of obesity, topiramate as stand alone pharmacotherapy has not been approved for this purpose. Has been used in treatment of obesity as an off label, as discussed during your visit. What special precautions should I follow? --Recommended appropriate and consistent control method in women to prevent conception while taking topiramate.(recommended at least 2 methods of contraception as at times it can decrease the effectiveness of oral control pills) --(women in child bearing age ) I strongly recommend discontinue the use of medication prior to conception as the medication may be linked to anomalies and not safe to utilize during . Before having topiramate prescribed, tell your doctor and pharmacist: If you have allergies to any component of topiramate If you are , plan to become , are breast-feeding, or if you become while taking topiramate What are the warnings and precautions for this medication? Immediately discontinue the medicine and seek medical help if you have severe cognitive/neuropsychiatric adverse symptoms or eye symptoms. Cognitive/neuropsychiatric adverse events: symptoms may include confusion, psychomotor slowing, difficulty with concentration/attention, difficulty with memory, speech or language problems, particularily word-finding difficulties, somnolence or fatigue Acute myopia and secondary angle closure glaucoma, usually within 1 month of starting treatment: symptoms may include blurred vision, redness and/or pain in the eye Oligohydrosis (decrease sweating) and hyperthermia (elevation in body temperature) Increase in suicidal behavior or ideation Metabolic acidosis, non-gap hyperchloremic (decreased serum bicarbonate below normal levels) resulting in hyperventilation or fatigue Kidney stones Paresthesias (numbness or tingling in hands or feet) Ataxia Dizziness Increase in urination frequency Drug interactions. Use of monamine oxidase inhibitors (MAOI s), valproic acid, Caution use with dehydration or diarrheal illness, hepatic or renal impairment In case of emergency/overdose In case of overdose, call your local poison control center at or call local emergency services at [phone]. What other information should I know? Keep all appointments with your doctor and the laboratory. Do not let anyone else take your medication. Topiramate use needs to be monitored closely. Prescriptions may be refilled only a limited number of times. Keep a written list of all of your prescription and nonprescription ([id number]) medicines, in addition to vitamins, minerals, or other dietary supplements. How should I monitor while on this medication? Your doctor will check your baseline kidney function and electrolytes prior to starting this medication, then periodically. Continue to improve your dietary and physical activity habits as the combination works best while on this medication. Start out by taking the medication at bedtime as it can cause fatigue and sleepiness. Be sure to eat regular meals. Less hunger does not make it appropriate to skip meals. Make sure to have an eye exam, including the pressure in your eyes (intra-ocular pressure), once a year. What should I do if I forget a dose? Skip the missed dose and continue your regular dosing schedule the next day. Do not take a double dose to make up for a missed one. Sources Pubmed Health: http://www.ncbi.nlm.nih.gov/pubmedhealth/PJV2643720/ Drugs.com http://www.drugs.com/pro/topiramate.html [employer] : TRUE LEMON Water Enhancer, Bulk Dispenser Pack (100 Packets) Zero Calorie Unsweetened Water Flavoring For Water, Bottled Water, Iced Tea & Recipes Water Flavor Packets Made with Real Raven : Fruit Juices : Grocery & Gourmet Food True Lemon ([employer]) Meal replacements: https://www.Gramovox.com/food-nutrition/f63450154/5-gcsg-trav-replacements/ Meal replacements. One option that works for some people is to use meal replacements, as in the DiRECT and Look AHEAD trials.The available options in Look AHEAD included shakes, bars, and meals from a variety of companies (Directa Plus, Plug Apps, OptiCollabRx, and [employer]). The calorie content was 150 to 220 ca lories, depending on the product. People who used meal replacements 12 times a week instead of preparing their own meals lost about 11% of their weight in the first year, whereas those who used just two per week lost about 6% of their weight. Keep in mind, though, that people in the trial who used meal replacements also tended to consume a healthier diet over all; they were more likely to have met their goals for dietary fat, fruits and vegetables, and dairy foods, and to have cut back on sweets, than those who didn t use meal replacements. Similarly, in the DiRECT trial, participants consumed special nutritionally complete shakes and soups (the Counterweight-Plus program) for the first 12 weeks.If you opt for meal-replacement drinks, bars, or frozen entrees, here are some criteria to look for: calories, 150 to 300 fat, 3 to 10 grams protein, > 20 grams sugar < 5 g Meal replacements are typically fortified with vitamins and minerals and contain some fiber. Because they are calorie controlled, the amount of added sugars is usually minimal. If you want to try this approach to boost weight loss, ask your dietitian or another member of your health care team how to incorporate the replacements into your meal planning and discuss whether you might need to reduce your doses of diabetes medications to prevent hypoglycemia (low blood sugar) as you cut calories andlose weight. It is important to find a meal- replacement product that suits your taste. If you prefer not to consume processed foods, you can make your own portion-controlled versions. Note that meal replacements don t work for everyone. While some people like meal- replacement shakes, bars, and soups and find them to be a convenient way to sustain a reduced calorie intake over time, others don t feel satisfied drinking them and often end up simply adding them to what they d normally eat which cou ld lead to weight gain. What s more, some people have a hard time readjusting to eating real food after they stop using meal replacements. [facility] NoteHNO ID: [id number] Author: Jie Renee MD Service: ? Author Type: Physician Type: Progress Notes Filed: 03/30/2021 10:15 AM Note Text: Jie Renee MD [facility] [address] [place] [address], [address] [employer] Center - Fourth Floor [place] [phone] Virtual visit Christina Jade is a 60 year old female with PMH of sleeve gastrectomy, hiatal hernia, essential hypertension, fatty liver, vitamin D deficiency, seasonal affective disorder here today for a follow up on her weight loss efforts. She is currently taking the prescription weight loss medication Topiramate , off label She was started on phentermine but Her last appointment was not scheduled correctly and hence has a gap of month for phentermine Date of Surgery: 09/26/2019 Surgeon:Suyapa Yip MD Surgical Procedure: Sleeve gastrectomy Pre-surgical weight: 109.8 kg (242 lb) Override Index Surgery Information? No ? danielle wt : 216 Goal 170 lbs Concerns:, She is continuing with diet changes: some -Main focus of dietary changes: No snacking / late night eating She is continuing with exercise changes: no -Exercise routine: mostly walking Goal weight:170 lbs Review of weight loss medication side effects Any GI upset? no Changes to blood pressure? no Visual Changes: no -- Patient reports some suppression of her appetite and some increase in satiety since starting the medication Diet: Breakfast coffees wit creamer and protein shake Lunch salad and meat / chicken and tuna fruits / 1.2 a banana Dill pickle Dinner meat loaf W Sleep: Good Stress: Overall coping better. Smoking/Alcohol -denies Review of Systems Constitutional: Positive for malaise/fatigue. HENT: Negative for congestion and tinnitus. Eyes: Negative for blurred vision. Respiratory: Negative for shortness of breath. Cardiovascular: Negative for palpitations, orthopnea and leg swelling. Gastrointestinal: Negative for heartburn, nausea and vomiting. Genitourinary: Negative for dysuria and frequency. Musculoskeletal: Negative for back pain and joint pain. Neurological: Negative for weakness. Psychiatric/Behavioral: The patient is not nervous/anxious and does not have insomnia. VITALS: BP 136/84 Pulse 64 Ht 158.8 cm (5' 2.5) Wt 90.9 kg (200 lb 4.8 oz) LMP 03/03/2011 BMI 36.05 kg/m? , Body mass index is 36.05 kg/m?. Physical Exam Constitutional:. --no issues with communication HEENT: Normocephalic and atraumatic. Eyes: Conjunctiva appear normal. No scleral icterus. Hearing: Is grossly intact. Neck: Range of motion appears normal. Thyroid: appears symmetric and not enlarged. Pulmonary/Chest: Effort normal. Psychiatric: Mood, memory, affect and judgment normal. Neurological: alert and oriented to person, place, and time. Impression and Plan: ASSESSMENT/PLAN: 1. Class 2 obesity - ICD9: 278.00, ICD10: E66.9 (primary diagnosis) Weight decreasing - Behavioral and pharmacological intervention --- counseled in length ,recommended Low carb /low sugar diet --managing maladaptive eating behaviors and adding resistance exercise. Continue low carb diet, weights/cardio exercise and increase NEAT.I have also reviewed he possibility of using weight loss medications in an effort to reduce her appetite. I have reviewed the different therapeutic options available including phentermine, Qsymia, Contrave, Belviq and Saxenda,Topiramate, Metformin, Bupropion We have also reviewed the possibility of using on her medications such as Effexor or metformin which has been also associated with weight loss. I reviewed with patient that she. We agreed that trying Glp1 could be her best option at this point. I reviewed with the patient pros and cons of taking this medication. -Mending but getting labs done before starting Wegovy - POTASSIUM BLD - PHENTERMINE 37.5 MG TABLET - TOPIRAMATE 25 MG TABLET 2. Dietary counseling and surveillance - ICD9: V65.3, ICD10: Z71.3 Reviewed principles of energy metabolism, caloric intake and expenditure, and rationale for treatment program. Also reinforced need for reduced calorie, low fat diet and increased physical activity. 3. Status post laparoscopic sleeve gastrectomy - ICD9: V45.86, ICD10: Z98.84 Cont supplements 4. Obstructive sleep apnea - ICD9: 327.23, ICD10: G47.33 encouraged to use CPAP regularly. 5. Hiatal hernia - ICD9: 553.3, ICD10: K44.9 6. Essential hypertension - ICD9: 401.9, ICD10: I10 - suboptimal control - Recommended regular aerobic exercise. - Recommend home blood pressure monitoring, to bring results in on next visit - Goal of BP <130/80 7. Fatty liver - ICD9: 571.8, ICD10: K76.0 Wt loss will help 8. Vitamin D deficiency - ICD9: 268.9, ICD10: E55.9 Cont supplements 9. Seasonal affective disorder (HCC) - ICD9: 296.99, ICD10: F33.8 Improving 10. Hypokalemia - ICD9: 276.8, ICD1 (more content not included)...[facility]10-14-2021 NoteHNO ID: [id number] Author: Nona Hugo Service: ? Author Type: ? Type: Progress Notes Filed: 02/05/2021 2:18 PM Note Text: Spoke to patient, patient is aware and agreeable. Nona [facility] NoteHNO ID: [id number] Author: Jie Renee MD Service: ? Author Type: Physician Type: Progress Notes Filed: 02/05/2021 12:07 PM Note Text: Jie Renee MD [facility] [address] [facility], [address] [employer] Center - Fourth Floor [place] [phone] In office Christina Jade is a 60 year old female with PMH of sleeve gastrectomy, hiatal hernia, essential hypertension, fatty liver, vitamin D deficiency, seasonal affective disorder here today for a follow up on her weight loss efforts. She is currently taking the prescription weight loss medication Topiramate , off label Date of Surgery: 09/26/2019 Surgeon:Suyapa Yip MD Surgical Procedure: Sleeve gastrectomy Pre-surgical weight: 109.8 kg (242 lb) Override Index Surgery Information? No ? danielle wt : 216 Goal 170 lbs Concerns:, She is continuing with diet changes: some -Main focus of dietary changes: No snacking / late night eating She is continuing with exercise changes: no -Exercise routine: mostly walking Goal weight:170 lbs Review of weight loss medication side effects Any GI upset? no Changes to blood pressure? no Visual Changes: no -- Patient reports some suppression of her appetite and some increase in satiety since starting the medication Diet: Breakfast coffees wit creamer and protein shake Lunch salad and meat / chicken and tuna fruits / 1.2 a banana Dill pickle Dinner meat loaf Was struggling with some stress eating last week as was very busy at work but is getting better. Sleep: Good Stress: Overall coping better. Smoking/Alcohol -denies Review of Systems Constitutional: Positive for malaise/fatigue. HENT: Negative for congestion and tinnitus. Eyes: Negative for blurred vision. Respiratory: Negative for shortness of breath. Cardiovascular: Negative for palpitations, orthopnea and leg swelling. Gastrointestinal: Negative for heartburn, nausea and vomiting. Genitourinary: Negative for dysuria and frequency. Musculoskeletal: Negative for back pain and joint pain. Neurological: Negative for weakness. Psychiatric/Behavioral: The patient is not nervous/anxious and does not have insomnia. VITALS: BP 138/86 Pulse (!) 50 Ht 158.8 cm (5' 2.5) Wt 95.2 kg (209 lb 12.8 oz) LMP 03/03/2011 BMI 37.76 kg/m? , Body mass index is 37.76 kg/m?. Physical Exam Constitutional:. --no issues with communication HEENT: Normocephalic and atraumatic. Eyes: Conjunctiva appear normal. No scleral icterus. Hearing: Is grossly intact. Neck: Range of motion appears normal. Thyroid: appears symmetric and not enlarged. Pulmonary/Chest: Effort normal. Psychiatric: Mood, memory, affect and judgment normal. Neurological: alert and oriented to person, place, and time. Impression and Plan: ASSESSMENT/PLAN: 1. Class 2 obesity - ICD9: 278.00, ICD10: E66.9 (primary diagnosis) Weight decreasing - Behavioral and pharmacological intervention --- counseled in length ,recommended Low carb /low sugar diet --managing maladaptive eating behaviors and adding resistance exercise. Continue low carb diet, weights/cardio exercise and increase NEAT.I have also reviewed he possibility of using weight loss medications in an effort to reduce her appetite. I have reviewed the different therapeutic options available including phentermine, Qsymia, Contrave, Belviq and Saxenda,Topiramate, Metformin, Bupropion We have also reviewed the possibility of using on her medications such as Effexor or metformin which has been also associated with weight loss. I reviewed with patient that she. We agreed that trying Phentermine could be her best option at this point. I reviewed with the patient pros and cons of taking this medication. I have also asked her check her blood pressure twice a week over the next 2 weeks and let me know if he goes over 150/100. --Reviewed EKG Reviewed labs mild hypokalemia recommended to repeat potassium levels. - POTASSIUM BLD - PHENTERMINE 37.5 MG TABLET - TOPIRAMATE 25 MG TABLET 2. Dietary counseling and surveillance - ICD9: V65.3, ICD10: Z71.3 Reviewed principles of energy metabolism, caloric intake and expenditure, and rationale for treatment program. Also reinforced need for reduced calorie, low fat diet and increased physical activity. - PHENTERMINE 37.5 MG TABLET - TOPIRAMATE 25 MG TABLET 3. Status post laparoscopic sleeve gastrectomy - ICD9: V45.86, ICD10: Z98.84 Cont supplements 4. Obstructive sleep apnea - ICD9: 327.23, ICD10: G47.33 encouraged to use CPAP regularly. 5. Hiatal hernia - ICD9: 553.3, ICD10: K44.9 6. Essential hypertension - ICD9: 401.9, ICD10: I10 - suboptimal control - Recommended regular aerobic exercise. - Recommend home blood pressure monitoring, to bring results in on next visit - Goal of BP <130/80 7. Fatty liver - ICD9: 571.8, ICD10: K76.0 Wt loss will (more content not included)...[facility] 12-17-2020 NoteHNO ID: [id number] Author: Danette Boyce APRN.PLOW HOLDER Service: ? Author Type: Nurse Practitioner Type: Progress Notes Filed: 12/17/2020 3:59 PM Note Text: Christina is a 60 year old who presents for an annual gynecologic exam without complaints. Postmenopausal: Hysterectomy 2018 endometrial cancer HRT use: No. 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 malignancy: ENDOMETRIAL CANCER Pain with intercourse: No Postcoital bleeding: No Hot flashes: Yes, occasional Night sweats: No OB History T3 L3 SAB1 TAB0 Ectopic0 Multiple0 Live Births0 PAST MEDICAL HISTORY Diagnosis Date - Endometriosis - Excessive or frequent menstruation resolved - Female infertility of other specified origin - Hypertension - Morbid obesity (HCC) 03/20/2018 - NAFLD (nonalcoholic fatty liver disease) - PMH - PAST MEDICAL HISTORY OF Seasonal affective disorder - PMH - PAST MEDICAL HISTORY OF Rectocele, cystocele mild USI - Sleep apnea uses CPAP - Symptomatic menopausal or female climacteric states - Uterine cancer (HCC) PAST SURGICAL HISTORY Procedure Laterality Date - ABDOMINAL SURGERY HX - COLONOSCOPY GEN ANES 07/28/2020 Repeat in 5 years - DANDC, DIAG AND/OR THERAPEUTIC Dilation AND curettage - FOOT SURGERY HX 02/16/2019 left - GASTRECTOMY,PART DISTAL;W/GASTRODUODENOSTO - HYSTERECTOMY 02/2018 - L'SCOPE DX W/WO BRUSHINGS/WASHINGS Laparoscopy - LAP GASTRIC RESTRICTION 09/26/2019 - REMOVAL OF OVARY(S) 2002 Oophorectomy, Right - SALPINGECTOMY 2002 right tube ANDLeft ovarian endometrioma removal - SLING 10/06/2010 URETHRAL AND VAGINAL MESH - VAGINAL HYSTERECTOMY FAMILY HISTORY Problem Relation Age of Onset - Hypertension Mother - Stroke Mother - Hypertension Father - Heart Father afib, enlarged heart, CAD-stent - other (Endometriosis) Sister - other (other) Brother 55 colon cancer - Breast Cancer Maternal Grandmother SOCIAL HISTORY Social History Tobacco Use - Smoking status: Never Smoker - Smokeless tobacco: Never Used Vaping Use - Vaping Use: Never used Substance Use Topics - Alcohol use: Yes Comment: occasional wine-not weekly - Drug use: No REVIEW OF SYSTEMS Abdomen: No abdominal pain, nausea, vomiting, diarrhea, or constipation. No bloating, early satiety, indigestion, or increased flatulence. Bladder: No dysuria, gross hematuria, urinary frequency, urinary urgency, or incontinence Breast: No breast lumps, nipple d/c, overlying skin changes, redness or skin retraction Allergies and current medication updated:Yes EXAM: BP 120/74 Ht 5' 2.5 (1.59m) Wt 214 lb (97.1kg) LMP 03/03/2011 BMI 38.49 kg/(m2). GENERAL: pleasant, female in no apparent distress HEENT: Normocephalic, atraumatic, mucus membranes moist and no lesions NECK: Supple, full range of motion, no adenopathy and thyroid normal DERMATOLOGY: Normal, without lesions, non-icteric and non-hirsute BREAST: soft, non-tender, symmetric, no dominant mass, normal nipple-areolar complex, no lymphadenopathy and no nipple discharge CHEST: Normal inspiratory effort ABDOMEN: soft, non-tender and no masses PELVIC: external genitalia normal, normal Bartholin's glands, urethra, [place]'s glands, no vulvar lesions, physiologic discharge present, normal appearing perineal body and perianal region, cervix surgically absent BIMANUAL: no adnexal masses, non-tender and uterus surgically absent RECTOVAGINAL: deferred. NEURO: alert and oriented x3,exam grossly non-focal EXTREMITIES: normal ASSESSMENT/PLAN: 1) Health maintenance: Pap/HPV screening no longer needed Mammogram up to date - insurance only allows mammogram every other year Nutrition, exercise and routine health maintenance exams reviewed. Calcium/Vitamin D supplementation information provided. Colon cancer screening: up to date with screening 2) Follow up one year or sooner as needed Danette Boyce APRN.[facility]06-30-2021 NoteHNO ID: [id number] Author: Jie Renee MD Service: ? Author Type: Physician Type: Progress Notes Filed: 10/23/2020 12:01 PM Note Text: Obesity Medicine PostOp Note October 22, 2020 3:08 PM Name: Christina Jade Index Surgery Date of Surgery: 09/26/2019 Surgeon:Suyapa Yip MD Surgical Procedure: Sleeve gastrectomy Pre-surgical weight: 109.8 kg (242 lb) Override Index Surgery Information? No danielle wt : 216 Goal 170 lbs Other Bariatric Surgeries None Visit: 12 months Today's Visit: There were no vitals taken for this visit. BMI 39.54 kg/(m2) Last Visit: Wt: 95.3 kg (210 lb) BMI: 38.41 kg/(m2) Estimated body mass index is 39.87 kg/m? as calculated from the following: Height as of this encounter: 157.5 cm (5' 2). Weight as of this encounter: 98.9 kg (218 lb). [place] weight: 62 kg (136 lb 11.2 oz) Excess weight: 47.8 kg (105 lb 4.8 oz) % of excess body weight lost: 10.9 kg (24 lb) (22.79% of excess weight loss) COMPLICATIONS SINCE LAST VISIT?: NONE Interval History Christina Jade s/p gastric sleeve on September 2019. She is looking for more adjunct therapy for further weight loss. Diet: eating 3 meals and 1-2 snacks per day, consuming adequate protein intake(e.g. eggs, yogurt, red meat, chicken, fish, legumes, soy) tolerates Phase V diet Routine Breakfast - not a breakfast person Protein shake with decaf coffee Lunch Salad with meat /protein Dinner - hot dogs/ baked fish /stakes / some veggies 6-10 pm Snacking : gets bored crackers/ chips popcorn Eats out once every 2 weeks Bedtime 10-7 GI Symptoms: Denies, nausea, occ nausea/vomiting when eating too fast, constipation, diarrhea, Abdominal pain or sx suggesting ulcer, stenosis, hernia, or gallstones - Dumping Sx (vasomotor/GI):No - Food intolerance: No - Episodes of low blood sugar/dizziness after eating: No - Cravings: Yes - Hunger/satiety:Increased hunger, fills quickly after eating - Hydration:reducedfluid intake as recommended Lightheaded? No Urine dark? No - Alcohol intake:Yes, 2-3 times a month glass of wine Exercise: none, Sleep: 7 hrs, adequate Taking required vitamins and minerals: Yes Calcium: Calcium Citrate w/ vitamin D (1200 - 1500mg) Multivitamin AND Minerals: 1 per day Iron Supplement: 27 - 28 mg Vitamin B12: 1000 mcg Vitamin D3: 2000 IU Are you attending any Support Groups? Not known Current Outpatient Medications Medication Sig - ferrous sulfate (IRON ORAL) Take by mouth. - multivit-mins no.63/iron/folic (M-VIT ORAL) Take by mouth once daily. 2 flinstones chewables - Cholecalciferol, Vitamin D3, (VITAMIN D-3) 50 mcg (2,000 unit) cap Take by mouth once daily. - MEDICATION, NON-DATABASE Take 1 tablet by mouth once daily. collagen with vitamin C and biotin - atenolol (TENORMIN) 50 mg tablet Take 2 tablets by mouth once daily. - CALCIUM 500 MG TAB Take one tablet by mouth daily. - HYDROCHLOROTHIAZIDE 25 MG TAB Take by mouth once daily. - LEXAPRO 10 MG TAB Take one half tablet by mouth in the summer. Take one tablet by mouth in the winter. - topiramate (TOPAMAX) 25 mg tablet Take 1 tablet by mouth once daily. No current facility-administered medications for this visit. Patient Active Problem List Adult BMI 39.0-39.9 kg/sq m Vitamin D deficiency Fatty liver Hiatal hernia Status post laparoscopic sleeve gastrectomy Obstructive sleep apnea Class 2 obesity Seasonal affective disorder (HCC) Obesity, morbid, BMI 40.0-49.9 (HCC) Morbid obesity (HCC) Essential hypertension Preop examination Complex atypical endometrial hyperplasia Ovarian mass, left Dietary counseling and surveillance Resolved Hospital Problems No resolved problems to display. Social History Tobacco Use - Smoking status: Never Smoker - Smokeless tobacco: Never Used Vaping Use - Vaping Use: Never used Substance Use Topics - Alcohol use: Yes Comment: occasional wine-not weekly - Drug use: No ROS: REVIEW OF SYSTEMS GENERAL: No weight loss, malaise or fevers HEENT: Negative for frequent or significant headaches, No changes in hearing or vision, no nose bleeds or other nasal problems NECK: Negative for lumps, goiter, pain and significant neck swelling RESPIRATORY: Negative for cough, hemoptysis, wheezing, COPD, dyspnea or shortness of breath CARDIOVASCULAR: Negative for chest pain, leg swelling, hypertension, CHF or palpitations GI: No nausea, vomiting, or diarrhea MUSCULOSKELETAL: joint pain or swelling SKIN: Negative for lesions, rash, and itching PSYCH: Negative for sleep disturbance, mood disorder and recent psychosocial stressors HEMATOLOGY/LYMPHOLOGY: Negative for prolonged bleeding, bruising easily or swollen nodes ENDOCRINE: Negative for cold or heat intolerance, polyuria, polydipsia and goiter No hx of kidney stones Denies nausea, vomiting, dumping syndrome, reactive hypoglycemia, gustatory rhinorrhea, (more content not included)...[facility] 08-18-2020 NoteHNO ID: [id number] Author: Jocy ThakkarSenior Windows Engineer Preston Dempsey Service: ? Author Type: Nurse Practitioner Type: Progress Notes Filed: 08/18/2020 4:02 PM Note Text: DISTANCE HEALTH VISIT This Team Access Model visit is a phone encounter. It required patient-provider interaction for the medical decision making as documented below. Consent was obtained to complete today's distance health visit. Name: Christina Jade Index Surgery Date of Surgery: 09/26/2019 Surgeon: Dr. Yip Surgical Procedure: Sleeve gastrectomy Pre-surgical weight: 109.8 kg (242 lb) Override Index Surgery Information? No Other Bariatric Surgeries None Visit: 10 months Today's Visit: Wt 95.3 kg (210 lb) BMI 38.41 kg/m2 BMI 38.41 kg/(m2) Last Visit: Wt: 93 kg (205 lb 0.4 oz) BMI: 37.50 kg/(m2) Total weight loss: 14.5 kg (32 lb) [place] weight: 62 kg (136 lb 11.2 oz) Excess weight: 47.8 kg (105 lb 4.8 oz) % of excess body weight lost: 14.5 kg (32 lb) (30.39% of excess weight loss) COMPLICATIONS SINCE LAST VISIT?: NONE DIET INTAKE: tolerates Phase V diet She is doing well with her fluid and protein intake. She has increased her fluid intake, she is now meeting her goal most days of the week. She is meeting her protein goal daily. Unfortunately, she now experienced a right knee injury which has caused difficulty with mobility therefore she has not been exercising for the past few months. She denies nausea, vomiting, abdominal pain, constipation, diarrhea, acid reflux symptoms, dizziness, lightheadedness. She is taking her vitamins and medications as directed. DAILY SUPPLEMENTS: Calcium: Calcium Citrate w/ vitamin D (1200 - 1500mg) Multivitamin AND Minerals: 2 per day Iron Supplement: 18mg supplement Vitamin B12: 1000 mcg Biotin: No Vitamin C: included in multi-vitamin Vitamin D3: included in multi-vitamin Other: N/A EXERCISE: None due to recent knee injury Are you attending any Support Groups? No attendance HISTORY REVIEWED (electronic chart updated): - medical history - medications - allergies Current Outpatient Medications Medication Sig - multivit-mins no.63/iron/folic (M-VIT ORAL) Take by mouth once daily. 2 flinstones chewables - Cholecalciferol, Vitamin D3, (VITAMIN D-3) 50 mcg (2,000 unit) cap Take by mouth once daily. - MEDICATION, NON-DATABASE Take 1 tablet by mouth once daily. collagen with vitamin C and biotin - atenolol (TENORMIN) 50 mg tablet Take 2 tablets by mouth once daily. - CALCIUM 500 MG TAB Take one tablet by mouth daily. - HYDROCHLOROTHIAZIDE 25 MG TAB Take by mouth once daily. - LEXAPRO 10 MG TAB Take one half tablet by mouth in the summer. Take one tablet by mouth in the winter. No current facility-administered medications for this visit. REVIEW OF SYSTEMS: Denies nausea, vomiting, dumping syndrome, reactive hypoglycemia, gustatory rhinorrhea, Denies abdominal pain, constipation, diarrhea, melena, hematochezia, Denies paresthesias, gait abnormality, fatigue, weakness, lower extremity edema and Denies taking NSAIDs PHYSICAL EXAM: Ht 157.5 cm (5' 2) Wt 95.3 kg (210 lb) LMP 03/03/2011 BMI 38.41 kg/m? GENERAL APPEARANCE: Pleasant, interacts appropriately and in no apparent distress NEURO/PSYCH: Oriented to person, place, time; appropriate insight and judgement. Appropriate affect. ASSESSMENT AND PLAN: Normal post-OP course DISPOSITION: Return 3 month to EST/Standard office visit EDUCATION: Encouraged to continue with healthy lifestyle changes and incorporate cardiovascular and resistance training, Discussed weight loss expectations after bariatric and metabolic surgery, Advised PT to avoid NSAIDs, smoking tobacco given increased risk of marginal ulcers or Discussed importance of protein intake as per the RDN note REFERRALS: obesity medicine LABS: Today: reviewed In 3 months: See Epic Orders Nutrition Counseling Practice these: - Eat 3 meals daily?can use approved/recommended protein shake as 1 meal replacement (should be <200 calories, 20-30g protein, <5g added sugar) - Keep a food journal 5-7x/week (consider [employer] or [employer] sushma) and demonstrate meeting protein goal (60-90g protein for females, 70-105g protein for males)- Lean meats, fish, low fat dairy - cottage cheese, Malaysian yogurt, light yogurt, cheese, ricotta cheese, nuts, peanut butter, beans/legumes. Eat protein first at all meals. and 64oz of caffeine-free, carbonation-free fluids at least 5 days per week - engage in formal, planned exercise 5x/week for 30 minutes of cardiovascular activity OR 150+ minutes of cardiovascular activity per week - eliminate all caffeine, carbonation, alcohol and sugar-containing beverages from diet ?consider sugar-free drink mixes, water, decaf coffee and tea - Separate eating and drinking by 30 minutes - Chew your food 20-30x per bite - Sip beverages slowly?no guzzling or gulping ASSESSMENT/PLAN (more content not included)...[facility] 05-26-2009 History of Past illness Narrative* Problem Noted Date Resolved Date Abdominal pain, left upper quadrant 05/26/2009 03/22/2011 Endometriosis, site unspecified 05/26/2009 09/03/2016 Irregular menstrual cycle 05/26/20092016 Dysmenorrhea 05/26/2009 03/22/2011 Rectocele 05/26/2009 03/22/2011 documented as of this encounter (statuses as of 08/03/2021) [facility]02-01-2010 History of Past illness Narrative* Problem Noted Date Resolved Date Abdominal pain, left upper quadrant 05/26/2009 03/22/2011 Endometriosis, site unspecified 05/26/2009 09/03/2016 Irregular menstrual cycle 05/26/20092016 Dysmenorrhea 05/26/2009 03/22/2011 Rectocele 05/26/2009 03/22/2011 documented as of this encounter (statuses as of 08/19/2021) [facility] complaint+Reason for visit Narrative* Chief Complaint osteopenia SCREENING HEMORRHOIDS Discuss future procedure (hemorrhoids) Hemorrhoidectomy Hemorrhoidectomy Reason for Visit Bleeding hemorrhoid Coronary artery disease Hypertension Bleeding hemorrhoid [facility] Work Phone: Evaluation note* Diagnosis Class 2 obesity without serious comorbidity with body mass index (BMI) of 36.0 to 36.9 in adult, unspecified obesity type- Primary Hypertension, unspecified type Vitamin D deficiency Unspecified vitamin D deficiency Hiatal hernia Diaphragmatic hernia without mention of obstruction or gangrene Sleep apnea, unspecified type H/O gastric sleeve History of low potassium BMI 36.0-36.9,adult Body Mass Index 36.0-36.9, adult Dietary counseling and surveillance Dietary surveillance and counseling documented in this encounter [facility] noteNo assessment information availableW[facility] Work Phone: Evaluation note* Diagnosis Onset Date Resolution Status Spontaneous dissection of coronary artery acute STEMI (ST elevation myocardial infarction) acute Hypertension [facility] Work Phone: Evaluation note* Diagnosis Onset Date Resolution Status Hypertension chronic Spontaneous dissection of coronary artery resolved STEMI (ST elevation myocardial infarction) resolved Coronary artery disease acut e Dyslipidemia acute Palpitations acute Hypertension [facility] Work Phone: Evaluation note* Diagnosis Onset Date Resolution Status Bilateral knee pain acute Bilateral primary osteoarthritis of knee acute Bilateral primary osteoarthritis of knee acute Bilateral primary osteoarthritis of knee acute [facility] Work Phone: Evaluation note* Diagnosis Onset Date Resolution Status Bleeding hemorrhoid acute Coronary artery disease acut e Hypertension chronic Bleeding hemorrhoid acute [facility] Work Phone: Evaluation note* Diagnosis Onset Date Resolution Status Bilateral primary osteoarthritis of knee acute Status post hemorrhoidectomy acute Bilateral primary osteoarthritis of knee acute Bilateral primary osteoarthritis of knee acute Status post hemorrhoidectomy acute [facility] Work Phone: Summary Purpose Family History No Family History Records Found Relationship Condition Age at Onset Recorded Date/T eunice father Liver mass Unknown mother Deep vein thrombosis (DVT) Unknown Relationship Condition Age at Onset Recorded Date/T eunice father Liver mass Unknown Cardiac disease Unknown Atrial fibrillation Unknown mother Deep vein thrombosis (DVT) Unknown uncle Myocardial infarction Unknown Advance Directives No Advanced Directives Records FoundDocuments on File Type Date Recorded 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 Advance Directive(s) 07/28/2020 10:59 AM Advance Directive(s) 07/21/2020 10:59 AM [place] Advance Directive(s) 09/26/2019 6:58 AM Advance Directive(s) 09/19/2019 2:12 PM Advance Directive(s) 04/13/2019 7:35 AM Advance Directive(s) 03/24/2018 5:55 AM Advance Directive(s) 03/24/2018 5:54 AM Advance Directive Response Recorded Date/ Time Living Will Yes February 24 11:58am Power of Mechanical Expert Yes February 24, 2022 11:58am Name of Medical Power of Mechanical Expert February 24, 2022 11:58am Advance Directive Response Recorded Date/ Time Name of Medical Power of Mechanical Expert Ralf Jade- February 24, 2022 1:39pm Living Will Yes February 24 1:39pm Power of Mechanical Expert Yes February 24, 2022 1:39pm Advance Directive Response Recorded Date/ Time Name of Medical Power of Mechanical Expert Ralf Jade- February 24, 2022 12:39pm Living Will Yes February 24 12:39pm Power of Mechanical Expert Yes February 24, 2022 12:39pm Advance Directive Response Recorded Date/ Time Living Will Yes February 24 1:39pm Power of Mechanical Expert Yes February 24, 2022 1:39pm Advance Directive Response Recorded Date/ Time Name of Medical Power of Mechanical Expert SPOUSE November 04, 2022 11:16am Living Will Yes November 04, 2022 11:16am Power of Mechanical Expert Yes November 04 11:16am Advance Directive Response Recorded Date/ Time Living Will Yes November 04, 2022 10:16am Power of Mechanical Expert Yes November 04 10:16am Chief Complaint and Reason for Visit Chief Complaint chest pain Chief Complaint ACUTE STEMI ACUTE STEMI ACUTE STEMI ACUTE STEMI ACUTE STEMI Reason for Visit Spontaneous dissecti on of coronary artery STEMI (ST elevation myocardial infarction) Hypertension Chief Complaint ACUTE STEMI ACUTE STEMI ACUTE STEMI ACUTE STEMI ACUTE STEMI S/P STEMI PALP Reason for Visit Hypertension Spontaneous dissection of coronary artery STEMI (ST elevation myocardial infarction) Coronary artery disease Dyslipidemia Palpitations Hypertension Chief Complaint BILAT KNEES RM 3 xray BILAT KNEES BILAT KNEES BILAT KNEES osteopenia Reason for Visit Bilateral knee pain Bilateral primary osteoarthritis of knee Bilateral primary osteoarthritis of knee Bilateral primary osteoarthritis of knee Chief Complaint BL KNEE Hemorrhoidectomy 11/11 BL KNEE BL KNEE Hemorrhoidectomy 11/11 Reason for Visit Bilateral primary os teoarthritis of knee Status post hemorrhoidectomy Bilateral primary osteoarthritis of knee Bilateral primary osteoarthritis of knee Status post hemorrhoidectomy Additional Source Comments INFORMATION SOURCE (unrecogn ized section and content) DATE CREATED AUTHOR 09/04/2020 [facility] DATE CREATED AUTHOR AUTHOR'S ORGANIZ ATION 05/26/2021 [facility] DATE CREATED AUTHOR AUTHOR'S ORGANIZ ATION 08/05/2021 [facility] DATE CREATED AUTHOR AUTHOR'S ORGANIZ ATION 01/27/2024 [facility] Source Comments (unrecognize d section and content) In the event this informatio n is protected by the Federal Confidentiality of Alcohol and Drug Abuse Patient Records regulations: The Federal rules restrict any use of the information to criminally investigate or prosecute any alcohol or drug abuse patient.[facility] the event this information is protected by the Federal Confidentiality of Alcohol and Drug Abuse Patient Records regulations: The Federal rules restrict any use of the information to criminally investigate or prosecute any alcohol or drug abuse patient.[facility] Reason for Visit (unrecogniz ed section and content) Reason Comments Weight Problem Care Teams (unrecognized sec tion and content) Shipping Associate Relationship Specialty Start Date End Date Jeffry Nichole DO [address] [place] [address] PCP - General Family Practice 12/29/18 Shipping Associate Relationship Specialty Start Date End Date Jeffry Nichole DO [address] [place] [address] PCP - General Family Practice 12/29/18 Team Status: Active Member Role Status Dates Dr. Jeffry Nichole DO Family Provider Active Dr. Jeffry Nichole DO Primary Care Provider Active Team Status: Inactive Member Role Status Dates Dr. Jeffry Nichole DO Primary Care Provider, Referrin g Provider Active Tj GHOTRA PA Attending Provider Active Team Status: Inactive Member Role Status Dates Dr. Jeffry Nichole DO Primary Care Provider Active Dr. Froylan Tucker MD Attending Provider Active Team Status: Inactive Member Role Status Dates Dr. Jeffry Nichole DO Primary Care Provider, Referrin g Provider Active Melva GHOTRA PA Attending Provider Active Team Status: Inactive Member Role Status Dates Dr. Jeffry Nichole DO Primary Care Prov ider, Attending Provider, Referring Provider Active Team Status: Inactive Member Role Status Dates Dr. Jeffry Nichole DO Primary Care Provider, Referrin g Provider Active Dr. Lul Borrero MD Attending Provider Active Team Status: Inactive Member Role Status Dates Dr. Jeffry iNchole DO Primary Care Provider Active Dr. Lul Borrero MD Attending Provider, Referring Provider Active Team Status: Active Member Role Status Dates Dr. Jeffry Nichole DO Primary Care Provider Active Dr. Lul Borrero MD Attending Provid er, Referring Provider, Other Provider Active Team Status: Active Member Role Status Dates Dr. Jeffry Nichole DO Family Provider Active ESTER Smith Primary Care Provider Active Team Status: Inactive Member Role Status Dates Dr. Jeffry Nichole DO Primary Care Provider, Referrin g Provider Active Cheryl GHOTRA, PA-C Attending Provider Active Team Status: Inactive Member Role Status Dates Dr. Jeffry Nichole DO Referring Provider Active Dr. Lul Borrero MD Attending Provider Active Team Status: Inactive Member Role Status Dates Melva GHOTRA PA Attending Provider Active Team Status: Inactive Member Role Status Dates ESTER Smith Primary Care Provider, Attending Isidro nunes Active Goals (unrecognized section and content) Goals may be documented in a n alternate sectionGoals may be documented in an alternate sectionGoals may be documented in an alternate section FOR RECORDS PERTAINING TO PATIENTS WHO ARE OR HAVE BEEN ENROLLED IN A CHEMICAL DEPENDENCY/SUBSTANCEABUSE PROGRAM, SOME INFORMATION MAY BE OMITTED. This clinical summary was aggregated from multiple sources. Caution should be exercised in using it in the provision of clinical care. This summary normalizes information from multiple sources, and as a consequence, information in this document may materially change the coding, format and clinical context of patient data. In addition, data may be omitted in some cases. CLINICAL DECISIONS SHOULD BE BASED ON THE PRIMARY CLINICAL RECORDS. [employer] [facility]. provides no warranty or guarantee of the accuracy or completeness of information in this document.
== END | disposition home or self-care (01) ==
LOC: LAB 10:55
PROVIDERS: PCP Family Medicine; Referring Provider Internal Medicine Cardiovascular Disease; Visit Provider Internal Medicine Cardiovascular Disease
DX: I10 Essential (primary) hypertension (principal); E78.5 Hyperlipidemia, unspecified
CPT/HCPCS: 36415; 80053; 80061

== ENCOUNTER → 2024-11-05 | Outpatient (CLI) | payer MEDICARE, BC, SELFPAY ==
--- NOTE | 2024-11-05 06:34 | ECHOD_ITS ---
Reason For Study Reason For Study: Hx OR Procedure This was a 2D Doppler, Color Flow transthoracic echocardiogram. Exam performed in department. Left Ventricle Normal LV size. Mild concentric left ventricular hypertrophy. The LV ejection fraction is 65 %. Stage 1 diastolic dysfunction. Right Ventricle Normal right ventricle. Atria The left atrium is mildly enlarged. Normal right atrium. Mitral Valve Trivial mitral valve insufficiency. Tricuspid Valve Mild tricuspid valve insufficiency. Normal pulmonary artery pressure. Aortic Valve Trisinus/trileaflet aortic valve. Trivial aortic valve insufficiency. Pulmonic Valve The pulmonic valve is not well visualized. Great Vessels Normal sized aortic root. Pericardium/Pleural No pericardial effusion. MMode/2D Measurements & Calculations LVIDd: 3.8 cm IVSd: 1.2 cm Ao root diam: 3.3 cm LVIDs: 2.9 cm LVPWd: 1.1 cm LA dimension: 4.2 cm RVDd: 3.8 cm FS: 24.2 % LAV(MOD-bp): 45.9 ml LVAd ap4: 26.9 cm2 LVAd ap2: 21.3 cm2 LAV(MOD-bp) Indexed: 23.1 ml/m2 LVLd ap4: 7.6 cm LVLd ap2: 7.0 cm LAV(MOD-sp2): 43.4 ml EDV(MOD-sp4): 80.7 ml EDV(MOD-sp2): 55.8 ml LAV(MOD-sp4): 44.3 ml EDV(sp4-el): 80.7 ml EDV(sp2-el): 54.5 ml LVAs ap4: 14.2 cm2 LVAs ap2: 12.7 cm2 LVLs ap4: 6.1 cm LVLs ap2: 6.3 cm ESV(MOD-sp4): 29.3 ml ESV(MOD-sp2): 22.3 ml ESV(sp4-el): 28.3 ml ESV(sp2-el): 21.6 ml EF(MOD-sp4): 63.7 % EF(MOD-sp2): 60.0 % EF(sp4-el): 65.0 % SV(MOD-sp4): 51.4 ml SV(MOD-sp2): 33.5 ml SV(sp4-el): 52.4 ml SI(MOD-sp4): 25.9 ml/m2 SI(MOD-sp2): 16.8 ml/m2 LA A4 area: 17.5 cm2 LA dimension(2D): 4.5 cm RA A4 area: 13.2 cm2 TAPSE: 1.7 cm Time Measurements MV dec time: 0.20 sec Doppler Measurements & Calculations MV E max chuck: 64.1 cm/sec Lat Peak E' Chuck: 11.3 cm/sec Med Peak E' Chuck: 8.5 cm/sec MV A max chuck: 52.8 cm/sec E/E' lat: 5.7 E/E' med: 7.6 MV E/A: 1.2 Ao V2 max: 122.1 cm/sec LV V1 max: 89.7 cm/sec MV dec slope: 324.6 cm/sec2 Ao max P.0 mmHg LV V1 max P.2 mmHg Ao V2 mean: 81.1 cm/sec LV V1 mean P.5 mmHg Ao mean P.0 mmHg LV V1 mean: 57.2 cm/sec Ao V2 VTI: 26.8 cm LV V1 VTI: 20.6 cm AV (velocity ratio): 0.77 PA V2 max: 74.0 cm/sec TR max chuck: 223.8 cm/sec TR max P.0 mmHg ECHO/Echo Complete Interpretation Summary Mild concentric left ventricular hypertrophy. The LV ejection fraction is 65 %. Stage 1 diastolic dysfunction. The left atrium is mildly enlarged. Mild tricuspid valve insufficiency. Ordering Physician: Layton Petty Referring Physician: Jeffry Nichole Performed By: Kodi, Mallika, RDCS
--- OUTSIDE RECORDS SUMMARY | 2024-11-05 06:37 | XMS RPT_ITS | CCD ---
Author Organization 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 Jeffry Nichole Primary Care Provider [phone] Dr. Jeffry Nichole Referring Provider [phone] Lul Borrero Attending Provider [phone] Gissell, Dr. Lul Chapa Referring Provider Gissell, Dr. Lul Chapa Other Provider Dr. Jeffry Nichole Primary Care Provider [phone] Dr. Jeffry Nichole Referring Provider PARADISE Ocampo Attending Provider FRITZ Lee Attending Provider PARADISE Linares Attending Provider [phone] Lul Borrero Attending Provider Dr. Jeffry Nichole DO Primary Care Provider Dr. Jeffry Nichole DO Referring Provider [phone] Jovanny JENSEN, Dr. Traylor Attending Provider Dr. Layton Petty MD Referring Provider Nikki Arias Referring Unavailable Jeffry Nichole Primary Care Unavailable Sridevi Hernandes Attending Unavailable Jeffry Nichole Primary Care Unavailable Layton Petty Referring Unavailable Layton Petty Attending Unavailable Jeffry Nichole Referring Unavailable Dionisio, Jeffry Primary Care Unavailable JovannyLayton sanford Attending Unavailable DionisioJeffry webster Referring Unavailable Dionisio, Jeffry Primary Care Unavailable Layton Petty Attending Unavailable Allergies Allergy Classification Reported Allergen(s) Allergy Type Date of Onset Reaction(s) Facility (2 sources) eprosartan Drug Allergy 5 [facility] Work Phone: (6 sources) Sertraline Drug Allergy 3 anxiety [facility] (2 sources) BENZOLE PEROXIDE [Other] Propensity to adverse reactions 5 Rash [facility] Work Phone: (8 sources) eprosartan Drug Allergy 2 Other [facility] Comment on above: severe joint pain (5 sources) Penicillins Allergy to substance 3 [facility] (4 sources) Benzoyl Peroxide Drug Allergy 3 [facility] (1 source) Benzoyl Peroxide Drug Allergy 5 [facility] (1 source) eprosartan Drug Allergy 5 [facility] (1 source) Penicillins Drug allergy (disorder) 5 [facility] (1 source) Sertraline Drug Allergy 5 [facility] Medications Current Medications Medication Drug Class(es) Dates Sig (Normalized) Sig (Original) amLODIPine 10 mg oral tablet (20 sources) Dihydropyridine Calcium Channel [place] Start: 09-26-2024 take 1 tablet by mouth once daily Amlodipine 10 mg tablet Active 10 mg PO daily September 26, 2024 12:00am Start: 09-14-2023 End: 09-26-2024 take 1 tablet by mouth once daily Amlodipine 5 mg tablet Discontinued 5 mg PO DAILY August 20, 2024 8:22am August 23, 2024 7:45am Start: 02-26-2022 End: 09-14-2023 take 1 tablet by mouth once daily Amlodipine 2.5 mg tablet Discontinued 2.5 mg PO DAILY January 31, 2023 11:41am September 14, 2023 11:20am ascorbate calcium (vitamin C) (Vitamin C (ascorbate calcium)) (2 sources) Start: 09-26-2024 ascorbate calc ium (vitamin C) (Vitamin C (ascorbate calcium)) Active PO DAILY September 26, 2024 12:00am Immune C Plus combination berberine-herbal comb no.18 (2 sources) Start: 09-26-2024 berberine-herb al comb no.18 Active PO DAILY September 26, 2024 12:00am carvedilol 6.25 mg oral tablet (20 sources) alpha-Adrenergi c [place], beta-Adrenergic [place] Start: 09-26-2024 End: 09-26-2024 take 1 tablet by mouth once Carvedilol 6.25 mg tablet Discontinued 6.25 mg PO ONCE September 26, 2024 9:55am September 26, 2024 3:58pm Start: 03-17-2022 End: 09-26-2024 take 1 tablet by mouth twice daily Carvedilol 6.25 mg tablet Discontinued 6.25 mg PO TWICE A DAY 180 February 02, 2024 8:02am September 26, 2024 10:02am Start: 02-26-2022 End: 03-17-2022 take 1 tablet by mouth twice daily Carvedilol 3.125 mg Tablet Discontinued 3.125 mg PO TWICE A DAY 180 February 26, 2022 12:00am March 17, 2022 12:35pm coenzyme q10 and beet (2 sources) Start: 09-26-2024 coenzyme q10 a nd beet Active PO DAILY September 26, 2024 12:00am escitalopram 10 mg oral tablet (12 sources) Serotonin Reuptake Inhibitor Start: 09-26-2024 take 1 tablet by mouth once daily Escitalopram Oxalate 10 mg tablet Active 10 mg PO daily September 26, 2024 12:00am Start: 02-12-2019 End: 09-14-2023 take 5 mg by mouth once daily Escitalopram Oxalate 10 MG tablet Discontinued 5 mg PO DAILY February 12, 2019 12:00am September 14, 2023 10:57am Start: 02-12-2019 take 5 mg by mouth [...] one tablet by mouth in the winter. Magnesium Glycinate 100 mg magnesium capsule (2 sources) Start: 09-26-2024 take 1 mg by mouth once daily Magnesium Glycinate 100 mg magnesium capsule Active mg PO DAILY September 26, 2024 12:00am pravastatin sodium 40 mg oral tablet (1 source) HMG-CoA Reductase Inhibitor Start: 09-26-2024 take 1 tablet by mouth once daily Pravastatin 40 mg tablet Active 40 mg PO daily 90 September 26, 2024 12:00am turmeric-turmeric ext-pepper (Turmeric with BioPerine) (2 sources) Start: 09-26-2024 turmeric-turmeric ext-pepper (Turmeric with BioPerine) Active PO DAILY September 26, 2024 12:00am Completed/Discontinued Medications Medication Drug Class(es) Dates Sig (Normalized) Sig (Original) acetaminophen 325 mg / HYDROcodone bitartrate 5 mg oral tablet (4 sources) Opioid Agonist Start: 11-11-2022 End: 11-24-2022 Hydrocodone-Acetami nophen 5-325 mg tablet Discontinued 1 {tbl} PO EVERY 6 HOURS as needed for pain 01 25November 11, 2022 November 24, 2022 8:25am Start: 11-11-2022 End: 11-24-2022 take 1 tablet by mouth every six hours Hydrocodone-Acetaminophen Discontinued 1 TABLET PO EVERY 6 HOURS 01 25November 11, 2022 November 24, 2022 7:25am aspirin 81 mg delayed release oral tablet (19 sources) Platelet Aggregation Inhibitor, Nonsteroidal Anti-inflammatory Drug Start: 02-26-2022 End: 01-31-2023 take 1 tablet by mouth at breakfast Aspirin 81 mg tablet,delayed release (DR/EC) Discontinued 81 mg PO WITH BREAKFAST January 31, 2023 11:07am January 31, 2023 11:42am atenolol 50 mg oral tablet (10 sources) beta-Adrenergic [place] Start: 02-12-2019 End: 02-26-2022 take 1 tablet by mouth once daily Atenolol 50 MG tablet Discontinued 50 mg PO DAILY February 12, 2019 12:00am February 26, 2022 8:39am Start: 07-15-2014 take 2 tablets by mo uth once daily atenolol (TENORMIN) 50 mg tablet Take 2 tablets by mouth once daily. 0 07/15/2014 Active Comment on above: Take 2 tablets by mo uth once daily. atorvastatin 40 mg oral tablet (16 sources) HMG-CoA Reductase Inhibitor Start : 02-26 End: 09-26 take 1 tablet by mouth at bedtime Atorvastatin 40 mg tablet Discontinued 40 mg PO AT BEDTIME January 31, 2023 11:41am September 26, 2024 9:54am Calcium (2 sources) Phosphate Binder, Calcium Start : 03-24 take 1 tablet by mouth once daily CALCIUM 500 MG TAB Take one tablet by mouth daily. 0 03/24/2005 Active Comment on above: Take one tablet by m outh daily. cholecalciferol 0.05 mg oral capsule (2 sources) Vitamin D Cholecalciferol, Vitamin D3, (VITAMIN D-3) 50 mcg (2,000 unit) cap Take by mouth once daily. 0 Active Comment on above: Take by mouth once d aily. clopidogrel 75 mg oral tablet (16 sources) P2Y12 Platelet Inhibitor Start : 02-26 End: 01-24 take 1 tablet by mouth once daily Clopidogrel 75 mg tablet Discontinued 75 mg PO DAILY January 31, 2023 11:42am January 25, 2024 11:24am ferrous sulfate (2 sources) ferrous sulfate (IRON ORAL) Take by mouth. 0 Active Comment on above: Take by mouth. hydroCHLOROthiazide 25 mg oral tablet (13 sources) Thiazide Diuretic Start : 03-24 End: 01-31 take 1 tablet by mouth once daily Hydrochlorothiazide 25 MG tablet Discontinued 25 mg PO DAILY February 12, 2019 12:00am January 31, 2023 11:42am Comment on above: Take by mouth once d aily. Iron (2 sources) Start : 07-25 Iron 18 mg tab MEDICATION, NON-DATABASE (2 sources) take 1 tablet by mouth once daily MEDICATION, NON-DATABASE Take 1 tablet by mouth once daily. collagen with vitamin C and biotin 0 Active Comment on above: Take 1 tablet by concepcion once daily. collagen with vitamin C and biotin metroNIDAZOLE 250 mg oral tablet (4 sources) Nitroimidazole Antimicrobial Start : 11-11 End: 09-13 take 1 tablet by mouth three times daily Metronidazole 250 mg tablet Discontinued 250 mg PO THREE TIMES A DAY November 11, 2022 12:00am September 14, 2023 10:57am multivit-mins no.63/iron/folic (M-VIT ORAL) (2 sources) multivit-mins no.63/iron/folic (M-VIT ORAL) Take by mouth once daily. 2 flinstones chewables 0 Active Comment on above: Take by mouth once d aily. 2 flinstones chewables topiramate 25 mg oral tablet (2 sources) Start : 02-05 End: 08-04 take 37-37.9 tablets by mouth twice daily topiramate (TOPAMAX) 25 mg tablet Indications: Dietary counseling and surveillance , Class 2 obesity , Body mass index 37.0-37.9, adult Take 2 tablets by mouth twice daily. 360 tablet 1 02/05/2021 Active Comment on above: Take 2 tablets by mo uth twice daily. 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 Cardiac dysrhythmias (10 sources) Palpitations; Translations: [Palpitations] Onset: 09-26-2024 Episodic Coronary atherosclerosis and other heart disease (11 sources) Coronary arteriosclerosis; Translations: [Atherosclerotic heart disease of [place] coronary artery without angina pectoris] Onset: 09-26-2024 Chronic Disorders of lipid metabolism (10 sources) Dyslipidemia; Translations: [Hyperlipidemia, unspecified] Onset: 09-26-2024 Chronic Esophageal disorders (4 sources) Gastroesophageal reflux disease; Translations: [Gastro-esophageal reflux disease without esophagitis] 10-05-2022 Chronic Essential hypertension (17 sources) Hypertensive disorder; Translations: [Essential (primary) hypertension] Onset: 03-13-2018 Chronic Fracture of lower limb (8 sources) Fracture of ankle; Translations: [Other fracture of unspecified lower leg, initial encounter for closed fracture] 03-01-2021 Episodic Headache; including migraine (4 sources) Migraine; Translations: [Migraine, unspecified, not intractable, without status migrainosus] 11-04-2022 Chronic Comment on above: IN THE PAST Hemorrhoids (8 sources) Bleeding hemorrhoids; Translations: [Unspecified hemorrhoids] 03-17-2022 Episodic Mood disorders (12 sources) Seasonal affective disorder; Translations: [Other recurrent depressive disorders] Onset: 10-22-2020 10-22-2020 Chronic Nutritional deficiencies (3 sources) Vitamin D deficiency; Translations: [Vitamin D deficiency, unspecified] Onset: 10-22-2020 Chronic Osteoarthritis (11 sources) Primary gonarthrosis, bilateral; Translations: [Bilateral primary osteoarthritis of knee] 05-10-2022 Chronic Other acquired deformities (10 sources) Deformity of lower limb; Translations: [Unspecified acquired deformity of unspecified thigh] Onset: 03-30-2021 03-30-2021 Episodic Other and ill-defined heart disease (7 sources) Dissection of coronary artery; 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] 03-06-2022 Chronic Other and ill-defined heart disease (2 sources) Coronary artery dissection; 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] Chronic Other and ill-defined heart disease (4 sources) Diastolic dysfunction; Translations: [Other ill-defined heart diseases] 09-26-2024 Chronic Other and ill-defined heart disease (2 sources) Other ill-defined heart diseases; Translations: [Other ill-defined heart diseases] Onset: 09-26-2024 Chronic Other bone disease and musculoskeletal deformities (4 sources) Osteopenia; Translations: [Other specified disorders of bone density and structure, unspecified site] 10-05-2022 Episodic Other connective tissue disease (4 sources) Left achilles tendonitis; Translations: [Achilles tendinitis, left leg] Onset: 10-18-2018 03-30-2021 Episodic Other connective tissue disease (10 sources) Calcaneal spur; Translations: [Calcaneal spur, unspecified [...] 10-22-2020 10-22-2020 Chronic Other non-traumatic joint disorders (6 sources) Pain in right knee; Translations: [Pain [...] Onset: 10-22-2020 10-22-2020 Chronic Residual codes; unclassified (3 sources) History of surgical procedure on vein; Translations: [Other specified postprocedural states] 01-03-2023 Episodic Comment on above: 11/11/22 Residual codes; unclassified (2 sources) Other specified postprocedural states; Translations: [Other postprocedural status] 12-02-2022 Episodic Spondylosis; intervertebral disc disorders; other back problems (4 sources) Sciatica; Translations: [Sciatica, unspecified side] 10-05-2022 [...] Translations: [Hypokalemia] Onset: 02-05-2021 02-05-2021 Episodic Other female genital disorders (2 sources) Mass of left ovary; Translations: [Other noninflammatory disorders of ovary, fallopian tube and broad ligament] Onset: 02-02-2018 03-24-2018 Episodic Other gastrointestinal disorders (3 sources) History of sleeve gastrectomy; Translations: [Bariatric surgery status] Onset: 10-22-2020 10-22-2020 Episodic Results Test Name Value Interpretation Reference Range Facility Anion gap in Serum or Plasma Ordered By: Layton Petty on 09-26-2024 Anion gap [Moles/Vol] 12 mmol/L 09-06 [facility] BUN/creatinine ratioOrdered By: Layton Petty on 09-26-2024 Urea nitrogen/Creatinine [Mass ratio] 16.0 mg/mg 02-11 [facility] Bilirubin, totalOrdered By: Layton Petty on 09-26-2024 Bilirubin [Mass/Vol] 1.01 mg/dL 0.00-1.30 [facility] Calculated very low density lipoprotein (VLDL) cholesterol measurementOrdered By: Layton Petty on 09-26-2024 Calculated very low density lipoprotein (VLDL) cholesterol measurement 21 mg/dL [facility] Carbon dioxide, total [Moles /volume] in Central venous bloodOrdered By: Layton Petty on 09-26-2024 CO2 [Moles/Vol] 25.9 mmol/L 21.0-32.0 [facility] Cardiology Visit Reporton Cardiology Visit Report [facility] [address] [place] [address]. [address] [place] [address] OFFICE VISIT Date of Service: 09/26/24 MR#: [id number] Acct: [id number] Name: CHRISTINA JADE Rep #: [id number] : 1960 Provider: Dr. Layton Petty MD Age/Sex: 64/F Location: [facility] Status: Signed HPI HPI History of Present Illness Details: This lady with history of CAD involving the right coronary artery and disease of the distal LAD, hypertension and dyslipidemia is here for follow-up visit. Denies any chest pains or shortness of breath. No palpitations. No orthopnea or PND. No ankle edema. Patient stopped taking atorvastatin as according to her she just did not feel right on it. No history of myalgias or aches or pains. She is also taking her carvedilol once daily only and not taking it twice daily as prescribed. 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: No Accompanied by: Granddaughter Is patient in pain?: No Allergies benzoyl peroxide Allergy (Verified 09/26/24 09:53) Rash eprosartan (From [place]) Allergy (Verified 09/26/24 09:53) Other Penicillins Allergy (Verified 09/26/24 09:53) Rash sertraline (From Zoloft) Allergy (Verified 09/26/24 09:53) anxiety Medications ???Medication ???Instructions ???Recorded ???Confirmed ???Type aspirin 81 mg tablet,delayed 81 mg PO BREAKFAST #90 tabs 09/26/24 Rx release hydrochlorothiazide 25 mg tablet 25 mg PO DAILY blood pressure #90 01/31/23 09/26/24 Rx tabs amlodipine 5 mg tablet 5 mg PO DAILY #90 tabs 08/23/24 Rx ascorbate calcium (vitamin C) PO DAILY 09/26/24 09/26/24 History [Vitamin C (ascorbate calcium)] berberine-herbal comb no.18 PO DAILY 09/26/24 09/26/24 History carvedilol 6.25 mg tablet 6.25 mg PO ONCE 09/26/24 History coenzyme q10 and beet PO DAILY 09/26/24 History escitalopram oxalate 10 mg tablet 10 mg PO QDAY 09/26/24 09/26/24 H istory magnesium glycinate mg PO DAILY 09/26/24 09/26/24 Hist ory turmeric-turmeric ext-pepper PO DAILY 09/26/24 09/26/24 History [Turmeric with BioPerine] Ejection fraction %: 55 Have you fallen in the past year?: No PFSH Medical History Achilles tendon injury Arthritis Cancer Cardiology follow-up encounter CPAP (continuous positive airway pressure) dependence Depression Fatty liver GERD (gastroesophageal reflux disease) History of echocardiogram History of Holter monitoring History of pain when walking Hx of hemorrhoids Hypertension Migraines Non-smoker Osteopenia Sciatica Seasonal affective disorder Spontaneous dissection of coronary artery STEMI (ST elevation myocardial infarction) Wears glasses Surgical History H/O gastric sleeve History of cardiac catheterization History of hysterectomy for cancer Hx of Achilles tendon repair Hx of colonoscopy Status post hemorrhoidectomy Family History Father Liver mass Heart disease Atrial fibrillation Mother DVT (deep venous thrombosis) Uncle Myocardial infarction Social History Smoking Status: Never smoker alcohol intake: current alcohol intake frequency: holidays/special occasions only substance use type: does not use caffeine: Yes Type: coffee Number of servings: 2 ROS Const Const: Negative for fatigue, weakness, headache(s) or weight gain ENT ENT: Negative for headache(s), dizziness, Nosebleed/epistaxis or balance problems Cardio Chest Pain: No Palpitations: No Edema: None Muscle aches with walking: None Resp Respiratory: Negative for SOB with activity, SOB at rest or SOB orthopnea SOB lying down GI GI: Negative nausea, vomiting or heartburn Musc Musc: Negative for muscle aches/ myalgia, muscle weakness, joint pain or balance problems Neuro Neuro: Negative for dizziness, lightheadedness, near syncope, syncope, headache(s) or weakness Endo Endo: Negative for fatigue Cardiology Exam Const Appearance: comfortable and no acute distress Nutritional Appearance: well nourished Neck Neck: no JVD Carotids: Negative bruit Chest Auscultation: Bilateral: Clear to Auscultation Cardio Rate: regular rate Rhythm: regular rhythm Heart sounds: S1 normal and S2 normal Neuro General: patient alert, patient awake and patient oriented x3 Extremities Lower Extremity Edema: None: Bilateral Supplemental Info Sup (more content not included)... Normal [facility] Chloride assayOrdered By: Jon Petty on 09-26-2024 Chloride [Moles/Vol] 102 mmol/L 98-108 [facility] Comprehensive Metabolic Prof ilon 09-26-2024 Albumin [Mass/Vol] 4.3 g/dL Normal 3.4-4.8 [facility] Comment on above: Performed By: #### L 500.4100, L500.4050 #### [facility] [address] [place], [address] Albumin/Globulin [Mass ratio] 1.3 {ratio} Normal 0.9-2.4 [facility] Comment on above: Performed By: #### L 500.4100, L500.4050 #### [facility] [address] [place], [address] ALK PHOS 91 U/L Normal 35-104 [facility] Comment on above: Performed By: #### L 500.4100, L500.4050 #### [facility] [address] [place], [address] ALT [Catalytic activity/Vol] 20 U/L Normal <=34 [facility] Comment on above: Performed By: #### L 500.4100, L500.4050 #### [facility] [address] [place], [address] AST [Catalytic activity/Vol] 34 U/L High <=31 [facility] Comment on above: Result Comment: Hemo lysis present, Results??could be affected. ?? Performed By: #### L 500.4100, L500.4050 #### [facility] [address] [place], [address] Bilirubin [Mass/Vol] 1.01 mg/dL Normal 0.00-1.30 [facility] Comment on above: Performed By: #### L 500.4100, [id number] #### [facility] [address] [place], [address] BUN/CRE 16.0 RATIO Normal 10-20 [facility] Comment on above: Performed By: #### L 500.4100, [id number] #### [facility] [address] [place], [address] Calcium [Mass/Vol] 9.9 mg/dL Normal 7.6-11.0 [facility] Comment on above: Performed By: #### L 500.4100, [id number] #### [facility] [address] [place], [address] Chloride [Moles/Vol] 102 mmol/L Normal 98-108 [facility] Comment on above: Performed By: #### L 500.4100, [id number] #### [facility] [address] [place], [address] CO2 [Moles/Vol] 25.9 mmol/L Normal 21.0-32.0 [facility] Comment on above: Performed By: #### L 500.4100, [id number] #### [facility] [address] [place], [address] Creatinine [Mass/Vol] 0.70 mg/dL Normal 0.70-1.20 [facility] Comment on above: Performed By: #### L 500.4100, [id number] #### [facility] [address] [place], [address] GAP 12 Normal 5-15 [facility] Comment on above: Performed By: #### L 500.4100, [id number] #### [facility] [address] [place], [address] GFR/1.73 sq M.predicted among non-blacks MDRD (S/P/Bld) [Vol rate/Area] 96 mL/min/{1.73_m2} Normal >60 [facility] Comment on above: Result Comment: mL/m in/1.73m2 CKD-EPI Creatinine Equation (2020) Performed By: #### L 500.4100, L500.4050 #### [facility] [address] [place], [address] Globulin (S) [Mass/Vol] 3.2 g/dL Normal 2.2-4.2 [facility] Comment on above: Performed By: #### L 500.4100, [id number] #### [facility] [address] [place], [address] Glucose [Mass/Vol] 94 mg/dL Normal 70-99 [facility] Comment on above: Performed By: #### L 500.4100, [id number] #### [facility] [address] [place], [address] Potassium [Moles/Vol] 4.3 mmol/L Normal 3.3-5.1 [facility] Comment on above: Result Comment: Hemo lysis present, Results??could be affected. ?? Performed By: #### L 500.4100, [id number] #### [facility] [address] [place], [address] Sodium [Moles/Vol] 139 mmol/L Normal 133-145 [facility] Comment on above: Performed By: #### L 500.4100, [id number] #### [facility] [address] [place], [address] T PROT 7.5 g/dL Normal 5.9-8.4 [facility] Comment on above: Performed By: #### L 500.4100, [id number] #### [facility] [address] [place], [address] Urea nitrogen [Mass/Vol] 11 mg/dL Normal 4-19 [facility] Comment on above: Performed By: #### L 500.4100, [id number] #### [facility] [address] [place], [address] Glomerular filtration rate ( GFR) estimation/1.73 sq m using serum, plasma, or whole bOrdered By: Layton Petty on 09-26-2024 GFR/1.73 sq M.predicted among non-blacks MDRD (S/P/Bld) [Vol rate/Area] 96 mL/min/{1.73_m2} >60 [facility] Comment on above: mL/min/1.73m2 CKD-EP I Creatinine Equation (2020) LDL calc ser/plasOrdered By: Layton Petty on 09-26-2024 Cholesterol in LDL [Mass/Vol] 137 mg/dL [facility] Comment on above: Mupifnhqad=896-487 m g/dL & Higher Bxeo=719 mg/dL or greater Laboratory - Chemistry and C hemistry - challengeOrdered By: Layton Petty on 09-26-2024 AST [Catalytic activity/Vol] 34 U/L High <32 [facility] Comment on above: Hemolysis present, R esults could be affected. Lipid Profileon 09-26-2024 CHOL:HDL 2.99 Normal [facility] Comment on above: Performed By: #### L 500.4100, L500.4050 #### [facility] [address] [place], [place], [id number] Cholesterol [Mass/Vol] 237 mg/dL High <=200 [facility] Comment on above: Result Comment: Chol esterol level, Desirable <200 mg/dL Borderline high cholesterol 200-239 mg/dL High cholesterol >=240 mg/dL Recommendations of the NCEP Adult Treatment Panel for the following risk-cutoff thresholds for the [place] population. Performed By: #### L 500.4100, L500.4050 #### [facility] [address] [place], [place], [id number] [phone] Cholesterol in HDL [Mass/Vol] 79 mg/dL Normal [facility] Comment on above: Result Comment: [place] onal Cholesterol Education Program (NCEP) guidelines: <40 mg/dL: Low HDL-cholesterol (major risk factor for CHD) >= 60 mg/dL: High HDL-cholesterol (negative risk factor for CHD) HDL-cholesterol is affected by a number of factors, e.g. smoking, exercise, hormones, sex and age. Performed By: #### L 500.4100, L500.4050 #### [facility] [address] [place], [address] Cholesterol in LDL [Mass/Vol] 137 mg/dL Normal [facility] Comment on above: Result Comment: Bord nspptg=485-353 mg/dL Higher Iwxa=627 mg/dL or greater Performed By: #### L 500.4100, L500.4050 #### [facility] [address] [place], [address] Cholesterol in VLDL [Mass/Vol] 21 mg/dL Normal 5-40 [facility] Comment on above: Performed By: #### L 500.4100, L500.4050 #### [facility] [address] [place], [address] Triglyceride [Mass/Vol] 105 mg/dL Normal [facility] Comment on above: Result Comment: The drugs N-Acetylcysteine and Metamizole may falsely depress this assay. Normal range: <150 mg/dL Borderline High: 150-199 mg/dL High: 200-499 mg/dL Very High: >500 mg/dL Performed By: #### L 500.4100, L500.4050 #### [facility] [address] [place], [address] Potassium measurement (mass/ volume)Ordered By: Layton Petty on 09-26-2024 Potassium (Unsp spec) [Mass/Vol] 4.3 mmol/L 3.3-5.1 [facility] Comment on above: Hemolysis present, R esults could be affected. Screening total cholesterol/ high density lipoprotein (HDL) cholesterol ratioOrdered By: Layton Petty on 09-26-2024 Cholesterol.total/Chol esterol in HDL [Mass ratio] 2.99 {ratio} [facility] Serum creatinine measurement (mass/volume)Ordered By: Layton Petty on 09-26-2024 Creatinine [Mass/Vol] 0.70 mg/dL 0.70-1.20 [facility] Serum globulin measurementOr dered By: Layton Petty on 09-26-2024 Globulin (S) [Mass/Vol] 3.2 g/dL 2.2-4.2 [facility] Serum glucose measurement (m ass/volume)Ordered By: Layton Petty on 09-26-2024 Glucose [Mass/Vol] 94 mg/dL 70-99 [facility] Serum or plasma alanine santos otransferase (ALT) measurementOrdered By: Layton Petty on 09-26-2024 ALT [Catalytic activity/Vol] 20 U/L <35 [facility] Serum or plasma albumin meryl urement (mass/volume)Ordered By: Layton Petty on 09-26-2024 Albumin [Mass/Vol] 4.3 g/dL 3.4-4.8 [facility] Serum or plasma albumin/glob ulin mass ratioOrdered By: Layton Petty on 09-26-2024 Albumin/Globulin [Mass ratio] 1.3 {ratio} 0.9-2.4 [facility] Serum or plasma alkaline lexii sphatase measurementOrdered By: Layton Petty on 09-26-2024 ALP [Catalytic activity/Vol] 91 U/L 35-104 [facility] Serum or plasma calcium meryl urement (mass/volume)Ordered By: Layton Petty on 09-26-2024 Calcium [Mass/Vol] 9.9 mg/dL 7.6-11.0 [facility] Serum or plasma cholesterol in HDL measurement (mass/volume)Ordered By: Layton Petty on 09-26-2024 Cholesterol in HDL [Mass/Vol] 79 mg/dL >40 [facility] Comment on above: National Cholesterol Education Program (NCEP) guidelines:<40 mg/dL: Low HDL-cholesterol (major risk factor for CHD)>= 60 mg/dL: High HDL-cholesterol (negative risk factor for CHD)HDL-cholesterol is affected by a number of factors, e.g. smoking, exercise, hormones, sex and age. Serum or plasma cholesterol measurement (mass/volume)Ordered By: Layton Petty on 09-26-2024 Cholesterol [Mass/Vol] 237 mg/dL High <201 [facility] Comment on above: Cholesterol level, D esirable <200 mg/dLBorderline high cholesterol 200-239 mg/dLHigh cholesterol >=240 mg/dLRecommendations of the NCEP Adult Treatment Panel for the following risk-cutoff thresholds for the [place] population. Serum or plasma urea nitroge n measurement (mass/volume)Ordered By: Layton Petty on 09-26-2024 Urea nitrogen [Mass/Vol] 11 mg/dL 4-19 [facility] Sodium levelOrdered By: Saji Petty on 09-26-2024 Sodium [Moles/Vol] 139 mmol/L 133-145 [facility] Total proteinOrdered By: Zhen Petty on 09-26-2024 Protein [Mass/Vol] 7.5 g/dL 5.9-8.4 [facility] Triglycerides measurementOrd ered By: Layton Petty on 09-26-2024 Triglyceride [Mass/Vol] 105 mg/dL <199 [facility] Comment on above: The drugs N-Acetylcy steine and Metamizole may falsely depress this assay. Normal range: <150 mg/dLBorderline High: 150-199 mg/dLHigh: 200-499 mg/dLVery High: >500 mg/dL Cardiology Visit Reporton Cardiology Visit Report [facility] [address] [place], [place] [address] OFFICE VISIT Date of Service: 01/25/24 MR#: [id number] Acct: [id number] Name: CHRISTINA JADE Rep #: [id number] : 1960 Provider: ESTER keith Age/Sex: 63/F Location: [facility] [place] Status: Signed HPI [facility] History of Present Illness Details: Christina Jade is a 63 year old female who presents to the office today for a cardiovascular follow up visit. 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 Patient had presented to [facility] in 2021 with chest pain. EKG demonstrated a STEMI. She was urgently taken to the [facility] and found to have a spontaneous coronary [...] 97 Intake Visit Reasons: 4 M FU Web Production Assistant Required: No Is patient in pain?: No [...] dizziness, lighth (more content not included)... Normal [facility] Absolute lymphocyte countOrd ered By: Nikki Arias on 03-09-2023 Lymphocytes Auto (Unsp spec) [#/Vol] 1.35 10*3/uL 0.83-4.51 [facility] Basophil percentageOrdered B y: Nikki Arias on 03-09-2023 Basophils/100 WBC (Bld) 0.9 % 0-1 [facility] Bilirubin [Mass/Vol] 1.10 mg/dL 0.20-1.00 [facility] Comment on above: For patients on eltr ombopag therapy, use of Dimension [place] TBIL is not recommended. Chloride [Moles/Vol] 103 mmol/L 98-107 [facility] Eosinophils/100 WBC (Bld) 1.5 % 0-5 [facility] Glucose [Mass/Vol] 104 mg/dL 74-106 [facility] Comment on above: Fasting Glucose resu lt from 100 to 125 mg/dL suggests IMPAIRED HOMEOSTASIS per A.D.A. criteria. Neutrophils (Bld) [#/Vol] 2.8 10*3/uL 2.0-7.7 [facility] Neutrophils/100 WBC (Bld) 59.6 % 47-70 [facility] Potassium [Moles/Vol] 3.7 mmol/L 3.5-5.1 [facility] Protein [Mass/Vol] 7.4 g/dL 6.4-8.2 [facility] Sodium [Moles/Vol] 140 mmol/L 136-145 [facility] WBC (Bld) [#/Vol] 4.7 10*3/uL 4.4-11.0 [facility] Blood erythrocytes count (nu mber/volume)Ordered By: Nikki Arias on 03-09-2023 RBC (Bld) [#/Vol] 4.68 10*6/uL 4.2-5.4 [facility] Blood hemoglobin measurement (mass/volume)Ordered By: Nikki Arias on 03-09-2023 Hemoglobin (Bld) [Mass/Vol] 12.6 g/dL 12.0-15.0 [facility] Blood lymphocytes/100 leukoc ytesOrdered By: Nikki Arias on 03-09-2023 Lymphocytes/100 WBC (Bld) 29.0 % 19-41 [facility] Blood monocytes/100 leukocyt esOrdered By: Nikki Arias on 03-09-2023 Monocytes/100 WBC (Bld) 8.8 % 0-10 [facility] Blood platelet mean volumeOr dered By: Nikki Arias on 03-09-2023 Platelet mean volume (Bld) [Entitic vol] 9.8 fL 6.2-12.0 [facility] Determination of erythrocyte mean corpuscular volume (MCV)Ordered By: Nikki Arias on 03-09-2023 MCV (RBC) [Entitic vol] 82.1 fL 81-99 [facility] Hematocrit Auto (Bld) [Volum e fraction]Ordered By: Nikkivaleria Arias on 03-09-2023 Hematocrit (Bld) [Volume fraction] 38.4 % 37-47 [facility] - Chemistry and C hemistry - challengeOrdered By: Randolph Healthgar on 03-09-2023 ALP [Catalytic activity/Vol] 89 U/L 45-117 [facility] ALT [Catalytic activity/Vol] 18 U/L 13-56 [facility] CO2 [Moles/Vol] 30.0 mmol/L 21.0-32.0 [facility] Globulin (S) [Mass/Vol] 3.6 g/dL 2.2-4.2 [facility] Urea nitrogen/Creatinine [Mass ratio] 18.0 mg/mg 10-20 [facility] - Hematology and Cell countsOrdered By: Randolph Healthgar on 03-09-2023 Erythrocyte distribution width (RBC) [Entitic vol] 42.8 fL 35.1-43.9 [facility] Erythrocyte distribution width (RBC) [Ratio] 14.5 % 11.6-14.6 [facility] Immature granulocytes/100 WBC (Bld) 0.200 % 0.0-0.9 [facility] Comment on above: IG% - Immature Granu locytes (promyelocytes, myelocytes and metamyelocytes) > 1% indicates that a LEFT SHIFT is Present. MCH (RBC) [Entitic mass] 26.9 pg 27.0-32.0 [facility] Nucleated RBC/100 WBC (Bld) [Ratio] 0 % 0-5 [facility] MCHC Auto (RBC) [Mass/Vol]Or dered By: Nikki Arias on 03-09-2023 MCHC (RBC) [Mass/Vol] 32.8 g/dL 32-36 [facility] No Panel InformationOrdered By: Nikkivaleria Arias on 03-09-2023 Estimated GFR (MDRD) Amer 115 mL/min >60 [facility] Comment on above: GFR Calc Estimated GFR (MDRD) Non-Af Amer 95 mL/min >60 [facility] Comment on above: Non- GFR Calc Platelets bldOrdered By: Claritza shaw Edgar on 03-09-2023 Platelets (Bld) [#/Vol] 335 10*3/uL 150-450 [facility] Serum or plasma albumin meryl urement (mass/volume)Ordered By: Nikki Arias on 03-09-2023 Albumin [Mass/Vol] 3.8 g/dL 3.2-5.0 [facility] Serum or plasma albumin/glob ulin mass ratioOrdered By: Nikkivaleria Arias on 03-09-2023 Albumin/Globulin [Mass ratio] 1.1 {ratio} 0.9-2.4 [facility] Serum or plasma calcium meryl urement (mass/volume)Ordered By: Nikki Arias on 03-09-2023 Calcium [Mass/Vol] 9.2 mg/dL 8.5-10.1 [facility] Serum or plasma creatinine m easurement (mass/volume)Ordered By: Nikki Uriartegar on 03-09-2023 Creatinine [Mass/Vol] 0.67 mg/dL 0.55-1.02 [facility] Comment on above: The validity of the calculated GFR & GFRAA in patients over 70 years has not been determined. Clinical correlation is essential. Serum or plasma urea nitroge n measurement (mass/volume)Ordered By: Nikkivaleria Arias on 03-09-2023 Urea nitrogen [Mass/Vol] 12 mg/dL -18 [facility] Thin prep Papanicolaou smear with manual screeningOrdered By: Nikkivaleria Arias on 03-09-2023 Thin prep Papanicolaou smear with manual screening 16 U/L 15-37 [facility] Thin prep Papanicolaou smear with manual screening 7 -15 [facility] Basophil percentageOrdered B y: Lul Borrero on 11-08-2022 Chloride [Moles/Vol] 105 mmol/L 98-107 [facility] Glucose [Mass/Vol] 121 mg/dL 74-106 [facility] Comment on above: Fasting Glucose resu lt from 100 to 125 mg/dL suggests IMPAIRED HOMEOSTASIS per A.D.A. criteria. Potassium [Moles/Vol] 4.5 mmol/L 3.5-5.1 [facility] Sodium [Moles/Vol] 139 mmol/L 136-145 [facility] WBC (Bld) [#/Vol] 4.9 10*3/uL 4.4-11.0 [facility] Blood erythrocytes count (nu mber/volume)Ordered By: Lul Borrero on 11-08-2022 RBC (Bld) [#/Vol] 4.63 10*6/uL 4.2-5.4 [facility] Blood hemoglobin measurement (mass/volume)Ordered By: Lul Borrero on 11-08-2022 Hemoglobin (Bld) [Mass/Vol] 12.1 g/dL 12.0-15.0 [facility] Blood platelet mean volumeOr dered By: Lul Borrero on 11-08-2022 Platelet mean volume (Bld) [Entitic vol] 9.9 fL 6.2-12.0 [facility] Determination of erythrocyte mean corpuscular volume (MCV)Ordered By: Lul Borrero on 11-08-2022 MCV (RBC) [Entitic vol] 84.2 fL 81-99 [facility] Hematocrit Auto (Bld) [Volum e fraction]Ordered By: Lul Borrero on 11-08-2022 Hematocrit (Bld) [Volume fraction] 39.0 % 37-47 [facility] - Chemistry and C hemistry - challengeOrdered By: Lul Borrero on 11-08-2022 CO2 [Moles/Vol] 33.0 mmol/L 21.0-32.0 [facility] Urea nitrogen/Creatinine [Mass ratio] 16.5 mg/mg 10-20 [facility] - Hematology and Cell countsOrdered By: Lul Borrero on 11-08-2022 Erythrocyte distribution width (RBC) [Entitic vol] 44.0 fL 35.1-43.9 [facility] Erythrocyte distribution width (RBC) [Ratio] 14.4 % 11.6-14.6 [facility] MCH (RBC) [Entitic mass] 26.1 pg 27[facility]0-[facility].0 [facility] [Mass/Vol]Or dered By: Lul Borrero on 11-08-2022 MCHC (RBC) [Mass/Vol] 31.0 g/dL 32-36 [facility] No Panel InformationOrdered By: Lul Borrero on 11-08-2022 Estimated GFR (MDRD) Amer 95 mL/min >60 [facility] Comment on above: GFR Calc Estimated GFR (MDRD) Non-Af Amer 79 mL/min >60 [facility] Comment on above: Non- GFR Calc Platelets bldOrdered By: Almas Borrero on 11-08-2022 Platelets (Bld) [#/Vol] 338 10*3/uL 150-450 [facility] Serum or plasma calcium meryl urement (mass/volume)Ordered By: Lul Borrero on 11-08-2022 Calcium [Mass/Vol] 9.5 mg/dL 8.5-10.1 [facility] Serum or plasma creatinine m easurement (mass/volume)Ordered By: Lul Borrero on 11-08-2022 Creatinine [Mass/Vol] 0.79 mg/dL 0.55-1.02 [facility] Comment on above: The validity of the calculated GFR & GFRAA in patients over 70 years has not been determined. Clinical correlation is essential. Serum or plasma urea nitroge n measurement (mass/volume)Ordered By: Lul Borrero on 11-08-2022 Urea nitrogen [Mass/Vol] 13 mg/dL 7-18 [facility] Thin prep Papanicolaou smear with manual screeningOrdered By: Lul Borrero on 11-08-2022 Thin prep Papanicolaou smear with manual screening 1 5-15 [facility] Absolute lymphocyte countOrd ered By: Jeffry Nichole on 09-06-2022 Lymphocytes Auto (Unsp spec) [#/Vol] 1.05 10*3/uL 0.83-4.51 [facility] Basophil percentageOrdered B y: Jeffry Nichole on 09-06-2022 Basophils/100 WBC (Bld) 0.8 % 0-1 [facility] Bilirubin [Mass/Vol] 0.90 mg/dL 0.20-1.00 [facility] Comment on above: For patients on eltr ombopag therapy, use of Dimension [place] TBIL is not recommended. Chloride [Moles/Vol] 106 mmol/L 98-107 [facility] Cholesterol [Mass/Vol] 233 mg/dL <200 [facility] Comment on above: <200 mg/dL Desirable 200-240 mg/dL Borderline >240 mg/dL High Risk Eosinophils/100 WBC (Bld) 2.6 % 0-5 [facility] Glucose [Mass/Vol] 105 mg/dL 74-106 [facility] Comment on above: Fasting Glucose resu lt from 100 to 125 mg/dL suggests IMPAIRED HOMEOSTASIS per A.D.A. criteria. Neutrophils (Bld) [#/Vol] 2.3 10*3/uL 2.0-7.7 [facility] Neutrophils/100 WBC (Bld) 60.9 % 47-70 [facility] Potassium [Moles/Vol] 3.8 mmol/L 3.5-5.1 [facility] Protein [Mass/Vol] 7.5 g/dL 6.4-8.2 [facility] Sodium [Moles/Vol] 141 mmol/L 136-145 [facility] Triglyceride [Mass/Vol] 100 mg/dL <199 [facility] Comment on above: The drugs N-Acetylcy steine and Metamizole may falsely depress this assay.Serum Triglycerides Reference Interval Normal <150 mg/dL Borderline high 150 - 199 mg/dL High 200 - 499 mg/dL Very High > or = 500 mg/dL WBC (Bld) [#/Vol] 3.8 10*3/uL 4.4-11.0 [facility] Blood erythrocytes count (nu mber/volume)Ordered By: Jeffry Nichole on 09-06-2022 RBC (Bld) [#/Vol] 4.62 10*6/uL 4.2-5.4 [facility] Blood hemoglobin measurement (mass/volume)Ordered By: Jeffry Nichole on 09-06-2022 Hemoglobin (Bld) [Mass/Vol] 12.3 g/dL 12.0-15.0 [facility] Blood lymphocytes/100 leukoc ytesOrdered By: Jeffry Nichole on 05-15-2023 Lymphocytes/100 WBC (Bld) 27.3 % 19-41 [facility] Blood monocytes/100 leukocyt esOrdered By: Jeffry Nichole on 09-06-2022 Monocytes/100 WBC (Bld) 8.1 % 0-10 [facility] Blood platelet mean volumeOr dered By: Jeffry Nichole on 09-06-2022 Platelet mean volume (Bld) [Entitic vol] 10.0 fL 6.2-12.0 [facility] Determination of erythrocyte mean corpuscular volume (MCV)Ordered By: Jeffry Nichole on 09-06-2022 MCV (RBC) [Entitic vol] 83.1 fL 81-99 [facility] Hematocrit Auto (Bld) [Volum e fraction]Ordered By: Jeffry Nichole on 09-06-2022 Hematocrit (Bld) [Volume fraction] 38.4 % 37-47 [facility] Iron measurement (mass/mass) Ordered By: Jeffry Nichole on 09-06-2022 Iron (Unsp spec) [Mass/Mass] 77 ug/dL 50-170 [facility] - Chemistry and C hemistry - challengeOrdered By: Jeffry Nichole on 09-06-2022 ALP [Catalytic activity/Vol] 71 U/L 45-117 [facility] ALT [Catalytic activity/Vol] 21 U/L 13-56 [facility] CO2 [Moles/Vol] 30.0 mmol/L 21.0-32.0 [facility] Globulin (S) [Mass/Vol] 3.8 g/dL 2.2-4.2 [facility] Urea nitrogen/Creatinine [Mass ratio] 18.5 mg/mg 10-20 [facility] - Hematology and Cell countsOrdered By: Jeffry Nichole on 09-06-2022 Erythrocyte distribution width (RBC) [Entitic vol] 45.3 fL 35.1-43.9 [facility] Erythrocyte distribution width (RBC) [Ratio] 15.0 % 11.6-14.6 [facility] Immature granulocytes/100 WBC (Bld) 0.300 % 0.0-0.9 [facility] Comment on above: IG% - Immature Granu locytes (promyelocytes, myelocytes and metamyelocytes) > 1% indicates that a LEFT SHIFT is Present. MCH (RBC) [Entitic mass] 26.6 pg 27.0-32.0 [facility] Nucleated RBC/100 WBC (Bld) [Ratio] 0 % 0-5 [facility] MCHC Auto (RBC) [Mass/Vol]Or dered By: Jeffry Nichole on 09-06-2022 MCHC (RBC) [Mass/Vol] 32.0 g/dL 32-36 [facility] No Panel InformationOrdered By: Jeffry Nichole on 09-06-2022 Estimated GFR (MDRD) Amer 119 mL/min >60 [facility] Comment on above: GFR Calc Estimated GFR (MDRD) Non-Af Amer 98 mL/min >60 [facility] Comment on above: Non- GFR Calc Vitamin D 25-Hydroxy 42.0 ng/mL [facility] Comment on above: Vitamin D 25(OH) Sta tus Range Deficiency <20 ng/mL (50nmol/L) Insufficiency 20 - 30 ng/mL (50 - 75 nmol/L) Sufficiency 30 - 100 ng/mL (75 - 250 nmol/L) Toxicity >100 ng/mL (>250 nmol/L) Platelets bldOrdered By: Tia Nichole on 09-06-2022 Platelets (Bld) [#/Vol] 326 10*3/uL 150-450 [facility] Serum or plasma albumin meryl urement (mass/volume)Ordered By: Jeffry Nichole on 09-06-2022 Albumin [Mass/Vol] 3.7 g/dL 3.2-5.0 [facility] Serum or plasma albumin/glob ulin mass ratioOrdered By: Jeffry Nichole on 09-06-2022 Albumin/Globulin [Mass ratio] 1.0 {ratio} 0.9-2.4 [facility] Serum or plasma calcium meryl urement (mass/volume)Ordered By: Jeffry Nichole on 09-06-2022 Calcium [Mass/Vol] 9.5 mg/dL 8.5-10.1 [facility] Serum or plasma cholesterol in HDL measurement (mass/volume)Ordered By: Jeffry Nichole on 09-06-2022 Cholesterol in HDL [Mass/Vol] 74 mg/dL >40 [facility] Comment on above: The drugs N-Acetylcy steine and Metamizole may falsely depress this assay. Reference Range HDL <40 mg/dL Low HDL Cholesterol HDL >or= 60 mg/dL High HDL Cholesterol Serum or plasma cholesterol in VLDL measurement (mass/volume)Ordered By: Jeffry Nichole on 09-06-2022 Cholesterol in VLDL [Mass/Vol] 20 mg/dL 5-40 [facility] Serum or plasma creatinine m easurement (mass/volume)Ordered By: Jeffry Nichole on 09-06-2022 Creatinine [Mass/Vol] 0.65 mg/dL 0.55-1.02 [facility] Comment on above: The validity of the calculated GFR & GFRAA in patients over 70 years has not been determined. Clinical correlation is essential. Serum or plasma ferritin mark surement (mass/volume)Ordered By: Jeffry Nichole on 09-06-2022 Ferritin [Mass/Vol] 11 ng/mL 8-252 [facility] Serum or plasma low density lipoprotein (LDL) cholesterol measurement (mass/volume)Ordered By: Jeffry Nichole on 09-06-2022 Cholesterol in LDL [Mass/Vol] 139 mg/dL 0-130 [facility] Serum or plasma urea nitroge n measurement (mass/volume)Ordered By: Jeffry Nichole on 09-06-2022 Urea nitrogen [Mass/Vol] 12 mg/dL 7-18 [facility] Thin prep Papanicolaou smear with manual screeningOrdered By: Jeffry Nichole on 09-06-2022 Thin prep Papanicolaou smear with manual screening 16 U/L 15-37 [facility] Thin prep Papanicolaou smear with manual screening 5 5-15 [facility] Whole blood hemoglobin A1c/t otal hemoglobin ratio (mass fraction)Ordered By: Jeffry Nichole on 09-06-2022 HbA1c (Bld) [Mass fraction] 5.4 % 3.8-5.6 [facility] Comment on above: Normal < 5.7 % Predi abetic 5.7 - 6.4 % Diabetic >or= 6.5 % Please note range changes. Basophil percentageon 2021 Basophil percentage 3.1 mg/dL 2.5-4.9 [facility] Work Phone: Bilirubin [Mass/Vol] 1.10 mg/dL 0.20-1.00 [facility] Work Phone: Comment on above: For patients on eltr ombopag therapy, use of Dimension [place] TBIL is not recommended. Chloride [Moles/Vol] 107 mmol/L 98-107 [facility] Work Phone: Glucose [Mass/Vol] 95 mg/dL 74-106 [facility] Work Phone: [phone] Potassium [Moles/Vol] 3.6 mmol/L 3.5-5.1 [facility] Work Phone: [phone] Protein [Mass/Vol] 6.6 g/dL 6.4-8.2 [facility] Work Phone: [phone] Sodium [Moles/Vol] 141 mmol/L 136-145 [facility] Work Phone: [phone] WBC (Bld) [#/Vol] 7.1 10*3/uL 4.4-11.0 [facility] Work Phone: [phone] Blood erythrocytes count (nu mber/volume)on 02-26-2022 RBC (Bld) [#/Vol] 4.06 10*6/uL 4.2-5.4 [facility] Work Phone: [phone] Blood hemoglobin measurement (mass/volume)on 02-26-2022 Hemoglobin (Bld) [Mass/Vol] 11.5 g/dL 12.0-15.0 [facility] Work Phone: [phone] Blood platelet mean volumeon 02-26-2022 Platelet mean volume (Bld) [Entitic vol] 9.8 fL 6.2-12.0 [facility] Work Phone: [phone] Determination of erythrocyte mean corpuscular volume (MCV)on 02-26-2022 MCV (RBC) [Entitic vol] 84.0 fL 81-99 [facility] Work Phone: Direct bilirubinon 2 Bilirubin.direct [Mass/Vol] 0.25 mg/dL 0.00-0.30 [facility] Work Phone: [phone] Hematocrit Auto (Bld) [Volum e fraction]on 02-26-2022 Hematocrit (Bld) [Volume fraction] 34.1 % 37-47 [facility] Work Phone: [phone] Laboratory - Chemistry and C hemistry - challengeon 02-26-2022 ALP [Catalytic activity/Vol] 65 U/L 45-117 [facility] Work Phone: [phone] ALT [Catalytic activity/Vol] 16 U/L 13-56 [facility] Work Phone: [phone] CO2 [Moles/Vol] 28.0 mmol/L 21.0-32.0 [facility] Work Phone: [phone] Globulin (S) [Mass/Vol] 3.5 g/dL 2.2-4.2 [facility] Work Phone: [phone] Magnesium [Mass/Vol] 2.2 mg/dL 1.6-2.6 [facility] Work Phone: [phone] Urea nitrogen/Creatinine [Mass ratio] 13.1 mg/mg 10-20 [facility] Work Phone: [phone] Laboratory - Hematology and Cell countson 02-26-2022 Erythrocyte distribution width (RBC) [Entitic vol] 44.8 fL 35.1-43.9 [facility] Work Phone: [phone] Erythrocyte distribution width (RBC) [Ratio] 14.6 % 11.6-14.6 [facility] Work Phone: [phone] MCH (RBC) [Entitic mass] 28.3 pg 27.0-32.0 [facility] Work Phone: [phone] MCHC Auto (RBC) [Mass/Vol]on 02-26-2022 MCHC (RBC) [Mass/Vol] 33.7 g/dL 32-36 [facility] Work Phone: [phone] Panel Informationon 02-26 Estimated Creatinine Clearance Calc 75.63 ml/min [facility] Work Phone: [phone] Estimated GFR (MDRD) Amer 128 mL/min >60 [facility] Work Phone: Comment on above: GFR Calc Estimated GFR (MDRD) Non-Af Amer 106 mL/min >60 [facility] Work Phone: Comment on above: Non- GFR Calc Platelets bldon 02-26-2022 Platelets (Bld) [#/Vol] 221 10*3/uL 150-450 [facility] Work Phone: Serum or plasma albumin meryl urement (mass/volume)on 02-26-2022 Albumin [Mass/Vol] 3.1 g/dL 3.2-5.0 [facility] Work Phone: Serum or plasma calcium meryl urement (mass/volume)on 02-26-2022 Calcium [Mass/Vol] 9.3 mg/dL 8.5-10.1 [facility] Work Phone: Serum or plasma creatinine m easurement (mass/volume)on 02-26-2022 Creatinine [Mass/Vol] 0.61 mg/dL 0.55-1.02 [facility] Work Phone: Comment on above: The validity of the calculated GFR & GFRAA in patients over 70 years has not been determined. Clinical correlation is essential. Serum or plasma urea nitroge n measurement (mass/volume)on 02-26-2022 Urea nitrogen [Mass/Vol] 8 mg/dL 7-18 [facility] Work Phone: Thin prep Papanicolaou smear with manual screeningon 02-26-2022 Thin prep Papanicolaou smear with manual screening 53 U/L 15-37 [facility] Work Phone: Thin prep Papanicolaou smear with manual screening 6 5-15 [facility] Work Phone: Absolute lymphocyte counton 02-25-2022 Lymphocytes Auto (Unsp spec) [#/Vol] 1.49 10*3/uL 0.83-4.51 [facility] Work Phone: Basophil percentageon 2021 Basophils/100 WBC (Bld) 0.5 % 0-1 [facility] Work Phone: Eosinophils/100 WBC (Bld) 1.9 % 0-5 [facility] Work Phone: Neutrophils (Bld) [#/Vol] 5.2 10*3/uL 2.0-7.7 [facility] Work Phone: Neutrophils/100 WBC (Bld) 69.4 % 47-70 [facility] Work Phone: Blood lymphocytes/100 leukoc yteson 02-25-2022 Lymphocytes/100 WBC (Bld) 19.8 % 19-41 [facility] Work Phone: Blood monocytes/100 leukocyt eson 02-25-2022 Monocytes/100 WBC (Bld) 8.1 % 0-10 [facility] Work Phone: Laboratory - Hematology and Cell countson 02-25-2022 Immature granulocytes/100 WBC (Bld) 0.300 % 0.0-0.9 [facility] Work Phone: Comment on above: IG% - Immature Granu locytes (promyelocytes, myelocytes and metamyelocytes) > 1% indicates that a LEFT SHIFT is Present. Nucleated RBC/100 WBC (Bld) [Ratio] 0 % 0-5 [facility] Work Phone: No Panel Informationon 02-25 Troponin I High Sensitivity 01928 pg/mL 3.0-54.0 [facility] Work Phone: Comment on above: Critical Result(s) C alled at: 06:16:07 02/25/2022 by: Tunde Buchanan. Chacho Hurley RN (ICU). Results read back by same. Please Note: New Test Units and Gender Specific Reference Ranges. For more information see Policy Stat Procedure [place] High Sensitivity Troponin (TNIH) and attachments. Absolute lymphocyte counton 02-24-2022 Lymphocytes Auto (Unsp spec) [#/Vol] 2.40 10*3/uL 0.83-4.51 [facility] Work Phone: Basophil percentageon 2021 Basophils/100 WBC (Bld) 0.7 % 0-1 [facility] Work Phone: Chloride [Moles/Vol] 102 mmol/L 98-107 [facility] Work [facility]: Cholesterol [Mass/Vol] 236 mg/dL <200 [facility] Work Phone: Comment on above: <200 mg/dL Desirable 200-240 mg/dL Borderline >240 mg/dL High Risk Eosinophils/100 WBC (Bld) 1.9 % 0-5 [facility] Work Phone: Glucose [Mass/Vol] 104 mg/dL 74-106 [facility] Work Phone: Comment on above: Fasting Glucose resu lt from 100 to 125 mg/dL suggests IMPAIRED HOMEOSTASIS per A.D.A. criteria. Neutrophils (Bld) [#/Vol] 4.8 10*3/uL 2.0-7.7 [facility] Work Phone: Neutrophils/100 WBC (Bld) 59.2 % 47-70 [facility] Work Phone: Potassium [Moles/Vol] 3.6 mmol/L 3.5-5.1 [facility] Work Phone: Sodium [Moles/Vol] 137 mmol/L 136-145 [facility] Work Phone: [phone] Triglyceride [Mass/Vol] 119 mg/dL <199 [facility] Work Phone: Comment on above: The drugs N-Acetylcy steine and Metamizole may falsely depress this assay.Serum Triglycerides Reference Interval Normal <150 mg/dL Borderline high 150 - 199 mg/dL High 200 - 499 mg/dL Very High > or = 500 mg/dL WBC (Bld) [#/Vol] 8.0 10*3/uL 4.4-11.0 [facility] Work Phone: Blood erythrocytes count (nu mber/volume)on 02-24-2022 RBC (Bld) [#/Vol] 4.73 10*6/uL 4.2-5.4 [facility] Work Phone: Blood hemoglobin measurement (mass/volume)on 02-24-2022 Hemoglobin (Bld) [Mass/Vol] 12.9 g/dL 12.0-15.0 [facility] Work Phone: Blood lymphocytes/100 leukoc yteson 02-24-2022 Lymphocytes/100 WBC (Bld) 29.9 % 19-41 [facility] Work Phone: Blood monocytes/100 leukocyt eson 02-24-2022 Monocytes/100 WBC (Bld) 8.1 % 0-10 [facility] Work Phone: Blood platelet mean volumeon 02-24-2022 Platelet mean volume (Bld) [Entitic vol] 9.7 fL 6.2-12.0 [facility] Work Phone: Determination of erythrocyte mean corpuscular volume (MCV)on 02-24-2022 MCV (RBC) [Entitic vol] 85.4 fL 81-99 [facility] Work Phone: Hematocrit Auto (Bld) [Volum e fraction]on 02-24-2022 Hematocrit (Bld) [Volume fraction] 40.4 % 37-47 [facility] Work Phone: INR in Blood by Coagulation assayon 02-24-2022 INR Coag (Bld) [Relative time] 1.1 {INR} [facility] Work Phone: Laboratory - Chemistry and C hemistry - challengeon 02-24-2022 CO2 [Moles/Vol] 28.0 mmol/L 21.0-32.0 [facility] Work Phone: Urea nitrogen/Creatinine [Mass ratio] 16.0 mg/mg 10-20 [facility] Work Phone: Laboratory - Coagulationon 1 04-26-2021 aPTT Coag (Bld) [Time] 26.3 s 24.1-36.2 [facility] Work Phone: PT Coag (PPP) [Time] 13.4 s 11.7-14.9 [facility] Work Phone: [phone] Laboratory - Hematology and Cell countson 02-24-2022 Erythrocyte distribution width (RBC) [Entitic vol] 45.2 fL 35.1-43.9 [facility] Work Phone: [phone] Erythrocyte distribution width (RBC) [Ratio] 14.4 % 11.6-14.6 [facility] Work Phone: [phone] Immature granulocytes/100 WBC (Bld) 0.200 % 0.0-0.9 [facility] Work Phone: [phone] Comment on above: IG% - Immature Granu locytes (promyelocytes, myelocytes and metamyelocytes) > 1% indicates that a LEFT SHIFT is Present. MCH (RBC) [Entitic mass] 27.3 pg 27.0-32.0 [facility] Work Phone: [phone] Nucleated RBC/100 WBC (Bld) [Ratio] 0 % 0-5 [facility] Work Phone: [phone] MCHC Auto (RBC) [Mass/Vol]on 02-24-2022 MCHC (RBC) [Mass/Vol] 31.9 g/dL 32-36 [facility] Work Phone: [phone] Panel Informationon 02-24 D-Dimer Quantitative (PE/DVT) 0.56 FEU/ug/m 0.27-0.49 [facility] Work Phone: [phone] Comment on above: D-Dimer ELEVATED (>0 .49): Additional studies and clinicalassessments are indicated to conclude diagnosis of:Deep Vein Thrombosis (DVT) or Pulmonary Embolism (PE)CRITICAL VALUE VERIFIED. CALLED TO PRIMO GAITAN02/24/22 Arcadio Juan.RESULTS READ BACK BY SAME. Estimated Creatinine Clearance Calc 53.03 ml/min [facility] Work Phone: [phone] Estimated GFR (MDRD) Amer 84 mL/min >60 [facility] Work Phone: [phone] Comment on above: GFR Calc Estimated GFR (MDRD) Non-Af Amer 70 mL/min >60 [facility] Work Phone: Comment on above: Non- GFR Calc Troponin I High Sensitivity 11 pg/mL 3.0-54.0 [facility] Work Phone: Comment on above: Please Note: New Taty t Units and Gender Specific Reference Ranges. For more information see Policy Stat Procedure [place] High Sensitivity Troponin (TNIH) and attachments. Platelets bldon 02-24-2022 Platelets (Bld) [#/Vol] 352 10*3/uL 150-450 [facility] Work Phone: Serum or plasma calcium meryl urement (mass/volume)on 02-24-2022 Calcium [Mass/Vol] 9.3 mg/dL 8.5-10.1 [facility] Work Phone: Serum or plasma cholesterol in HDL measurement (mass/volume)on 02-24-2022 Cholesterol in HDL [Mass/Vol] 82 mg/dL >40 [facility] Work Phone: Comment on above: The drugs N-Acetylcy steine and Metamizole may falsely depress this assay. Reference Range HDL <40 mg/dL Low HDL Cholesterol HDL >or= 60 mg/dL High HDL Cholesterol Serum or plasma cholesterol in VLDL measurement (mass/volume)on 02-24-2022 Cholesterol in VLDL [Mass/Vol] 24 mg/dL 5-40 [facility] Work Phone: Serum or plasma creatinine m easurement (mass/volume)on 02-24-2022 Creatinine [Mass/Vol] 0.87 mg/dL 0.55-1.02 [facility] Work Phone: Comment on above: The validity of the calculated GFR & GFRAA in patients over 70 years has not been determined. Clinical correlation is essential. Serum or plasma low density lipoprotein (LDL) cholesterol measurement (mass/volume)on 02-24-2022 Cholesterol in LDL [Mass/Vol] 130 mg/dL 0-130 [facility] Work Phone: Serum or plasma urea nitroge n measurement (mass/volume)on 02-24-2022 Urea nitrogen [Mass/Vol] 14 mg/dL 7-18 [facility] Work Phone: Thin prep Papanicolaou smear with manual screeningon 02-24-2022 Thin prep Papanicolaou smear with manual screening 7 5-15 [facility] Work Phone: CNOVon 08-03-2021 CNOV Office Visit (AGGENS 4) CHRISTINA JADE ([id number]) 1960 F Date Time Provider Department 08/03/21 2:30 PM BRITNI MCINTYRE During your visit today, we recorded the following information about you: Pulse Respiration Blood pressure Weight 50/minute 14/minute 120/80 91.6 kg Height 1.588 m Britni Mcintyre APRN.FLASH DESIGNER 08/03/2021 3:26 PM Signed We discussed meal [...] visual guide to low carb food: Https://www.dietdoctor. [employer]/ ( visual guide for low carb diet) [...] like a plant based meal replacement called [employer] Nutrition - can mix w froz berries [...] examples of apps to track calories are fitmob, LOSE IT. Some patient have found FOODUCATE to help with decisions around food, however choose apps that best suits you. Nutrition Counseling Practice these: - Eat 3 meals daily?can use approved/recommended protein shake as 1 meal replacement (should be <200 calories, 20-30g protein, <5g added sugar) - Keep a food journal 5-7x/week (consider iMove or [employer] sushma) and demonstrate meeting protein goal (60-90g protein for females, 70-105g protein for males)- Lean meats, fish, low fat dairy - cottage cheese, Moroccan yogurt, light yogurt, cheese, ricotta cheese, nuts, [...] actually doin (more content not included)... [facility] Telephone (AGGENS4) CHRISTINA JADE ([id number]) 1960 F Date Time Provider Department 07/27/21 JIE RENEE AGGENS4 During your visit today, [...] Encounter Status:Closed by RALPH [facility]DA [facility]AGGENS4) CHRISTINA JADE ([id number]) 1960 F Date Time Provider Department 04/07/21 JIE RENEE AGGENS4 During your visit today, we recorded the following information about you: Roxana Mccormack MA 04/07/2021 12:25 PM Signed PA shira Greer submitted and APPROVED Coverage date: [id number] Please contact the patient to let her know. Roxana Mccormack MA April 07, 2021 12:24 PM Allergies As of Date: 04/07/2021 Noted Allergy Reaction TEVETEN (EPROSARTAN MESYLATE) 03/25/2005 Comments: Severe Joint Pain BENZOLE PEROXIDE [Other] 03/22/2005 2 - Rash SERTRALINE 07/06/2002 Comments: anxiety attacks Date Reviewed: 03/30/2021 Reviewed by: Jie Renee MD - Fully Assessed Reason for Visit: Medication Authorization [[id number]] Cmt: WEGOVY Prescriptions as of 04/07/2021 - [...] Encounter Status:Closed by ROXANA MCCORMACK on 04/07/21 [facility] CNPN Telephone (AGGENS4) CHRISTINA JADE ([id number]) 1960 F Date Time Provider Department 04/07/21 JIE RENEE AGGENS4 During your visit today, we recorded the following information about you: Allergies As of Date: 04/07/2021 Noted Allergy Reaction TEVETEN (EPROSARTAN MESYLATE) 03/25/2005 Comments: Severe Joint Pain BENZOLE PEROXIDE [Other] 03/22/2005 2 - Rash SERTRALINE 07/06/2002 Comments: anxiety attacks Date Reviewed: 03/30/2021 Reviewed by: Jie Renee MD - Fully Assessed Reason for Visit: Medication Problem [65] Cmt: PA approved Prescriptions as of 04/07/2021 - Iron [...] Status:Closed by RALPH MIRANDA on 04/07/21 Normal [facility] Basic Metabolic Panlon 04-03 Anion gap [Moles/Vol] 11 mmol/L Normal 9-18 [facility] Calcium [Mass/Vol] 10.0 mg/dL Normal 8.5-10.2 [facility] Chloride [Moles/Vol] 100 mmol/L Normal 97-105 [facility] CO2 [Moles/Vol] 27 mmol/L Normal 22-30 [facility] Creatinine [Mass/Vol] 0.78 mg/dL Normal 0.58-0.96 [facility] eGFR- Amer. >60 Normal [facility] eGFR-All Other Races >60 Normal [facility] Comment on above: Result Comment: eGFR [...] [email or web address]. Glucose [Mass/Vol] 114 mg/dL High 74-99 [facility] Comment on above: Result Comment: The [place] Diabetes Association (ADA) provides guidance for cutoff [...] Standards of Medical Care in Diabetes 2016, [place] Diabetes Association. Diabetes Care. 2016.39(Suppl 1). Potassium [Moles/Vol] 3.4 mmol/L Low 3.7-5.1 [facility] Sodium [Moles/Vol] 138 mmol/L Normal 136-144 [facility] Urea nitrogen [Mass/Vol] 11 mg/dL Normal 7-21 [facility] CNPNon 02-26-2021 CNPN Telephone (AGGENS4) CHRISTINA JADE ([id number]) 1960 F Date Time Provider Department 02/26/21 JIE RENEE4 During your visit today, we [...] Encounter Status:Closed by DANYA MUKHERJEE on 02/27/21 [facility] Lucio 02-05-2021 CNOV Office Visit (ZACHARYENS 4) CHRISTINA JADE ([id number]) 1960 F Date Time Provider Department 02/05/21 11:00 AM JIE RENEE4 During your visit today, we recorded the following information about you: Pulse Blood pressure Weight Height 50/minute 138/86 95.2 kg 1.588 m Jie Renee MD 02/05/2021 12:07 PM Signed Jie Renee MD [address], [address] [facility] - Fourth Floor [place] [id number] In office Christina Jade is a 60 year old female with PMH of sleeve gastrectomy, hiatal hernia, essential hypertension, fatty liver, vitamin D deficiency, seasonal affective disorder here today for a follow up on her weight loss efforts. She is currently taking the prescription weight loss medication Topiramate , off label Date of Surgery: 09/26/2019 Surgeon:Syuapa Yip MD Surgical Procedure: Sleeve gastrectomy Pre-surgical [...] Essential hyp (more content not included)... Normal [facility] CNPLaila 02-05-2021 CNPN Telephone (AGGCTQ7) CHRISTINA JADE ([id number]) 1960 F Date Time Provider Department 02/05/21 [...] [E87.6] Order(s):BASIC METABOLIC PNL [SQBMP] Order #: [id number] FUTURE Prescriptions as of 02/09/2021 - Phentermine [...] Status:Closed by JIE RENEE on 02/09/21 Normal [facility] POTASSIUM BLDon 02-05-2021 Potassium [Moles/Vol] 3.2 mmol/L Low 3.7-5.1 [facility] Comment on above: Order Comment: Speci men Type: BLOOD SPECIMEN Performed By: #### K 1 ####[facility]ORY[facility] [id number] [address] [place] CNPLaila 01-22-2021 CNPN Telephone (AGGENS4) CHRISTINA JADE ([id number]) 1960 F Date Time Provider Department 01/22/21 BARBIE FIGUEROA During your visit today, we recorded the [...] Status:Closed by BARBIE FIGUEROA on 01/22/21 Normal [facility] CBCon 01-21-2021 Absolute nRBC <0.01 Normal <0.01 [facility] Comment on above: Performed By: #### H BA1C #### [place] [id number] Erythrocyte distribution width (RBC) [Ratio] 15.6 % High 11.5-15.0 [facility] Comment on above: Performed By: ###Nery SUBRAMANIAN #### [place] [address] [place], [place] [address] Hematocrit (Bld) [Volume fraction] 37.6 % Normal 36.0-46.0 [facility] Comment on above: Performed By: #### Pablo SUBRAMANIAN #### [place] [address] [place], [place] [address] Hemoglobin (Bld) [Mass/Vol] 12.4 g/dL Normal 11.5-15.5 [facility] Comment on above: Performed By: #### Pablo SUBRAMANIAN #### [address] [address] MCH 26.2 pG Normal 26.0-34.0 [facility] Comment on above: Performed By: #### Pablo SUBRAMANIAN #### [address] [address] MCHC (RBC) [Mass/Vol] 33.0 g/dL Normal 30.5-36.0 [facility] Comment on above: Performed By: ###Nery SUBRAMANIAN #### [address] [address] MCV (RBC) [Entitic vol] 79.5 fL Low 80.0-100.0 [facility] Comment on above: Performed By: #### Pablo LABOY1C #### [place] [address] [place], [place] [address] Platelet mean volume (Bld) [Entitic vol] 9.8 fL Normal 9.0-12.7 [facility] Comment on above: Performed By: #### Pablo LABOY1C #### [place] [address] [place], [place] [address] Platelets (Bld) [#/Vol] 331 10*3/uL Normal 150-400 [facility] Comment on above: Performed By: #### Pablo SUBRAMANIAN #### [facility] [address] [place], [place] [address] RBC (Bld) [#/Vol] 4.73 10*6/uL Normal 3.90-5.20 [facility] Comment on above: Performed By: #### Pablo SUBRAMANIAN #### [place] [address] [place], [place] [address] WBC (Bld) [#/Vol] 7.27 10*3/uL Normal 3.70-11.00 [facility] Comment on above: Performed By: #### Pablo SUBRAMANIAN #### [address] [address] Comp Metabolic Panelon 01-21 Albumin [Mass/Vol] 4.3 g/dL Normal 3.9-4.9 [facility] Comment on above: Performed By: #### Pablo SUBRAMANIAN #### [place] [address] [place], [place] [address] ALP [Catalytic activity/Vol] 78 U/L Normal 34-123 [facility] Comment on above: Performed By: #### Pablo BA1C #### [place] [address] [place], [place] [address] ALT [Catalytic activity/Vol] 8 U/L Normal 7-38 [facility] Comment on above: Performed By: #### Pablo LABOY1C #### [place] [address] [place], [place] [address] Anion gap [Moles/Vol] 10 mmol/L Normal 9-18 [facility] Comment on above: Performed By: #### Pablo BA1C #### [place] [address] [place], [place] [address] AST [Catalytic activity/Vol] 16 U/L Normal 13-35 [facility] Comment on above: Performed By: #### Pablo BA1C #### [place] [address] [place] [address] Bilirubin [Mass/Vol] 0.7 mg/dL Normal 0.2-1.3 [facility] Comment on above: Performed By: #### H BA1C #### [place] [address] [place] [address] Calcium [Mass/Vol] 10.0 mg/dL Normal 8.5-10.2 [facility] Comment on above: Performed By: #### H BA1C #### [place] [address] [place] [address] Chloride [Moles/Vol] 100 mmol/L Normal 97-105 [facility] Comment on above: Performed By: #### H BA1C #### [place] [address] CO2 [Moles/Vol] 30 mmol/L Normal 22-30 [facility] Comment on above: Performed By: #### H BA1C #### [place] [address] [place] [address] Creatinine [Mass/Vol] 0.71 mg/dL Normal 0.58-0.96 [facility] Comment on above: Performed By: #### H BA1C #### [place] [address] eGFR- Amer. >60 Normal [facility] Comment on above: Performed By: #### H BA1C #### [place] [address] [place] [address] eGFR-All Other Races >60 Normal [facility] Comment on above: Result Comment: eGFR [...] GFR. Performed By: #### H BA1C #### [facility] [address] [place], [place] [address] Glucose [Mass/Vol] 112 mg/dL High 74-99 [facility] Comment on above: Result Comment: The [place] Diabetes Association (ADA) provides guidance for cutoff [...] Standards of Medical Care in Diabetes 2016, [place] Diabetes Association. Diabetes Care. 2016.39(Suppl 1). Performed By: #### H BA1C #### [facility] [employer] [address] [place], [place] [address] Potassium [Moles/Vol] 3.3 mmol/L Low 3.7-5.1 [facility] Comment on above: Performed By: #### H BA1C #### [facility] [address] [place], [place] [address] Protein [Mass/Vol] 7.1 g/dL Normal 6.3-8.0 [facility] Comment on above: Performed By: #### H BA1C #### [facility] [address] [place], [place] [address] Sodium [Moles/Vol] 140 mmol/L Normal 136-144 [facility] Comment on above: Performed By: #### H BA1C #### [facility] [address] [place], [place] [address] Urea nitrogen [Mass/Vol] 11 mg/dL Normal 7-21 [facility] Comment on above: Performed By: #### H BA1C #### [facility] [address] [place] [id number] Ferritinon 01-21-2021 Ferritin [Mass/Vol] 18.3 ng/mL Normal 14.7-205.1 [facility] Comment on above: Performed By: #### I SHARATH, LIPB, VITD, FERR, TSH, PTHI, B1WB, INSULN, B12, SERFOL #### [place] [address] [place] [address] Folate, Serumon 01-21-2021 Folate [Mass/Vol] 17.3 ng/mL Normal >4.7 [facility] Comment on above: Performed By: #### I SHARATH, LIPB, VITD, FERR, TSH, PTHI, B1WB, INSULN, B12, SERFOL #### [place] [address] [place] [address] Hemoglobin A1con 01-21-2021 Glucose [Mass/Vol] 117 mg/dL Normal [facility] Comment on above: Result Comment: eAG: (Estimated average glucose) is a calculated value from HgbA1c and is mechanical service representative of the average blood glucose level in the last 2-3 month period. Performed By: #### H BA1C #### [place] [address] [place] [address] HbA1c (Bld) [Mass fraction] 5.7 % High 4.3-5.6 [facility] Comment on above: Result Comment: Amer [place] Diabetes Association guidelines indicate that patients with HgbA1c in the range 5.7-6.4% are at increased risk for development of diabetes, and intervention by lifestyle modification may be beneficial. HgbA1c greater or equal to 6.5% is considered diagnostic of diabetes. Performed By: #### H BA1C #### [place] [address] [place] [address] Insulinon 01-21-2021 Insulin 13.7 mU/L Normal 3.0-25.0 [facility] Comment on above: Performed By: #### H BA1C #### [place] [address] Iron and TIBCon 01-21-2021 Iron [Mass/Vol] 68 ug/dL Normal 41-186 [facility] Comment on above: Performed By: #### I SHARATH, LIPB, VITD, FERR, TSH, PTHI, B1WB, INSULN, B12, SERFOL #### [place] [address] [place] [address] TIBC 424 ug/dL High 232-386 [facility] Comment on above: Performed By: #### I SHARATH, LIPB, VITD, FERR, TSH, PTHI, B1WB, INSULN, B12, SERFOL #### [place] [address] Transferrin Saturatn 16 % Normal 15-57 [facility] Comment on above: Performed By: #### I SHARATH, LIPB, VITD, FERR, TSH, PTHI, B1WB, INSULN, B12, SERFOL #### [place] [address] Lipid Panel, [place] 021 Cholesterol [Mass/Vol] 224 mg/dL High <200 [facility] Comment on above: Result Comment: <200 mg/dL, Desirable 200-239 mg/dL, Borderline high >239 mg/dL, High Performed By: #### I SHARATH, LIPB, VITD, FERR, TSH, PTHI, B1WB, INSULN, B12, SERFOL #### [place] [address] Cholesterol in HDL [Mass/Vol] 75 mg/dL Normal >39 [facility] Comment on above: Result Comment: 40-5 9 mg/dL, Acceptable >59 mg/dL, High: Negative risk factor for coronary heart disease <40 mg/dL, Low: Positive risk factor for coronary heart disease Performed By: #### I SHARATH, LIPB, VITD, FERR, TSH, PTHI, B1WB, INSULN, B12, SERFOL #### [place] [address] [place] [address] Cholesterol in LDL [Mass/Vol] 129 mg/dL High <100 [facility] [facility] Comment on above: Result Comment: <100 mg/dL, Optimal 100-129 mg/dL, Near optimal/above optimal 130-159 mg/dL, Borderline high 160-189 mg/dL, High >189 mg/dL, Very high Secondary prevention optimal LDL Cholesterol levels are recommended to be < 70 mg/dL Performed By: #### I SHARATH, LIPB, VITD, FERR, TSH, PTHI, B1WB, INSULN, B12, SERFOL #### [place] [phone] Fasting Time 12 hrs Normal [facility] Comment on above: Performed By: #### I SHARATH, LIPB, VITD, FERR, TSH, PTHI, B1WB, INSULN, B12, SERFOL #### [place] [phone] [place] [phone] LDL:HDL Ratio 1.72 Normal <2.54 [facility] Comment on above: Result Comment: Refe rence: 1. National Cholesterol Education Program ATP III Guideline At-A-Glance Quick Desk Reference: National Heart, Lung, and Blood [place]. National Institutes of Health. 2001: NIH Publication No. 01-3305. 2. An International Atherosclerosis Society position paper: global recommendations for the management of dyslipidemia: executive summary, Atherosclerosis. 2014: 232(2):410-413. Performed By: #### I SHARATH, LIPB, VITD, FERR, TSH, PTHI, B1WB, INSULN, B12, SERFOL #### [place] [phone] [place] [phone] Non HDL Cholesterol 149 mg/dL High <130 [facility] Comment on above: Result Comment: <130 mg/dL, Optimal 130-159 mg/dL, Near optimal/above optimal 160-189 mg/dL, Borderline high 190-219 mg/dL, High >219 mg/dL, Very high Secondary prevention optimal non HDL Cholesterol levels are recommended to be < 100 mg/dL Performed By: #### I SHARATH, LIPB, VITD, FERR, TSH, PTHI, B1WB, INSULN, B12, SERFOL #### [place] [phone] TC:HDL Ratio 2.99 Normal <5.10 [facility] Comment on above: Performed By: #### I SHARATH, LIPB, VITD, FERR, TSH, PTHI, B1WB, INSULN, B12, SERFOL #### [place] [phone] Triglyceride [Mass/Vol] 102 mg/dL Normal <150 [facility] Comment on above: Result Comment: <150 mg/dL, Normal 150-199 mg/dL, Borderline high 200-499 mg/dL, High >499 mg/dL, Very high Performed By: #### I SHARATH, LIPB, VITD, FERR, TSH, PTHI, B1WB, INSULN, B12, SERFOL #### [place] [phone] VLDL Cholesterol 20 mg/dL Normal <30 [facility] Comment on above: Performed By: #### I SHARATH, LIPB, VITD, FERR, TSH, PTHI, B1WB, INSULN, B12, SERFOL #### [place] [phone] PTH, [place] 01-21-2021 PTH, Intact 56 pg/mL Normal 15-65 [facility] Comment on above: Performed By: #### I SHARATH, LIPB, VITD, FERR, TSH, PTHI, B1WB, INSULN, B12, SERFOL #### [place] [phone] TSHon 01-21-2021 TSH Qn 1.820 m[IU]/L Normal 0.270-4.200 [facility] Comment on above: Performed By: #### H BA1C #### [facility] [address] [place] [address] Vitamin B1, Whole Blon 01-21 Vitamin B1 (TDP), WB 149.7 nmol/L Normal 84.0-213.0 [facility] Comment on above: Result Comment: This assay measures the concentration of thiamine diphosphate (TDP), the primary active form of vitamin B1. Approximately 90 percent of vitamin B1 present in whole blood is TDP. Thiamine and thiamine monophosphate, which comprise the remaining 10 percent, are not measured. This test was developed and its performance characteristics determined by [facility]'s Lul Isabel [facility] Pathology and Laboratory Medicine [place] ([facility]). It has not been cleared or approved by the FDA. [facility] is regulated under CLIA as qualified to perform high complexity testing. This test is used for clinical purposes. It should not be regarded as investigational or for research. Performed By: #### H BA1C #### [place] [phone] [place] [address] Vitamin B12on 01-21-2021 Cobalamin (Vitamin B12) [Mass/Vol] 814 pg/mL Normal 232-1245 [facility] Comment on above: Performed By: #### I SHARATH, LIPB, VITD, FERR, TSH, PTHI, B1WB, INSULN, B12, SERFOL #### [place] [phone] [place] [phone] Vitamin D 25 Hydroxyon 01-21 Vitamin D 25 Hydroxy 33.6 ng/mL Normal 31.0-80.0 [facility] Comment on above: Result Comment: Clas sification of 25 [place] Vitamin D status: Insufficiency/Moderate Deficiency: < or = 30 ng/mL Sufficiency/Optimal Levels: 31 to 80 ng/mL Toxicity: > 100 ng/mL Test performed by chemiluminescent immunoassay. Performed By: #### I SHARATH, LIPB, VITD, FERR, TSH, PTHI, B1WB, INSULN, B12, SERFOL #### [facility] [address] [place] [phone] CNOVon 12-17-2020 CNOV Office Visit (OBGYWM ) CHRISTINA JADE ([id number]) 1960 F Date Time Provider Department 12/17/20 3:00 PM DANETTE BOYCE During your visit today, we recorded the following information about you: Blood pressure Weight Height 120/74 97.1 kg 1.588 m Danette Boyce APRN.FLASH DESIGNER 12/17/2020 3:59 PM Signed Christina is a 60 year old who presents for an annual gynecologic exam without complaints. Postmenopausal: Hysterectomy 2018 endometrial cancer HRT use: No. History of abnormal pap: Yes, remote Last mammogram: 2019 normal History of abnormal mammogram: Yes Sexually active: Yes Time with current partner: half-way History of box car bracer malignancy: ENDOMETRIAL CANCER Pain with intercourse: No [...] external genitalia normal, normal Bartholin's glands, urethra, Olin's glands, no vulvar lesions, physiologic discharge present, [...] year or sooner as needed Danette Boyce APRN.FLASH DESIGNER Referring Provider: SELF [200] Allergies As of Date: 12/17/2020 Noted Allergy Reaction TEVETEN (EPROSARTAN MESYLATE) 03/25/2005 Comments: Severe Joint Pain BENZOLE PEROXIDE [Other] 03/22/2005 2 - Rash SERTRALINE 07/06/2002 Comments: anxiety attacks Date Reviewed: 12/17/2020 Reviewed by: Danette Boyce APRN.FLASH DESIGNER - Fully Assessed Reason for Visit: Well Woman [1463] Primary Visit Diagnosis:Encounter for gynecological examination (general) (routine) without abnormal findings [Z01.419] Prescriptions as of 12/17/2020 - ferrous sulfate (IRON ORAL) Take by mouth. - topiramate (TOPAMAX) 25 mg tablet Take 1 (more content not included)... Normal [facility] CNOVon 10-22-2020 CNOV Office Visit (AGGENS 4) YASMANYCHRISTINA M ([id number]) 1960 F Date Time Provider Department 10/22/20 [...] of this encounter: 98.9 kg (218 lb). [place] weight: 62 kg (136 lb 11.2 oz) Excess weight: 47.8 kg (105 lb 4.8 oz) % of excess body weight lost: 10.9 kg (24 lb) (22.79% of excess weight loss) COMPLICATIONS SINCE LAST VISIT?: NONE Interval History Christina Potts Jade s/p gastric sleeve on September 2019. [...] HEMATOLOGY/LYMPHOLOGY: Negativ (more content not included)... Normal [facility] 07-29-2020 CNPN Telephone (GASTTW) CHRISTINA JADE ([id number]) 1960 F Date Time Provider Department 07/29/20 JASON LUND GASTJeffW During your visit today, we recorded the [...] Status:Closed by EDIN URIOSTEGUI MA on 07/29/20 [facility] BRIEF OP NOTon 07-28-2020 BRIEF OP NOT HNO ID: [id number] Author: Jason Lund Service: Gastroenterology Author Type: Physician Type: Brief Op Note Filed: 07/28/2020 1:03 PM Note Text: BRIEF OPERATIVE NOTE PATIENT NAME: Christina Jade LOG ID: [id number] Surgery Date: 07/28/2020 Surgeon(s) and Assistant Women'S Basketball Coach(s): Jason Lund MD -Primary Procedure(s): Procedure(s) (LRB): COLONOSCOPY, FLEXIBLE W/REMOVAL TUMOR(S), POLYP(S), OR OTHER LESION(S) BY SNARE TECHNIQUE (N/A) Anesthesia: Procedural Sedation Findings: Descending colon polyp Estimated Blood Loss: Minimal Specimens: Descending colon polyp Preop Diagnosis: Screening Postop Diagnosis: *Screening* SIGNATURE: Jason Lund MD DATE: July 28, 2020 TIME: 1:03 PM [facility] HISTORY PHYSICALon HISTORY PHYSICAL HNO ID: [id number] Author: Jason Lund Service: Gastroenterology Author Type: [...] July 28, 2020 TIME: 12:31 PM Normal [facility] NURSING PROGon 07-28-2020 NURSING PROG HNO ID: [id number] Author: Julian ThakkarRn) BARBRA Pagan Service: Nursing Author Type: Registered Nurse Type: Nursing Progress Note Filed: 07/28/2020 1:15 PM Note Text: Pt into Endo recovery room in satisfactory condition. Resting on left side. Pt. sleepy but arousable. Abdomen soft, no complaints. Will continue to monitor. Normal [facility] NURSING PROG HNO ID: [id number] Author: Julian Lockhart) BARBRA Pagan Service: Nursing Author Type: Registered Nurse Type: Nursing Progress Note Filed: 07/28/2020 12:32 PM Note Text: [facility] PRE-OP NURSING HAND OFF NOTE SBAR Hand off given to Danica Bean RN. Hand off was communicated verbally and at the patient's bedside and all questions were answered. Julian Pagan RN Normal [facility] SURGICAL PATHOLOGYon 021 SURGICAL PATHOLOGY Specimen originated from [facility] Specimen #: [id number] Submitting Physician: JASON LUND MD FINAL DIAGNOSIS [...] in one cassette. Gross examination performed at [facility], [address] [place] [address] 07/28/2020 10:09:03 PM Date of Report: 07/29/2020 Date of Procedure: 07/28/2020 Date of Receipt: 07/28/2020 Submitted by: JASON LUND MD Location: W010 Diagnostic interpretation performed at [place] [address]. [place] Number: [id number] Normal [facility] 07-18-2020 CNPN Telephone (ASWSTR) CHRISTINA JADE ([id number]) 1960 F Date Time Provider Department 07/18/20 JASON LUND ASWSTR During your visit today, we recorded the [...] appointments as their daughter will be their regional owner operator truck driver. Pt will need to be called for the OA questionnaire. Roberta Meek 07/18/2020 1:25 PM Signed Scheduled patient for open access colonoscopy with Dr. Lund on 07/28/2020, sending Miralax/Dulcolax instructions through Noah Meek [facility] OPEN ACCESS QUESTIONNAIRE 1. Are you currently [...] Please send all open access questionnaires to [facility] Sched Pool #[id number] Sharon Salinas RN, RN 08/18/2020 2:56 PM Signed Procedure [...] colon [Z12.11] Order(s):COLONOSCOPY SCRN NOT HIGH RISK [[id number]] Order #: [id number]: 1 FUTURE Prescriptions as of 07/18/2020 Sig: [...] endometrial hyperplasia (more content not included)... Normal [facility] HOSPon 07-18-2020 HOSP Patient:Porter Jade Katlyn MRN: Height:5' 2(1.575 m) Weight:205 lb 0.4 [...] 37.2 % 07/02/2020 46.0 36.0 Progress Notes ([facility] WSTR): Sharon Salinas, RN, RN 07/18/2020 [...] appointments as their daughter will be their regional owner operator truck driver. Pt will need to be called for the OA questionnaire. Roberta Meek 07/18/2020 1:25 PM Signed Scheduled patient for open access colonoscopy with Dr. Lund on 07/28/2020, sending Miralax/Dulcolax instructions through [place] Roberta Meek [facility] OPEN ACCESS QUESTIONNAIRE 1. Are you currently [...] Please send all open access questionnaires to [facility] Sched Pool #[id number] Normal [facility] Basic Metabolic Panlon 07-02 Anion gap [Moles/Vol] 9 mmol/L Normal 9-18 [facility] Calcium [Mass/Vol] 9.6 mg/dL Normal 8.5-10.2 [facility] Chloride [Moles/Vol] 100 mmol/L Normal 97-105 [facility] CO2 [Moles/Vol] 30 mmol/L Normal 22-30 [facility] Creatinine [Mass/Vol] 0.71 mg/dL Normal 0.58-0.96 [facility] eGFR- Amer. >60 Normal [facility] eGFR-All Other Races >60 Normal [facility] Comment on above: Result Comment: eGFR [...] GFR. Glucose [Mass/Vol] 104 mg/dL High 74-99 [facility] Comment on above: Result Comment: The [place] Diabetes Association (ADA) provides guidance for cutoff [...] Standards of Medical Care in Diabetes 2016, [place] Diabetes Association. Diabetes Care. 2016.39(Suppl 1). Potassium [Moles/Vol] 3.9 mmol/L Normal 3.7-5.1 [facility] Sodium [Moles/Vol] 139 mmol/L Normal 136-144 [facility] Urea nitrogen [Mass/Vol] 9 mg/dL Normal 7-21 [facility] CBCon 07-02-2020 Absolute nRBC <0.01 Normal <0.01 [facility] Erythrocyte distribution width (RBC) [Ratio] 13.7 % Normal 11.5-15.0 [facility] Hematocrit (Bld) [Volume fraction] 37.2 % Normal 36.0-46.0 [facility] Hemoglobin (Bld) [Mass/Vol] 12.2 g/dL Normal 11.5-15.5 [facility] MCH 28.4 pG Normal 26.0-34.0 [facility] MCHC (RBC) [Mass/Vol] 32.8 g/dL Normal 30.5-36.0 [facility] MCV (RBC) [Entitic vol] 86.5 fL Normal 80.0-100.0 [facility] Platelet mean volume (Bld) [Entitic vol] 9.6 fL Normal 9.0-12.7 [facility] Platelets (Bld) [#/Vol] 342 10*3/uL Normal 150-400 [facility] RBC (Bld) [#/Vol] 4.30 10*6/uL Normal 3.90-5.20 [facility] WBC (Bld) [#/Vol] 5.47 10*3/uL Normal 3.70-11.00 [facility] Ferritinon 07-02-2020 Ferritin [Mass/Vol] 18.9 ng/mL Normal 14.7-205.1 [facility] Comment on above: Performed By: #### H BA1C #### [facility] [address] [place] [address] Folate, Serumon 07-02-2020 Folate [Mass/Vol] ng/mL Normal >4.7 [facility] Comment on above: Result Comment: A re sult of > 20 ng/mL is not necessarily indicative of a pathologic or treatable condition: it reflects a limitation of the test methodology. Assay reference range: 4.8 to 24.2 ng/mL. Suitable for detection of folate deficiency. Reference: Folate III (Folate III) [package insert V 2.0 [place]an]. [facility], [place], [place]: February 2015. Performed By: #### H BA1C #### [place] [address] [place] [address] Iron and TIBCon 07-02-2020 Iron [Mass/Vol] 42 ug/dL Normal 41-186 [facility] Comment on above: Performed By: #### H BA1C #### [place] [address] TIBC 413 ug/dL High 232-386 [facility] Comment on above: Performed By: #### H BA1C #### [place] [address] Transferrin Saturatn 10 % Low 15-57 [facility] Comment on above: Performed By: #### H BA1C #### [place] [address] Vitamin B1, Whole Blon 07-02 Vitamin B1 (TDP), WB 131.3 nmol/L Normal 84.0-213.0 [facility] Comment on above: Result Comment: This assay measures the concentration of thiamine diphosphate (TDP), the primary active form of vitamin B1. Approximately 90 percent of vitamin B1 present in whole blood is TDP. Thiamine and thiamine monophosphate, which comprise the remaining 10 percent, are not measured. This test was developed and its performance characteristics determined by [facility]'s [facility] Pathology [facility] [place] ( [facility]). It has not been cleared or approved by the FDA. [facility] is regulated under CLIA as qualified to perform high complexity testing. This test is used for clinical purposes. It should not be regarded as investigational or for research. Performed By: #### I SHARATH, LIPB, VITD, FERR, TSH, PTHI, B1WB, INSULN, B12, SERFOL #### [place] [address] [place] [phone] Vitamin B12on 07-02-2020 Cobalamin (Vitamin B12) [Mass/Vol] pg/mL High 232-1245 [facility] Comment on above: Performed By: #### H BA1C #### [facility] [address] [place] [phone] Vitamin D 25 Hydroxyon 07-02 Vitamin D 25 Hydroxy 40.4 ng/mL Normal 31.0-80.0 [facility] Comment on above: Result Comment: Clas sification of 25 [place] Vitamin D status: Insufficiency/Moderate Deficiency: < or = 30 ng/mL Sufficiency/Optimal Levels: 31 to 80 ng/mL Toxicity: > 100 ng/mL Test performed by chemiluminescent immunoassay. Performed By: #### I SHARATH, LIPB, VITD, FERR, TSH, PTHI, B1WB, INSULN, B12, SERFOL #### [facility] [address] [place] [address] Basic Metabolic Panelon 06-0 Anion gap [Moles/Vol] 9 mmol/L Normal 9-18 [facility] Comment on above: Performed By: #### B MP #### [address] [address] Calcium [Mass/Vol] 9.0 mg/dL Normal 8.5-10.2 [facility] Comment on above: Performed By: #### B MP #### [address] [address] Chloride [Moles/Vol] 104 mmol/L Normal 97-105 [facility] Comment on above: Performed By: #### B MP #### [address] [address] CO2 [Moles/Vol] 28 mmol/L Normal 22-30 [facility] Comment on above: Performed By: #### B MP #### [address] [address] Creatinine [Mass/Vol] 0.61 mg/dL Normal 0.58-0.96 [facility] Comment on above: Performed By: #### B MP #### [facility] [address] [place], [place] [address] Glucose [Mass/Vol] 106 mg/dL High 74-99 [facility] Comment on above: Result Comment: The [place] Diabetes Association (ADA) provides guidance for cutoff [...] Standards of Medical Care in Diabetes 2016; [place] Diabetes Association. Diabetes Care. 2016;39(Suppl 1). Performed By: #### B MP #### [place] [address] Potassium [Moles/Vol] 3.8 mmol/L Normal 3.7-5.1 [facility] Comment on above: Performed By: #### B MP #### [place] [address] Sodium [Moles/Vol] 141 mmol/L Normal 136-144 [facility] Comment on above: Performed By: #### B MP #### [address] [address] Urea nitrogen [Mass/Vol] 7 mg/dL Normal 7-21 [facility] Comment on above: Performed By: #### B MP #### [address] [address] Hemogram/Diffon 09-27-2019 Abs Immature Grans 0.07 thou/cmm High 0.00-0.05 [facility] Comment on above: Performed By: #### C BCD1 #### [address] [address] Abs Neut (ANC) 7.86 thou/cmm High 1.56-6.13 [facility] Comment on above: Performed By: #### C BCD1 #### [facility] [address] [place] [address] Abs. Baso 0.01 thou/cmm Normal 0.01-0.08 [facility] Comment on above: Performed By: #### C BCD1 #### [facility] [address] [place] [address] Abs. [place] 0.90 thou/cmm High 0.27-0.70 [facility] Comment on above: Performed By: #### C BCD1 #### [facility] [address] [place] [address] Basophils/100 WBC (Bld) 0.1 % Normal [facility] Comment on above: Performed By: #### C BCD1 #### [facility] [address] [place] [address] Eosinophils (Bld) [#/Vol] 0.01 10*3/uL Normal 0.00-0.31 [facility] Comment on above: Performed By: #### C BCD1 #### [facility] [address] [place] [address] Eosinophils/100 WBC (Bld) 0.1 % Normal [facility] Comment on above: Performed By: #### C BCD1 #### [facility] [address] [place] [address] Erythrocyte distribution width (RBC) [Ratio] 14.0 % Normal 11.7-14.4 [facility] Comment on above: Performed By: #### C BCD1 #### [facility] [address] [place] [address] Hematocrit (Bld) [Volume fraction] 37.4 % Normal 34.1-44.9 [facility] Comment on above: Performed By: #### C BCD1 #### [facility] [address] [place] [address] Hemoglobin (Bld) [Mass/Vol] 12.3 g/dL Normal 11.2-15.7 [facility] Comment on above: Performed By: #### C BCD1 #### [facility] [address] [place] [address] Immature Grans 0.70 % Normal [facility] Comment on above: Performed By: #### C BCD1 #### [facility] [address] [place], [place] [address] Lymphocytes (Bld) [#/Vol] 1.35 10*3/uL Normal 1.18-3.74 [facility] Comment on above: Performed By: #### C BCD1 #### [facility] [address] [place], [place] [address] Lymphocytes/100 WBC (Bld) 13.2 % Normal [facility] Comment on above: Performed By: #### C BCD1 #### [facility] [address] [place], [place] [address] MCH (RBC) [Entitic mass] 29.1 pg Normal 25.6-32.2 [facility] Comment on above: Performed By: #### C BCD1 #### [facility] [address] [place], [place] [address] MCHC 32.9 % Normal 31.6-34.8 [facility] Comment on above: Performed By: #### C BCD1 #### [facility] [address] [place], [place] [address] MCV (RBC) [Entitic vol] 88.4 fL Normal 79.4-94.8 [facility] Comment on above: Performed By: #### C BCD1 #### [address] [address] Monocytes/100 WBC (Bld) 8.8 % Normal [facility] Comment on above: Performed By: #### C BCD1 #### [facility] [address] [place], [place] [address] Platelet mean volume (Bld) [Entitic vol] 10.3 fL Normal 9.4-12.3 [facility] Comment on above: Performed By: #### C BCD1 #### [facility] [address] [place], [place] [address] Platelets (Bld) [#/Vol] 288 10*3/uL Normal 182-369 [facility] Comment on above: Performed By: #### C BCD1 #### [facility] [address] [place] [address] RBC 4.23 mil/cmm Normal 3.93-5.22 [facility] Comment on above: Performed By: #### C BCD1 #### [facility] [address] [place] [address] RDW SD 45.0 fl Normal 36.4-46.3 [facility] Comment on above: Performed By: #### C BCD1 #### [place] [address] Seg Neutrophil 77.1 % Normal [facility] Comment on above: Performed By: #### C BCD1 #### [place] [address] WBC (Bld) [#/Vol] 10.19 10*3/uL High 3.98-10.04 [facility] Comment on above: Performed By: #### C BCD1 #### [place] [address] MDRD GFRon 09-27-2019 GFR/1.73 sq M.predicted among non-blacks MDRD (S/P/Bld) [Vol rate/Area] mL/min/{1.73_m2} Normal >60mL/min/1.7 3m2 [facility] Comment on above: Result Comment: If t he patient is , multiply the result by 1.210. Performed By: #### H CTI #### [place] [address] ABO/Rh Confirmationon 2019 ABO group Nom (Bld) B Normal [facility] Comment on above: Performed By: #### A DEISREE #### [place] [address] RH Type Positive Normal [facility] Comment on above: Performed By: #### A DESIREE #### [place] [address] Glucose Meteron 09-26-2019 Glucose [Mass/Vol] 121 mg/dL High 70-99 [facility] Comment on above: Performed By: #### G LMET #### [place] [address] Surgical Tissue Examon 09-25 Surgical Tissue Exam Test performed at [place] [address] NAME: CHRISTINA JADE REQUESTING: SUYAPA YIP FINAL [...] rugae with no polyps or masses identified. Cat Scanner Operator sections are submitted in cassettes A1-A3. YULIET/mason AVILES M.D., PATHOLOGIST (Electronic signature on file) Signed out: 09/28/2019 15:50 PRINTED: 09/28/2019 Page 1 of 1 Normal [facility] Comment on above: Performed By: #### H CTI #### [place] [address] Activated PTTon 09-19-2019 aPTT Coag (Bld) [Time] 27.2 s Normal 23.0-32.4 [facility] Comment on above: Result Comment: Unfr actionated [...] laboratory APTT reagent in use throughout the [facility]. Performed By: #### A PTT #### [place] [address] Albumin, Bloodon 09-19-2019 Albumin [Mass/Vol] 4.5 g/dL Normal 3.9-4.9 [facility] Comment on above: Performed By: #### A LB #### [facility] [address] [place] [address] Hcton 09-19-2019 Hematocrit (Bld) [Volume fraction] 40.9 % Normal 34.1-44.9 [facility] Comment on above: Performed By: #### H CTI #### [facility] [address] [place] [address] Hgbon 09-19-2019 Hemoglobin (Bld) [Mass/Vol] 13.6 g/dL Normal 11.2-15.7 [facility] Comment on above: Performed By: #### H GBI #### [place] [address] Protimeon 09-19-2019 INR Coag (PPP) [Relative time] 1.08 {INR} Normal 0.90-1.30 [facility] Comment on above: Result Comment: Angy min K Antagonist (VKA) Therapeutic Range: INR 2 to 3 (Target INR of 2.5) Note: For patients treated with VKA drugs, such as warfarin, the [employer] 2012 Guideline recommends [...] 2.5 to 3.5 target INR of 3). Stevenyakyleigh GH, et al. Chest 2012; 141:7S-47S Julio RA et al. [facility] 2017; 70: 252-289 Performed By: #### P T #### [facility] [address] [place] [id number] PT Coag (PPP) [Time] 11.6 s Normal 9.7-13.0 [facility] Comment on above: Performed By: #### P T #### [facility] [address] [place] [id number] Type and Screenon 09-19-2019 ABO group Nom (Bld) B Normal [facility] Comment on above: Performed By: #### T &S #### [facility] [address] [place] [id number] Comment PAT specimen Normal [facility] Comment on above: Performed By: #### T &S #### [facility] [address] [address] RH Type Positive Normal [facility] Comment on above: Performed By: #### T &S #### [facility] [address] [address] Vital Signs Date Time Vital Sign Value Performing Clinician Lilliana almonte 09-26-2024 07:49-0400 Body height 157.[address] Jeffry Nichole DO Work Phone: [facility] 09-26-2024 07:49-0400 Body mass index (BMI) [Ratio] 40.2 kg/m2 Dr. Jeffry Nichole DO Work Phone: [facility] 09-26-2024 07:49-0400 Body weight 99.[address] Jeffry Nichole DO Work Phone: [facility] 09-26-2024 07:49-0400 Diastolic blood pressure 90 mm[Hg] Dr. Jeffry Nichole DO Work Phone: [facility] 09-26-2024 07:49-0400 Heart rate 69 /min Dr. Jeffry Nichole DO Work Phone: [facility] 09-26-2024 07:49-0400 Respiratory rate 18 /min Dr. Jeffry Nichole DO Work Phone: [facility] 09-26-2024 07:49-0400 Systolic blood pressure 147 mm[Hg] Dr. Jeffry Nichole DO Work Phone: [facility] 11-11-2022 12:27-0400 Body temperature 98.3 [degF] Dr. Jeffry Nichole Work Phone: [facility] 11-11-2022 12:27-0400 Diastolic blood pressure 67 mm[Hg] Dr. Jeffry Nichole Work Phone: [facility] 11-11-2022 12:27-0400 Heart rate 65 /min Dr. Jeffry Nichole Work Phone: [facility] 11-11-2022 12:27-0400 Respiratory rate 16 /min Dr. Jeffry Nichole Work Phone: [facility] 11-11-2022 12:27-0400 SaO2% (BldA) [Mass fraction] 97 % Dr. Jeffry Nichole Work Phone: [facility] 11-11-2022 12:27-0400 Systolic blood pressure 136 mm[Hg] Dr. Jeffry Nichole Work Phone: [facility] 11-11-2022 11:00-0400 Inhaled oxygen flow rate 2 L/min Dr. Jeffry Nichole Work Phone: [facility] 11-11-2022 07:24-0400 Body height 157.[address] Jeffry Nichole Work Phone: [facility] 11-11-2022 07:24-0400 Body mass index (BMI) [Ratio] 38.7 kg/m2 Dr. Jeffry Nichole Work Phone: [facility] 11-11-2022 07:24-0400 Body weight 96.[address] Jeffry Nichole Work Phone: [facility] 10-05-2022 12:30-0400 Body mass index (BMI) [Ratio] 38.5 kg/m2 Dr. Jeffry Nichole Work Phone: [facility] 10-05-2022 12:30-0400 Body temperature 97.5 [degF] Dr. Jeffry Nichole Work Phone: [facility] 10-05-2022 12:30-0400 Body weight 95.[address] Jeffry Nichole Work Phone: [facility] 10-05-2022 12:30-0400 Diastolic blood pressure 92 mm[Hg] Dr. Jeffry Nichole Work Phone: [facility] 10-05-2022 12:30-0400 Heart rate 81 /min Dr. Jeffry Nichole Work Phone: [facility] 10-05-2022 12:30-0400 Respiratory rate 18 /min Dr. Jeffry Nichole Work Phone: [facility] 10-05-2022 12:30-0400 Systolic blood pressure 135 mm[Hg] Dr. Jeffry Nichole Work Phone: [facility] 08-04-2022 08:37-0400 Body height 157.[address] Jeffry Nichole Work Phone: [facility] 04-21-2022 10:05-0500 Body mass index (BMI) [Ratio] 37.8 kg/m2 Dr. Jeffry Nichole Work Phone: [facility] 04-21-2022 10:05-0500 Body weight 93.[address] Jeffry Nichole Work Phone: [facility] 03-17-2022 11:00-0500 Body height 157.[address] Jeffry Nichole Work Phone: [facility] Work Phone: 03-17-2022 11:00-0500 Body mass index (BMI) [Ratio] 38 kg/m2 Dr. Jeffry Nichole Work Phone: [facility] Work Phone: 03-17-2022 11:00-0500 Body weight 94.[address] Jeffry Nichole Work Phone: [facility] Work Phone: 03-17-2022 11:00-0500 Diastolic blood pressure 85 mm[Hg] Dr. Jeffry Nichole Work Phone: [facility] Work Phone: 03-17-2022 11:00-0500 Heart rate 60 /min Dr. Jeffry Nichole Work Phone: [facility] Work Phone: 03-17-2022 11:00-0500 Respiratory rate 16 /min Dr. Jeffry Nichole Work Phone: [facility] Work Phone: 03-17-2022 11:00-0500 Systolic blood pressure 126 mm[Hg] Dr. Jeffry Nichole Work Phone: [facility] Work Phone: 02-26-2022 09:02-0400 Body temperature 98.3 [degF] Dr. Jeffry Nichole Work Phone: [facility] Work Phone: 02-26-2022 09:02-0400 Diastolic blood pressure 52 mm[Hg] Dr. Jeffry Nichole Work Phone: [facility] Work Phone: 02-26-2022 09:02-0400 Heart rate 78 /min Dr. Jeffry Nichole Work Phone: [facility] Work Phone: 02-26-2022 09:02-0400 Respiratory rate 18 /min Dr. Jeffry Nichole Work Phone: [facility] Work Phone: 02-26-2022 09:02-0400 SaO2% (BldA) [Mass fraction] 97 % Dr. Jeffry Nichole Work Phone: [facility] Work Phone: 02-26-2022 09:02-0400 Systolic blood pressure 97 mm[Hg] Dr. Jeffry Nichole Work Phone: [facility] Work Phone: 02-26-2022 05:52-0400 Body weight [address] Jeffry Nichole Work Phone: [facility] Work Phone: 02-24-2022 15:55-0400 Body height 157.[address] Jeffry Nichole Work Phone: [facility] Work Phone: 02-24-2022 13:39-0400 Body mass index (BMI) [Ratio] 39.2 kg/m2 Dr. Jeffry Nichole Work Phone: [facility] Work Phone: 02-24-2022 12:54-0400 Body temperature 98 [degF] [facility] Work Phone: 02-24-2022 12:54-0400 Diastolic blood pressure 113 mm[Hg] [facility] Work Phone: 02-24-2022 12:54-0400 Heart rate 49 /min [facility] Work Phone: 02-24-2022 12:54-0400 Inhaled oxygen flow rate 2 L/min [facility] Work Phone: 02-24-2022 12:54-0400 Respiratory rate 18 /min [facility] Work Phone: 02-24-2022 12:54-0400 SaO2% (BldA) [Mass fraction] 98 % [facility] Work Phone: 02-24-2022 12:54-0400 Systolic blood pressure 213 mm[Hg] [facility] Work Phone: 02-24-2022 11:55-0400 Body height 157.48 cm [facility] Work Phone: 02-24-2022 11:55-0400 Body mass index (BMI) [Ratio] 41.7 kg/m2 [facility] Work Phone: 02-24-2022 11:55-0400 Body weight 103.5 kg [facility] Work Phone: 08-03-2021 14:40-0400 Body height 158.8 cm Britni Hasenstaub DEVELOPMENT PLANNER.FLASH DESIGNER Work Phone: [facility] 08-03-2021 14:40-0400 Body weight 91.63 kg Britni Hasenstaub DEVELOPMENT PLANNER.FLASH DESIGNER Work Phone: [facility] 08-03-2021 14:40-0400 Diastolic blood pressure 80 mm[Hg] Britni Hasenstaub DEVELOPMENT PLANNER.FLASH DESIGNER Work Phone: [facility] 08-03-2021 14:40-0400 Heart rate 50 /min Britni Hasenstaub DEVELOPMENT PLANNER.FLASH DESIGNER Work Phone: [facility] 08-03-2021 14:40-0400 Respiratory rate 14 /min Britni Hasenstaub DEVELOPMENT PLANNER.FLASH DESIGNER Work Phone: [facility] 08-03-2021 14:40-0400 SaO2% (BldA) [Mass fraction] 97 % Britni Hasenstaub DEVELOPMENT PLANNER.FLASH DESIGNER Work Phone: [facility] 08-03-2021 14:40-0400 Systolic blood pressure 120 mm[Hg] Britni Hasenstaub DEVELOPMENT PLANNER.FLASH DESIGNER Work Phone: [facility] Encounters Encounter Date Encounter Type Care Provider Facility Start: 11-05-2024 ambulatory Jeffry Nichole Facility: [facility] Start: 09-26-2024 End: 09-26-[address] Jeffry Nichole DO Work Phone: [facility] Work Phone: Start: 09-26-2024 End: 09-26-[address] Layton Petty MD -Laboratory Work Phone: Start: 09-26-2024 End: 09-26-[address] Layton Petty MD -[facility] Work Phone: Start: 09-26-2024 End: 09-26-[address] Jeffry Nichole DO Work Phone: [facility] Work Phone: Start: 09-26-2024 End: 09-26-2024 ambulatory Jeffry Nichole Facility:[facility] Start: 01-25-2024 End: 01-25-2024 ambulatory Nikki Arias Facility[place] Start: 03-09-2023 End: 03-09-[address] Jeffry Nichole Work Phone: [facility] Work Phone: Start: 03-09-2023 End: 03-09-[address] Jeff[facility] Nichole [facility] Phone[facility] Start: 01-03-2023 End: 01-03-[address] Jeffry Nichole Work Phone: [facility] Work Phone: Start: 12-15-2022 End: 12-15-[address] Jeffry Nichole Work Phone: [facility] Work Phone: Start: 12-08-2022 End: 12-08-[address] Jeffry Nichole Work Phone: [facility] Work Phone: Start: 12-02-2022 End: 12-02-[address] Jeffry Nichole Work Phone: [facility] Work Phone: Start: 11-24-2022 End: 11-24-[address] Jeffry Nichole Work Phone: [facility] Work Phone: Start: 11-11-2022 Non-patient / Non-visit Dr. Genaro Nichole Work Phone: [facility] Start: 11-11-2022 End: 11-11-2022 Admission to same day surgery center Dr. Jeffry Nichole Work Phone: [facility] Start: 11-11-2022 End: 11-11-[address] Jeffry Nichole Work Phone: [facility] Work Phone: Start: 10-22-2022 End: 10-22-[address] Jeffry Nichole Work Phone: [facility] Work Phone: Start: 10-05-2022 End: 10-05-[address] Jeffry Nichole Work Phone: [facility] Work Phone: Start: 09-06-2022 End: 09-06-[address] Jeffry Nichole Work Phone: [facility] Start: 08-16-2022 End: 08-16-[address] Jeffry Nichole Work Phone: [facility]-Outpatient Breast Imaging Work Phone: Start: 08-04-2022 End: 08-04-[address] Jeffry Nichole Work Phone: [facility] Work Phone: Start: 08-04-2022 End: 08-04-[address] Jeffry Nichole Work Phone: [facility]-Outpatient Bone Densitometry Start: 05-26-2022 End: 05-26-[address] Jeffry Nichole Work Phone: [facility] Start: 05-19-2022 End: 05-19-[address] Jeffry Nichole Work Phone: [facility] Start: 05-10-2022 End: 05-10-[address] Jeffry Nichole Work Phone: [facility] Start: 04-21-2022 End: 04-21-[address] Jeffry Nichole Work Phone: [facility] Start: 03-31-2022 End: 03-31-[address] Jeffry Nichole Work Phone: [facility] Work Phone: Start: 03-31-2022 End: 03-31-[address] Jeffry Nichole Work Phone: [facility]-Pulmonary Services/Neurology Start: 03-17-2022 End: 03-17-[address] Jeffry Nichole Work Phone: [facility] Start: 02-26-2022 Non-patient / Non-visit Dr. Genaro Nichole Work Phone: [facility] Start: 02-25-2022 Non-patient / Non-visit Dr. Genaro Nichole Work Phone: [facility] Start: 02-25-2022 Non-patient / Non-visit Dr. Genaro Nichole Work Phone: [facility] Start: 02-24-2022 Non-patient / Non-visit Dr. Genaro Nichole Work Phone: [facility] Start: 02-24-2022 End: 02-26-2022 Evaluation and management of inpatient [facility]-Intensive Care Unit Start: 08-17-2021 ambulatory Britni sands DEVELOPMENT PLANNER.BRANT Work Phone: [facility] Comment on above: Labs and next appt Start: 08-03-2021 End: 08-03-2021 Patient encounter procedure Britni Mcintyre BLANCO.FLASH DESIGNER Work Phone: [facility] Comment on above: Class 2 obesity with out serious comorbidity with body mass index (BMI) of 36.0 to 36.9 in adult, unspecified obesity type (Primary Dx); Hypertension, unspecified type; Vitamin D deficiency; Hiatal hernia; Sleep apnea, unspecified type; H/O gastric sleeve; History of low potassium; BMI 36.0-36.9,adult; Dietary counseling and surveillance Start: 03-24-2018 Preprocedural examination done Britni Mcintyre APRN.FLASH DESIGNER Work Phone: [facility] Work Phone: Procedures Date Procedure Procedure Detail [...] Plain chest X-ray Start: 07-28-2020 Colonoscopy Britni arroyo APRN.FLASH DESIGNER Work Phone: Start: 09-19-2019 Antibody screen Comment on above: Performed By: #### T &S #### [place] [id number] Start: 05-21-2019 Mammography Britni arroyo APRN.FLASH DESIGNER Work Phone: Plan of Treatment Date Care Activity Detail Author Start: 01-21-2026 LIPID SCREEN LIPID SCREEN [facility] Start: 07-28-2025 Colonoscopy COLONOSCOPY [facility] Start: 07-28-2025 COLORECTAL CANCER SCREENING COLORECTAL CANCER SCREENING [facility] Start: 04-03-2024 DIABETES SCREEN DIABETES SCREEN [facility] Start: 12-28-2022 PAP TESTING PAP TESTING [facility] Start: 11-11-2022 Patient discharge [facility] Start: 02-26-2022 Patient referral [facility] Work Phone: Start: 02-26-2022 Patient discharge [facility] Work Phone: Start: 02-24-2022 Ambulation without limitation [facility] Work Phone: Start: 02-24-2022 Assessment of risk of venous thromboembolism [facility] Work Phone: Start: 02-24-2022 Catheterization of vein [facility] Work Phone: Start: 02-24-2022 Chart related administrative procedure [facility] Work Phone: Start: 02-24-2022 Incentive spirometry [facility] Work Phone: Start: 02-24-2022 Insertion of catheter into peripheral vein [facility] Work Phone: Start: 02-24-2022 Measuring intake and output [facility] Work Phone: Start: 02-24-2022 Notification of physician [facility] Work Phone: Start: 02-24-2022 Oxygen therapy [facility] Work Phone: Start: 02-24-2022 Patient education [facility] Work Phone: Start: 02-24-2022 Patient referral to dietitian [facility] Work Phone: Start: 02-24-2022 Providing care according to standard [facility] Work Phone: Start: 02-24-2022 Pulse taking [facility] Work Phone: Start: 02-24-2022 Taking patient vital signs [facility] Work Phone: Start: 02-24-2022 Vital signs measurements [facility] Work Phone: Start: 02-24-2022 Wound care [facility] Work Phone: Start: 02-24-2022 Following clinical pathway protocol [facility] Work Phone: Start: 02-24-2022 Electrocardiographic procedure [facility] Work Phone: Start: 02-24-2022 Verification routine [facility] Work Phone: Start: 02-24-2022 Catheterization of left heart [facility] Work Phone: Start: 02-24-2022 Admission procedure [facility] Work Phone: Start: 02-24-2022 End: 02-24-2022 Blood chemistry [facility] Work Phone: Start: 02-24-2022 End: 02-24-2022 Partial thromboplastin time, activated [facility] Work Phone: Start: 02-24-2022 End: 02-24-2022 Prothrombin time [facility] Work Phone: Start: 02-24-2022 End: 02-24-2022 [facility] Work Phone: Start: 02-24-2022 [facility] Work Phone: Start: 12-24-2021 Influenza vaccination INFLUENZA (Season Ended) [facility] Start: 08-03-2021 End: 10-03-2021 CBC W Auto Differential panel - Blood CBC + DIFF Lab Routine H/O gastric sleeve Expected: 08/03/2021, Expires: 10/03/2021 [facility] Work Phone: Comment on above: Expected: 08/03/2021, Expires: Start: 08-03-2021 End: 10-03-2021 Comprehensive metabolic 2000 panel - Serum or Plasma [facility] Work Phone: Comment on above: Expected: 08/03/2021, Expires: 2 Start: 08-03-2021 End: 10-03-2021 LIPID PANEL BASIC LIPID PANEL BASIC Lab Routine Class 2 obesity without serious comorbidity with body mass index (BMI) of 36.0 to 36.9 in adult, unspecified obesity type Hypertension, unspecified type Expected: 08/03/2021, Expires: 10/03/2021 [facility] Work Phone: Comment on above: Expected: 08/03/2021, Expires: 2 Start: 08-03-2021 End: 10-03-2021 VITAMIN D 25 HYDROXY VITAMIN D 25 HYDROXY Lab Routine Vitamin D deficiency Expected: 08/03/2021, Expires: 10/03/2021 [facility] Work Phone: Comment on above: Expected: 08/03/2021, Expires: 2 Start: 05-21-2020 Mammography MAMMOGRAM [facility] Start: 07-16-2019 HPV TESTING HPV TESTING [facility] Start: 2009 SHINGRIX VACCINE (1 of 2) SHINGRIX VACCINE (1 of 2) [facility] Start: 2004 COLOGUARD (FIT-DNA) COLOGUARD (FIT-DNA) [facility] Start: [address] COLONOGRAPHY [facility] Start: 2004 FECAL OCCULT BLOOD FECAL OCCULT BLOOD [facility] Start: 2004 SIGMOIDOSCOPY SIGMOIDOSCOPY [facility] Start: 1978 Urine microalbumin profile DTAP,TDAP,TD (1 - Tdap) [facility] Start: 1977 ANNUAL PCP TEAM CHRONIC DISEASE VISIT ANNUAL PCP TEAM CHRONIC DISEASE VISIT [facility] Start: 1977 BP CONTROLLED (<130/80) BP CONTROLLED (<130/80) [facility] Start: 1977 HEPATITIS C SCREENING HEPATITIS C SCREENING [facility] Start: 1977 HIV SCREENING HIV SCREENING [facility] Start: 01-13-1965 COVID-19 VACCINE (1) COVID-19 VACCINE (1) [facility] Anion gap measurement [facility] Work Phone: BUN/Creatinine ratio [facility] Work Phone: Calcium [Mass/volume ] in Serum or Plasma [facility] Work Phone: Carbon dioxide, tota l [Moles/volume] in Serum or Plasma [facility] Work Phone: Chloride [Moles/volu me] in Serum or Plasma [facility] Work Phone: Comprehensive metabo lic 1999 panel - Serum or Plasma [facility] Comprehensive metabo lic 1999 panel - Serum or Plasma [facility] Creatinine [Moles/vo lume] in Serum or Plasma [facility] Work Phone: Glucose [Mass/volume ] in Serum or Plasma [facility] Work Phone: Hematocrit [Volume F raction] of Blood [facility] Work Phone: Hemoglobin [Mass/vol ume] in Blood [facility] Work Phone: INR in Blood by Coag ulation assay [facility] Work Phone: Leukocytes [#/volume ] in Blood [facility] Work Phone: Lipid 1996 panel - S bea or Plasma [facility] Mean corpuscular hem oglobin concentration determination [facility] Work Phone: Mean corpuscular hem oglobin determination [facility] Work Phone: Measurement of renal function [facility] Work Phone: Neutrophil count [facility] Work Phone: Neutrophil percent differential count [facility] Work Phone: NM Heart Views W str ess and W radionuclide IV [facility] Partial thromboplast in time, activated [facility] Work Phone: Patient referral [facility] Work Phone: Platelets [#/volume] in Blood [facility] Work Phone: Potassium [Moles/vol ume] in Serum or Plasma [facility] Work Phone: Prothrombin time [facility] Work Phone: Red blood cell count [facility] Work Phone: Red cell distributio n width determination [facility] Work Phone: Sodium [Moles/volume ] in Serum or Plasma [facility] Work Phone: Urea nitrogen [Mass/ volume] in Serum or Plasma [facility] Work Phone: [facility] Payers Date Payer Category Payer Medicare [id number] [place] [id number] 2024 Unknown [id number] 2024 Self-pay [id number] 2018 Unknown [id number] 2015 Unknown [id number] fl [id number] Unknown [id number] Unknown [id number] Unknown [id number] Unknown [id number] Social History Date Type Detail Facility Start: 12-15-2022 Tobacco smoking status [facility] Never smoked tobacco [facility] Start: 04-11-2022 Alcohol intake Current drinke r of alcohol (finding) [facility] Start: 09-26-2019 History SDOH Alcohol Frequency 3 [facility] Start: 03-13-2018 History SDOH Alcohol Comment occasional wine-not weekly [facility] Start: 09-27-2019 History SDOH Financial 5 [facility] Start: 09-27-2019 History SDOH Food Worry 1 [facility] Start: 09-27-2019 History SDOH Transport Med 2 [facility] Start: 1960 Sex Assigned At Female C [facility] Start: 07-24-2021 End: 08-03-2021 Exposure to SARS-CoV-2 (event) Not sure [facility] Start: 02-24-2022 End: 12-15-2022 Tobacco smoking status NHIS Unknown if ever smoked [facility] Start: 02-12-2019 Non-smoker [facility] NEGATED: Highlighted row [facility] Medical Equipment Procedure Code Equipment Code Equipment [...] Facility 02-26-2022 Functional status Ambulates;Up ad angélica [facility] Work Phone: Mental Status Date Assessment Result Facility 11-11-2022 Cognitive function Voice/Name [facility] Work Phone: 02-26-2022 Cognitive function Voice/Name [facility] Work Phone: 02-24-2022 Cognitive function Level Of Cons ciousness Awake;Alert;Appropriate [facility] Work Phone: Clinical Notes 05-26-2009 to 09-26-2024 Note Date & Type Note Facility 09-26-2024 Evaluation note Diagnosis Onset Date Resolution Coronary artery disease acute J 2024 9:32am Dyslipidemia chronic September 26 9:32am Grade III diastolic dysfunction chronic September 26, 2024 9 :32am Hypertension chronic September 26 9:32am Palpitations resolved September 26 9:32am [facility] Work Phone: [phone] 142-706806-04-2025 Progress [facility] [address] [place], [place] [address] OFFICE VISIT Date of Service: 09/26/24 MR#: [id number] Acct: [id number] Name: CHRISTINA JADE Rep #: [id number] : 1960 Provider: Dr. Saji Petty MD Age/Sex: 64/F Location[place] [facility] [place] Status: Signed HPI HPI History of Present Illness Details: This lady with history of CAD involving the right coronary artery and disease ofthe distal LAD, hypertension and dyslipidemia is here for follow-up visit. Denies any chest pains or shortness of breath. No palpitations. No orthopnea or PND. No ankle edema. Patient stopped taking atorvastatin as according to her she just did not feel right on it. No history of myalgias or aches or pains. She is also taking hercarvedilol once daily only and not taking it twice daily as prescribed. 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: No Accompanied by: Granddaughter Is patient in pain?: No Allergies benzoyl peroxide Allergy (Verified 09/26/24 09:53) Rash eprosartan (From Teveten) Allergy (Verified 09/26/24 09:53) Other Penicillins Allergy (Verified 09/26/24 09:53) Rash sertraline (From Zoloft) Allergy (Verified 09/26/24 09:53) anxiety Medications ?Medication ?Instructions ?Recorded ?Confirmed ?Type aspirin 81 mg tablet,delayed 81 mg PO BREAKFAST #90 ta bs 01/31/23 09/26/24 Rx release hydrochlorothiazide 25 mg tablet 25 mg PO DAILY blood pressure #90 01/31/23 09/26/24 Rx tabs amlodipine 5 mg tablet 5 mg PO DAILY #90 tabs 08/2309/26/24 Rx ascorbate calcium (vitamin C) PO DAILY 09/26/24 History [Vitamin C (ascorbate calcium)] berberine-herbal comb no.18 PO DAILY 09/26/24 09/26/24 History carvedilol 6.25 mg tablet 6.25 mg PO ONCE 09/26/24 Hi story coenzyme q10 and beet PO DAILY 09/26/24 History escitalopram oxalate 10 mg tablet 10 mg PO QDAY 09/26/24 History magnesium glycinate mg PO DAILY 09/26/24 5 History turmeric-turmeric ext-pepper PO DAILY 09/26/24 5 History [Turmeric with BioPerine] Ejection fraction %: 55 Have you fallen in the past year?: No PFSH Medical History Achilles tendon injury Arthritis Cancer Cardiology follow-up encounter CPAP (continuous positive airway pressure) dependence Depression Fatty liver GERD (gastroesophageal reflux disease) History of echocardiogram History of Holter monitoring History of pain when walking Hx of hemorrhoids Hypertension Migraines Non-smoker Osteopenia Sciatica Seasonal affective disorder Spontaneous dissection of coronary artery STEMI (ST elevation myocardial infarction) Wears glasses Surgical History H/O gastric sleeve History of cardiac catheterization History of hysterectomy for cancer Hx of Achilles tendon repair Hx of colonoscopy Status post hemorrhoidectomy Family History Father Liver mass Heart disease Atrial fibrillation Mother DVT (deep venous thrombosis) Uncle Myocardial infarction Social History Smoking Status: Never smoker alcohol intake: current alcohol intake frequency: holidays/special occasions only substance use type: does not use caffeine: Yes Type: coffee Number of servings: 2 ROS Const Const: Negative for fatigue, weakness, headache(s) or weight gain ENT ENT: Negative for headache(s), dizziness, Nosebleed/epistaxis or balance problems Cardio Chest Pain: No Palpitations: No Edema: None Muscle aches with walking: None Resp Respiratory: Negative for SOB with activity, SOB at rest or SOB orthopneaundefinedSOB lying down GI GI: Negative nausea, vomiting or heartburn Musc Musc: Negative for muscle aches/ myalgia, muscle weakness, joint pain or balanceproblems Neuro Neuro: Negative for dizziness, lightheadedness, near syncope, syncope, headache(s) or weakness Endo Endo: Negative for fatigue Cardiology Exam Const Appearance: comfortable and no acute distress Nutritional Appearance: well nourished Neck Neck: no JVD Carotids: Negative bruit Chest Auscultation: Bilateral: Clear to Auscultation Cardio Rate: regular rate Rhythm: regular rhythm Heart sounds: S1 normal and S2 normal Neuro General: patient alert, patient awake and patient oriented x3 Extremities Lower Extremity Edema: None: Bilateral Supplemental Info Supplemental Information Echocardiogram 02/24/2022: The left ventricular ejection fraction is 55 %. Stage 3 diastolic dysfunction. Mild (1+) mitral valve insufficiency. Mild tricuspid valve insufficiency. Right ventricular systolic pressure estimated to be 41 mmHg. Cardiac Cath 02/24/2022: SCAD Pox to distal RPLV 80% distal LAD LVEF 55%. Posterior basal hypokinesis RECOMMENDATIONS Medical therapy CORONARY ANGIOGRAPHY DOMINANCE: Right Dominant LEFT HEART ASSESSMENT Left Ventricular Ejection Fraction: by LV Gram 55 % LVEDP: 24 mmHg LEFT ANTERIOR DESCENDING ARTERY: LAD: Tubular 80% Distal lesion in LAD RIGHT CORONARY ARTERY: Assessment and Plan Assessment and Plan (1) Coronary artery disease: Status: Acute Plan: History of inferior STEMI secondary to a SCAD of the RCA. Distal LAD disease. Continue aspirin. Beta-blockers. Calcium channel blockers. Risk factor modification. Check exercise stress Myoview to rule out silent ischemia. (2) Palpitations: Status: Resolved Plan: Asymptomatic on carvedilol. (3) Grade III diastolic dysfunction: Status: Chronic Plan: No heart failure. Repeat echocardiogram. (4) Hypertension: Status: Chronic Plan: Blood pressure above goal. Counseled to take her carvedilol 6.25 mg twice dailyas prescribed. Also increase amlodipine to 10 mg once daily. (5) Dyslipidemia: Status: Chronic Plan: Stop taking atorvastatin. Discussed with patient. Agrees to try pravastatin. Start on 40 mg daily. Plan Details Follow Up: 6 Months Coding Level of Care Code Off vis,est,level 4 Diagnoses Coronary artery disease I25.10 Palpitations R00.2 Grade III diastolic dysfunction I51.89 Hypertension I10 Dyslipidemia E78.5 Coding Level of Care Code Off vis,est,level 4 Diagnoses Coronary artery disease I25.10 Palpitations R00.2 Grade III diastolic dysfunction I51.89 Hypertension I10 Dyslipidemia E78.5 Clinical Quality Measures Falls Risk Screening/Assistive Devices Have you fallen in the past year?: No Cardiac Ejection fraction %: 55 09/26/24 1018 MD> Date _ Layton Petty MD Cosigner Signature: Date (if applicable) CC: Dr. Jeffry Nichole, ~ [facility]07-20-2023 History and physical note Author Lul Borrero [facility] November 11, 2022 8:35am Note Date/Time November 11, 2022 6:51 am [facility] Medical Records Department [address] [place] [id number] History & Physical Exam 11/11/22 0650 MR#: [id number] Acct: [id number] Name: CHRISTINA JADE Rep #:[id number] : 1960 62 From: Lul Borrero MD PCP: Dr. Jeffry Nichole DO Status:[facility] Location: [place] [address] History and Physical Date of Admission: 11/11/22 [...] QHS #90 tabs 03/26/22 [Rx Confirmed 10/22/22] PFSH Medical History (Updated 10/05/22 @ 12:29 [...] Visit Reasons: HEMORRHOIDS Chief Complaint: hemorrhoids consult Web Production Assistant Required: No Is patient in pain?: No [...] QHS #90 tabs 03/26/22 [Rx Confirmed 10/05/22] PFS Medical History (Updated 10/05/22 @ 12:29 [...] recent BMI is 37. 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 She can have very [...] having had colon cancer. Bryan is her taiyho-dp-sor. ROS General General: Yes weight change; No [...] cooperative, healthy appearing and no acute distress [facility] Head: normal to inspection Eyes General: appearance [...] hemorrhoid: Status: Acute Plan: Today was a [id number]-[id number] consultative appointment. I have described the technique [...] Cosigner Signature (if applicable): CC: Dr. Jeffry Nichole DO; Dr. Lul Borrero MD~ Signed ADDENDUM by Dr. Lul Borrero MD on 11/11/22 at 0835 Addendum No change. 11/11/22 0835<Electronically signed by Lul Borrero MD> Cosigner Signature (if applicable): cc: Dr. Jeffry Nichole DO; Dr. Lul Borrero MD ~* Signed [facility] Work Phone: 1(202) 283-864907-20-[address] [facility] 11-11-[address] [facility]07-20-2023 Procedure note [facility]04-11-2022 NoteHNO ID: [id number] Author: Britni Mcintyre APRN.FLASH DESIGNER Service: ? Author Type: Nurse Practitioner Type: Progress Notes Filed: 08/04/2021 9:50 AM Note Text: BMI Obesity Medicine FollowUp Note August 03, 2021 Patient Summary: is 61 year old Female who presents for follow-up evaluation of her obesity and related complications to the [facility] [place]. In our previous visits we have outlined [...] (TOPAMAX) 25 mg tab (more content not included)...[facility]04-11-2022 History of Present illness Narrative* Britni Mcintyre, DEVELOPMENT PLANNER.FLASH DESIGNER - 08/03/2021 3:26 PM EDT Images from the original note were not included. BMI Obesity Medicine FollowUp Note August 03, 2021 Patient Summary: is 61 year old Female who presents for follow-up evaluation of her obesity and related complications to the [facility] [place]. In our previous visitswe have outlined an [...] fat diet and increased physical activity. Britni Mcintyre APRN.CNP I spent a total of 40 minutes on the date of the service which included preparing to see the patient, svlf-ow-rtyt patient care, completing clinical documentation, obtaining and/or [...] up in 4 weeks [facility]04[facility] Instructions* Patient Instructions* Britni Mcintyre APRN.CNP - [...] as visual guide to low carb food: Https://www.dietdoctor.[employer]/ ( visual guide for low carb diet) [...] like a plant based meal replacement called [employer] Nutrition - can mix w froz berries [...] Good examples of appsto track calories are fitmob, LOSE IT. Some patient have found FOODUCATE to help with decisions around food, however choose apps that best suits you. Nutrition Counseling Practice these: - Eat 3 meals daily can use approved/recommended protein shake as 1 meal replacement (should be <200 calories, 20-30g protein, <5g added sugar) - Keep a food journal 5-7x/week (consider iMove or [employer] sushma) and demonstrate meeting protein goal (60-90g protein for females, 70-105g protein for males)- Lean meats, fish, low fat dairy - cottage cheese, Moroccan yogurt, light yogurt, cheese, ricotta cheese, nuts, [...] will be much easier to follow through. Destiney Mccormick's hailing the cab ritual is a [...] difficultworkouts. Today, William is over 100 pounds grey roll man. (Which, to be fair, is not just the result of exercise, but also diet and lifestyle changes.) Once you build the habit of exercise, you can find thousands of ways to improve. Without the habit,every strategy is useless. Build the habit first, worry about the results later https://TV189.com/exercise-habit metformin if no contraindications with gastric sleeve; [...] at or call local emergency services at 308. What other information should I know? Keep all appointments with your doctor and the laboratory. Do not let anyone else take your medication. Topiramate use needs to be monitored closely. Prescriptions may be refilled only a limited number of times. Keep a written list of all of your prescription and nonprescription (zeqy-skk-cjdmlii) medicines, in addition to vitamins, minerals, or [...] for a missed one. Sources Pubmed Health: http://www.ncbi.nlm.nih.gov/pubmedhealth/UNT0980850/ Drugs.com http://www.drugs.com/pro/topiramate.html lifecake : TRUE LEMON Water Enhancer, Bulk Dispenser Pack (100 Packets) Zero Calorie Unsweetened Water Flavoring For Water, Bottled Water, Iced Tea & Recipes Water Flavor Packets Made with Real Raven : Fruit Juices : Grocery & Gourmet Food True Lemon (Ocular Therapeutix) Meal replacements: https://www.AuditFile.com/food-nutrition/p47899480/7-uddv-azje-replacements/ Meal replacements. One option that works for some people is to use meal replacements, as in the DiRECT and Look AHEAD trials.The available options in Look AHEAD included shakes, bars, and meals from a variety of companies (GlucerAxeda, HMR, [employer], and [employer]). The calorie content was 150 to 220 [...] stop using meal replacements. [facility] in [facility]12-[facility]-2021 NoteHNO ID: [id number] Author: Jie Renee MD Service: ? Author Type: Physician Type: Progress Notes Filed: 03/30/2021 10:15 AM Note Text: Jie Renee MD [facility] [address] [place] [address], [address] [facility] Floor [place] [address] Virtual visit Christina Jade is a 60 [...] - ICD9: 276.8, ICD1 (more content not included)...[facility]10-14-2021 NoteHNO ID: [id number] Author: Nona Hugo Service: ? Author Type: ? Type: Progress Notes Filed: 02/05/2021 2:18 PM Note Text: Spoke to patient, patient is aware and agreeable. Nonakristofer HugoMillinocket Regional Hospital10-14-2021 NoteHNO ID: [id number] Author: Jie Renee MD Service: ? Author Type: Physician Type: Progress Notes Filed: 02/05/2021 12:07 PM Note Text: Jie Renee MD [address], [place] [address] [facility] [place] [phone] In office Christina Jade is a 60 [...] K76.0 Wt loss will (more content not included)...[facility] 12-17-2020 NoteHNO ID: [id number] Author: Danette Boyce APRN.FLASH DESIGNER Service: ? Author Type: Nurse Practitioner Type: Progress Notes Filed: 12/17/2020 3:59 PM Note Text: Christina is a 60 year old who presents for an annual gynecologic exam without complaints. Postmenopausal: Hysterectomy 2018 endometrial cancer HRT use: No. History of abnormal pap: Yes, remote Last mammogram: 2019 normal History of abnormal mammogram: Yes Sexually active: Yes Time with current partner: half-way History of box car bracer malignancy: ENDOMETRIAL CANCER Pain with intercourse: No [...] external genitalia normal, normal Bartholin's glands, urethra, Olin's glands, no vulvar lesions, physiologic discharge present, [...] year or sooner as needed Danette Boyce APRN.[facility]06-30-2021 NoteHNO ID: [id number] Author: Jei Renee MD Service: ? Author Type: Physician [...] of this encounter: 98.9 kg (218 lb). [place] weight: 62 kg (136 lb 11.2 oz) [...] reactive hypoglycemia, gustatory rhinorrhea, (more content not included)...[facility] 08-18-2020 NoteHNO ID: [id number] Author: Jocy Dempsey (Aprn Cnp) Service: ? Author Type: Nurse Practitioner Type: [...] Total weight loss: 14.5 kg (32 lb) [place] weight: 62 kg (136 lb 11.2 oz) [...] LABS: Today: reviewed In 3 months: See [facility] Nutrition Counseling Practice these: - Eat 3 meals daily?can use approved/recommended protein shake as 1 meal replacement (should be <200 calories, 20-30g protein, <5g added sugar) - Keep a food journal 5-7x/week (consider iMove or [employer] sushma) and demonstrate meeting protein goal (60-90g protein for females, 70-105g protein for males)- Lean meats, fish, low fat dairy - cottage cheese, Moroccan yogurt, light yogurt, cheese, ricotta cheese, nuts, [...] guzzling or gulping ASSESSMENT/PLAN (more content not included)...[facility] 05-26-2009 History of Past illness Narrative* Problem Noted Date Resolved Date Abdominal pain, left upper quadrant 05/26/2009 03/22/2011 Endometriosis, site unspecified 05/26/2009 09/03/2016 Irregular menstrual cycle 05/26/20092016 Dysmenorrhea 05/26/2009 03/22/2011 Rectocele 05/26/2009 03/22/2011 documented as of this encounter (statuses as of 08/03/2021) [facility]02-01-2010 History of Past illness Narrative* Problem Noted Date Resolved Date Abdominal pain, left upper quadrant 05/26/2009 03/22/2011 Endometriosis, site unspecified 05/26/2009 09/03/2016 Irregular menstrual cycle 05/26/20092016 Dysmenorrhea 05/26/2009 03/22/2011 Rectocele 05/26/2009 03/22/2011 documented as of this encounter (statuses as of 08/19/2021) [facility] for [facility] Narrative* Chief Complaint osteopenia SCREENING HEMORRHOIDS Discuss future procedure (hemorrhoids) Hemorrhoidectomy Hemorrhoidectomy Reason for Visit Bleeding hemorrhoid Coronary artery disease Hypertension Bleeding hemorrhoid [facility] Work Phone: Evaluation note* Diagnosis Class 2 [...] surveillance and counseling documented in this encounter [facility] noteNo assessment information availableWParkview Health Work Phone: Evaluation note* Diagnosis Onset Date Resolution Status Spontaneous dissection of coronary artery acute STEMI (ST elevation myocardial infarction) acute Hypertension chronic [facility] Work Phone: Evaluation note* Diagnosis Onset Date Resolution Status Hypertension chronic Spontaneous dissection of coronary artery resolved STEMI (ST elevation myocardial infarction) resolved Coronary artery disease acut e Dyslipidemia acute Palpitations acute Hypertension chronic [facility] Work Phone: Evaluation note* Diagnosis Onset Date Resolution Status Bilateral knee pain acute Bilateral primary osteoarthritis of knee acute Bilateral primary osteoarthritis of knee acute Bilateral primary osteoarthritis of knee acute [facility] Work Phone: Evaluation note* Diagnosis Onset Date Resolution Status Bleeding hemorrhoid acute Coronary artery disease acut e Hypertension chronic Bleeding hemorrhoid acute [facility] Work Phone: Evaluation note* Diagnosis Onset Date Resolution Status Bilateral primary osteoarthritis of knee acute Status post hemorrhoidectomy acute Bilateral primary osteoarthritis of knee acute Bilateral primary osteoarthritis of knee acute Status post hemorrhoidectomy acute [facility] Work Phone: Evaluation note* Diagnosis Onset Date Resolution Status Admit Date Coronary artery disease acute J 2024 9:32am Dyslipidemia chronic September 26 9:32am Grade III diastolic dysfunction 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 [place] [address] OFFICE VISIT Date of Service: 09/26/24 MR#: [id number] Acct: [id number] Name: CHRISTINA JADE Rep #: [id number] : 1960 Provider: Dr. Saji Petty MD Age/Sex: 64/F Location: [facility] Status: Signed HPI HPI History of Present Illness Details: This lady with history of CAD involving the right coronary artery and disease ofthe distal LAD, hypertension and dyslipidemia is here for follow-up visit. Denies any chest pains or shortness of breath. No palpitations. No orthopnea or PND. No ankle edema. Patient stopped taking atorvastatin as according to her she just did not feel right on it. No history of myalgias or aches or pains. She is also taking hercarvedilol once daily only and not taking it twice daily as prescribed. 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: No Accompanied by: Granddaughter Is patient in pain?: No Allergies benzoyl peroxide Allergy (Verified 09/26/24 09:53) Rash eprosartan (From Teveten) Allergy (Verified 09/26/24 09:53) Other Penicillins Allergy (Verified 09/26/24 09:53) Rash sertraline (From Zoloft) Allergy (Verified 09/26/24 09:53) anxiety Medications ?Medication ?Instructions ?Recorded ?Confirmed ?Type aspirin 81 mg tablet,delayed 81 mg PO BREAKFAST #90 ta bs 01/31/23 09/26/24 Rx release hydrochlorothiazide 25 mg tablet 25 mg PO DAILY blood pressure #90 01/31/23 09/26/24 Rx tabs amlodipine 5 mg tablet 5 mg PO DAILY #90 tabs 08/2309/26/24 Rx ascorbate calcium (vitamin C) PO DAILY 09/26/24 History [Vitamin C (ascorbate calcium)] berberine-herbal comb no.18 PO DAILY 09/26/24 09/26/24 History carvedilol 6.25 mg tablet 6.25 mg PO ONCE 09/26/24 Hi story coenzyme q10 and beet PO DAILY 09/26/24 History escitalopram oxalate 10 mg tablet 10 mg PO QDAY 09/26/24 History magnesium glycinate mg PO DAILY 09/26/24 5 History turmeric-turmeric ext-pepper PO DAILY 09/26/24 5 History [Turmeric with BioPerine] Ejection fraction %: 55 Have you fallen in the past year?: No PFSH Medical History Achilles tendon injury Arthritis Cancer Cardiology follow-up encounter CPAP (continuous positive airway pressure) dependence Depression Fatty liver GERD (gastroesophageal reflux disease) History of echocardiogram History of Holter monitoring History of pain when walking Hx of hemorrhoids Hypertension Migraines Non-smoker Osteopenia Sciatica Seasonal affective disorder Spontaneous dissection of coronary artery STEMI (ST elevation myocardial infarction) Wears glasses Surgical History H/O gastric sleeve History of cardiac catheterization History of hysterectomy for cancer Hx of Achilles tendon repair Hx of colonoscopy Status post hemorrhoidectomy Family History Father Liver mass Heart disease Atrial fibrillation Mother DVT (deep venous thrombosis) Uncle Myocardial infarction Social History Smoking Status: Never smoker alcohol intake: current alcohol intake frequency: holidays/special occasions only substance use type: does not use caffeine: Yes Type: coffee Number of servings: 2 ROS Const Const: Negative for fatigue, weakness, headache(s) or weight gain ENT ENT: Negative for headache(s), dizziness, Nosebleed/epistaxis or balance problems Cardio Chest Pain: No Palpitations: No Edema: None Muscle aches with walking: None Resp Respiratory: Negative for SOB with activity, SOB at rest or SOB orthopneaundefinedSOB lying down GI GI: Negative nausea, vomiting or heartburn Musc Musc: Negative for muscle aches/ myalgia, muscle weakness, joint pain or balanceproblems Neuro Neuro: Negative for dizziness, lightheadedness, near syncope, syncope, headache(s) or weakness Endo Endo: Negative for fatigue Cardiology Exam Const Appearance: comfortable and no acute distress Nutritional Appearance: well nourished Neck Neck: no JVD Carotids: Negative bruit Chest Auscultation: Bilateral: Clear to Auscultation Cardio Rate: regular rate Rhythm: regular rhythm Heart sounds: S1 normal and S2 normal Neuro General: patient alert, patient awake and patient oriented x3 Extremities Lower Extremity Edema: None: Bilateral Supplemental Info Supplemental Information Echocardiogram 02/24/2022: The left ventricular ejection fraction is 55 %. Stage 3 diastolic dysfunction. Mild (1+) mitral valve insufficiency. Mild tricuspid valve insufficiency. Right ventricular systolic pressure estimated to be 41 mmHg. Cardiac Cath 02/24/2022: SCAD Pox to distal RPLV 80% distal LAD LVEF 55%. Posterior basal hypokinesis RECOMMENDATIONS Medical therapy CORONARY ANGIOGRAPHY DOMINANCE: Right Dominant LEFT HEART ASSESSMENT Left Ventricular Ejection Fraction: by LV Gram 55 % LVEDP: 24 mmHg LEFT ANTERIOR DESCENDING ARTERY: LAD: Tubular 80% Distal lesion in LAD RIGHT CORONARY ARTERY: Assessment and Plan Assessment and Plan (1) Coronary artery disease: Status: Acute Plan: History of inferior STEMI secondary to a SCAD of the RCA. Distal LAD disease. Continue aspirin. Beta-blockers. Calcium channel blockers. Risk factor modification. Check exercise stress Myoview to rule out silent ischemia. (2) Palpitations: Status: Resolved Plan: Asymptomatic on carvedilol. (3) Grade III diastolic dysfunction: Status: Chronic Plan: No heart failure. Repeat echocardiogram. (4) Hypertension: Status: Chronic Plan: Blood pressure above goal. Counseled to take her carvedilol 6.25 mg twice dailyas prescribed. Also increase amlodipine to 10 mg once daily. (5) Dyslipidemia: Status: Chronic Plan: Stop taking atorvastatin. Discussed with patient. Agrees to try pravastatin. Start on 40 mg daily. Plan Details Follow Up: 6 Months Coding Level of Care Code Off vis,est,level 4 Diagnoses Coronary artery disease I25.10 Palpitations R00.2 Grade III diastolic dysfunction I51.89 Hypertension I10 Dyslipidemia E78.5 Coding Level of Care Code Off vis,est,level 4 Diagnoses Coronary artery disease I25.10 Palpitations R00.2 Grade III diastolic dysfunction I51.89 Hypertension I10 Dyslipidemia E78.5 Clinical Quality Measures Falls Risk Screening/Assistive Devices Have you fallen in the past year?: No Cardiac Ejection fraction %: 55 09/26/24 1018 <Electronically signed by Layton Petty MD> Date _ Layton Petty MD Cosigner Signature: Date (if applicable) CC: Dr. Jeffry Nichole, DO ~ 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 Advance Directive(s) 07/28/2020 10:59 AM Advance Directive(s) 07/21/2020 10:59 AM W ooster Advance Directive(s) 09/26/2019 6:58 AM Advance Directive(s) 09/19/2019 2:12 PM Advance Directive(s) 04/13/2019 7:35 AM Advance Directive(s) 03/24/2018 5:55 AM Advance Directive(s) 03/24/2018 5:54 AM Advance Directive Response Recorded Date/ Time Living Will Yes February 24 11:58am Power of Finisher Hot Strip Yes February 24, 2022 11:58am Name of Medical Power of Finisher Hot Strip February 24, 2022 11:58am Advance Directive Response Recorded Date/ Time Name of Medical Power of Finisher Hot Strip Ralf Jade- February 24, 2022 1:39pm Living Will Yes February 24 1:39pm Power of Finisher Hot Strip Yes February 24, 2022 1:39pm Advance Directive Response Recorded Date/ Time Name of Medical Power of Finisher Hot Strip Ralf Jade- February 24, 2022 12:39pm Living Will Yes February 24 12:39pm Power of Finisher Hot Strip Yes February 24, 2022 12:39pm Advance Directive Response Recorded Date/ Time Living Will Yes February 24 1:39pm Power of Finisher Hot Strip Yes February 24, 2022 1:39pm Advance Directive Response Recorded Date/ Time Name of Medical Power of Finisher Hot Strip SPOUSE November 04, 2022 11:16am Living Will Yes November 04, 2022 11:16am Power of Finisher Hot Strip Yes November 04 11:16am Advance Directive Response Recorded Date/ Time Living Will Yes November 04, 2022 10:16am Power of Finisher Hot Strip Yes November 04 10:16am Chief Complaint and Reason for Visit Chief Complaint Admit Date OVERDUE 6 M FU September 26, 2024 9:32a m Reason for Visit Admit Date Coronary artery disease September 26, 2024 9 :32am Dyslipidemia September 26, 2024 9:32a m Grade III diastolic dysfunction September 9:32am Hypertension September 26, 2024 9:32a m Palpitations September 26, 2024 9:32a m Chief Complaint chest pain Chief Complaint ACUTE [...] primary osteoarthritis of knee Status post hemorrhoidectomy Chief Complaint Admit Date OVERDUE 6 M FU September 26, 2024 9:32a m E-ORDER September 26, 2024 10:53 am Additional Source Comments INFORMATION SOURCE (unrecogn ized section and content) DATE CREATED AUTHOR 09/04/2020 [facility] DATE CREATED AUTHOR AUTHOR'S ORGANIZ ATION 05/26/2021 [facility] DATE CREATED AUTHOR AUTHOR'S ORGANIZ ATION 08/05/2021 [facility] DATE CREATED AUTHOR AUTHOR'S ORGANIZ ATION 11/04/2024 [facility] Source Comments (unrecognize d section and content) In the event this informatio n is protected by the Federal Confidentiality of Alcohol and Drug Abuse Patient Records regulations: The Federal rules restrict any use of the information to criminally investigate or prosecute any alcohol or drug abuse patient.[facility] the event this information is protected by the Federal Confidentiality of Alcohol and Drug Abuse Patient Records regulations: The Federal rules restrict any use of the information to criminally investigate or prosecute any alcohol or drug abuse patient.[facility] Reason for Visit (unrecogniz ed section and content) Reason Comments Weight Problem Care Teams (unrecognized sec tion and content) 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 Jeffry Nichole DO Family Provider Active Dr. Jeffry Nichole DO Primary Care Provider Active Team Status: Inactive Member Role Status Dates Dr. Jeffry Nichole DO Primary Care Provider, Referrin g Provider Active PARADISE Mancini Attending Provider Active Team Status: Inactive Member Role Status Dates Dr. Jeffry Nichole DO Primary Care Provider Active Dr. Froylan Tucker MD Attending Provider Active Team Status: Inactive Member Role Status Dates Dr. Jeffry Nichole DO Primary Care Provider, Referrin g Provider Active PARADISE Jo Attending Provider Active Team Status: Inactive Member [...] Dr. Jeffry Nichole DO Family Provider Active Nikki Arias NP-Ananth Primary Care Provider Active Team Status: Inactive Member Role Status Dates Dr. Jeffry Nichole DO Primary Care Provider, Referrin g Provider Active Cheryl GHOTRA PA-C Attending Provider Active Team Status: Inactive Member Role Status Dates Dr. Jeffry Nichole DO Referring Provider Active Dr. Lul Borrero MD Attending Provider Active Team Status: Inactive Member Role Status Dates Melva GHOTRA PA Attending Provider Active Team Status: Inactive Member Role Status Dates ESTER Smith Primary Care Provider, Attending Isidro nunes Active Team Status: Active Member Role Status Dates Dr. Jeffry Nichole DO Primary Care Provider Active Team Status: Inactive Member Role Status Dates Dr. Jeffry Nichole DO Primary Care Provider Active Start: September 26, 2024 End: September 26, 2024 Dr. Jeffry Nichole DO Referring Provider Active Start: September 26, 2024 End: September 26, 2024 Dr. Layton Petty MD Attending Provider Active Start: September 26, 2024 End: September 26, 2024 Team Status: Inactive Member Role Status Dates Dr. Jeffry Nichole DO Primary Care Provider Active Start: September 26, 2024 End: September 26, 2024 Dr. Layton Petty MD Attending Provider Active Start: September 26, 2024 End: September 26, 2024 Dr. Layton Petty MD Referring Provider Active Start: September 26, 2024 End: September 26, 2024 Goals (unrecognized section and content) Goals may [...] BE BASED ON THE PRIMARY CLINICAL RECORDS. [facility] [employer] [facility]. provides no warranty or guarantee of the accuracy or completeness of information in this document.
--- NOTE | 2024-11-05 15:15 | STRESSREP_ITS ---
Stress Test Report Date: 11/05/2024 Procedure: Pharmacologic stress nuclear imaging study Indications: History of CAD Consent: Per the patient Procedure: The patient underwent pharmacologic (Regadenoson 0.4mg ) evaluation with a peak heart rate of 90 beats per minute (58%predicted maximal heart rate) and a peak blood pressure of 172/104 mmHg. The baseline ECG demonstrated sinus rhythm. The peak pharmacologic ECG did not show any ischemic changes. There were no cardiac dysrhythmias pretest, during pharmacologic infusion, or recovery. There was no complaint of chest discomfort during pharmacologic infusion or recovery. The patient was injected with 13.9 millicuries of technetium 99m Cardiolite and subsequently rest SPECT Cardiolite nuclear imaging was obtained in the horizontal long, vertical long, and short axis views. The patient underwent pharmacologic (Regadenoson) evaluation. The patient was injected with 41.7 millicuries of technetium 99m Cardiolite and subsequently stress SPECT Cardiolite nuclear imaging was obtained in the horizontal long, vertical long, and short axis views. A gated Cardiolite study at peak stress was obtained. The examination was stopped secondary to completion of protocol. Rest and stress SPECT Cardiolite nuclear imaging status post realignment, normalization, and attenuation correction demonstrate mildly reduced perfusion of the basal inferolateral wall at rest, suggestive of previous nontransmural infarct. There is mild torres-infarct ischemia. There is end systolic thickening and brightening. The gated Cardiolite study demonstrates myocardial thickening and inward wall motion. The reported LVEF is 79%. Impression: 1. Pharmacologic (Regadenoson) evaluation 2. Peak pharmacologic ECG with no diagnostic ischemic changes. 3. There were no cardiac dysrhythmias pretest, during pharmacologic infusion, or recovery. 5. 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 6. The gated Cardiolite study reports an LVEF of 79%. This note was generated with [employer] software. It may contain incorrect words, spelling, and punctuation that were not noted in checking the note before signing.
== END | disposition home or self-care (01) ==
LOC: CVS 06:34
PROVIDERS: PCP Family Medicine; Referring Provider Family Medicine; Visit Provider Internal Medicine Cardiovascular Disease
DX: I25.10 Atherosclerotic heart disease of native coronary artery without angina pectoris (principal); I21.3 ST elevation (STEMI) myocardial infarction of unspecified site; I51.89 Other ill-defined heart diseases
CPT/HCPCS: 78452; 93017; 93306; A9500; A4216; J2785

== ENCOUNTER → 2025-04-17 | Outpatient (CLI) | payer MEDICARE, BC, SELFPAY ==
--- NOTE | 2025-04-17 06:58 | MRI_ITS ---
PROCEDURE: SPINE CERVICAL (ROUTINE) 04/17/2025 REASON FOR EXAM: RADICULOPATHY, CERVICAL REGION TECHNIQUE: Procedure Code: MRISPC Modality: MR Procedure: SPINE CERVICAL (ROUTINE) Multiplanar and multisequence images were obtained without IV contrast administration. FINDINGS: Vertebrae: Cervical vertebral body heights are preserved. A hyperintense focus at stir T2, hypointense on T1 of C3 vertebral body consistent with hemangioma. Alignment: Normal. No spondylolisthesis. Spinal Cord: Cervical spinal cord is of normal size and signal intensities. Structures at the foramen magnum are unremarkable. C2-3: Unremarkable C3-4: Facet joints arthropathy. No foraminal or canal stenosis. C4-5: No foraminal or canal stenosis. C5-6: Disc osteophyte complex and uncovertebral hypertrophy. Severe bilateral foramina stenosis. Moderate canal stenosis. C6-7: Disc osteophyte complex. Facet arthropathy. No significant foraminal or canal stenosis. C7-T1: Unremarkable MRI/Spine Cervical (Routine) IMPRESSION: Multilevel degenerate changes predominantly for moderate canal stenosis and sev ere bilateral foramina stenosis at C5-C6. Reading Location: [facility]
--- OUTSIDE RECORDS SUMMARY | 2025-04-17 07:04 | XMS RPT_ITS | CCD ---
Author Organization [facility] CliniSypr Care Team Providers Care Foundry Engineer Name Role Phone Jeffry Nichole DO Primary [...] Dr. Jeffry Nichole Referring Provider [phone] Dr. eJffry Nichole Primary Care Provider [phone] Dr. Jeffry Nichole Referring Provider [phone] PARADISE Ocampo Attending Provider [phone] Dr. Froylan Tucker Attending Provider [phone] PARADISE Linares Attending Provider [phone] Dr. Jeffry Nichole Primary Care Provider [phone] Dr. Jeffry Nichole Referring Provider [phone] Lul Borrero Attending Provider [phone] Lul Borrero Referring Provider Dr. Lul Borrero Other Provider Dr. Jeffry Nichole Primary Care Provider [phone] Dr. Jeffry Nichole Referring Provider [phone] PARADISE Ocampo Attending Provider FRITZ Lee Attending Provider PARADISE Linares Attending Provider [phone] Lul Borrero Attending Provider Dr. Jeffry Nichole DO Primary Care Provider Dr. Jeffry Nichole DO Referring Provider [phone] Jovanny JENSEN, Dr. Traylor Attending Provider Dr. Layton Petty MD Referring Provider Layton Petty Attending Unavailable Jeffry Nichole Primary Care Unavailable JovannyLayton Attending Unavailable Layton Petty Referring Unavailable Jeffry Nichole Primary Care Unavailable JovannyLayton sanford Attending Unavailable Dionisio, Jeffry Primary Care Unavailable DionisioJeffry webster Referring Unavailable DionisioJeffry webster Referring Unavailable JovannyLayton Attending Unavailable Dionisio, Jeffry Primary Care Unavailable Nikki Arias Referring Unavailable Cecilio MONTOYA, Sridevi Attending Unavailable Jeffry Nichole Primary Care Unavailable Allergies Allergy Classification Reported Allergen(s) Allergy Type Date of Onset Reaction(s) Facility (2 sources) eprosartan Drug Allergy 5 [facility] Work Phone: (7 sources) Sertraline Drug Allergy 3 anxiety [facility] (2 sources) BENZOLE PEROXIDE [Other] Propensity to adverse reactions 5 Rash [facility] Work Phone: (9 sources) eprosartan Drug Allergy 2 Other [facility] Comment on above: severe joint pain (6 sources) Penicillins Allergy to substance 3 Rash [facility] (5 sources) Benzoyl Peroxide Drug Allergy 3 Rash [facility] (1 source) Benzoyl Peroxide Drug Allergy 5 [facility] (1 source) eprosartan Drug Allergy 5 [facility] (1 source) Penicillins Drug allergy (disorder) 5 [facility] (1 source) Sertraline Drug Allergy 5 [facility] Medications Current Medications Medication Drug Class(es) Dates Sig (Normalized) Sig (Original) amLODIPine 10 mg oral tablet (20 sources) Dihydropyridine Calcium Channel Ujana Start: 09-26-2024 take 1 tablet by mouth once daily Amlodipine 10 mg tablet Active 10 mg PO daily 90 3 September 26, 2024 12:00am Start: 09-14-2023 End: 09-26-2024 take 1 tablet by mouth once daily Amlodipine 5 mg tablet Discontinued 5 mg PO DAILY 90 3 August 23, 2024 7:45am September 26, 2024 3:56pm Start: 02-26-2022 End: 09-14-2023 take 1 tablet by mouth once daily Amlodipine 2.5 mg tablet Discontinued 2.5 mg PO DAILY 90 3 January 31, 2023 11:41am September 14, 2023 11:20am ascorbate calcium (vitamin C) (Vitamin C (ascorbate calcium)) (3 sources) Start: 09-26-2024 ascorbate calc ium (vitamin C) (Vitamin C (ascorbate calcium)) Active PO DAILY September 26, 2024 12:00am Immune C Plus combination berberine-herbal comb no.18 (3 sources) Start: 09-26-2024 berberine-herb al comb no.18 Active PO DAILY September 26, 2024 12:00am coenzyme q10 and beet (3 sources) Start: 09-26-2024 coenzyme q10 a nd beet Active PO DAILY September 26, 2024 12:00am escitalopram 10 mg oral tablet (14 sources) Serotonin Reuptake Inhibitor Start: 09-26-2024 take 1 tablet by mouth once daily Escitalopram Oxalate 10 mg tablet Active 10 mg PO daily September 26, 2024 12:00am Start: 02-12-2019 End: 09-14-2023 take 5 mg by mouth once daily Escitalopram Oxalate 10 MG tablet Discontinued 5 mg PO DAILY February 12, 2019 12:00am September 14, 2023 10:57am Antidepressant Start: 02-12-2019 take 5 mg by mouth [...] winter. Magnesium Glycinate 100 mg magnesium capsule (3 sources) Start: 09-26-2024 take 1 mg by mouth once daily Magnesium Glycinate 100 mg magnesium capsule Active mg PO DAILY September 26, 2024 12:00am pravastatin sodium 40 mg oral tablet (2 sources) HMG-CoA Reductase Inhibitor Start: 09-26-2024 take 1 tablet by mouth once daily Pravastatin 40 mg tablet Active 40 mg PO daily 90 3 September 26, 2024 12:00am turmeric-turmeric ext-pepper (Turmeric with BioPerine) (3 sources) Start: 09-26-2024 turmeric-turmeric ext-pepper (Turmeric with BioPerine) Active PO DAILY September 26, 2024 12:00am Completed/Discontinued Medications Medication Drug Class(es) Dates Sig (Normalized) Sig (Original) acetaminophen 325 mg / HYDROcodone bitartrate 5 mg oral tablet (5 sources) Opioid Agonist Start: 11-11-2022 End: 11-24-2022 Hydrocodone-Acetami nophen 5-325 mg tablet Discontinued 1 {tbl} PO EVERY 6 HOURS as needed for pain 10 3 0 November 11, 2022 November 24, 2022 8:25am Bleeding hemorrhoids Unspecified hemorrhoids Start: 11-11-2022 End: 11-24-2022 take 1 tablet by mouth every six hours Hydrocodone-Acetaminophen Discontinued 1 TABLET PO EVERY 6 HOURS 10 3 November 11, 2022 November 24, 2022 7:25am aspirin 81 mg delayed release oral tablet (20 sources) Platelet Aggregation Inhibitor, Nonsteroidal Anti-inflammatory Drug Start: 02-26-2022 End: 01-31-2023 take 1 tablet by mouth at breakfast Aspirin 81 mg tablet,delayed release (DR/EC) Discontinued 81 mg PO WITH BREAKFAST 90 3 January 313 11:07am January 31, 2023 11:42am atenolol 50 mg oral tablet (11 sources) beta-Adrenergic Ju[place] Start: 02-12-2019 End: 02-26-2022 take 1 tablet by mouth once daily Atenolol 50 MG tablet Discontinued 50 mg PO DAILY February 12, 2019 12:00am February 26, 2022 8:39am hi blood pressure Start: 07-15-2014 take 2 tablets by mo uth once daily atenolol (TENORMIN) 50 mg tablet Take 2 tablets by mouth once daily. 0 07/15/2014 Active Comment on above: Take 2 tablets by mo uth once daily. atorvastatin 40 mg oral tablet (19 sources) HMG-CoA Reductase Inhibitor Start: 2 End: 5 take 1 tablet by mouth at bedtime Atorvastatin 40 mg tablet Discontinued 40 mg PO AT BEDTIME 90 January 31, 2023 11:41am September 26, 2024 9:54am Calcium (2 sources) Phosphate Binder, Calcium Start: 5 take 1 tablet by mouth once daily CALCIUM 500 MG TAB Take one tablet by mouth daily. 0 03/24/2005 Active Comment on above: Take one tablet by [facility] daily. carvedilol 6.25 mg oral tablet (20 sources) alpha-Adrenergic Juana, beta-Adrenergic Juana Start: 5 End: 5 take 1 tablet by mouth once Carvedilol [...] 26, 2022 12:00am March 17, 2022 12:35pm cholecalciferol 0.05 mg oral capsule (2 sources) Vitamin D Cholecalciferol, Vitamin D3, (VITAMIN D-3) 50 mcg (2,000 unit) cap Take by mouth once daily. 0 Active Comment on above: Take by mouth once d aily. clopidogrel 75 mg oral tablet (19 sources) P2Y12 Platelet Inhibitor Start : 02-26 End: 01-24 take 1 tablet by mouth once daily Clopidogrel 75 mg tablet Discontinued 75 mg PO DAILY 90 3 January 31, 2023 11:42am January 25, 2024 11:24am ferrous sulfate (2 sources) ferrous sulfate (IRON ORAL) Take by mouth. 0 Active Comment on above: Take by mouth. hydroCHLOROthiazide 25 mg oral tablet (15 sources) Thiazide Diuretic Start : 03-24 End: 01-31 take 1 tablet by mouth once daily Hydrochlorothiazide 25 MG tablet Discontinued 25 mg PO DAILY February 12, 2019 12:00am January 31, 2023 11:42am blood pressure Comment on above: Take by mouth once [...] and biotin metroNIDAZOLE 250 mg oral tablet (5 sources) Nitroimidazole Antimicrobial Start : 11-11 End: 09-13 take 1 tablet by mouth three times daily Metronidazole 250 mg tablet Discontinued 250 mg PO THREE TIMES A DAY 15 0 November 11, 2022 12:00am September 14, 2023 [...] on above: Take 2 tablets by mo [facility] twice daily. 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 Cardiac dysrhythmias (12 sources) Palpitations; Translations: [Palpitations] Onset: 09-26-2024 Episodic Coronary atherosclerosis and other heart disease (13 sources) Coronary arteriosclerosis; Translations: [Atherosclerotic heart disease of [place] coronary artery without angina pectoris] Onset: 11-09-2024 Chronic Disorders of lipid metabolism (12 sources) Dyslipidemia; Translations: [Hyperlipidemia, unspecified] Onset: 09-26-2024 Chronic Esophageal disorders (5 sources) Gastroesophageal reflux disease; Translations: [Gastro-esophageal reflux disease without esophagitis] 10-05-2022 Chronic Essential hypertension (19 sources) Hypertensive disorder; Translations: [Essential (primary) hypertension] Onset: 03-13-2018 Chronic Fracture of lower limb (9 sources) Fracture of ankle; Translations: [Other fracture of unspecified lower leg, initial encounter for closed fracture] 03-01-2021 Episodic Headache; including migraine (5 sources) Migraine; Translations: [Migraine, unspecified, not intractable, without status migrainosus] 11-04-2022 Chronic Comment on above: IN THE PAST Hemorrhoids (9 sources) Bleeding hemorrhoids; Translations: [Unspecified hemorrhoids] 03-17-2022 Episodic Mood disorders (14 sources) Seasonal affective disorder; Translations: [Other recurrent depressive disorders] Onset: 10-22-2020 10-22-2020 Chronic Nutritional deficiencies (3 sources) Vitamin D deficiency; Translations: [Vitamin D deficiency, unspecified] Onset: 10-22-2020 Chronic Osteoarthritis (12 sources) Primary gonarthrosis, bilateral; Translations: [Bilateral primary osteoarthritis of knee] 05-10-2022 Chronic Other acquired deformities (11 sources) Deformity of lower limb; Translations: [Unspecified acquired deformity of unspecified thigh] Onset: 03-30-2021 03-30-2021 Episodic Other and ill-defined heart disease (8 sources) Dissection of coronary artery; 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] 03-06-2022 Chronic Other and ill-defined heart disease (2 sources) Coronary artery dissection; 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] Chronic Other and ill-defined heart disease (6 sources) Diastolic dysfunction; Translations: [Other ill-defined heart diseases] 09-26-2024 Chronic Other and ill-defined heart disease (1 source) Other ill-defined heart diseases; Translations: [Other ill-defined heart diseases] Onset: 09-26-2024 Chronic Other bone disease and musculoskeletal deformities (5 sources) Osteopenia; Translations: [Other specified disorders of bone density and structure, unspecified site] 10-05-2022 Episodic Other connective tissue disease (5 sources) Left achilles tendonitis; Translations: [Achilles tendinitis, left leg] Onset: 10-18-2018 03-30-2021 Episodic Other connective tissue disease (11 sources) Calcaneal spur; Translations: [Calcaneal spur, unspecified [...] 10-22-2020 10-22-2020 Chronic Other non-traumatic joint disorders (7 sources) Pain in right knee; Translations: [Pain [...] Onset: 10-22-2020 10-22-2020 Chronic Residual codes; unclassified (4 sources) History of surgical procedure on vein; Translations: [Other specified postprocedural states] 01-03-2023 Episodic Comment on above: 11/11/22 Residual codes; unclassified (2 sources) Other specified postprocedural states; Translations: [Other postprocedural status] 12-02-2022 Episodic Spondylosis; intervertebral disc disorders; other back problems (5 sources) Sciatica; Translations: [Sciatica, unspecified side] 10-05-2022 [...] Test Name Value Interpretation Reference Range Facility Cardiovascular stress test r eportOrdered By: Layton Petty on 11-05-2024 Study report [facility] Services [address] [place] [address] MR#: [id number] Acct: [id number] Name: CHRISTINA JADE Rep #: [id number] : 1960 64 From: Layton Petty MD Primary Care: Dr. Jeffry Nichole DO Statu s: REG CLI Referring Dr: Jeffry Nichole DO Sex: F C Stress Test Report Date: 11/05/2024 Procedure: Pharmacologic stress nuclear imaging study Indications: History of CAD Consent: Per the patient Procedure: The patient underwent pharmacologic (Regadenoson 0.4mg ) evaluation with a peak heart rate of 90 beats per minute (58%predicted maximal heart rate) and a peak blood pressure of 172/104 mmHg. The baseline ECG demonstrated sinus rhythm. The peak pharmacologic ECG did not show any ischemic changes. There were no cardiac dysrhythmias pretest, during pharmacologic infusion, or recovery. There was no complaint of chest discomfort during pharmacologic infusion or recovery. The patient was injected with 13.9 millicuries of technetium 99m Cardiolite and subsequently rest SPECT Cardiolite nuclear imaging was obtained in the horizontal long, vertical long, and short axis views. The patient underwent pharmacologic (Regadenoson) evaluation. The patient was injected with 41.7 millicuries of technetium 99m Cardiolite and subsequently stress SPECT Cardiolite nuclear imaging was obtained in the horizontal long, vertical long, and short axis views. A gated Cardiolite study at peak stress was obtained. The examination was stopped secondary to completion of protocol. Rest and stress SPECT Cardiolite nuclear imaging status post realignment, normalization, and attenuation correction demonstrate mildly reduced perfusion of the basal inferolateral wall at rest, suggestive of previous nontransmural infarct. There is mild torres-infarct ischemia. There is end systolic thickeningand brightening. The gated Cardiolite study demonstrates myocardial thickening and inward wall motion. The reported LVEF is 79%. Impression: 1. Pharmacologic (Regadenoson) evaluation 2. Peak pharmacologic ECG with no diagnostic ischemic changes. 3. There were no cardiac dysrhythmias pretest, during pharmacologic infusion, or recovery. 5. 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 6. The gated Cardiolite study reports an LVEF of 79%. This note was generated with Socialanceation software. It may contain incorrectwords, spelling, and punctuation that were not noted in checking the note beforesigning. 11/05/241517 Date _ Layton Petty MD CC: Dr. Layton Petty MD; Dr. Jeffry Nichole, DO ~ Date Dictated: 11/05/241514 Date Transcribed: 11/05/241514 Vice President Of Compliance: JON [facility] Work Phone: Echo Completeon 11-05-2024 Echo [facility] Cardiovascular Services [address] [place] [id number] Echo Complete 11/05/24 0915 MR#: [id number] Acct: [id number] Name: CHRISTINA JADE Rep #: [id number] : 1960 64 From: Layton Petty MD Attending Dr: Dr. Layton Petty MD Status: REG CLI Ordering Dr: Layton Petty MD Date: 11/05/24 Location: [facility] Sex: F C Admitted: Reason For Study Reason For Study: Hx CA Procedure This was a 2D Doppler, Color Flow transthoracic echocardiogram. Exam performed in department. Left Ventricle Normal LV size. Mild concentric left ventricular hypertrophy. The LV ejection fraction is 65 %. Stage 1 diastolic dysfunction. Right Ventricle Normal right ventricle. Atria The left atrium is mildly enlarged. Normal right atrium. Mitral Valve Trivial mitral valve insufficiency. Tricuspid Valve Mild tricuspid valve insufficiency. Normal pulmonary artery pressure. Aortic Valve Trisinus/trileaflet aortic valve. Trivial aortic valve insufficiency. Pulmonic Valve The pulmonic valve is not well visualized. Great Vessels Normal sized aortic root. Pericardium/Pleural No pericardial effusion. MMode/2D Measurements Calculations LVIDd: 3.8 cm IVSd: 1.2 cm Ao root diam: 3.3 cm LVIDs: 2.9 cm LVPWd: 1.1 cm LA dimension: 4.2 cm RVDd: 3.8 cm FS: 24.2 % LAV(MOD-bp): 45.9 ml LVAd ap4: 26.9 cm2 LVAd ap2: 21.3 cm2 LAV(MOD-bp) Indexed: 23.1 ml/m2 LVLd ap4: 7.6 cm LVLd ap2: 7.0 cm LAV(MOD-sp2): 43.4 ml EDV(MOD-sp4): 80.7 ml EDV(MOD-sp2): 55.8 ml LAV(MOD-sp4): 44.3 ml EDV(sp4-el): 80.7 ml EDV(sp2-el): 54.5 ml LVAs ap4: 14.2 cm2 LVAs ap2: 12.7 cm2 LVLs ap4: 6.1 cm LVLs ap2: 6.3 cm ESV(MOD-sp4): 29.3 ml ESV(MOD-sp2): 22.3 ml ESV(sp4-el): 28.3 ml ESV(sp2-el): 21.6 ml EF(MOD-sp4): 63.7 % EF(MOD-sp2): 60.0 % EF(sp4-el): 65.0 % SV(MOD-sp4): 51.4 ml SV(MOD-sp2): 33.5 ml SV(sp4-el): 52.4 ml SI(MOD-sp4): 25.9 ml/m2 SI(MOD-sp2): 16.8 ml/m2 LA A4 area: 17.5 cm2 LA dimension(2D): 4.5 cm RA A4 area: 13.2 cm2 TAPSE: 1.7 cm Time Measurements MV dec time: 0.20 sec Doppler Measurements Calculations MV E max carmen: 64.1 cm/sec Lat Peak E' Carmen: 11.3 cm/sec Med Peak E' Carmen: 8.5 cm/sec MV A max carmen: 52.8 cm/sec E/E' lat: 5.7 E/E' med: 7.6 MV E/A: 1.2 Ao V2 max: 122.1 cm/sec LV V1 max: 89.7 cm/sec MV dec slope: 324.6 cm/sec2 Ao max P.0 mmHg LV V1 max P.2 mmHg Ao V2 mean: 81.1 cm/sec LV V1 mean P.5 mmHg Ao mean P.0 mmHg LV V1 mean: 57.2 cm/sec Ao V2 VTI: 26.8 cm LV V1 VTI: 20.6 cm AV (velocity ratio): 0.77 PA V2 max: 74.0 cm/sec TR max carmen: 223.8 cm/sec TR max P.0 mmHg ECHO/Echo Complete Interpretation Summary Mild concentric left ventricular hypertrophy. The LV ejection fraction is 65 %. Stage 1 diastolic dysfunction. The left atrium is mildly enlarged. Mild tricuspid valve insufficiency. Ordering Physician: Layton Petty Referring Physician: Jeffry Nichole Performed By: Mallika Mariee RDCS 11/05/24 1354 Date Layton Petty MD CC: Dr. Layton Petty MD; Dr. Jeffry Nichole, Date Dictated: 11/05/24914 Date Transcribed: 11/05/24 1354 Vice President Of Compliance: Signed [facility] Echocardiogram study reportO rdered By: Layton Petty on 11-05-2024 Study report [facility] Cardiovascular Services [address] [place] [address] Echo Complete 11/05/24914 MR#: [id number] Acct: [id number] Name: CHRISTINA JADE Rep #:[id number] : 1960 64 From: Layton Petty MD Attending Dr: Dr. Layton Petty MD Status: REG CLI Ordering Dr: Layton Petty MD Date: Location: [facility] Sex: F C Admitted: Reason For Study Reason For Study: Hx CA Procedure This was a 2D Doppler, Color Flow transthoracic echocardiogram. Exam performed in department. Left Ventricle Normal LV size. Mild concentric left ventricular hypertrophy. The LV ejection fraction is 65 %. Stage 1 diastolic dysfunction. Right Ventricle Normal right ventricle. Atria The left atrium is mildly enlarged. Normal right atrium. Mitral Valve Trivial mitral valve insufficiency. Tricuspid Valve Mild tricuspid valve insufficiency. Normal pulmonary artery pressure. Aortic Valve Trisinus/trileaflet aortic valve. Trivial aortic valve insufficiency. Pulmonic Valve The pulmonic valve is not well visualized. Great Vessels Normal sized aortic root. Pericardium/Pleural No pericardial effusion. MMode/2D Measurements & Calculations LVIDd: 3.8 cm IVSd: 1.2 cm Ao root diam: 3.3 cm LVIDs: 2.9 cm LVPWd: 1.1 cm LA dimension: 4.2 cm RVDd: 3.8 cm FS: 24.2 % LAV(MOD-bp): 45.9 ml LVAd ap4: 26.9 cm2 LVAd ap2: 21.3 cm2 LAV(MOD-bp) Indexed: 23.1 ml/m2 LVLd ap4: 7.6 cm LVLd ap2: 7.0 cm LAV(MOD-sp2): 43.4 ml EDV(MOD-sp4): 80.7 ml EDV(MOD-sp2): 55.8 ml LAV(MOD-sp4): 44.3 ml EDV(sp4-el): 80.7 ml EDV(sp2-el): 54.5 ml LVAs ap4: 14.2 cm2 LVAs ap2: 12.7 cm2 LVLs ap4: 6.1 cm LVLs ap2: 6.3 cm ESV(MOD-sp4): 29.3 ml ESV(MOD-sp2): 22.3 ml ESV(sp4-el): 28.3 ml ESV(sp2-el): 21.6 ml EF(MOD-sp4): 63.7 % EF(MOD-sp2): 60.0 % EF(sp4-el): 65.0 % SV(MOD-sp4): 51.4 ml SV(MOD-sp2): 33.5 ml SV(sp4-el): 52.4 ml SI(MOD-sp4): 25.9 ml/m2 SI(MOD-sp2): 16.8 ml/m2 LA A4 area: 17.5 cm2 LA dimension(2D): 4.5 cm RA A4 area: 13.2 cm2 TAPSE: 1.7 cm Time Measurements MV dec time: 0.20 sec Doppler Measurements & Calculations MV E max carmen: 64.1 cm/sec Lat Peak E' Carmen: 11.3 cm/sec Med Peak E' Carmen: 8.5 cm/sec MV A max carmen: 52.8 cm/sec E/E' lat: 5.7 E/E' med: 7.6 MV E/A: 1.2 Ao V2 max: 122.1 cm/sec LV V1 max: 89.7 cm/sec MV dec slope: 324.6 cm/sec2 Ao max P.0 mmHg LV V1 max P.2 mmHg Ao V2 mean: 81.1 cm/sec LV V1 mean P.5 mmHg Ao mean P.0 mmHg LV V1 mean: 57.2 cm/sec Ao V2 VTI: 26.8 cm LV V1 VTI: 20.6 cm AV (velocity ratio): 0.77 PA V2 max: 74.0 cm/sec TR max carmen: 223.8 cm/sec TR max P.0 mmHg ECHO/Echo Complete Interpretation Summary Mild concentric left ventricular hypertrophy. The LV ejection fraction is 65 %. Stage 1 diastolic dysfunction. The left atrium is mildly enlarged. Mild tricuspid valve insufficiency. Ordering Physician: Layton Petty Referring Physician: Jeffry Nichole Performed By: Mallika Mariee [facility] 11/05/24 1354 Date _ Layton Petty MD CC: Dr. Layton Petty MD; Dr. Jeffry Nichole DO ~ Date Dictated: 11/05/24914 Date Transcribed: 11/05/24 1354 Vice President Of Compliance: Signed [facility] Work Phone: Stress Reporton 11-05-2024 Stress Report [facility] Cardi[facility] [address] [place] [address] MR#: [id number] Acct: [id number] Name: CHRISTINA JADE Rep #: [id number] : 1960 64 From: Layton Petty MD Primary Care: Dr. Jeffry Nichole DO Status: REG CLI Referring Dr: Jeffry Nichole DO Sex: F C Stress Test Report Date: 11/05/2024 Procedure: Pharmacologic stress nuclear imaging study Indications: History of CAD Consent: Per the patient Procedure: The patient underwent pharmacologic (Regadenoson 0.4mg ) evaluation with a peak heart rate of 90 beats per minute (58%predicted maximal heart rate) and a peak blood pressure of 172/104 mmHg. The baseline ECG demonstrated sinus rhythm. The peak pharmacologic ECG did not show any ischemic changes. There were no cardiac dysrhythmias pretest, during pharmacologic infusion, or recovery. There was no complaint of chest discomfort during pharmacologic infusion or recovery. The patient was injected with 13.9 millicuries of technetium 99m Cardiolite and subsequently rest SPECT Cardiolite nuclear imaging was obtained in the horizontal long, vertical long, and short axis views. The patient underwent pharmacologic (Regadenoson) evaluation. The patient was injected with 41.7 millicuries of technetium 99m Cardiolite and subsequently stress SPECT Cardiolite nuclear imaging was obtained in the horizontal long, vertical long, and short axis views. A gated Cardiolite study at peak stress was obtained. The examination was stopped secondary to completion of protocol. Rest and stress SPECT Cardiolite nuclear imaging status post realignment, normalization, and attenuation correction demonstrate mildly reduced perfusion of the basal inferolateral wall at rest, suggestive of previous nontransmural infarct. There is mild torres-infarct ischemia. There is end systolic thickening and brightening. The gated Cardiolite study demonstrates myocardial thickening and inward wall motion. The reported LVEF is 79%. Impression: 1. Pharmacologic (Regadenoson) evaluation 2. Peak pharmacologic ECG with no diagnostic ischemic changes. 3. There were no cardiac dysrhythmias pretest, during pharmacologic infusion, or recovery. 5. 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 6. The gated Cardiolite study reports an LVEF of 79%. This note was generated with Socialanceation software. It may contain incorrect words, spelling, and punctuation that were not noted in checking the note before signing. 11/05/24 1518 Date Layton Petty MD CC: Dr. Layton Petty MD; Dr. Jeffry Nichole DO Date Dictated: 11/05/241514 Date Transcribed: 07/14/25 1515 Vice President Of Compliance: JON Signed [facility] Anion gap in Serum or Plasma Ordered By: Layton Petty on 09-26-2024 Anion gap [Moles/Vol] 12 mmol/L 5-[address] [facility] BUN/creatinine ratioOrdered By: Layton Petty on 09-26-2024 Urea nitrogen/Creatinine [Mass ratio] 16.0 mg/mg 10-20 [facility] [facility] Bilirubin, totalOrdered By: Layton Petty on 09-26-2024 Bilirubin [Mass/Vol] 1.01 mg/dL 0.00-1.30 [facility] Calculated very low density lipoprotein (VLDL) cholesterol measurementOrdered By: Layton Petty on 09-26-2024 Calculated very low density lipoprotein (VLDL) cholesterol measurement 21 mg/dL 5-40 [facility] Carbon dioxide, total [Moles /volume] in Central venous bloodOrdered By: Layton Petty on 09-26-2024 CO2 [Moles/Vol] 25.9 mmol/L 21.0-32.0 [facility] Cardiology Visit Reporton Cardiology Visit Report [facility] [address] [place], [place] [address] OFFICE VISIT Date of Service: 09/26/24 MR#: [id number] Acct: [id number] Name: CHRISTINA JADE Rep #: [id number] : 1960 Provider: Dr. Layton Petty MD Age/Sex: 64/F Location: [facility] Status: Signed HPI HPI History of [...] Intake Visit Reasons: OVERDUE 6 M FU Naturopathic Doctor Required: No Accompanied by: Granddaughter Is patient [...] Info Sup (more content not included)... Normal [facility] Chloride assayOrdered By: Jon Petty on 09-26-2024 Chloride [Moles/Vol] 102 mmol/L 98-108 [facility] Comprehensive Metabolic Prof ilon 09-26-2024 Albumin [Mass/Vol] 4.3 g/dL Normal 3.4-4.8 [facility] Comment on above: Performed By: #### L 500.4100, L500.4050 #### [facility] [address] [place], [address] Albumin/Globulin [Mass ratio] 1.3 {ratio} Normal 0.9-2.4 [facility] Comment on above: Performed By: #### L 500.4100, L500.4050 #### [facility] [address] [place], [address] ALK PHOS 91 U/L Normal 35-104 [facility] Comment on above: Performed By: #### L 500.4100, L500.4050 #### [facility] [address] [place], [address] ALT [Catalytic activity/Vol] 20 U/L Normal <=34 [facility] Comment on above: Performed By: #### L 500.4100, L500.4050 #### [facility] [address] [place], [address] AST [Catalytic activity/Vol] 34 U/L High <=31 [facility] Comment on above: Result Comment: Hemo lysis present, Results??could be affected. ?? Performed By: #### L 500.4100, L500.4050 #### [facility] [address] [place], [address] Bilirubin [Mass/Vol] 1.01 mg/dL Normal 0.00-1.30 [facility] Comment on above: Performed By: #### L 500.4100, L500.4050 #### [facility] [address] [place], [address] BUN/CRE 16.0 RATIO Normal 10-20 [facility] Comment on above: Performed By: #### L 500.4100, L500.4050 #### [facility] [address] [place], [address] Calcium [Mass/Vol] 9.9 mg/dL Normal 7.6-11.0 [facility] Comment on above: Performed By: #### L 500.4100, L500.4050 #### [facility] [address] [place], [address] Chloride [Moles/Vol] 102 mmol/L Normal 98-108 [facility] Comment on above: Performed By: #### L 500.4100, L500.4050 #### [facility] [address] [place], [address] CO2 [Moles/Vol] 25.9 mmol/L Normal 21.0-32.0 [facility] Comment on above: Performed By: #### L 500.4100, L500.4050 #### [facility] [address] [place], [address] Creatinine [Mass/Vol] 0.70 mg/dL Normal 0.70-1.[address] [facility] Comment on above: Performed By: #### L 500.4100, L500.4050 #### [facility] [address] [place], [address] GAP 12 Normal 5-15 [facility] Comment on above: Performed By: #### L 500.4100, L500.4050 #### [facility] [address] [place], [address] GFR/1.73 sq M.predicted among non-blacks MDRD (S/P/Bld) [Vol rate/Area] 96 mL/min/{1.73_m2} Normal >60 [facility] Comment on above: Result Comment: mL/m in/1.73m2 CKD-EPI Creatinine Equation (2020) Performed By: #### L 500.4100, L500.4050 #### [facility] [address] [place], [address] Globulin (S) [Mass/Vol] 3.2 g/dL Normal 2.2-4.2 [facility] Comment on above: Performed By: #### L 500.4100, L500.4050 #### [facility] [address] [place], [address] Glucose [Mass/Vol] 94 mg/dL Normal 70-99 [facility] Comment on above: Performed By: #### L 500.4100, L500.4050 #### [facility] [address] [place], [address] Potassium [Moles/Vol] 4.3 mmol/L Normal 3.3-5.[address] [facility] Comment on above: Result Comment: Hemo lysis present, Results??could be affected. ?? Performed By: #### L 500.4100, L500.4050 #### [facility] [address] [place], [address] Sodium [Moles/Vol] 139 mmol/L Normal 133-145 [facility] Comment on above: Performed By: #### L 500.4100, L500.4050 #### [facility] [address] [place], [address] T PROT 7.5 g/dL Normal 5.9-8.4 [facility] Comment on above: Performed By: #### L 500.4100, L500.4050 #### [facility] [address] [place], [address] Urea nitrogen [Mass/Vol] 11 mg/dL Normal 4-19 [facility] Comment on above: Performed By: #### L 500.4100, L500.4050 #### [facility] [address] [place], [address] Glomerular filtration rate ( GFR) estimation/1.73 sq m using serum, plasma, or whole bOrdered By: Layton Petty on 09-26-2024 GFR/1.73 sq M.predicted among non-blacks MDRD (S/P/Bld) [Vol rate/Area] 96 mL/min/{1.73_m2} >60 [facility] Comment on above: mL/min/1.73m2 CKD-EP I Creatinine Equation (2020) LDL calc ser/plasOrdered By: Layton Petty on 09-26-2024 Cholesterol in LDL [Mass/Vol] 137 mg/dL [facility] Comment on above: Wpczcbehay=855-557 m g/dL & Higher Buqp=819 mg/dL or greater Laboratory - Chemistry and C hemistry - challengeOrdered By: Layton Petty on 09-26-2024 AST [Catalytic activity/Vol] 34 U/L High <32 [facility] Comment on above: Hemolysis present, R esults could be affected. Lipid Profileon 09-26-2024 CHOL:HDL 2.99 Normal [facility] Comment on above: Performed By: #### L 500.4100, L500.4050 #### [facility] [address] [place], [place], [id number] ([phone]) Cholesterol [Mass/Vol] 237 mg/dL High <=200 [facility] Comment on above: Result Comment: Chol esterol level, Desirable <200 mg/dL Borderline high cholesterol 200-239 mg/dL High cholesterol >=240 mg/dL Recommendations of the NCEP Adult Treatment Panel for the following risk-cutoff thresholds for the [place] population. Performed By: #### L 500.4100, L500.4050 #### [facility] [address] [place], [place], [id number] ([phone]) Cholesterol in HDL [Mass/Vol] 79 mg/dL Normal [facility] Comment on above: Result Comment: [place] on[place] Cholesterol Education Program (NCEP) guidelines: <40 mg/dL: Low HDL-cholesterol (major risk factor for CHD) >= 60 mg/dL: High HDL-cholesterol (negative risk factor for CHD) HDL-cholesterol is affected by a number of factors, e.g. smoking, exercise, hormones, sex and age. Performed By: #### L 500.4100, L500.4050 #### [facility] [address] [place], [address] Cholesterol in LDL [Mass/Vol] 137 mg/dL Normal [facility] Comment on above: Result Comment: Bord rjkabl=562-222 mg/dL Higher Nnay=028 mg/dL or greater Performed By: #### L 500.4100, L500.4050 #### [facility] [address] [place], [address] Cholesterol in VLDL [Mass/Vol] 21 mg/dL Normal 5-40 [facility] Comment on above: Performed By: #### L 500.4100, L500.4050 #### [facility] [address] [place], [address] Triglyceride [Mass/Vol] 105 mg/dL Normal [facility] Comment on above: Result Comment: The drugs N-Acetylcysteine and Metamizole may falsely depress this assay. Normal range: <150 mg/dL Borderline High: 150-199 mg/dL High: 200-499 mg/dL Very High: >500 mg/dL Performed By: #### L 500.4100, L500.4050 #### [facility] [address] [place], [address] Potassium measurement (mass/ volume)Ordered By: Layton Petty on 09-26-2024 Potassium (Unsp spec) [Mass/Vol] 4.3 mmol/L 3.3-5.1 [facility] Comment on above: Hemolysis present, R esults could be affected. Screening total cholesterol/ high density lipoprotein (HDL) cholesterol ratioOrdered By: Layton Petty on 09-26-2024 Cholesterol.total/Chol esterol in HDL [Mass ratio] 2.99 {ratio} [facility] Serum creatinine measurement (mass/volume)Ordered By: Layton Petty on 09-26-2024 Creatinine [Mass/Vol] 0.70 mg/dL 0.70-1.[address] [facility] Serum globulin measurementOr dered By: Layton Petty on 09-26-2024 Globulin (S) [Mass/Vol] 3.2 g/dL 2.2-4.2 [facility] Serum glucose measurement (m ass/volume)Ordered By: Layton Petty on 09-26-2024 Glucose [Mass/Vol] 94 mg/dL 70-99 [facility] Serum or plasma alanine santos otransferase (ALT) measurementOrdered By: Layton Jovanny on 09-26-2024 ALT [Catalytic activity/Vol] 20 U/L <35 [facility] Serum or plasma albumin meryl urement (mass/volume)Ordered By: Layton Jovanny on 09-26-2024 Albumin [Mass/Vol] 4.3 g/dL 3.4-4.8 [facility] Serum or plasma albumin/glob ulin mass ratioOrdered By: [facility] Albumin/Globulin [Mass ratio] 1.3 {ratio} 0.9-2.4 [facility] Serum or plasma alkaline lexii sphatase measurementOrdered By: Layton Jovanny on 09-26-2024 ALP [Catalytic activity/Vol] 91 U/L 35-104 [facility] Serum or plasma calcium meryl urement (mass/volume)Ordered By: Laytonsammi Petty on 09-26-2024 Calcium [Mass/Vol] 9.9 mg/dL 7.6-11.0 [facility] Serum or plasma cholesterol in HDL measurement (mass/volume)Ordered By: Layton Petty on 09-26-2024 Cholesterol in HDL [Mass/Vol] 79 mg/dL >40 [facility] Comment on above: National Cholesterol Education Program (NCEP) guidelines:<40 mg/dL: Low HDL-cholesterol (major risk factor for CHD)>= 60 mg/dL: High HDL-cholesterol (negative risk factor for CHD)HDL-cholesterol is affected by a number of factors, e.g. smoking, exercise, hormones, sex and age. Serum or plasma cholesterol measurement (mass/volume)Ordered By: Layton Jovanny on 09-26-2024 Cholesterol [Mass/Vol] 237 mg/dL High <201 [facility] Comment on above: Cholesterol level, D esirable <200 mg/dLBorderline high cholesterol 200-239 mg/dLHigh cholesterol >=240 mg/dLRecommendations of the NCEP Adult Treatment Panel for the following risk-cutoff thresholds for the [place] population. Serum or plasma urea nitroge n measurement (mass/volume)Ordered By: Layton Petty on 09-26-2024 Urea nitrogen [Mass/Vol] 11 mg/dL 4-19 [facility] Sodium levelOrdered By: Saji Petty on 09-26-2024 Sodium [Moles/Vol] 139 mmol/L 133-145 [facility] Total proteinOrdered By: Zhen Petty on 09-26-2024 Protein [Mass/Vol] 7.5 g/dL 5.9-8.4 [facility] Triglycerides measurementOrd ered By: Layton Petty on 09-26-2024 Triglyceride [Mass/Vol] 105 mg/dL <199 [facility] Comment on above: The drugs N-Acetylcy steine and Metamizole may falsely depress this assay. Normal range: <150 mg/dLBorderline High: 150-199 mg/dLHigh: 200-499 mg/dLVery High: >500 mg/dL Cardiology Visit Reporton Cardiology Visit Report [facility] [address] [place] [address]. [address] [place] [address] OFFICE VISIT Date of Service: 01/25/24 MR#: [id number] Acct: [id number] Name: CHRISTINA JADE Rep #: [id number] : 1960 Provider: ESTER keith Age/Sex: 63/F Location: [facility] Status: Signed HPI HPI History of Present Illness Details: Christina Jade is a 63 year old female who presents to the office today for a cardiovascular follow up visit. 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 Patient had presented to [facility] in 2021 with chest pain. EKG demonstrated a STEMI. She was urgently taken to the [facility] and found to have a spontaneous coronary [...] 97 Intake Visit Reasons: 4 M FU Naturopathic Doctor Required: No Is patient in pain?: No [...] dizziness, lighth (more content not included)... Normal [facility] Absolute lymphocyte countOrd ered By: Nikki Arias on 03-09-2023 Lymphocytes Auto (Unsp spec) [#/Vol] 1.35 10*3/uL 0.83-4.51 [facility] Basophil percentageOrdered B y: Nikki Arias on 03-09-2023 Basophils/100 WBC (Bld) 0.9 % 0-1 [facility] Bilirubin [Mass/Vol] 1.10 mg/dL 0.20-1.00 [facility] Comment on above: For patients on eltr ombopag therapy, use of Dimension [place] TBIL is not recommended. Chloride [Moles/Vol] 103 mmol/L 98-107 [facility] Eosinophils/100 WBC (Bld) 1.5 % 0-5 [facility] Glucose [Mass/Vol] 104 mg/dL 74-106 [facility] Comment on above: Fasting Glucose resu lt from 100 to 125 mg/dL suggests IMPAIRED HOMEOSTASIS per A.D.A. criteria. Neutrophils (Bld) [#/Vol] 2.8 10*3/uL 2.0-7.7 [facility] Neutrophils/100 WBC (Bld) 59.6 % 47-70 [facility] Potassium [Moles/Vol] 3.7 mmol/L 3.5-5.[address] [facility] Protein [Mass/Vol] 7.4 g/dL 6.4-8.2 [facility] Sodium [Moles/Vol] 140 mmol/L 136-145 [facility] WBC (Bld) [#/Vol] 4.7 10*3/uL 4.4-11.0 [facility] Blood erythrocytes count (nu mber/volume)Ordered By: Nikki Arias on 03-09-2023 RBC (Bld) [#/Vol] 4.68 10*6/uL 4.2-5.4 [facility] Blood hemoglobin measurement (mass/volume)Ordered By: Nikki Arias on 03-09-2023 Hemoglobin (Bld) [Mass/Vol] 12.6 g/dL 12.0-15.0 [facility] Blood lymphocytes/100 leukoc ytesOrdered By: Nikki Arias on 03-09-2023 Lymphocytes/100 WBC (Bld) 29.0 % 19-41 [facility] Blood monocytes/100 leukocyt esOrdered By: Nikki Arias on 03-09-2023 Monocytes/100 WBC (Bld) 8.8 % 0-10 [facility] Blood platelet mean volumeOr dered By: Nikki Arias on 03-09-2023 Platelet mean volume (Bld) [Entitic vol] 9.8 fL 6.2-12.0 [facility] Determination of erythrocyte mean corpuscular volume (MCV)Ordered By: Nikki Arias on 03-09-2023 MCV (RBC) [Entitic vol] 82.1 fL 81-99 [facility] Hematocrit Auto (Bld) [Volum e fraction]Ordered By: Nikki Arias on 03-09-2023 Hematocrit (Bld) [Volume fraction] 38.4 % 37-47 [facility] - Chemistry and C hemistry - challengeOrdered By: Nikki Arias on 03-09-2023 ALP [Catalytic activity/Vol] 89 U/L 45-117 [facility] ALT [Catalytic activity/Vol] 18 U/L 13-56 [facility] CO2 [Moles/Vol] 30.0 mmol/L 21.0-32.0 [facility] Globulin (S) [Mass/Vol] 3.6 g/dL 2.2-4.2 [facility] Urea nitrogen/Creatinine [Mass ratio] 18.0 mg/mg 10-20 [facility] - Hematology and Cell countsOrdered By: Nikki Arias on 03-09-2023 Erythrocyte distribution width (RBC) [Entitic vol] 42.8 fL 35.1-43.9 [facility] Erythrocyte distribution width (RBC) [Ratio] 14.5 % 11.6-14.6 [facility] Immature granulocytes/100 WBC (Bld) 0.200 % 0.0-0.9 [facility] Comment on above: IG% - Immature Granu locytes (promyelocytes, myelocytes and metamyelocytes) > 1% indicates that a LEFT SHIFT is Present. MCH (RBC) [Entitic mass] 26.9 pg 27.0-32.0 [facility] Nucleated RBC/100 WBC (Bld) [Ratio] 0 % 0-5 [facility] MCHC Auto (RBC) [Mass/Vol]Or dered By: Nikki Arias on 03-09-2023 MCHC (RBC) [Mass/Vol] 32.8 g/dL 32-[address] [facility] No Panel InformationOrdered By: Nikki Arias on 03-09-2023 Estimated GFR (MDRD) Amer 115 mL/min >60 [facility] Comment on above: GFR Calc Estimated GFR (MDRD) Non-Af Amer 95 mL/min >60 [facility] Comment on above: Non- GFR Calc Platelets bldOrdered By: Claritza Arias on 03-09-2023 Platelets (Bld) [#/Vol] 335 10*3/uL 150-450 [facility] Serum or plasma albumin meryl urement (mass/volume)Ordered By: [facility] on 03-09-2023 Albumin [Mass/Vol] 3.8 g/dL 3.2-5.0 [facility] Serum or plasma albumin/glob ulin mass ratioOrdered By: [facility] on 03-09-2023 Albumin/Globulin [Mass ratio] 1.1 {ratio} 0.9-2.4 [facility] Serum or plasma calcium meryl urement (mass/volume)Ordered By: [facility] on 03-09-2023 Calcium [Mass/Vol] 9.2 mg/dL 8.5-10.1 [facility] Serum or plasma creatinine m easurement (mass/volume)Ordered By: [facility] on 03-09-2023 Creatinine [Mass/Vol] 0.67 mg/dL 0.55-1.[address] [facility] Comment on above: The validity of the calculated GFR & GFRAA in patients over 70 years has not been determined. Clinical correlation is essential. Serum or plasma urea nitroge n measurement (mass/volume)Ordered By: [facility] on 03-09-2023 Urea nitrogen [Mass/Vol] 12 mg/dL 7-18 [facility] Thin prep Papanicolaou smear with manual screeningOrdered By: [facility] on 03-09-2023 Thin prep Papanicolaou smear with manual screening 16 U/L 15-37 [facility] Thin prep Papanicolaou smear with manual screening 7 5-15 [facility] Basophil percentageOrdered B y: Lul Borrero on 11-08-2022 Chloride [Moles/Vol] 105 mmol/L 98-107 [facility] Glucose [Mass/Vol] 121 mg/dL 74-106 [facility] Comment on above: Fasting Glucose resu lt from 100 to 125 mg/dL suggests IMPAIRED HOMEOSTASIS per A.D.A. criteria. Potassium [Moles/Vol] 4.5 mmol/L 3.5-5.[address] [facility] Sodium [Moles/Vol] 139 mmol/L 136-145 [facility] WBC (Bld) [#/Vol] 4.9 10*3/uL 4.4-11.0 [facility] Blood erythrocytes count (nu mber/volume)Ordered By: Lul Borrero on 11-08-2022 RBC (Bld) [#/Vol] 4.63 10*6/uL 4.2-5.4 [facility] Blood hemoglobin measurement (mass/volume)Ordered By: Lul Borrero on 11-08-2022 Hemoglobin (Bld) [Mass/Vol] 12.1 g/dL 12.0-15.0 [facility] Blood platelet mean volumeOr dered By: Lul Borrero on 11-08-2022 Platelet mean volume (Bld) [Entitic vol] 9.9 fL 6.2-12.0 [facility] Determination of erythrocyte mean corpuscular volume (MCV)Ordered By: Lul Borrero on 11-08-2022 MCV (RBC) [Entitic vol] 84.2 fL 81-99 [facility] Hematocrit Auto (Bld) [Volum e fraction]Ordered By: Lul Borrero on 11-08-2022 Hematocrit (Bld) [Volume fraction] 39.0 % 37-47 [facility] - Chemistry and C hemistry - challengeOrdered By: Lul Borrero on 11-08-2022 CO2 [Moles/Vol] 33.0 mmol/L 21.0-32.0 [facility] Urea nitrogen/Creatinine [Mass ratio] 16.5 mg/mg 10-20 [facility] - Hematology and Cell countsOrdered By: Lul Borrero on 11-08-2022 Erythrocyte distribution width (RBC) [Entitic vol] 44.0 fL 35.1-43.9 [facility] Erythrocyte distribution width (RBC) [Ratio] 14.4 % 11.6-14.6 [facility] MCH (RBC) [Entitic mass] 26.1 pg 27.0-32.0 [facility] MCHC Auto (RBC) [Mass/Vol]Or dered By: Lul Borrero on 11-08-2022 MCHC (RBC) [Mass/Vol] 31.0 g/dL 32-[address] [facility] No Panel InformationOrdered By: Lul Borrero on 11-08-2022 Estimated GFR (MDRD) Amer 95 mL/min >60 [facility] Comment on above: GFR Calc Estimated GFR (MDRD) Non-Af Amer 79 mL/min >60 [facility] Comment on above: Non- GFR Calc Platelets bldOrdered By: Almas Borrero on 11-08-2022 Platelets (Bld) [#/Vol] 338 10*3/uL 150-450 [facility] Serum or plasma calcium meryl urement (mass/volume)Ordered By: Lul Borrero on 11-08-2022 Calcium [Mass/Vol] 9.5 mg/dL 8.5-10.1 [facility] Serum or plasma creatinine m easurement (mass/volume)Ordered By: Lul Borrero on 11-08-2022 Creatinine [Mass/Vol] 0.79 mg/dL 0.55-1.[address] [facility] Comment on above: The validity of the calculated GFR & GFRAA in patients over 70 years has not been determined. Clinical correlation is essential. Serum or plasma urea nitroge n measurement (mass/volume)Ordered By: Lul Borrero on 11-08-2022 Urea nitrogen [Mass/Vol] 13 mg/dL 7- [facility] Thin prep Papanicolaou smear with manual screeningOrdered By: uLl Borrero on 11-08-2022 Thin prep Papanicolaou smear with manual screening 1 09-06 [facility] Absolute lymphocyte countOrd ered By: Jeffry Nichole on 09-06-2022 Lymphocytes Auto (Unsp spec) [#/Vol] 1.05 10*3/uL 0.83-4.51 [facility] Basophil percentageOrdered B y: Jeffry Nichole on 09-06-2022 Basophils/100 WBC (Bld) 0.8 % 0-1 [facility] Bilirubin [Mass/Vol] 0.90 mg/dL 0.20-1.00 [facility] Comment on above: For patients on eltr ombopag therapy, use of Dimension [place] TBIL is not recommended. Chloride [Moles/Vol] 106 mmol/L 98-107 [facility] Cholesterol [Mass/Vol] 233 mg/dL <200 [facility] Comment on above: <200 mg/dL Desirable 200-240 mg/dL Borderline >240 mg/dL High Risk Eosinophils/100 WBC (Bld) 2.6 % 0-5 [facility] Glucose [Mass/Vol] 105 mg/dL 74-106 [facility] Comment on above: Fasting Glucose resu lt from 100 to 125 mg/dL suggests IMPAIRED HOMEOSTASIS per A.D.A. criteria. Neutrophils (Bld) [#/Vol] 2.3 10*3/uL 2.0-7.7 [facility] Neutrophils/100 WBC (Bld) 60.9 % 47-70 [facility] Potassium [Moles/Vol] 3.8 mmol/L 3.5-5.[address] [facility] Protein [Mass/Vol] 7.5 g/dL 6.4-8.2 [facility] Sodium [Moles/Vol] 141 mmol/L 136-145 [facility] Triglyceride [Mass/Vol] 100 mg/dL <199 [facility] Comment on above: The drugs N-Acetylcy steine and Metamizole may falsely depress this assay.Serum Triglycerides Reference Interval Normal <150 mg/dL Borderline high 150 - 199 mg/dL High 200 - 499 mg/dL Very High > or = 500 mg/dL WBC (Bld) [#/Vol] 3.8 10*3/uL 4.4-11.0 [facility] Blood erythrocytes count (nu mber/volume)Ordered By: Jeffry Nichole on 09-06-2022 RBC (Bld) [#/Vol] 4.62 10*6/uL 4.2-5.4 [facility] Blood hemoglobin measurement (mass/volume)Ordered By: Jeffry Nichole on 09-06-2022 Hemoglobin (Bld) [Mass/Vol] 12.3 g/dL 12.0-15.0 [facility] Blood lymphocytes/100 leukoc ytesOrdered By: Jeffry Nichole on 09-06-2022 Lymphocytes/100 WBC (Bld) 27.3 % 19-41 [facility] Blood monocytes/100 leukocyt esOrdered By: Jeffry Nichole on 09-06-2022 Monocytes/100 WBC (Bld) 8.1 % 0-10 [facility] Blood platelet mean volumeOr dered By: Jeffry Nichole on 09-06-2022 Platelet mean volume (Bld) [Entitic vol] 10.0 fL 6.2-12.0 [facility] Determination of erythrocyte mean corpuscular volume (MCV)Ordered By: Jeffry Nichole on 09-06-2022 MCV (RBC) [Entitic vol] 83.1 fL 81-99 [facility] Hematocrit Auto (Bld) [Volum e fraction]Ordered By: Jeffry Nichole on 09-06-2022 Hematocrit (Bld) [Volume fraction] 38.4 % 37-47 [facility] Iron measurement (mass/mass) Ordered By: Jeffry Nichole on 09-06-2022 Iron (Unsp spec) [Mass/Mass] 77 ug/dL 50-170 [facility] - Chemistry and C hemistry - challengeOrdered By: Jeffry Nichole on 09-06-2022 ALP [Catalytic activity/Vol] 71 U/L 45-117 [facility] ALT [Catalytic activity/Vol] 21 U/L 13-56 [facility] CO2 [Moles/Vol] 30.0 mmol/L 21.0-32.0 [facility] Globulin (S) [Mass/Vol] 3.8 g/dL 2.2-4.2 [facility] Urea nitrogen/Creatinine [Mass ratio] 18.5 mg/mg 10-20 [facility] - Hematology and Cell countsOrdered By: Jeffry Nichole on 09-06-2022 Erythrocyte distribution width (RBC) [Entitic vol] 45.3 fL 35.1-43.9 [facility] Erythrocyte distribution width (RBC) [Ratio] 15.0 % 11.6-14.6 [facility] Immature granulocytes/100 WBC (Bld) 0.300 % 0.0-0.9 [facility] Comment on above: IG% - Immature Granu locytes (promyelocytes, myelocytes and metamyelocytes) > 1% indicates that a LEFT SHIFT is Present. MCH (RBC) [Entitic mass] 26.6 pg 27.0-32.0 [facility] Nucleated RBC/100 WBC (Bld) [Ratio] 0 % 0-5 [facility] MCHC Auto (RBC) [Mass/Vol]Or dered By: Jeffry Nichole on 09-06-2022 MCHC (RBC) [Mass/Vol] 32.0 g/dL 32-[address] [facility] No Panel InformationOrdered By: Jeffry Nichole on 09-06-2022 Estimated GFR (MDRD) Amer 119 mL/min >60 [facility] Comment on above: GFR Calc Estimated GFR (MDRD) Non-Af Amer 98 mL/min >60 [facility] Comment on above: Non- GFR Calc Vitamin D 25-Hydroxy 42.0 ng/mL [facility] Comment on above: Vitamin D 25(OH) Sta tus Range Deficiency <20 ng/mL (50nmol/L) Insufficiency 20 - 30 ng/mL (50 - 75 nmol/L) Sufficiency 30 - 100 ng/mL (75 - 250 nmol/L) Toxicity >100 ng/mL (>250 nmol/L) Platelets bldOrdered By: Tia Nichole on 09-06-2022 Platelets (Bld) [#/Vol] 326 10*3/uL 150-450 [facility] Serum or plasma albumin meryl urement (mass/volume)Ordered By: Jeffry Nichole on 09-06-2022 Albumin [Mass/Vol] 3.7 g/dL 3.2-5.0 [facility] Serum or plasma albumin/glob ulin mass ratioOrdered By: Jeffry Nichole on 09-06-2022 Albumin/Globulin [Mass ratio] 1.0 {ratio} 0.9-2.4 [facility] Serum or plasma calcium meryl urement (mass/volume)Ordered By: Jeffry Nichole on 09-06-2022 Calcium [Mass/Vol] 9.5 mg/dL 8.5-10.1 [facility] Serum or plasma cholesterol in HDL measurement (mass/volume)Ordered By: Jeffry Nichole on 09-06-2022 Cholesterol in HDL [Mass/Vol] 74 mg/dL >40 [facility] Comment on above: The drugs N-Acetylcy steine and Metamizole may falsely depress this assay. Reference Range HDL <40 mg/dL Low HDL Cholesterol HDL >or= 60 mg/dL High HDL Cholesterol Serum or plasma cholesterol in VLDL measurement (mass/volume)Ordered By: Jeffry Nichole on 09-06-2022 Cholesterol in VLDL [Mass/Vol] 20 mg/dL 5-40 [facility] Serum or plasma creatinine m easurement (mass/volume)Ordered By: Jeffry Nichole on 09-06-2022 Creatinine [Mass/Vol] 0.65 mg/dL 0.55-1.[address] [facility] Comment on above: The validity of the calculated GFR & GFRAA in patients over 70 years has not been determined. Clinical correlation is essential. Serum or plasma ferritin mark surement (mass/volume)Ordered By: Jeffry Nichole on 09-06-2022 Ferritin [Mass/Vol] 11 ng/mL 8-252 [facility] Serum or plasma low density lipoprotein (LDL) cholesterol measurement (mass/volume)Ordered By: Jeffry Nichole on 09-06-2022 Cholesterol in LDL [Mass/Vol] 139 mg/dL 0-130 [facility] Serum or plasma urea nitroge n measurement (mass/volume)Ordered By: Jeffry Nichole on 09-06-2022 Urea nitrogen [Mass/Vol] 12 mg/dL 7-18 [facility] Thin prep Papanicolaou smear with manual screeningOrdered By: Jeffry Nichole on 09-06-2022 Thin prep Papanicolaou smear with manual screening 16 U/L 15-37 [facility] Thin prep Papanicolaou smear with manual screening 5 5-15 [facility] Whole blood hemoglobin A1c/t otal hemoglobin ratio (mass fraction)Ordered By: Jeffry Nichole on 09-06-2022 HbA1c (Bld) [Mass fraction] 5.4 % 3.8-5.6 [facility] Comment on above: Normal < 5.7 % Predi abetic 5.7 - 6.4 % Diabetic >or= 6.5 % Please note range changes. Basophil percentageon 2021 Basophil percentage 3.1 mg/dL 2.5-4.9 [facility] Work Phone: Bilirubin [Mass/Vol] 1.10 mg/dL 0.20-1.00 [facility] Work Phone: Comment on above: For patients on eltr ombopag therapy, use of Dimension [place] TBIL is not recommended. Chloride [Moles/Vol] 107 mmol/L 98-107 [facility] Work Phone: Glucose [Mass/Vol] 95 mg/dL 74-106 [facility] Work Phone: Potassium [Moles/Vol] 3.6 mmol/L 3.5-5.1 [facility] Work Phone: Protein [Mass/Vol] 6.6 g/dL 6.4-8.2 [facility] Work Phone: Sodium [Moles/Vol] 141 mmol/L 136-145 [facility] Work Phone: WBC (Bld) [#/Vol] 7.1 10*3/uL 4.4-11.0 [facility] Work Phone: Blood erythrocytes count (nu mber/volume)on 02-26-2022 RBC (Bld) [#/Vol] 4.06 10*6/uL 4.2-5.4 [facility] Work Phone: Blood hemoglobin measurement (mass/volume)on 02-26-2022 Hemoglobin (Bld) [Mass/Vol] 11.5 g/dL 12.0-15.0 [facility] Work Phone: Blood platelet mean volumeon 02-26-2022 Platelet mean volume (Bld) [Entitic vol] 9.8 fL 6.2-12.0 [facility] Work Phone: Determination of erythrocyte mean corpuscular volume (MCV)on 02-26-2022 MCV (RBC) [Entitic vol] 84.0 fL 81-99 [facility] Work Phone: Direct bilirubinon 2 Bilirubin.direct [Mass/Vol] 0.25 mg/dL 0.00-0.30 [facility] Work Phone: Hematocrit Auto (Bld) [Volum e fraction]on 02-26-2022 Hematocrit (Bld) [Volume fraction] 34.1 % 37-47 [facility] Work Phone: Laboratory - Chemistry and C hemistry - challengeon 02-26-2022 ALP [Catalytic activity/Vol] 65 U/L 45-117 [facility] Work Phone: ALT [Catalytic activity/Vol] 16 U/L 13-56 [facility] Work Phone: [phone] CO2 [Moles/Vol] 28.0 mmol/L 21.0-32.0 [facility] Work Phone: [phone] Globulin (S) [Mass/Vol] 3.5 g/dL 2.2-4.2 [facility] Work Phone: [phone] Magnesium [Mass/Vol] 2.2 mg/dL 1.6-2.6 [facility] Work Phone: Urea nitrogen/Creatinine [Mass ratio] 13.1 mg/mg 10-20 [facility] Work Phone: [phone] Laboratory - Hematology and Cell countson 02-26-2022 Erythrocyte distribution width (RBC) [Entitic vol] 44.8 fL 35.1-43.9 [facility] Work Phone: [phone] Erythrocyte distribution width (RBC) [Ratio] 14.6 % 11.6-14.6 [facility] Work Phone: [phone] MCH (RBC) [Entitic mass] 28.3 pg 27.0-32.0 [facility] Work Phone: MCHC Auto (RBC) [Mass/Vol]on 02-26-2022 MCHC (RBC) [Mass/Vol] 33.7 g/dL 32-[address] [facility] Work Phone: No Panel Informationon 02-26 Estimated Creatinine Clearance Calc 75.63 ml/min [facility] Work Phone: Estimated GFR (MDRD) Amer 128 mL/min >60 [facility] Work Phone: [phone] Comment on above: GFR Calc Estimated GFR (MDRD) Non-Af Amer 106 mL/min >60 [facility] Work Phone: Comment on above: Non- GFR Calc Platelets bldon 02-26-2022 Platelets (Bld) [#/Vol] 221 10*3/uL 150-450 [facility] Work Phone: Serum or plasma albumin meryl urement (mass/volume)on 02-26-2022 Albumin [Mass/Vol] 3.1 g/dL 3.2-5.0 [facility] Work Phone: Serum or plasma calcium meryl urement (mass/volume)on 02-26-2022 Calcium [Mass/Vol] 9.3 mg/dL 8.5-10.1 [facility] Work Phone: Serum or plasma creatinine m easurement (mass/volume)on 02-26-2022 Creatinine [Mass/Vol] 0.61 mg/dL 0.55-1.[address] [facility] Work Phone: Comment on above: The validity of the calculated GFR & GFRAA in patients over 70 years has not been determined. Clinical correlation is essential. Serum or plasma urea nitroge n measurement (mass/volume)on 02-26-2022 Urea nitrogen [Mass/Vol] 8 mg/dL 7-18 [facility] Work Phone: Thin prep Papanicolaou smear with manual screeningon 02-26-2022 Thin prep Papanicolaou smear with manual screening 53 U/L 15-37 [facility] Work Phone: Thin prep Papanicolaou smear with manual screening 6 5-15 [facility] Work Phone: Absolute lymphocyte counton 02-25-2022 Lymphocytes Auto (Unsp spec) [#/Vol] 1.49 10*3/uL 0.83-4.51 [facility] Work Phone: Basophil percentageon 2021 Basophils/100 WBC (Bld) 0.5 % 0-1 [facility] Work Phone: Eosinophils/100 WBC (Bld) 1.9 % 0-5 [facility] Work Phone: [phone] Neutrophils (Bld) [#/Vol] 5.2 10*3/uL 2.0-7.7 [facility] Work Phone: Neutrophils/100 WBC (Bld) 69.4 % 47-70 [facility] Work Phone: Blood lymphocytes/100 leukoc yteson 02-25-2022 Lymphocytes/100 WBC (Bld) 19.8 % 19-41 [facility] Work Phone: Blood monocytes/100 leukocyt eson 02-25-2022 Monocytes/100 WBC (Bld) 8.1 % 0-10 [facility] Work Phone: Laboratory - Hematology and Cell countson 02-25-2022 Immature granulocytes/100 WBC (Bld) 0.300 % 0.0-0.9 [facility] Work Phone: Comment on above: IG% - Immature Granu locytes (promyelocytes, myelocytes and metamyelocytes) > 1% indicates that a LEFT SHIFT is Present. Nucleated RBC/100 WBC (Bld) [Ratio] 0 % 0-5 [facility] Work Phone: No Panel Informationon 02-25 Troponin I High Sensitivity 07463 pg/mL 3.0-54.0 [facility] Work Phone: Comment on above: Critical Result(s) C alled at: 06:16:07 02/25/2022 by: Tunde Buchanan. Chacho Hurley RN (ICU). Results read back by same. Please Note: New Test Units and Gender Specific Reference Ranges. For more information see Policy Stat Procedure [place] High Sensitivity Troponin (TNIH) and attachments. Absolute lymphocyte counton 02-24-2022 Lymphocytes Auto (Unsp spec) [#/Vol] 2.40 10*3/uL 0.83-4.51 [facility] Work Phone: Basophil percentageon 2021 Basophils/100 WBC (Bld) 0.7 % 0-1 [facility] Work Phone: Chloride [Moles/Vol] 102 mmol/L 98-107 [facility] Work Phone: [phone] Cholesterol [Mass/Vol] 236 mg/dL <200 [facility] Work Phone: [phone] Comment on above: <200 mg/dL Desirable 200-240 mg/dL Borderline >240 mg/dL High Risk Eosinophils/100 WBC (Bld) 1.9 % 0-5 [facility] Work Phone: Glucose [Mass/Vol] 104 mg/dL 74-106 [facility] Work Phone: Comment on above: Fasting Glucose resu lt from 100 to 125 mg/dL suggests IMPAIRED HOMEOSTASIS per A.D.A. criteria. Neutrophils (Bld) [#/Vol] 4.8 10*3/uL 2.0-7.7 [facility] Work Phone: Neutrophils/100 WBC (Bld) 59.2 % 47-70 [facility] Work Phone: Potassium [Moles/Vol] 3.6 mmol/L 3.5-5.[address] [facility] Work Phone: Sodium [Moles/Vol] 137 mmol/L 136-145 [facility] Work Phone: [phone] Triglyceride [Mass/Vol] 119 mg/dL <199 [facility] Work Phone: Comment on above: The drugs N-Acetylcy steine and Metamizole may falsely depress this assay.Serum Triglycerides Reference Interval Normal <150 mg/dL Borderline high 150 - 199 mg/dL High 200 - 499 mg/dL Very High > or = 500 mg/dL WBC (Bld) [#/Vol] 8.0 10*3/uL 4.4-11.0 [facility] Work Phone: Blood erythrocytes count (nu mber/volume)on 02-24-2022 RBC (Bld) [#/Vol] 4.73 10*6/uL 4.2-5.4 [facility] Work Phone: [phone] Blood hemoglobin measurement (mass/volume)on 02-24-2022 Hemoglobin (Bld) [Mass/Vol] 12.9 g/dL 12.0-15.0 [facility] Work Phone: Blood lymphocytes/100 leukoc yteson 02-24-2022 Lymphocytes/100 WBC (Bld) 29.9 % 19-41 [facility] Work Phone: Blood monocytes/100 leukocyt eson 02-24-2022 Monocytes/100 WBC (Bld) 8.1 % 0-10 [facility] Work Phone: Blood platelet mean volumeon 02-24-2022 Platelet mean volume (Bld) [Entitic vol] 9.7 fL 6.2-12.0 [facility] Work Phone: Determination of erythrocyte mean corpuscular volume (MCV)on 02-24-2022 MCV (RBC) [Entitic vol] 85.4 fL 81-99 [facility] Work Phone: Hematocrit Auto (Bld) [Volum e fraction]on 02-24-2022 Hematocrit (Bld) [Volume fraction] 40.4 % 37-47 [facility] Work Phone: INR in Blood by Coagulation assayon 02-24-2022 INR Coag (Bld) [Relative time] 1.1 {INR} [facility] Work Phone: Laboratory - Chemistry and C hemistry - challengeon 02-24-2022 CO2 [Moles/Vol] 28.0 mmol/L 21.0-32.0 [facility] Work Phone: [phone] Urea nitrogen/Creatinine [Mass ratio] 16.0 mg/mg 10-20 [facility] Work Phone: Laboratory - Coagulationon 1 04-26-2021 aPTT Coag (Bld) [Time] 26.3 s 24.1-36.2 [facility] Work Phone: PT Coag (PPP) [Time] 13.4 s 11.7-14.9 [facility] Work Phone: Laboratory - Hematology and Cell countson 02-24-2022 Erythrocyte distribution width (RBC) [Entitic vol] 45.2 fL 35.1-43.9 [facility] Work Phone: Erythrocyte distribution width (RBC) [Ratio] 14.4 % 11.6-14.6 [facility] Work Phone: Immature granulocytes/100 WBC (Bld) 0.200 % 0.0-0.9 [facility] Work Phone: Comment on above: IG% - Immature Granu locytes (promyelocytes, myelocytes and metamyelocytes) > 1% indicates that a LEFT SHIFT is Present. MCH (RBC) [Entitic mass] 27.3 pg 27.0-32.0 [facility] Work Phone: Nucleated RBC/100 WBC (Bld) [Ratio] 0 % 0-5 [facility] Work Phone: MCHC Auto (RBC) [Mass/Vol]on 02-24-2022 MCHC (RBC) [Mass/Vol] 31.9 g/dL 32-[address] [facility] Work Phone: No Panel Informationon 02-24 D-Dimer Quantitative (PE/DVT) 0.56 FEU/ug/m 0.27-0.49 [facility] Work Phone: Comment on above: D-Dimer ELEVATED (>0 .49): Additional studies and clinicalassessments are indicated to conclude diagnosis of:Deep Vein Thrombosis (DVT) or Pulmonary Embolism (PE)CRITICAL VALUE VERIFIED. CALLED TO PRIMO GAITAN02/24/22 1331 Mariana Juan.RESULTS READ BACK BY SAME. Estimated Creatinine Clearance Calc 53.03 ml/min [facility] Work Phone: Estimated GFR (MDRD) Amer 84 mL/min >60 [facility] Work Phone: [phone] Comment on above: GFR Calc Estimated GFR (MDRD) Non-Af Amer 70 mL/min >60 [facility] Work Phone: [phone] Comment on above: Non- GFR Calc Troponin I High Sensitivity 11 pg/mL 3.0-54.0 [facility] Work Phone: Comment on above: Please Note: New Taty t Units and Gender Specific Reference Ranges. For more information see Policy Stat Procedure [place] High Sensitivity Troponin (TNIH) and attachments. Platelets bldon 02-24-2022 Platelets (Bld) [#/Vol] 352 10*3/uL 150-450 [facility] Work Phone: Serum or plasma calcium meryl urement (mass/volume)on 02-24-2022 Calcium [Mass/Vol] 9.3 mg/dL 8.5-10.1 [facility] Work Phone: Serum or plasma cholesterol in HDL measurement (mass/volume)on 02-24-2022 Cholesterol in HDL [Mass/Vol] 82 mg/dL >40 [facility] Work Phone: Comment on above: The drugs N-Acetylcy steine and Metamizole may falsely depress this assay. Reference Range HDL <40 mg/dL Low HDL Cholesterol HDL >or= 60 mg/dL High HDL Cholesterol Serum or plasma cholesterol in VLDL measurement (mass/volume)on 02-24-2022 Cholesterol in VLDL [Mass/Vol] 24 mg/dL 5-40 [facility] Work Phone: Serum or plasma creatinine m easurement (mass/volume)on 02-24-2022 Creatinine [Mass/Vol] 0.87 mg/dL 0.55-1.[address] [facility] Work Phone: Comment on above: The validity of the calculated GFR & GFRAA in patients over 70 years has not been determined. Clinical correlation is essential. Serum or plasma low density lipoprotein (LDL) cholesterol measurement (mass/volume)on 02-24-2022 Cholesterol in LDL [Mass/Vol] 130 mg/dL 0-130 [facility] Work Phone: Serum or plasma urea nitroge n measurement (mass/volume)on 02-24-2022 Urea nitrogen [Mass/Vol] 14 mg/dL 7-18 [facility] Work Phone: Thin prep Papanicolaou smear with manual screeningon 02-24-2022 Thin prep Papanicolaou smear with manual screening 7 5-15 [facility] Work Phone: CNOVon 08-03-2021 CNOV Office Visit (AGGENS 4) CHRISTINA JADE ([id number]) 1960 F Date Time Provider Department 08/03/21 2:30 PM BRITNI MCINTYRE4 During your visit today, we recorded the following information about you: Pulse Respiration Blood pressure Weight 50/minute 14/minute 120/80 91.6 kg Height 1.588 m Britni Katlyn Mcintyre APRN.BOAT BUFFER PLASTIC 08/03/2021 3:26 PM Signed We discussed meal [...] like a plant based meal replacement called [employer] Nutrition - can mix w froz [...] examples of apps to track calories are Minderest, LOSE IT. Some patient have found FOODUCATE to help with decisions around food, however choose apps that best suits you. Nutrition Counseling Practice these: - Eat 3 meals daily?can use approved/recommended protein shake as 1 meal replacement (should be <200 calories, 20-30g protein, <5g added sugar) - Keep a food journal 5-7x/week (consider Zazz[employer] or [employer] sushma) and demonstrate meeting protein goal (60-90g protein for females, 70-105g protein for males)- Lean meats, fish, low fat dairy - cottage cheese, [place] Zealander yogurt, light yogurt, cheese, ricotta cheese, nuts, [...] actually doin (more content not included)... Normal [facility] 07-27-2021 CNPN Telephone (AGGENS4) CHRISTINA JADE ([id number]) 1960 F Date Time Provider Department 07/27/21 [...] Encounter Status:Closed by RALPH MIRANDA on 07/27/21 [facility] 04-07-2021 CNPN Telephone (AGGENS4) CHRISTINA JADE ([id number]) 1960 F Date Time Provider Department 04/07/21 JIE RENEE AGGENS4 During your visit today, we recorded the following information about you: Roxana Mccormack MA 04/07/2021 12:25 PM Signed PA for Zoey submitted and APPROVED Coverage date: [id number] Please [...] Fully Assessed Reason for Visit: Medication Authorization [[id number]] Cmt: WEGOVY Prescriptions as of 04/07/2021 - [...] by ROXANA MCCORMACK on 04/07/21 [facility] CNPN Telephone (AGGENS4) CHRISTINA JADE ([id number]) 1960 F Date Time Provider Department 04/07/21 [...] RALPH MIRANDA on 04/07/21 Normal [facility] Basic Metabolic Panlon 04-03 Anion gap [Moles/Vol] 11 mmol/L Normal 9-18 [facility] Calcium [Mass/Vol] 10.0 mg/dL Normal 8.5-10.2 [facility] Chloride [Moles/Vol] 100 mmol/L Normal 97-105 [facility] CO2 [Moles/Vol] 27 mmol/L Normal 22-30 [facility] Creatinine [Mass/Vol] 0.78 mg/dL Normal 0.58-0.96 [facility] eGFR- Amer. >60 Normal [facility] eGFR-All Other Races >60 Normal [facility] Comment on above: Result Comment: eGFR (Estimated [...] [email or web address]. Glucose [Mass/Vol] 114 mg/dL High 74-99 [facility] Comment on above: Result Comment: The [place] Diabetes Association (ADA) provides guidance for [...] Standards of Medical Care in Diabetes 2016, [place] [employer]. Diabetes Care. 2016.39(Suppl 1). Potassium [Moles/Vol] 3.4 mmol/L Low 3.7-5.1 [facility] Sodium [Moles/Vol] 138 mmol/L Normal 136-144 [facility] Urea nitrogen [Mass/Vol] 11 mg/dL Normal 7-21 [facility] CNPNon 02-26-2021 CNPN Telephone (AGGENS4) CHRISTINA JADE ([id number]) 1960 F Date Time Provider Department 02/26/21 [...] can she get her Blood pressure? Danya Lonny 02/27/2021 8:43 AM Signed Spoke with pt [...] by DANYA MUKHERJEE on 02/27/21 [facility] CNOVon 02-05-2021 CNOV Office Visit (AGGENS 4) CHRISTINA JADE ([id number]) 1960 F Date Time Provider Department 02/05/21 11:00 AM JIE RENEE AGGENS4 During your visit today, we recorded the following information about you: Pulse Blood pressure Weight Height 50/minute 138/86 95.2 kg 1.588 m Jie Renee MD 02/05/2021 12:07 PM Signed Jie Renee MD [facility] [address] [place] [address], [facility] [address] [facility] [address] [place] [phone] In office Christina Nielsoners is a 60 year old female with [...] (more content not included)... Normal [facility] Lucas 02-05-2021 BRANTN Telephone (AGGENS4) CHRISTINA JADE ([id number]) 1960 F Date Time Provider Department 02/05/21 [...] [E87.6] Order(s):BASIC METABOLIC PNL [SQBMP] Order #: [id number] FUTURE Prescriptions as of 02/09/2021 - Phentermine [...] JIE RENEE on 02/09/21 Normal [facility] POTASSIUM BLDon 02-05-2021 Potassium [Moles/Vol] 3.2 mmol/L Low 3.7-5.1 [facility] Comment on above: Order Comment: Speci men Type: BLOOD SPECIMEN Performed By: #### K 1 ####[facility]ORY[facility] [id number] [place] [address] [place] [facility] CNPLaila 01-22-2021 CNPN Telephone (AGGENS4) CHRISTINA JADE ([id number]) 1960 F Date Time Provider Department 9/30/21 BARBIE FIGUEROA AGGENS4 During your visit today, [...] BARBIE FIGUEROA on 01/22/21 Normal [facility] CBCon 01-21-2021 Absolute nRBC <0.01 Normal <0.01 [facility] Comment on above: Performed By: #### H BA1C #### [facility] [email or web address] [address] [place], [place] [address] Erythrocyte distribution width (RBC) [Ratio] 15.6 % High 11.5-15.0 [facility] Comment on above: Performed By: #### H BA1C #### [facility] [email or web address] [address] [place], [place] [address] Hematocrit (Bld) [Volume fraction] 37.6 % Normal 36.0-46.0 [facility] Comment on above: Performed By: ###Nery SUBRAMANIAN #### [place] [place], [place] [address] Hemoglobin (Bld) [Mass/Vol] 12.4 g/dL Normal 11.5-15.5 [facility] Comment on above: Performed By: #### Pablo SUBRAMANIAN #### [address] [address] MCH 26.2 pG Normal 26.0-34.0 [facility] Comment on above: Performed By: ###Nery SUBRAMANIAN #### [address] [address] MCHC (RBC) [Mass/Vol] 33.0 g/dL Normal 30.5-36.0 [facility] Comment on above: Performed By: ###Nery SUBRAMANIAN #### [address] [address] MCV (RBC) [Entitic vol] 79.5 fL Low 80.0-100.0 [facility] Comment on above: Performed By: ###Nery SUBRAMANIAN #### [address] [address] Platelet mean volume (Bld) [Entitic vol] 9.8 fL Normal 9.0-12.7 [facility] Comment on above: Performed By: ###Nery SUBRAMANIAN #### [address] [address] Platelets (Bld) [#/Vol] 331 10*3/uL Normal 150-400 [facility] Comment on above: Performed By: ###Nery SUBRAMANIAN #### [address] [address] RBC (Bld) [#/Vol] 4.73 10*6/uL Normal 3.90-5.20 [facility] Comment on above: Performed By: ###Nery SUBRAMANIAN #### [facility] [address] [place], [place] [address] WBC (Bld) [#/Vol] 7.27 10*3/uL Normal 3.70-11.00 [facility] Comment on above: Performed By: #### H BA1C #### [place] [place], [place] [address] Comp Metabolic Panelon 01-21 Albumin [Mass/Vol] 4.3 g/dL Normal 3.9-4.9 [facility] Comment on above: Performed By: #### H BA1C #### [place] [address] [place], [place] [address] ALP [Catalytic activity/Vol] 78 U/L Normal 34-123 [facility] Comment on above: Performed By: #### H BA1C #### [address] [address] ALT [Catalytic activity/Vol] 8 U/L Normal 7-38 [facility] Comment on above: Performed By: #### H BA1C #### [place] [place], [place] [address] Anion gap [Moles/Vol] 10 mmol/L Normal 9-18 [facility] Comment on above: Performed By: #### H BA1C #### [place] [place], [place] [address] AST [Catalytic activity/Vol] 16 U/L Normal 13-35 [facility] Comment on above: Performed By: #### H BA1C #### [facility] [address] [place], [place] [address] Bilirubin [Mass/Vol] 0.7 mg/dL Normal 0.2-1.3 [facility] Comment on above: Performed By: #### H BA1C #### [place] [address] [place], [place] [address] Calcium [Mass/Vol] 10.0 mg/dL Normal 8.5-10.2 [facility] Comment on above: Performed By: #### H BA1C #### [facility] [address] [place] [address] Chloride [Moles/Vol] 100 mmol/L Normal 97-105 [facility] Comment on above: Performed By: #### H BA1C #### [place] [address] CO2 [Moles/Vol] 30 mmol/L Normal 22-30 [facility] Comment on above: Performed By: #### H BA1C #### [place] [address] Creatinine [Mass/Vol] 0.71 mg/dL Normal 0.58-0.96 [facility] Comment on above: Performed By: #### H BA1C #### [place] [address] eGFR- Amer. >60 Normal [facility] Comment on above: Performed By: #### H BA1C #### [place] [address] eGFR-All Other Races >60 Normal [facility] Comment on above: Result Comment: eGFR (Estimated [...] GFR. Performed By: #### H BA1C #### [place] [address] [place] [address] Glucose [Mass/Vol] 112 mg/dL High 74-99 [facility] Comment on above: Result Comment: The [place] Diabetes Association (ADA) provides guidance for [...] Standards of Medical Care in Diabetes 2016, [place] Diabetes [employer]. Diabetes Care. 2016.39(Suppl 1). Performed By: #### H BA1C #### [facility] [email or web address] [address] [place], [place] [address] Potassium [Moles/Vol] 3.3 mmol/L Low 3.7-5.1 [facility] Comment on above: Performed By: #### H BA1C #### [facility] [address] [place], [place] [address] Protein [Mass/Vol] 7.1 g/dL Normal 6.3-8.0 [facility] Comment on above: Performed By: #### H BA1C #### [facility] [address] [place], [place] [address] Sodium [Moles/Vol] 140 mmol/L Normal 136-144 [facility] Comment on above: Performed By: #### H BA1C #### [facility] [email or web address] [address] [place], [place] [address] Urea nitrogen [Mass/Vol] 11 mg/dL Normal 7-21 [facility] Comment on above: Performed By: #### H BA1C #### [facility] [address] [place], [place] [address] Ferritinon 01-21-2021 Ferritin [Mass/Vol] 18.3 ng/mL Normal 14.7-205.1 [facility] Comment on above: Performed By: #### I SHARATH, LIPB, VITD, FERR, TSH, PTHI, B1WB, INSULN, B12, SERFOL #### [facility] [address] [place], [place] [id number] Folate, Serumon 01-21-2021 Folate [Mass/Vol] 17.3 ng/mL Normal >4.7 [facility] Comment on above: Performed By: #### I SHARATH, LIPB, VITD, FERR, TSH, PTHI, B1WB, INSULN, B12, SERFOL #### [facility] [address] [place], [place] [address] Hemoglobin A1con 01-21-2021 Glucose [Mass/Vol] 117 mg/dL Normal [facility] Comment on above: Result Comment: eAG: (Estimated average glucose) is a calculated value from HgbA1c and is business office representative of the average blood glucose level in the last 2-3 month period. Performed By: #### H BA1C #### [place] [address] [place], [place] [address] HbA1c (Bld) [Mass fraction] 5.7 % High 4.3-5.6 [facility] Comment on above: Result Comment: Amer ican Diabetes Association guidelines indicate that patients with HgbA1c in the range 5.7-6.4% are at increased risk for development of diabetes, and intervention by lifestyle modification may be beneficial. HgbA1c greater or equal to 6.5% is considered diagnostic of diabetes. Performed By: #### H BA1C #### [facility] [address] [place], [place] [address] Insulinon 01-21-2021 Insulin 13.7 mU/L Normal 3.0-25.0 [facility] Comment on above: Performed By: #### H BA1C #### [address] [place], [place] [address] Iron and TIBCon 01-21-2021 Iron [Mass/Vol] 68 ug/dL Normal 41-186 [facility] Comment on above: Performed By: #### I SHARATH, LIPB, VITD, FERR, TSH, PTHI, B1WB, INSULN, B12, SERFOL #### [address] [place] [address] TIBC 424 ug/dL High 232-386 [facility] Comment on above: Performed By: #### I SHARATH, LIPB, VITD, FERR, TSH, PTHI, B1WB, INSULN, B12, SERFOL #### [address] [place] [place] [address] Transferrin Saturatn 16 % Normal 15-57 [facility] Comment on above: Performed By: #### I SHARATH, LIPB, VITD, FERR, TSH, PTHI, B1WB, INSULN, B12, SERFOL #### [place] [address] Lipid Panel, [facility] 021 Cholesterol [Mass/Vol] 224 mg/dL High <200 [facility] Comment on above: Result Comment: <200 mg/dL, Desirable 200-239 mg/dL, Borderline high >239 mg/dL, High Performed By: #### I SHARATH, LIPB, VITD, FERR, TSH, PTHI, B1WB, INSULN, B12, SERFOL #### [place] [address] Cholesterol in HDL [Mass/Vol] 75 mg/dL Normal >39 [facility] Comment on above: Result Comment: 40-5 9 mg/dL, Acceptable >59 mg/dL, High: Negative risk factor for coronary heart disease <40 mg/dL, Low: Positive risk factor for coronary heart disease Performed By: #### I SHARATH, LIPB, VITD, FERR, TSH, PTHI, B1WB, INSULN, B12, SERFOL #### [address] [place] [address] Cholesterol in LDL [Mass/Vol] 129 mg/dL High <100 [facility] Comment on above: Result Comment: <100 mg/dL, Optimal 100-129 mg/dL, Near optimal/above optimal 130-159 mg/dL, Borderline high 160-189 mg/dL, High >189 mg/dL, Very high Secondary prevention optimal LDL Cholesterol levels are recommended to be < 70 mg/dL Performed By: #### I SHARATH, LIPB, VITD, FERR, TSH, PTHI, B1WB, INSULN, B12, SERFOL #### [facility] [address] [place] [id number] Fasting Time 12 hrs Normal [facility] Comment on above: Performed By: #### I SHARATH, LIPB, VITD, FERR, TSH, PTHI, B1WB, INSULN, B12, SERFOL #### [address] [place], [place] [address] LDL:HDL Ratio 1.72 Normal <2.54 [facility] Comment on above: Result Comment: Refe shira: 1. National Cholesterol Education Program ATP III Guideline At-A-Glance Quick Desk Reference: National Heart, Lung, and Blood Stopover. National Institutes of Health. 2001: NIH Publication No. 01-3305. 2. An International Atherosclerosis Society position paper: global recommendations for the management of dyslipidemia: executive summary, Atherosclerosis. 2014: 232(2):410-413. Performed By: #### I SHARATH, LIPB, VITD, FERR, TSH, PTHI, B1WB, INSULN, B12, SERFOL #### [facility] [address] [place] [id number] Non HDL Cholesterol 149 mg/dL High <130 [facility] Comment on above: Result Comment: <130 mg/dL, Optimal 130-159 mg/dL, Near optimal/above optimal 160-189 mg/dL, Borderline high 190-219 mg/dL, High >219 mg/dL, Very high Secondary prevention optimal non HDL Cholesterol levels are recommended to be < 100 mg/dL Performed By: #### I SHARATH, LIPB, VITD, FERR, TSH, PTHI, B1WB, INSULN, B12, SERFOL #### [place] [phone] TC:HDL Ratio 2.99 Normal <5.10 [facility] Comment on above: Performed By: #### I SHARATH, LIPB, VITD, FERR, TSH, PTHI, B1WB, INSULN, B12, SERFOL #### [place] [phone] Triglyceride [Mass/Vol] 102 mg/dL Normal <150 [facility] Comment on above: Result Comment: <150 mg/dL, Normal 150-199 mg/dL, Borderline high 200-499 mg/dL, High >499 mg/dL, Very high Performed By: #### I SHARATH, LIPB, VITD, FERR, TSH, PTHI, B1WB, INSULN, B12, SERFOL #### [place] [phone] VLDL Cholesterol 20 mg/dL Normal <30 [facility] Comment on above: Performed By: #### I SHARATH, LIPB, VITD, FERR, TSH, PTHI, B1WB, INSULN, B12, SERFOL #### [place] [phone] PTH, Intacton 01-21-2021 PTH, Intact 56 pg/mL Normal 15-65 [facility] Comment on above: Performed By: #### I SHARATH, LIPB, VITD, FERR, TSH, PTHI, B1WB, INSULN, B12, SERFOL #### [place] [phone] TSHon 01-21-2021 TSH Qn 1.820 m[IU]/L Normal 0.270-4.200 [facility] Comment on above: Performed By: #### H BA1C #### [place] [phone] Vitamin B1, Whole Blon 01-21 Vitamin B1 (TDP), WB 149.7 nmol/L Normal 84.0-213.0 [facility] Comment on above: Result Comment: This assay measures the concentration of thiamine diphosphate (TDP), the primary active form of vitamin B1. Approximately 90 percent of vitamin B1 present in whole blood is TDP. Thiamine and thiamine monophosphate, which comprise the remaining 10 percent, are not measured. This test was developed and its performance characteristics determined by [facility]'s [facility] Pathology and Laboratory Medicine Stopover ( PLMI). It has not been cleared or approved by the FDA. [facility] is regulated under CLIA as qualified to perform high complexity testing. This test is used for clinical purposes. It should not be regarded as investigational or for research. Performed By: #### H BA1C #### [address] [place] [address] Vitamin B12on 01-21-2021 Cobalamin (Vitamin B12) [Mass/Vol] 814 pg/mL Normal 232-1245 [facility] Comment on above: Performed By: #### I SHARATH, LIPB, VITD, FERR, TSH, PTHI, B1WB, INSULN, B12, SERFOL #### [address] [place] [place] [address] Vitamin D 25 Hydroxyon 01-21 Vitamin D 25 Hydroxy 33.6 ng/mL Normal 31.0-80.0 [facility] Comment on above: Result Comment: Clas sification of 25 [place] Vitamin D status: Insufficiency/Moderate Deficiency: < or = 30 ng/mL Sufficiency/Optimal Levels: 31 to 80 ng/mL Toxicity: > 100 ng/mL Test performed by chemiluminescent immunoassay. Performed By: #### I SHARATH, LIPB, VITD, FERR, TSH, PTHI, B1WB, INSULN, B12, SERFOL #### [facility] [address] [place] [phone] CNOVon 12-17-2020 CNOV Office Visit (OBGYWM ) CHRISTINA JADE ([id number]) 1960 F Date Time Provider Department 12/17/20 3:00 PM DANETTE BOYCE During your visit today, we recorded the following information about you: Blood pressure Weight Height 120/74 97.1 kg 1.588 m Danette Boyce, INTERVENTIONAL RADIOLOGY TECH.BOAT BUFFER PLASTIC 12/17/2020 3:59 PM Signed Christina is a 60 year old who presents for an annual gynecologic exam without complaints. Postmenopausal: Hysterectomy 2017 endometrial cancer HRT use: No. History of abnormal pap: Yes, remote Last mammogram: 2019 normal History of abnormal mammogram: Yes Sexually active: Yes Time with current partner: fci History of cook 3 pastry malignancy: ENDOMETRIAL CANCER Pain with intercourse: No [...] external genitalia normal, normal Bartholin's glands, urethra, [place]'s glands, no vulvar lesions, physiologic discharge present, [...] year or sooner as needed Danette Boyce APRN.BOAT BUFFER PLASTIC Referring Provider: SELF [200] Allergies As of Date: 12/17/2020 Noted Allergy Reaction TEVETEN (EPROSARTAN MESYLATE) 03/25/2005 Comments: Severe Joint Pain BENZOLE PEROXIDE [Other] 03/22/2005 2 - Rash SERTRALINE 07/06/2002 Comments: anxiety attacks Date Reviewed: 12/17/2020 Reviewed by: Danette Boyce APRN.BOAT BUFFER PLASTIC - Fully Assessed Reason for Visit: Well Woman [1463] Primary Visit Diagnosis:Encounter for gynecological examination (general) (routine) without abnormal findings [Z01.419] Prescriptions as of 12/17/2020 - ferrous sulfate (IRON ORAL) Take by mouth. - topiramate (TOPAMAX) 25 mg tablet Take 1 (more content not included)... Normal [facility] CNOVon 10-22-2020 CNOV Office Visit (SHIRA 4) CHRISTINA JADE ([id number]) 1960 F Date Time Provider Department 10/22/20 [...] of this encounter: 98.9 kg (218 lb). [place] weight: 62 kg (136 lb 11.2 oz) [...] (more content not included)... Normal [facility] Lucas 07-29-2020 ORTIZ Telephone (GASTTW) CHRISTINA JADE ([id number]) 1960 F Date Time Provider Department 07/29/20 JASON LUND During your visit today, we recorded the following information about you: Jason Lund MD 07/29/2020 2:39 PM Signed Colon polyp was a tubular adenoma Edin Uriostegui Genaro 07/29/2020 2:47 PM Signed Pt notified and verbalized understanding- was already updated to 5 year cscope [...] Status:Closed by EDIN URIOSTEGUI MA on 07/29/20 [facility] BRIEF OP NOTon 07-28-2020 BRIEF OP NOT HNO ID: [id number] Author: Jason Lund Service: Gastroenterology Author Type: Physician Type: Brief Op Note Filed: 07/28/2020 1:03 PM Note Text: BRIEF OPERATIVE NOTE PATIENT NAME: Christina Jade LOG ID: [id number] Surgery Date: 07/28/2020 Surgeon(s) and Scrap Stripper Hand(s): Jason Lund MD -Primary Procedure(s): Procedure(s) (LRB): COLONOSCOPY, FLEXIBLE W/REMOVAL TUMOR(S), POLYP(S), OR OTHER LESION(S) BY SNARE TECHNIQUE (N/A) Anesthesia: Procedural Sedation Findings: Descending colon polyp Estimated Blood Loss: Minimal Specimens: Descending colon polyp Preop Diagnosis: Screening Postop Diagnosis: *Screening* SIGNATURE: Jason Lund MD DATE: July 28, 2020 TIME: 1:03 PM [facility] HISTORY PHYSICALon HISTORY PHYSICAL HNO ID: [id number] Author: Jason Lund Service: Gastroenterology Author Type: [...] July 28, 2020 TIME: 12:31 PM Normal [facility] NURSING PROGon 07-28-2020 NURSING PROG HNO ID: [id number] Author: Julian (Rn) Ej, RN Service: Nursing Author Type: Registered Nurse Type: Nursing Progress Note Filed: 07/28/2020 1:15 PM Note Text: Pt into Endo recovery room in satisfactory condition. Resting on left side. Pt. sleepy but arousable. Abdomen soft, no complaints. Will continue to monitor. Normal [facility] NURSING PROG HNO ID: [id number] Author: Julian (Rn) Ej RN Service: Nursing Author Type: Registered Nurse Type: Nursing Progress Note Filed: 07/28/2020 12:32 PM Note Text: [facility] PRE-OP NURSING HAND OFF NOTE SBAR Hand off given to Danica Bean RN. Hand off was communicated verbally and at the patient's bedside and all questions were answered. Julian Pagan RN Normal [facility] SURGICAL PATHOLOGYon 021 SURGICAL PATHOLOGY Specimen originated from [facility] Specimen #: [id number] Submitting Physician: JASON LUND MD FINAL DIAGNOSIS Descending colon polyp, biopsy - Multiple fragments of tubular adenoma. IOG/EA/mely 07/29/2020 Soraya Calix M.D., Ph.D. (Electronic Signature) SPECIMEN SUBMITTED A: DESCENDING COLON POLYP CLINICAL DATA SCREENING, LMP: N/A COLD SNARE GROSS DESCRIPTION A. Received in formalin are multiple pieces of burnett, soft tissue aggregating to 1.0 x 0.3 x 0.2 cm. Totally submitted in one cassette. Gross examination performed at [facility], [address] [place] [address] 07/28/2020 10:09:03 PM Date of Report: 07/29/2020 Date of Procedure: 07/28/2020 Date of Receipt: 07/28/2020 Submitted by: JASON LUND MD Location: W0 Diagnostic interpretation performed at [facility], [address] [place] [address]. CLIA Number: [id number] Normal [facility] 07-18-2020 CNPN Telephone (ASWSTR) CHRISTINA JADE ([id number]) 1960 F Date Time Provider Department 07/18/20 JASON LUND During your visit today, we [...] appointments as their daughter will be their street flusher driver. Pt will need to be called for the OA questionnaire. Roberta Meek 07/18/2020 1:25 PM Signed Scheduled patient for open access colonoscopy with Dr. Lund on 07/28/2020, sending Miralax/Dulcolax instructions through [facility] Roberta Meek [facility] OPEN ACCESS QUESTIONNAIRE 1. Are you currently [...] Please send all open access questionnaires to [facility] Sched Pool #[id number] Sharon Salinas RN, RN 08/18/2020 2:56 PM [...] colon [Z12.11] Order(s):COLONOSCOPY SCRN NOT HIGH RISK [[id number]] Order #: [id number]: 1 FUTURE Prescriptions as of 07/18/2020 Sig: [...] endometrial hyperplasia (more content not included)... Normal [facility] HOSPon 07-18-2020 HOSP Patient:Porter Jade MRN: Height:5' 2(1.575 m) Weight:205 [...] 37.2 % 07/02/2020 46.0 36.0 Progress Notes ([facility] WSTR): Sharon Salinas, RN, RN 07/18/2020 [...] appointments as their daughter will be their street flusher driver. Pt will need to be called for the OA questionnaire. Roberta Meek 07/18/2020 1:25 PM Signed Scheduled patient for open access colonoscopy with Dr. Lund on 07/28/2020, sending Miralax/Dulcolax instructions through [facility] Roberta Meek [facility] OPEN ACCESS QUESTIONNAIRE 1. Are you currently [...] Please send all open access questionnaires to [facility] Sched Pool #[id number] Normal [facility] Basic Metabolic Panlon 07-02 Anion gap [Moles/Vol] 9 mmol/L Normal 9-18 [facility] Calcium [Mass/Vol] 9.6 mg/dL Normal 8.5-10.2 [facility] Chloride [Moles/Vol] 100 mmol/L Normal 97-105 [facility] CO2 [Moles/Vol] 30 mmol/L Normal 22-30 [facility] Creatinine [Mass/Vol] 0.71 mg/dL Normal 0.58-0.96 [facility] eGFR- Amer. >60 Normal [facility] eGFR-All Other Races >60 Normal [facility] Comment on above: Result Comment: eGFR (Estimated [...] GFR. Glucose [Mass/Vol] 104 mg/dL High 74-99 [facility] Comment on above: Result Comment: The [place] Diabetes Association (ADA) provides guidance for [...] Standards of Medical Care in Diabetes 2016, [place] Diabetes Association. Diabetes Care. 2016.39(Suppl 1). Potassium [Moles/Vol] 3.9 mmol/L Normal 3.7-5.1 [facility] Sodium [Moles/Vol] 139 mmol/L Normal 136-144 [facility] Urea nitrogen [Mass/Vol] 9 mg/dL Normal 7-21 [facility] CBCon 07-02-2020 Absolute nRBC <0.01 Normal <0.01 [facility] Erythrocyte distribution width (RBC) [Ratio] 13.7 % Normal 11.5-15.0 [facility] Hematocrit (Bld) [Volume fraction] 37.2 % Normal 36.0-46.0 [facility] Hemoglobin (Bld) [Mass/Vol] 12.2 g/dL Normal 11.5-15.5 [facility] MCH 28.4 pG Normal 26.0-34.0 [facility] MCHC (RBC) [Mass/Vol] 32.8 g/dL Normal 30.5-36.0 [facility] MCV (RBC) [Entitic vol] 86.5 fL Normal 80.0-100.0 [facility] Platelet mean volume (Bld) [Entitic vol] 9.6 fL Normal 9.0-12.7 [facility] Platelets (Bld) [#/Vol] 342 10*3/uL Normal 150-400 [facility] RBC (Bld) [#/Vol] 4.30 10*6/uL Normal 3.90-5.20 [facility] WBC (Bld) [#/Vol] 5.47 10*3/uL Normal 3.70-11.00 [facility] Ferritinon 07-02-2020 Ferritin [Mass/Vol] 18.9 ng/mL Normal 14.7-205.1 [facility] Comment on above: Performed By: #### H BA1C #### [facility] [email or web address] [address] [place], [place] [id number] Folate, Serumon 07-02-2020 Folate [Mass/Vol] ng/mL Normal >4.7 [facility] Comment on above: Result Comment: A re sult of > 20 ng/mL is not necessarily indicative of a pathologic or treatable condition: it reflects a limitation of the test methodology. Assay reference range: 4.8 to 24.2 ng/mL. Suitable for detection of folate deficiency. Reference: Folate III (Folate III) [package insert V 2.0 Angolan]. [facility], [place], [place]: February 2015. Performed By: #### H BA1C #### [facility] [email or web address] [address] [place], [place] [id number] Iron and TIBCon 07-02-2020 Iron [Mass/Vol] 42 ug/dL Normal 41-186 [facility] Comment on above: Performed By: #### H BA1C #### [place] [address] [place] [address] TIBC 413 ug/dL High 232-386 [facility] Comment on above: Performed By: #### H BA1C #### [place] [address] Transferrin Saturatn 10 % Low 15-57 [facility] Comment on above: Performed By: #### H BA1C #### [place] [address] Vitamin B1, Whole Blon 07-02 Vitamin B1 (TDP), WB 131.3 nmol/L Normal 84.0-213.0 [facility] Comment on above: Result Comment: This assay measures the concentration of thiamine diphosphate (TDP), the primary active form of vitamin B1. Approximately 90 percent of vitamin B1 present in whole blood is TDP. Thiamine and thiamine monophosphate, which comprise the remaining 10 percent, are not measured. This test was developed and its performance characteristics determined by [facility]'s [facility] Pathology and Laboratory Medicine Stopover ( [facility]). It has not been cleared or approved by the FDA. [facility] is regulated under CLIA as qualified to perform high complexity testing. This test is used for clinical purposes. It should not be regarded as investigational or for research. Performed By: #### I SHARATH, LIPB, VITD, FERR, TSH, PTHI, B1WB, INSULN, B12, SERFOL #### [address] [place] [address] [place] [address] Vitamin B12on 07-02-2020 Cobalamin (Vitamin B12) [Mass/Vol] pg/mL High 232-1245 [facility] Comment on above: Performed By: #### H BA1C #### [place] [address] Vitamin D 25 Hydroxyon 07-02 Vitamin D 25 Hydroxy 40.4 ng/mL Normal 31.0-80.0 [facility] Comment on above: Result Comment: Clas sification of 25 [place] Vitamin D status: Insufficiency/Moderate Deficiency: < or = 30 ng/mL Sufficiency/Optimal Levels: 31 to 80 ng/mL Toxicity: > 100 ng/mL Test performed by chemiluminescent immunoassay. Performed By: #### I SHARATH, LIPB, VITD, FERR, TSH, PTHI, B1WB, INSULN, B12, SERFOL #### [facility] [address] [place], [place] [address] Basic Metabolic Panelon Anion gap [Moles/Vol] 9 mmol/L Normal 9-18 [facility] Comment on above: Performed By: #### B MP #### [address] [address] Calcium [Mass/Vol] 9.0 mg/dL Normal 8.5-10.2 [facility] Comment on above: Performed By: #### B MP #### [facility] [address] [place], [place] [address] Chloride [Moles/Vol] 104 mmol/L Normal 97-105 [facility] Comment on above: Performed By: #### B MP #### [address] [address] CO2 [Moles/Vol] 28 mmol/L Normal 22-30 [facility] Comment on above: Performed By: #### B MP #### [facility] [address] [place], [place] [address] Creatinine [Mass/Vol] 0.61 mg/dL Normal 0.58-0.96 [facility] Comment on above: Performed By: #### B MP #### [address] [address] Glucose [Mass/Vol] 106 mg/dL High 74-99 [facility] Comment on above: Result Comment: The [place] Diabetes Association (ADA) provides guidance for [...] Standards of Medical Care in Diabetes 2016; [place] Diabetes Association. Diabetes Care. 2016;39(Suppl 1). Performed By: #### B MP #### [place] [address] Potassium [Moles/Vol] 3.8 mmol/L Normal 3.7-5.1 [facility] Comment on above: Performed By: #### B MP #### [place] [address] Sodium [Moles/Vol] 141 mmol/L Normal 136-144 [facility] Comment on above: Performed By: #### B MP #### [place] [address] Urea nitrogen [Mass/Vol] 7 mg/dL Normal 7-21 [facility] Comment on above: Performed By: #### B MP #### [place] [address] Hemogram/Diffon 09-27-2019 Abs Immature Grans 0.07 thou/cmm High 0.00-0.05 [facility] Comment on above: Performed By: #### C BCD1 #### [place] [address] Abs Neut (ANC) 7.86 thou/cmm High 1.56-6.13 [facility] Comment on above: Performed By: #### C BCD1 #### [place] [address] Abs. Baso 0.01 thou/cmm Normal 0.01-0.08 [facility] Comment on above: Performed By: #### C BCD1 #### [place] [address] Abs. [place] 0.90 thou/cmm High 0.27-0.70 [facility] Comment on above: Performed By: #### C BCD1 #### [facility] [address] [place] [address] Basophils/100 WBC (Bld) 0.1 % Normal [facility] Comment on above: Performed By: #### C BCD1 #### [facility] [address] [place] [address] Eosinophils (Bld) [#/Vol] 0.01 10*3/uL Normal 0.00-0.31 [facility] Comment on above: Performed By: #### C BCD1 #### [facility] [address] [place] [address] Eosinophils/100 WBC (Bld) 0.1 % Normal [facility] Comment on above: Performed By: #### C BCD1 #### [place] [address] Erythrocyte distribution width (RBC) [Ratio] 14.0 % Normal 11.7-14.4 [facility] Comment on above: Performed By: #### C BCD1 #### [facility] [address] [place] [address] Hematocrit (Bld) [Volume fraction] 37.4 % Normal 34.1-44.9 [facility] Comment on above: Performed By: #### C BCD1 #### [facility] [address] [place] [address] Hemoglobin (Bld) [Mass/Vol] 12.3 g/dL Normal 11.2-15.7 [facility] Comment on above: Performed By: #### C BCD1 #### [facility] [address] [place] [address] Immature Grans 0.70 % Normal [facility] Comment on above: Performed By: #### C BCD1 #### [facility] [address] [place] [address] Lymphocytes (Bld) [#/Vol] 1.35 10*3/uL Normal 1.18-3.74 [facility] Comment on above: Performed By: #### C BCD1 #### [facility] [address] [place], [place] [address] Lymphocytes/100 WBC (Bld) 13.2 % Normal [facility] Comment on above: Performed By: #### C BCD1 #### [facility] [address] [place], [place] [address] MCH (RBC) [Entitic mass] 29.1 pg Normal 25.6-32.2 [facility] Comment on above: Performed By: #### C BCD1 #### [facility] [address] [place] [address] MCHC 32.9 % Normal 31.6-34.8 [facility] Comment on above: Performed By: #### C BCD1 #### [facility] [address] [place] [address] MCV (RBC) [Entitic vol] 88.4 fL Normal 79.4-94.8 [facility] Comment on above: Performed By: #### C BCD1 #### [facility] [address] [place] [address] Monocytes/100 WBC (Bld) 8.8 % Normal [facility] Comment on above: Performed By: #### C BCD1 #### [facility] [address] [place] [address] Platelet mean volume (Bld) [Entitic vol] 10.3 fL Normal 9.4-12.3 [facility] Comment on above: Performed By: #### C BCD1 #### [facility] [address] [place] [address] Platelets (Bld) [#/Vol] 288 10*3/uL Normal 182-369 [facility] Comment on above: Performed By: #### C BCD1 #### [facility] [address] [place] [address] RBC 4.23 mil/cmm Normal 3.93-5.22 [facility] Comment on above: Performed By: #### C BCD1 #### [facility] [address] [place] [address] RDW SD 45.0 fl Normal 36.4-46.3 [facility] Comment on above: Performed By: #### C BCD1 #### [facility] [address] [place] [address] Seg Neutrophil 77.1 % Normal [facility] Comment on above: Performed By: #### C BCD1 #### [facility] [address] [place] [address] WBC (Bld) [#/Vol] 10.19 10*3/uL High 3.98-10.04 [facility] Comment on above: Performed By: #### C BCD1 #### [place] [address] MDRD GFRon 09-27-2019 GFR/1.73 sq M.predicted among non-blacks MDRD (S/P/Bld) [Vol rate/Area] mL/min/{1.73_m2} Normal >60mL/min/1.7 3m2 [facility] Comment on above: Result Comment: If t he patient is , multiply the result by 1.210. Performed By: #### H CTI #### [place] [address] ABO/Rh Confirmationon 2019 ABO group Nom (Bld) B Normal [facility] Comment on above: Performed By: #### A DESIREE #### [place] [address] RH Type Positive Normal [facility] Comment on above: Performed By: #### A DESIREE #### [place] [address] Glucose Meteron 09-26-2019 Glucose [Mass/Vol] 121 mg/dL High 70-99 [facility] Comment on above: Performed By: #### G LMET #### [place] [address] Surgical Tissue Examon 09-25 Surgical Tissue Exam Test performed at [place] [address] NAME: CHRISTINA JADE REQUESTING: SUYAPA YIP FINAL [...] rugae with no polyps or masses identified. Stock Plan Administrator sections are submitted in cassettes [id number]. YULIET/mason AVILES M.D., PATHOLOGIST (Electronic signature on file) Signed out: 09/28/2019 15:50 PRINTED: 09/28/2019 Page 1 of 1 Normal [facility] Comment on above: Performed By: #### H CTI #### [place] [address] Activated PTTon 09-19-2019 aPTT Coag (Bld) [Time] 27.2 s Normal 23.0-32.4 [facility] Comment on above: Result Comment: Unfr [...] laboratory APTT reagent in use throughout the [facility]. Performed By: #### A PTT #### [place] [address] Albumin, Bloodon 09-19-2019 Albumin [Mass/Vol] 4.5 g/dL Normal 3.9-4.9 [facility] Comment on above: Performed By: #### A LB #### [place] [address] Hcton 09-19-2019 Hematocrit (Bld) [Volume fraction] 40.9 % Normal 34.1-44.9 [facility] Comment on above: Performed By: #### H CTI #### [facility] [address] [place] [address] Hgbon 09-19-2019 Hemoglobin (Bld) [Mass/Vol] 13.6 g/dL Normal 11.2-15.7 [facility] Comment on above: Performed By: #### H GBI #### [facility] [address] [place] [address] Protimeon 09-19-2019 INR Coag (PPP) [Relative time] 1.08 {INR} Normal 0.90-1.30 [facility] Comment on above: Result Comment: Angy min K Antagonist (VKA) Therapeutic Range: INR 2 to 3 (Target INR of 2.5) Note: For patients treated with VKA drugs, such as warfarin, the [employer] 2012 Guideline [...] to 3.5 target INR of 3). Tammi GH, et al. Chest 2012; 141:7S-47S Julio RA, et al. JAC 2017; 70: 252-289 Performed By: #### P T #### [facility] [address] [place] [address] PT Coag (PPP) [Time] 11.6 s Normal 9.7-13.0 [facility] Comment on above: Performed By: #### P T #### [facility] [address] [place] [address] Type and Screenon 09-19-2019 ABO group Nom (Bld) B Normal [facility] Comment on above: Performed By: #### T &S #### [place] [address] Comment PAT specimen Normal [facility] Comment on above: Performed By: #### T &S #### [facility] [address] [place], [place] [address] RH Type Positive Normal [facility] Comment on above: Performed By: #### T &S #### [facility] [address] [place], [place] [address] Vital Signs Date Time Vital Sign Value Performing Clinician Lilliana almonte 09-26-2024 07:49-0400 Body height 157.[address] Jeffry Nichole DO Work Phone: [facility] 09-26-2024 07:49-0400 Body mass index (BMI) [Ratio] 40.2 kg/m2 Dr. Jeffry Nichole DO Work Phone: [facility] 09-26-2024 07:49-0400 Body weight 99.[address] Jeffry Nichole DO Work Phone: [facility] 09-26-2024 07:49-0400 Diastolic blood pressure 90 mm[Hg] Dr. Jeffry Nichole DO Work Phone: [facility] 09-26-2024 07:49-0400 Heart rate 69 /min Dr. Jeffry Nichole DO Work Phone: [facility] 09-26-2024 07:49-0400 Respiratory rate 18 /min Dr. Jeffry Nichole DO Work Phone: [facility] 09-26-2024 07:49-0400 Systolic blood pressure 147 mm[Hg] Dr. Jeffry Nichole DO Work Phone: [facility] 11-11-2022 12:27-0400 Body temperature 98.3 [degF] Dr. Jeffry Nichole Work Phone: [facility] 11-11-2022 12:27-0400 Diastolic blood pressure 67 mm[Hg] Dr. Jeffry Nichole Work Phone: [facility] 11-11-2022 12:27-0400 Heart rate 65 /min Dr. Jeffry Nichole Work Phone: [facility] 11-11-2022 12:27-0400 Respiratory rate 16 /min Dr. Jeffry Nichole Work Phone: [facility] 11-11-2022 12:27-0400 SaO2% (BldA) [Mass fraction] 97 % Dr. Jeffry Nichole Work Phone: [facility] 11-11-2022 12:27-0400 Systolic blood pressure 136 mm[Hg] Dr. Jeffry Nichole Work Phone: [facility] 11-11-2022 11:00-0400 Inhaled oxygen flow rate 2 L/min Dr. Jeffry Nichole Work Phone: [facility] 11-11-2022 07:24-0400 Body height 157.[address] Jeffry Nichole Work Phone: [facility] 11-11-2022 07:24-0400 Body mass index (BMI) [Ratio] 38.7 kg/m2 Dr. Jeffry Nichole Work Phone: [facility] 11-11-2022 07:24-0400 Body weight 96.[address] Jeffry Nichole Work Phone: [facility] 10-05-2022 12:30-0400 Body mass index (BMI) [Ratio] 38.5 kg/m2 Dr. Jeffry Nichole Work Phone: [facility] 10-05-2022 12:30-0400 Body temperature 97.5 [degF] Dr. Jeffry Nichole Work Phone: [facility] 10-05-2022 12:30-0400 Body weight 95.[address] Jeffry Nichole Work Phone: [facility] 10-05-2022 12:30-0400 Diastolic blood pressure 92 mm[Hg] Dr. Jeffry Nichole Work Phone: [facility] 10-05-2022 12:30-0400 Heart rate 81 /min Dr. Jeffry Nichole Work Phone: [facility] 10-05-2022 12:30-0400 Respiratory rate 18 /min Dr. Jeffry Nichole Work Phone: [facility] 10-05-2022 12:30-0400 Systolic blood pressure 135 mm[Hg] Dr. Jeffry Nichole Work Phone: [facility] 08-04-2022 08:37-0400 Body height 157.[address] Jeffry Nichole Work Phone: [facility] 04-21-2022 10:05-0500 Body mass index (BMI) [Ratio] 37.8 kg/m2 Dr. Jeffry Nichole Work Phone: [facility] 04-21-2022 10:05-0500 Body weight 93.[address] Jeffry Nichole Work Phone: [facility] 03-17-2022 11:00-0500 Body height 157.[address] Jeffry Nichole Work Phone: [facility] Work Phone: 03-17-2022 11:00-0500 Body mass index (BMI) [Ratio] 38 kg/m2 Dr. Jeffry Nichole Work Phone: [facility] Work Phone: 03-17-2022 11:00-0500 Body weight 94.[address] Jeffry Nichole Work Phone: [facility] Work Phone: 03-17-2022 11:00-0500 Diastolic blood pressure 85 mm[Hg] Dr. Jeffry Nichole Work Phone: [facility] Work Phone: 03-17-2022 11:00-0500 Heart rate 60 /min Dr. Jeffry Nichole Work Phone: [facility] Work Phone: 03-17-2022 11:00-0500 Respiratory rate 16 /min Dr. Jeffry Nichole Work Phone: [facility] Work Phone: 03-17-2022 11:00-0500 Systolic blood pressure 126 mm[Hg] Dr. Jeffry Nichole Work Phone: [facility] Work Phone: 02-26-2022 09:02-0400 Body temperature 98.3 [degF] Dr. Jeffry Nichole Work Phone: [facility] Work Phone: 02-26-2022 09:02-0400 Diastolic blood pressure 52 mm[Hg] Dr. Jeffry Nichole Work Phone: [facility] Work Phone: 02-26-2022 09:02-0400 Heart rate 78 /min Dr. Jeffry Nichole Work Phone: [facility] Work Phone: 02-26-2022 09:02-0400 Respiratory rate 18 /min Dr. Jeffry Nichole Work Phone: [facility] Work Phone: 02-26-2022 09:02-0400 SaO2% (BldA) [Mass fraction] 97 % Dr. Jeffry Nichole Work Phone: [facility] Work Phone: 02-26-2022 09:02-0400 Systolic blood pressure 97 mm[Hg] Dr. Jeffry Nichole Work Phone: [facility] Work Phone: 02-26-2022 05:52-0400 Body weight [address] Jeffry Nichole Work Phone: [facility] Work Phone: 02-24-2022 15:55-0400 Body height 157.[address] Jeffry Nichole Work Phone: [facility] Work Phone: 02-24-2022 13:39-0400 Body mass index (BMI) [Ratio] 39.2 kg/m2 Dr. Jeffry Nichole Work Phone: [facility] Work Phone: 02-24-2022 12:54-0400 Body temperature 98 [degF] [facility] Work Phone: 02-24-2022 12:54-0400 Diastolic blood pressure 113 mm[Hg] [facility] Work Phone: 02-24-2022 12:54-0400 Heart rate 49 /min [facility] Work Phone: 02-24-2022 12:54-0400 Inhaled oxygen flow rate 2 L/min [facility] Work Phone: 02-24-2022 12:54-0400 Respiratory rate 18 /min [facility] Work Phone: 02-24-2022 12:54-0400 SaO2% (BldA) [Mass fraction] 98 % [facility] Work Phone: 02-24-2022 12:54-0400 Systolic blood pressure 213 mm[Hg] [facility] Work Phone: 02-24-2022 11:55-0400 Body height 157.48 cm [facility] Work Phone: 02-24-2022 11:55-0400 Body mass index (BMI) [Ratio] 41.7 kg/m2 [facility] Work Phone: 02-24-2022 11:55-0400 Body weight 103.5 kg [facility] Work Phone: 08-03-2021 14:40-0400 Body height 158.8 cm [facility] Work [facility]: [facility] 08-03-2021 14:40-0400 Body weight 91.63 kg Britni Torrestasebastian INTERVENTIONAL RADIOLOGY TECH.[employer] Work Phone: [facility] 08-03-2021 14:40-0400 Diastolic blood pressure 80 mm[Hg] Britni Torrestaub INTERVENTIONAL RADIOLOGY TECH.[employer] Work Phone: [facility] 08-03-2021 14:40-0400 Heart rate 50 /min Britni Torrestaub INTERVENTIONAL RADIOLOGY TECH.[employer] Work Phone: [facility] 08-03-2021 14:40-0400 Respiratory rate 14 /min Britni Briantaub INTERVENTIONAL RADIOLOGY TECH.[employer] Work Phone: [facility] 08-03-2021 14:40-0400 SaO2% (BldA) [Mass fraction] 97 % Britni Torrestasebastian INTERVENTIONAL RADIOLOGY TECH.[employer] Work Phone: [facility] 08-03-2021 14:40-0400 Systolic blood pressure 120 mm[Hg] Britni Torrestaub INTERVENTIONAL RADIOLOGY TECH.[employer] Work Phone: [facility] Encounters Encounter Date Encounter Type Care Provider Facility Start: 11-05-2024 ambulatory Layton Petty Facility:[facility] Start: 11-05-2024 Non-patient / Non-visit Dr. Layton chowdhury MD -[facility] Start: 11-05-2024 End: 11-05-[address] Jeffry Nichole DO Work Phone: -[facility] Start: 11-05-2024 End: 11-05-[address] Layton Petty MD -Cardiovascular Services Work Phone: Start: 11-05-2024 End: 11-05-2024 ambulatory Layton Petty Facility:[facility] Start: 09-26-2024 End: 09-26-[address] Jeffry Nichole DO Work Phone: [facility] Work Phone: Start: 09-26-2024 End: 09-26-[address] Layton Petty MD -Laboratory Work Phone: Start: 09-26-2024 End: 09-26-[address] Layton Petty MD -[facility] Work Phone: Start: 09-26-2024 End: 09-26-[address] Jeffry Nichole DO Work Phone: [facility] Work Phone: Start: 09-26-2024 End: 09-26-2024 ambulatory Layton Petty Facility:[facility] Start: 01-25-2024 End: 01-25-2024 ambulatory Nikkivaleria Arias Facility:[facility] Start: 03-09-2023 End: 03-09-[address] Jeffry Nichole Work Phone: [facility] Work Phone: Start: 03-09-2023 End: 03-09-[address] Jeffry Nichole Work Phone: [facility] Start: 01-03-2023 End: 01-03-[address] Jeffry Nichole Work Phone: [facility] Work Phone: Start: 12-15-2022 End: 12-15-[address] Jeffry Nichole Work Phone: [facility] Work Phone: Start: 12-08-2022 End: 12-08-[address] Jeffry Nichole Work Phone: [facility] Work Phone: Start: 12-02-2022 End: 12-02-[address] Jeffry Nichole Work Phone: [facility] Work Phone: Start: 11-24-2022 End: 11-24-[address] Jeffry Nichole Work Phone: [facility] Work Phone: Start: 11-11-2022 Non-patient / Non-visit Dr. Genaro Nichole Work Phone: [facility] Start: 11-11-2022 End: 11-11-2022 Admission to same day surgery center Dr. Jeffry Nichole Work Phone: [facility] Start: 11-11-2022 End: 11-11-[address] Jeffry Nichole Work Phone: [facility] Work Phone: Start: 10-22-2022 End: 10-22-[address] Jeffry Nichole Work Phone: [facility] Work Phone: Start: 10-05-2022 End: 10-05-[address] Jeffry Nichole Work Phone: [facility] Work Phone: Start: 09-06-2022 End: 09-06-[address] Jeffry Nichole Work Phone: [facility] Start: 08-16-2022 End: 08-16-[address] Jeffry Nichole Work Phone: [facility]Outpatient Breast [facility] Work Phone: Start: 08-04-2022 End: 08-04-[address] Jeffry Nichole Work Phone: [facility] Work Phone: Start: 08-04-2022 End: 08-04-[address] Jeffry Nichole Work Phone: [facility]-Outpatient Bone Densitometry Start: 05-26-2022 End: 05-26-[address] Jeffry Nichole Work Phone: [facility] Start: 05-19-2022 End: 05-19-[address] Jeffry Nichole Work Phone: [facility] Start: 05-10-2022 End: 05-10-[address] Jeffry Nichole Work Phone: [facility] Start: 04-21-2022 End: 04-21-[address] Jeffry Nichole Work Phone: [facility] Start: 03-31-2022 End: 03-31-[address] Jeffry Nichole Work Phone: [facility] Work Phone: Start: 03-31-2022 End: 03-31-[address] Jeffry Nichole Work Phone: [facility]-Pulmonary Services/Neurology Start: 03-17-2022 End: 03-17-[address] Jeffry Nichole Work Phone: [facility] Start: 02-26-2022 Non-patient / Non-visit Dr. Genaro Nichole Work Phone: [facility] Start: 02-25-2022 Non-patient / Non-visit Dr. Genaro Nichole Work Phone: [facility] Start: 02-25-2022 Non-patient / Non-visit Dr. Genaro Nichole Work Phone: [facility] Start: 02-24-2022 Non-patient / Non-visit Dr. Genaro Nichole Work Phone: [facility] Start: 02-24-2022 End: 02-26-2022 Evaluation and management of inpatient [facility]Intensive Care Unit Start: 08-17-2021 ambulatory Britni Prince shavon INTERVENTIONAL RADIOLOGY TECH.[employer] Work Phone: [facility] Comment on above: Labs and next appt Start: 08-03-2021 End: 08-03-2021 Patient encounter procedure Britni Mcintyre BLANCO.[employer] Work Phone: [facility] Comment on above: Class 2 obesity with out serious comorbidity with body mass index (BMI) of 36.0 to 36.9 in adult, unspecified obesity type (Primary Dx); Hypertension, unspecified type; Vitamin D deficiency; Hiatal hernia; Sleep apnea, unspecified type; H/O gastric sleeve; History of low potassium; BMI 36.0-36.9,adult; Dietary counseling and surveillance Start: 03-24-2018 Preprocedural examination done Britni Torresdoyle SIMEON.[employer] Work Phone: [facility] Work Phone: Procedures Date Procedure Procedure Detail Performing Clinician Start: 11-05-2024 Cardiovascular stres s test using pharmacologic stress agent Dr. Jeffry Nichole DO Work Phone: Start: 11-11-[address] Jeffry [...] Plain chest X-ray Start: 07-28-2020 Colonoscopy Britni mayerb INTERVENTIONAL RADIOLOGY TECH.[employer] Work Phone: Start: 09-19-2019 Antibody screen Comment on above: Performed By: #### T &S #### [place] [id number] Start: 05-21-2019 Mammography Britni arroyo INTERVENTIONAL RADIOLOGY TECH.[employer] Work Phone: Plan of Treatment Date Care Activity Detail Author Start: 01-21-2026 LIPID SCREEN LIPID SCREEN [facility] Start: 07-28-2025 Colonoscopy COLONOSCOPY [facility] Start: 07-28-2025 COLORECTAL CANCER SCREENING COLORECTAL CANCER SCREENING [facility] Start: 04-03-2024 DIABETES SCREEN DIABETES SCREEN [facility] Start: 12-28-2022 PAP TESTING PAP TESTING [facility] Start: 11-11-2022 Patient discharge [facility] Start: 02-26-2022 Patient referral [facility] Work Phone: Start: 02-26-2022 Patient discharge [facility] Work Phone: Start: 02-24-2022 Ambulation without limitation [facility] Work Phone: Start: 02-24-2022 Assessment of risk of venous thromboembolism [facility] Work Phone: Start: 02-24-2022 Catheterization of vein [facility] Work Phone: Start: 02-24-2022 Chart related administrative procedure [facility] Work Phone: Start: 02-24-2022 Incentive spirometry [facility] Work Phone: Start: 02-24-2022 Insertion of catheter into peripheral vein [facility] Work Phone: Start: 02-24-2022 Measuring intake and output [facility] Work Phone: Start: 02-24-2022 Notification of physician [facility] Work Phone: Start: 02-24-2022 Oxygen therapy [facility] Work Phone: Start: 02-24-2022 Patient education [facility] Work Phone: Start: 02-24-2022 Patient referral to dietitian [facility] Work Phone: Start: 02-24-2022 Providing care according to standard [facility] Work Phone: Start: 02-24-2022 Pulse taking [facility] Work Phone: Start: 02-24-2022 Taking patient vital signs [facility] Work Phone: Start: 02-24-2022 Vital signs measurements [facility] Work Phone: Start: 02-24-2022 Wound care [facility] Work Phone: Start: 02-24-2022 Following clinical pathway protocol [facility] Work Phone: Start: 02-24-2022 Electrocardiographic procedure [facility] Work Phone: Start: 02-24-2022 Verification routine [facility] Work Phone: Start: 02-24-2022 Catheterization of left heart [facility] Work Phone: Start: 02-24-2022 Admission procedure [facility] Work Phone: Start: 02-24-2022 End: 02-24-2022 Blood chemistry [facility] Work Phone: Start: 02-24-2022 End: 02-24-2022 Partial thromboplastin time, activated [facility] Work Phone: Start: 02-24-2022 End: 02-24-2022 Prothrombin time [facility] Work Phone: Start: 02-24-2022 End: 02-24-2022 [facility] Work Phone: Start: 02-24-2022 [facility] Work Phone: Start: 12-24-2021 Influenza vaccination INFLUENZA (Season Ended) [facility] Start: 08-03-2021 End: 10-03-2021 CBC W Auto Differential panel - Blood CBC + DIFF Lab Routine H/O gastric sleeve Expected: 08/03/2021, Expires: 10/03/2021 [facility] Work Phone: Comment on above: Expected: 08/03/2021, Expires: 2 Start: 08-03-2021 End: 10-03-2021 Comprehensive metabolic 2000 panel - Serum or Plasma [facility] Work Phone: Comment on above: Expected: 08/03/2021, Expires: 2 Start: 08-03-2021 End: 10-03-2021 LIPID PANEL BASIC LIPID PANEL BASIC Lab Routine Class 2 obesity without serious comorbidity with body mass index (BMI) of 36.0 to 36.9 in adult, unspecified obesity type Hypertension, unspecified type Expected: 08/03/2021, Expires: 10/03/2021 [facility] Work Phone: Comment on above: Expected: 08/03/2021, Expires: 2 Start: 08-03-2021 End: 10-03-2021 VITAMIN D 25 HYDROXY VITAMIN D 25 HYDROXY Lab Routine Vitamin D deficiency Expected: 08/03/2021, Expires: 10/03/2021 [facility] Work Phone: Comment on above: Expected: 08/03/2021, Expires: 2 Start: 05-21-2020 Mammography MAMMOGRAM [facility] Start: 07-16-2019 HPV TESTING HPV TESTING [facility] Start: 2009 SHINGRIX VACCINE (1 of 2) SHINGRIX VACCINE (1 of 2) [facility] Start: 2004 COLOGUARD (FIT-DNA) COLOGUARD (FIT-DNA) [facility] Start: [address] COLONOGRAPHY [facility] Start: 2004 FECAL OCCULT BLOOD FECAL OCCULT BLOOD [facility] Start: 2004 SIGMOIDOSCOPY SIGMOIDOSCOPY [facility] Start: 1978 Urine microalbumin profile DTAP,TDAP,TD (1 - Tdap) [facility] Start: 1977 ANNUAL PCP TEAM CHRONIC DISEASE VISIT ANNUAL PCP TEAM CHRONIC DISEASE VISIT [facility] Start: 1977 BP CONTROLLED (<130/80) BP CONTROLLED (<130/80) [facility] Start: 1977 HEPATITIS C SCREENING HEPATITIS C SCREENING [facility] Start: 1977 HIV SCREENING HIV SCREENING [facility] Start: 1964 COVID-19 VACCINE (1) COVID-19 VACCINE (1) [facility] Anion gap measurement [facility] Work Phone: BUN/Creatinine ratio [facility] Work Phone: Calcium [Mass/volume ] in Serum or Plasma [facility] Work Phone: Carbon dioxide, tota l [Moles/volume] in Serum or Plasma [facility] Work Phone: Chloride [Moles/volu me] in Serum or Plasma [facility] Work Phone: Comprehensive metabo lic 1999 panel - Serum or Plasma [facility] Comprehensive metabo lic 1999 panel - Serum or Plasma [facility] Creatinine [Moles/vo lume] in Serum or Plasma [facility] Work Phone: Glucose [Mass/volume ] in Serum or Plasma [facility] Work Phone: Hematocrit [Volume F raction] of Blood [facility] Work Phone: Hemoglobin [Mass/vol ume] in Blood [facility] Work Phone: INR in Blood by Coag ulation assay [facility] Work Phone: Leukocytes [#/volume ] in Blood [facility] Work Phone: Lipid 1996 panel - S bea or Plasma [facility] Mean corpuscular hem oglobin concentration determination [facility] Work Phone: Mean corpuscular hem oglobin determination [facility] Work Phone: Measurement of renal function [facility] Work Phone: Neutrophil count [facility] Work Phone: Neutrophil percent differential count [facility] Work Phone: NM Heart Views W str ess and W radionuclide IV [facility] Partial thromboplast in time, activated [facility] Work Phone: Patient referral [facility] Work Phone: Platelets [#/volume] in Blood [facility] Work Phone: Potassium [Moles/vol ume] in Serum or Plasma [facility] Work Phone: Prothrombin time [facility] Work Phone: Red blood cell count [facility] Work Phone: Red cell distributio n width determination [facility] Work Phone: Sodium [Moles/volume ] in Serum or Plasma [facility] Work Phone: Urea nitrogen [Mass/ volume] in Serum or Plasma [facility] Work Phone: [facility] Payers Date Payer Category Payer Medicare [id number] [place] [id number] 2024 Unknown [id number] 61 [id number] 2024 Self-pay [id number] 2018 Unknown [id number] 2015 Unknown [id number] Unknown [id number] [id number] [id number] Unknown [id number] 2.16.8 [id number] Unknown [id number] 2.16.8 [id number] Unknown [id number] 2.16.8 [id number] Unknown [id number] 2.16.8 [id number] Social History Date Type Detail Facility Start: 12-15-2022 Tobacco smoking status NHIS Never smoked tobacco [facility] Start: 08-03-2021 Alcohol intake Current drinke r of alcohol (finding) [facility] Start: 09-26-2019 History SDOH Alcohol Frequency 3 [facility] Start: 03-13-2018 History SDOH Alcohol Comment occasional wine-not weekly [facility] Start: 09-27-2019 History SDOH Financial 5 [facility] Start: 09-27-2019 History SDOH Food Worry 1 [facility] Start: 09-27-2019 History SDOH Transport Med 2 [facility] Start: 1960 Sex Assigned At Female C [facility] Start: 07-24-2021 End: 08-03-2021 Exposure to SARS-CoV-2 (event) Not sure [facility] Start: 02-24-2022 End: 12-15-2022 Tobacco smoking status NHIS Unknown if ever smoked [facility] Start: 02-12-2019 Non-smoker [facility] NEGATED: Highlighted row [facility] Medical Equipment Procedure Code Equipment Code [...] Functional status Ambulates;Up ad angélica [facility] Work Phone: Mental Status Date Assessment Result Facility 11-11-2022 Cognitive function Voice/Name [facility] Work Phone: 02-26-2022 Cognitive function Voice/Name [facility] Work Phone: 02-24-2022 Cognitive function Level Of Cons ciousness Awake;Alert;Appropriate [facility] Work Phone: Clinical Notes 05-26-2009 to 09-26-2024 Note Date & Type Note Facility 09-26-2024 Evaluation note Diagnosis Onset Date Resolution Coronary artery disease acute J 2024 9:32am Dyslipidemia chronic September 26 9:32am Grade III diastolic dysfunction chronic September 26, 2024 9 :32am Hypertension chronic September 26 9:32am Palpitations resolved September 26 9:32am [facility] Work Phone: 1(248) 434-975706-04-2025 [facility] [address] [place], [place] [address] OFFICE VISIT Date of Service: 09/26/24 MR#: [id number] Acct: [id number] Name: CHRISTINA JADE Rep #: [id number] : 1960 Provider: Dr. Saji Petty MD Age/Sex: 64/F [place] [facility] [place] Signed HPI HPI History of Present [...] Intake Visit Reasons: OVERDUE 6 M FU Naturopathic Doctor Required: No Accompanied by: Granddaughter Is patient [...] Cardiac Ejection fraction %: 55 09/26/24 1018 > Date _ Layton Petty MD [facility] Signature: Date (if applicable) CC: Dr. Jeffry Nichole, DO ~ [facility]07-20-2023 History and physical note Author Lul Borrero [facility] November 11, 2022 8:35am Note Date/Time November 11, 2022 6:51 am [facility] Medical Records Department [address] [place] [address] History & Physical Exam 11/11/22 0650 MR#: [id number] Acct: [id number] Name: CHRISTINA JADE Rep #:[id number] : 1960 62 From: Lul Borrero MD PCP: Dr. Jeffry Nichole, DO [place] [address] History and Physical Date of Admission: 11/11/22 [...] Visit Reasons: HEMORRHOIDS Chief Complaint: hemorrhoids consult Naturopathic Doctor Required: No Is patient in pain?: No [...] QHS #90 tabs 03/26/22 [Rx Confirmed 10/05/22] [facility] Medical History (Updated 06/13/23 @ 12:29 by Marcia Rojas) Achilles tendon [...] recent BMI is 37. 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 She can have very [...] having had colon cancer. [place] is her cpyhrl-bh-ebo. ROS General General: Yes weight change; No [...] cooperative, healthy appearing and no acute distress [facility] Head: normal to inspection Eyes General: appearance [...] hemorrhoid: Status: Acute Plan: Today was a xgqf-cw-ycvf consultative appointment. I have described the technique [...] DO; Dr. Lul Borrero MD ~* Signed [facility] Work Phone: [phone] Procedure [facility] 11-11-2022 Procedure [facility]07-20-2023 Procedure note [facility]04-11-2022 NoteHNO ID: [id number] Author: Britni Mcintyre APRN.BOAT BUFFER PLASTIC Service: ? Author Type: Nurse Practitioner Type: Progress Notes Filed: 08/04/2021 9:50 AM Note Text: BMI Obesity Medicine FollowUp Note August 03, 2021 Patient Summary: is 61 year old Female who presents for follow-up evaluation of her obesity and related complications to the [facility] Bariatric and Metabolic Stopover. In our previous visits we have outlined [...] mg tab (more content not included)...[facility]04-11-2022 History of Present illness Narrative* Britni Potts Yousif, INTERVENTIONAL RADIOLOGY TECH.BOAT BUFFER PLASTIC - 08/03/2021 3:26 PM EDT Images from the original note were not included. BMI Obesity Medicine FollowUp Note August 03, 2021 Patient Summary: is 61 year old Female who presents for follow-up evaluation of her obesity and related complications to the [facility] Bariatric and Metabolic Stopover. In our previous visitswe have outlined an [...] which included preparing to see the patient, wcre-xm-smhj patient care, completing clinical documentation, obtaining and/or [...] up in 4 weeks [facility] Instructions* Patient Instructions* Britni Mcintyre APRN.CNP - [...] as visual guide to low carb food: Https://www.dietMojo Mobilityor.TCAS Online/ ( visual guide for low carb diet) [...] like a plant based meal replacement called GuestCentric [employer] Nutrition - can mix w froz [...] Good examples of appsto track calories are Minderest, LOSE IT. Some patient have found FOODUCATE to help with decisions around food, however choose apps that best suits you. Nutrition Counseling Practice these: - Eat 3 meals daily can use approved/recommended protein shake as 1 meal replacement (should be <200 calories, 20-30g protein, <5g added sugar) - Keep a food journal 5-7x/week (consider Zazzle or [employer] sushma) and demonstrate meeting protein goal (60-90g protein for females, 70-105g protein for males)- Lean meats, fish, low fat dairy - cottage cheese, New Zealander yogurt, light yogurt, cheese, ricotta cheese, nuts, [...] difficultworkouts. 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 (Which, to be fair, is not just the result of exercise, but also diet and lifestyle changes.) Once you build the habit of exercise, you can find thousands of ways to improve. Without the habit,every strategy is useless. Build the habit first, worry about the results later https://City Grade/exercise-habit metformin if no contraindications with gastric sleeve; [...] at or call local emergency services at 330. What other information should I know? Keep all appointments with your doctor and the laboratory. Do not let anyone else take your medication. Topiramate use needs to be monitored closely. Prescriptions may be refilled only a limited number of times. Keep a written list of all of your prescription and nonprescription (iblv-bji-vezenge) medicines, in addition to vitamins, minerals, or [...] for a missed one. Sources Pubmed Health: http://www.ncbi.nlm.nih.gov/pubmedhealth/OFR6014411/ Drugs.com http://www.drugs.com/pro/topiramate.html MyWebGrocer : TRUE LEMON Water Enhancer, Bulk Dispenser Pack (100 Packets) Zero Calorie Unsweetened Water Flavoring For Water, Bottled Water, Iced Tea & Recipes Water Flavor Packets Made with Real Raven : Fruit Juices : Grocery & Gourmet Food True Lemon (AkeLex) Meal replacements: https://www.Oxitec.com/food-nutrition/i38799157/5-nyyn-oprl-replacements/ Meal replacements. One option that works for some people is to use meal replacements, as in the DiRECT and Look AHEAD trials.The available options in Look AHEAD included shakes, bars, and meals from a variety of companies (Stootie, Hyperfair, OptiFetchBack, and Barcol Air USA). The calorie content was 150 to 220 [...] stop using meal replacements. [facility]21 NoteHNO ID: [id number] Author: Jie Renee MD Service: ? Author Type: Physician Type: Progress Notes Filed: 03/30/2021 10:15 AM Note Text: Jie Renee MD [facility] [address] [place] [address], [facility] [address] - [address] Floor [place] [phone] Virtual visit Christina Jade is a 60 [...] 276.8, ICD1 (more content not included)...[facility]10-14-2021 NoteHNO ID: [id number] Author: Nona Hugo Service: ? Author Type: ? Type: Progress Notes Filed: 02/05/2021 2:18 PM Note Text: Spoke to patient, patient is aware and agreeable. Nona Hugo[facility]2021 NoteHNO ID: [id number] Author: Jie Renee MD Service: ? Author Type: Physician Type: Progress Notes Filed: 02/05/2021 12:07 PM Note Text: Jie Renee MD [facility] [address] [place] [address], [facility] [address] - Fourth [place] [phone] In office Christina Jade is a 60 [...] loss will (more content not included)...[facility] 12-17-2020 NoteHNO ID: [id number] Author: Danette Boyce APRN.BOAT BUFFER PLASTIC Service: ? Author Type: Nurse Practitioner Type: Progress Notes Filed: 12/17/2020 3:59 PM Note Text: Christina is a 60 year old who presents for an annual gynecologic exam without complaints. Postmenopausal: Hysterectomy 2018 endometrial cancer HRT use: No. History of abnormal pap: Yes, remote Last mammogram: 2019 normal History of abnormal mammogram: Yes Sexually active: Yes Time with current partner: fci History of cook 3 pastry malignancy: ENDOMETRIAL CANCER Pain with intercourse: No [...] external genitalia normal, normal Bartholin's glands, urethra, [place]'s glands, no vulvar lesions, physiologic discharge present, [...] year or sooner as needed Danette Boyce APRN.[facility]06-30-2021 NoteHNO ID: [id number] Author: Jie Renee MD Service: ? Author [...] of this encounter: 98.9 kg (218 lb). [place] weight: 62 kg (136 lb 11.2 oz) [...] gustatory rhinorrhea, (more content not included)...[facility] 08-18-2020 NoteHNO ID: [id number] Author: Jocy Dempsey (Aprn Cnp) Service: ? [...] Total weight loss: 14.5 kg (32 lb) [place] weight: 62 kg (136 lb 11.2 oz) [...] LABS: Today: reviewed In 3 months: See [facility] Orders Nutrition Counseling Practice these: - Eat 3 meals daily?can use approved/recommended protein shake as 1 meal replacement (should be <200 calories, 20-30g protein, <5g added sugar) - Keep a food journal 5-7x/week (consider MyFitnessPal or [employer] sushma) and demonstrate meeting protein goal (60-90g protein for females, 70-105g protein for males)- Lean meats, fish, low fat dairy - cottage cheese, New Zealander yogurt, light yogurt, cheese, ricotta cheese, nuts, [...] gulping ASSESSMENT/PLAN (more content not included)...[facility] 05-26-2009 History of Past illness Narrative* Problem Noted Date Resolved Date Abdominal pain, left upper quadrant 05/26/2009 03/22/2011 Endometriosis, site unspecified 05/26/2009 09/03/2016 Irregular menstrual cycle 05/26/20092016 Dysmenorrhea 05/26/2009 03/22/2011 Rectocele 05/26/2009 03/22/2011 documented as of this encounter (statuses as of 08/03/2021) [facility]02-01-2010 History of Past illness Narrative* Problem Noted Date Resolved Date Abdominal pain, left upper quadrant 05/26/2009 03/22/2011 Endometriosis, site unspecified 05/26/2009 09/03/2016 Irregular menstrual cycle 05/26/20092016 Dysmenorrhea 05/26/2009 03/22/2011 Rectocele 05/26/2009 03/22/2011 documented as of this encounter (statuses as of 08/19/2021) [facility]Reason for visit Narrative* Chief Complaint osteopenia SCREENING HEMORRHOIDS Discuss future procedure (hemorrhoids) Hemorrhoidectomy Hemorrhoidectomy Reason for Visit Bleeding hemorrhoid Coronary artery disease Hypertension Bleeding hemorrhoid [facility] Work Phone: Evaluation note* Diagnosis Class [...] surveillance and counseling documented in this encounter [facility] noteNo assessment information availableWWilson Health Work Phone: Evaluation note* Diagnosis Onset Date Resolution Status Spontaneous dissection of coronary artery acute STEMI (ST elevation myocardial infarction) acute Hypertension [facility] Work Phone: Evaluation note* Diagnosis Onset Date Resolution Status Hypertension chronic Spontaneous dissection of coronary artery resolved STEMI (ST elevation myocardial infarction) resolved Coronary artery disease acut e Dyslipidemia acute Palpitations acute Hypertension [facility] Work Phone: Evaluation note* Diagnosis Onset Date Resolution Status Bilateral knee pain acute Bilateral primary osteoarthritis of knee acute Bilateral primary osteoarthritis of knee acute Bilateral primary osteoarthritis of knee acute [facility] Work Phone: Evaluation note* Diagnosis Onset Date Resolution Status Bleeding hemorrhoid acute Coronary artery disease acut e Hypertension chronic Bleeding hemorrhoid acute [facility] Work Phone: Evaluation note* Diagnosis Onset Date Resolution Status Bilateral primary osteoarthritis of knee acute Status post hemorrhoidectomy acute Bilateral primary osteoarthritis of knee acute Bilateral primary osteoarthritis of knee acute Status post hemorrhoidectomy acute [facility] Work Phone: Evaluation note* Diagnosis Onset Date Resolution Status Admit Date Coronary artery disease acute J 2024 9:32am Dyslipidemia chronic September 26 9:32am Grade III diastolic 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 [place] [address] OFFICE VISIT Date of Service: 09/26/24 MR#: [id number] Acct: [id number] Name: CHRISTINA JADE Rep #: [id number] : 1960 Provider: Dr. Saji Petty MD Age/Sex: 64/F Location[facility] Status: Signed HPI HPI History of [...] Intake Visit Reasons: OVERDUE 6 M FU Naturopathic Doctor Required: No Accompanied by: Granddaughter Is patient [...] year?: No Cardiac Ejection fraction %: 55 06/04/25 1018 <Electronically signed by Layton Petty MD> Date _ Layton Petty MD Cosigner Signature: Date (if applicable) CC: Dr. 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 Advance Directive(s) 07/28/2020 10:59 AM Advance Directive(s) 07/21/2020 10:59 AM W ooster Advance Directive(s) 09/26/2019 6:58 AM Advance Directive(s) 09/19/2019 2:12 PM Advance Directive(s) 04/13/2019 7:35 AM Advance Directive(s) 03/24/2018 5:55 AM Advance Directive(s) 03/24/2018 5:54 AM Advance Directive Response Recorded Date/ Time Living Will Yes February 24 11:58am Power of Dye Reel Operator Yes February 24, 2022 11:58am Name of Medical Power of Dye Reel Operator February 24, 2022 11:58am Advance Directive Response Recorded Date/ Time Name of Medical Power of Dye Reel Operator Ralf Jade- February 24, 2022 1:39pm Living Will Yes February 24 1:39pm Power of Dye Reel Operator Yes February 24, 2022 1:39pm Advance Directive Response Recorded Date/ Time Name of Medical Power of Dye Reel Operator Ralf Jade- February 24, 2022 12:39pm Living Will Yes February 24 12:39pm Power of Dye Reel Operator Yes February 24, 2022 12:39pm Advance Directive Response Recorded Date/ Time Living Will Yes February 24 1:39pm Power of Dye Reel Operator Yes February 24, 2022 1:39pm Advance Directive Response Recorded Date/ Time Name of Medical Power of Dye Reel Operator SPOUSE November 04, 2022 11:16am Living Will Yes November 04, 2022 11:16am Power of Dye Reel Operator Yes November 04 11:16am Advance Directive Response Recorded Date/ Time Living Will Yes November 04, 2022 10:16am Power of Dye Reel Operator Yes November 04 10:16am Chief Complaint and [...] m E-ORDER September 26, 2024 10:53 am Chief Complaint Admit Date OVERDUE 6 M FU September 26, 2024 9:32a m E-ORDER September 26, 2024 10:53 am CAD November 05, 2024 6:33 am Additional Source Comments INFORMATION SOURCE (unrecogn ized section and content) DATE CREATED AUTHOR 09/04/2020 [facility] DATE CREATED AUTHOR AUTHOR'S ORGANIZ ATION 05/26/2021 [facility] DATE CREATED AUTHOR AUTHOR'S ORGANIZ ATION 08/05/2021 [facility] DATE CREATED AUTHOR AUTHOR'S ORGANIZ ATION 11/12/2024 [facility] Source Comments (unrecognize d section and content) In the event this informatio n is protected by the Federal Confidentiality of Alcohol and Drug Abuse Patient Records regulations: The Federal rules restrict any use of the information to criminally investigate or prosecute any alcohol or drug abuse patient.[facility] Hospital[facility] the event this information is protected by the Federal Confidentiality of Alcohol and Drug Abuse Patient Records regulations: The Federal rules restrict any use of the information to criminally investigate or prosecute any alcohol or drug abuse patient.[facility] Reason for Visit (unrecogniz ed section and content) Reason Comments Weight Problem Care Teams (unrecognized sec tion and content) Foundry Engineer Relationship Specialty Start Date End Date Jeffry Nichole DO [address] [place] [address] PCP - General Family Practice 12/29/18 Foundry Engineer Relationship Specialty Start Date End Date Jeffry Nichole DO [address] [place] [address] PCP - General Family Practice 12/29/18 Team [...] Care Provider, Referrin g Provider Active PARADISE Silvestre-C Attending Provider Active Team Status: Inactive Member [...] 2024 End: September 26, 2024 Team Status: Active Member Role/Relationship Status Dates Dr. Jeffry Nichole DO Primary Care Provider Active Team Status: Inactive Member Role/Relationship Status Dates Dr. Jeffry Nichole DO Primary Care Provider Active Start: September 26, 2024 End: September 26, 2024 Dr. Jeffry Nichole DO Referring Provider Active Start: September 26, 2024 End: September 26, 2024 Dr. Layton Petty MD Attending Provider Active Start: September 26, 2024 End: September 26, 2024 Team Status: Inactive Member Role/Relationship Status Dates Dr. Jeffry Nichole DO Primary Care Provider Active Start: September 26, 2024 End: September 26, 2024 Dr. Layton Petty MD Attending Provider Active Start: September 26, 2024 End: September 26, 2024 Dr. Layton Petty MD Referring Provider Active Start: September 26, 2024 End: September 26, 2024 Team Status: Inactive Member Role/Relationship Status Dates Dr. Jeffry Nichole DO Primary Care Provider Active Start: November 05, 2024 End: November 05, 2024 Dr. Jeffry Nichole DO Referring Provider Active Start: November 05, 2024 End: November 05, 2024 Dr. Layton Petty MD Attending Provider Active Start: November 05, 2024 End: November 05, 2024 Team Status: Active Member Role/Relationship Status Dates Dr. Jeffry Nichole DO Primary Care Provider Active Start: November 05, 2024 Dr. Layton Petty MD Attending Provider Active Start: November 05, 2024 Goals (unrecognized section and content) Goals [...] BE BASED ON THE PRIMARY CLINICAL RECORDS. [facility]. provides no warranty or guarantee of the accuracy or completeness of information in this document.
[2025-04-17 08:49] LABS: Anion Gap 14 (7-18); BUN 13 mg/dL (4-19); BUN/Creat Ratio 20.6 RATIO (10-20); Calcium,Total 10.2 mg/dL (7.6-11.0); Carbon Dioxide 27.2 mmol/L (20.0-29.0); Chloride 101 mmol/L (96-106); Glucose 165 mg/dL (70-99); Potassium 4.1 mmol/L (3.5-5.1)
== END | disposition home or self-care (01) ==
PROVIDERS: Internal Medicine Cardiovascular Disease; PCP Family Medicine; Referring Provider Anesthesiology Pain Medicine; Visit Provider Anesthesiology Pain Medicine
DX: M54.12 Radiculopathy, cervical region (principal); I25.10 Atherosclerotic heart disease of native coronary artery without angina pectoris; I10 Essential (primary) hypertension; E78.5 Hyperlipidemia, unspecified; I25.2 Old myocardial infarction
CPT/HCPCS: 36415; 72141; 80048